=== PATIENT | male | born 1935 | race Caucasian/White ===

== ENCOUNTER 2017-10-13 16:22 | Inpatient (IN) | payer MEDICARE ==
[2017-10-13] MEDS ORDERED: SODIUM CHLORIDE 0.9% 500 ML IV STA (16:33)
[2017-10-13] MEDS ORDERED: IPRATROPIUM-ALBUTEROL 3 ML NEB INHALATION STA (17:02)
--- NOTE | 2017-10-13 17:07 | ED ---
Abdominal Pain HPI <Jamal Jefferson - Last Filed: 10/13/17 19:17> - General Source: patient, family, RN notes reviewed Mode of arrival: ambulatory Limitations: no limitations <Deep Casey - Last Filed: 10/13/17 19:25> - General Chief Complaint: Abdominal Pain Stated Complaint: PAUL, Abd Pain Time Seen by Provider: 10/13/17 16:31 - History of Present Illness Initial Comments: This an 82-year-old male presents emergency Department with multiple complaints. Patient states been having some ongoing abdominal discomfort has been worsening over the last month or so. Seems seems to move around. Shortly. States it hurts in his lower abdomen to right side. He also states she's been having increased pressure in his abdomen causing him to be short of breath. He denies any orthopnea or lower extremity edema. Patient states he does not have a past medical history though he states he has not been to a physician his entire life for regular checkups. Patient said no prior surgeries. Denies any current medications. 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 Patient denies any current fever, chills, night sweats. Does admit to recent 10 pound weight loss. Patient states was unintentional. Denies any melena med she is denies any dysuria hematuria. He has no current nausea or vomiting. (Deep Casey) - Related Data Home Medications Medication Instructions Recorded Confirmed Aspirin 162.5 mg PO DAILY 10/13/17 10/13/17 Allergies Allergy/AdvReac Type Severity Reaction Status Date / Time No Known Allergies Allergy Verified 10/13/17 16:45 Review of Systems ROS Other: All systems not noted in ROS Statement are negative. <Jamal Jefferson - Last Filed: 10/13/17 19:17> ROS Other: All systems not noted in ROS Statement are negative. <Deep Casey - Last Filed: 10/13/17 19:25> ROS Statement: Those systems with pertinent positive or pertinent negative responses have been documented in the HPI. Past Medical History Past Medical History: No Reported History History of Any Multi-Drug Resistant Organisms: None Reported Past Surgical History: No Surgical Hx Reported Past Psychological History: No Psychological Hx Reported Smoking Status: Current some day smoker Past Alcohol Use History: None Reported Past Drug Use History: None Reported <Deep Casey - Last Filed: 10/13/17 19:25> General Exam Limitations: no limitations General appearance: alert, in no apparent distress, cachectic Head exam: Present: atraumatic, normocephalic, normal inspection Eye exam: Present: normal appearance, PERRL, EOMI. Absent: scleral icterus, conjunctival injection, periorbital swelling ENT exam: Present: normal exam, normal oropharynx, mucous membranes moist Neck exam: Present: normal inspection, full ROM. Absent: tenderness, meningismus, lymphadenopathy Respiratory exam: Present: wheezes. Absent: normal lung sounds bilaterally, respiratory distress, rales, rhonchi, stridor Cardiovascular Exam: Present: regular rate, normal rhythm, normal heart sounds. Absent: systolic murmur, diastolic murmur, rubs, gallop, clicks GI/Abdominal exam: Present: soft, tenderness (Mild right), normal bowel sounds. Absent: distended, guarding, rebound, rigid Back exam: Absent: CVA tenderness (R), CVA tenderness (L) Neurological exam: Present: alert, oriented X3, CN II-XII intact, reflexes normal. Absent: motor sensory deficit Skin exam: Present: warm, dry, intact, normal color. Absent: rash <Deep Casey - Last Filed: 10/13/17 19:25> Course <Jamal Jefferson - Last Filed: 10/13/17 19:17> <Deep Casey - Last Filed: 10/13/17 19:25> Vital Signs 10/13/17 10/13/17 10/13/17 16:23 17:17 17:31 Temperature 97.0 F L Pulse Rate 86 74 75 Respiratory 18 16 Rate Blood Pressure 148/61 154/65 O2 Sat by Pulse 98 100 Oximetry 10/13/17 10/13/17 10/13/17 17:34 18:41 19:20 Temperature 98.6 F Pulse Rate 78 87 85 Respiratory 16 18 Rate Blood Pressure 135/63 154/67 O2 Sat by Pulse 96 1 L Oximetry - Reevaluation(s) Reevaluation #1: 10/13/17 19:17 PA supervision I personally do a [id number] evaluation the patient did discuss the findings with the patient and his . Patient will be admitted I did discuss case with the hospitalist. Dr. Zhou (Jamal Jefferson) Medical Decision Making - Lab Data Result diagrams: 10/13/17 16:59 10/13/17 16:59 <Jamal Jefferson - Last Filed: 10/13/17 19:17> - Lab Data Result diagrams: 10/13/17 16:59 10/13/17 16:59 <Deep Casey - Last Filed: 10/13/17 19:25> - Lab Data Lab Results 10/13/17 10/13/17 10/13/17 Range/Units 16:59 16:59 16:59 WBC 8.4 (3.8-10.6) k/uL RBC 3.80 L (4.30-5.90) m/uL Hgb 5.0 L* (13.0-17.5) gm/dL Hct 22.0 L (39.0-53.0) % MCV 57.9 L (80.0-100.0) fL MCH 13.2 L (25.0-35.0) pg MCHC 22.9 L (31.0-37.0) g/dL RDW 19.3 H (11.5-15.5) % Plt Count 450 (150-450) k/uL Neutrophils % 84 % Lymphocytes % 8 % Monocytes % 6 % Eosinophils % 1 % Basophils % 1 % Neutrophils # 7.1 (1.3-7.7) k/uL Lymphocytes # 0.7 L (1.0-4.8) k/uL Monocytes # 0.5 (0-1.0) k/uL Eosinophils # 0.1 (0-0.7) k/uL Basophils # 0.1 (0-0.2) k/uL Hypochromasia Marked Anisocytosis Slight Microcytosis Marked PT 10.2 (9.0-12.0) sec INR 1.0 (<1.2) APTT 20.0 L (22.0-30.0) sec D-Dimer 0.98 H (<0.60) mg/L FEU Sodium 143 (137-145) mmol/L Potassium 5.1 (3.5-5.1) mmol/L Chloride 105 (98-107) mmol/L Carbon Dioxide 25 (22-30) mmol/L Anion Gap 13 mmol/L BUN 24 H (9-20) mg/dL Creatinine 1.20 (0.66-1.25) mg/dL Est GFR (CKD-EPI)AfAm 66 (>60 ml/min/1.73 sqM) Est GFR (CKD-EPI)NonAf 57 (>60 ml/min/1.73 sqM) Glucose 110 H (74-99) mg/dL Plasma Lactic Acid Atilio (0.7-2.0) mmol/L Calcium 8.9 (8.4-10.2) mg/dL Total Bilirubin 0.4 (0.2-1.3) mg/dL AST 11 L (17-59) U/L ALT 15 L (21-72) U/L Alkaline Phosphatase 81 (38-126) U/L Troponin I (0.000-0.034) ng/mL NT-Pro-B Natriuret Pep pg/mL Total Protein 6.4 (6.3-8.2) g/dL Albumin 3.2 L (3.5-5.0) g/dL Amylase 58 (30-110) U/L Lipase 89 (23-300) U/L Blood Type Blood Type Confirm Blood Type Recheck Antibody Screen Crossmatch Spec Expiration Date 10/13/17 10/13/17 10/13/17 Range/Units 16:59 16:59 16:59 WBC (3.8-10.6) k/uL RBC (4.30-5.90) m/uL Hgb (13.0-17.5) gm/dL Hct (39.0-53.0) % MCV (80.0-100.0) fL MCH (25.0-35.0) pg MCHC (31.0-37.0) g/dL RDW (11.5-15.5) % Plt Count (150-450) k/uL Neutrophils % % Lymphocytes % % Monocytes % % Eosinophils % % Basophils % % Neutrophils # (1.3-7.7) k/uL Lymphocytes # (1.0-4.8) k/uL Monocytes # (0-1.0) k/uL Eosinophils # (0-0.7) k/uL Basophils # (0-0.2) k/uL Hypochromasia Anisocytosis Microcytosis PT (9.0-12.0) sec INR (<1.2) APTT (22.0-30.0) sec D-Dimer (<0.60) mg/L FEU Sodium (137-145) mmol/L Potassium (3.5-5.1) mmol/L Chloride (98-107) mmol/L Carbon Dioxide (22-30) mmol/L Anion Gap mmol/L BUN (9-20) mg/dL Creatinine (0.66-1.25) mg/dL Est GFR (CKD-EPI)AfAm (>60 ml/min/1.73 sqM) Est GFR (CKD-EPI)NonAf (>60 ml/min/1.73 sqM) Glucose (74-99) mg/dL Plasma Lactic Acid Atilio 1.3 (0.7-2.0) mmol/L Calcium (8.4-10.2) mg/dL Total Bilirubin (0.2-1.3) mg/dL AST (17-59) U/L ALT (21-72) U/L Alkaline Phosphatase (38-126) U/L Troponin I <0.012 (0.000-0.034) ng/mL NT-Pro-B Natriuret Pep 1420 pg/mL Total Protein (6.3-8.2) g/dL Albumin (3.5-5.0) g/dL Amylase (30-110) U/L Lipase (23-300) U/L Blood Type Blood Type Confirm Blood Type Recheck Antibody Screen Crossmatch Spec Expiration Date 10/13/17 10/13/17 Range/Units 16:59 18:23 WBC (3.8-10.6) k/uL RBC (4.30-5.90) m/uL Hgb (13.0-17.5) gm/dL Hct (39.0-53.0) % MCV (80.0-100.0) fL MCH (25.0-35.0) pg MCHC (31.0-37.0) g/dL RDW (11.5-15.5) % Plt Count (150-450) k/uL Neutrophils % % Lymphocytes % % Monocytes % % Eosinophils % % Basophils % % Neutrophils # (1.3-7.7) k/uL Lymphocytes # (1.0-4.8) k/uL Monocytes # (0-1.0) k/uL Eosinophils # (0-0.7) k/uL Basophils # (0-0.2) k/uL Hypochromasia Anisocytosis Microcytosis PT (9.0-12.0) sec INR (<1.2) APTT (22.0-30.0) sec D-Dimer (<0.60) mg/L FEU Sodium (137-145) mmol/L Potassium (3.5-5.1) mmol/L Chloride (98-107) mmol/L Carbon Dioxide (22-30) mmol/L Anion Gap mmol/L BUN (9-20) mg/dL Creatinine (0.66-1.25) mg/dL Est GFR (CKD-EPI)AfAm (>60 ml/min/1.73 sqM) Est GFR (CKD-EPI)NonAf (>60 ml/min/1.73 sqM) Glucose (74-99) mg/dL Plasma Lactic Acid Atilio (0.7-2.0) mmol/L Calcium (8.4-10.2) mg/dL Total Bilirubin (0.2-1.3) mg/dL AST (17-59) U/L ALT (21-72) U/L Alkaline Phosphatase (38-126) U/L Troponin I (0.000-0.034) ng/mL NT-Pro-B Natriuret Pep pg/mL Total Protein (6.3-8.2) g/dL Albumin (3.5-5.0) g/dL Amylase (30-110) U/L Lipase (23-300) U/L Blood Type A Positive Blood Type Confirm A Positive Blood Type Recheck CABO Indicated Antibody Screen NEGATIVE Crossmatch See Detail Spec Expiration Date 10/16/2017 - 9983 Disposition <Jamal Jefferson - Last Filed: 10/13/17 19:17> <Deep Casey - Last Filed: 10/13/17 19:25> Clinical Impression: Colonic mass, Anemia, Cholelithiasis, Pulmonary nodule, Weakness Disposition: ADMITTED IP TO THIS [facility] Condition: Fair Referrals: None,Stated [Primary Care Provider] - 1-2 days
[2017-10-13 17:14] LABS: Anisocytosis Slight; Basophils # (A) 0.1 k/uL (0-0.2); Basophils % (A) 1 %; Eosinophils # (A) 0.1 k/uL (0-0.7); Eosinophils % (A) 1 %; Hypochromasia Marked; Lymphocytes # (A) 0.7 k/uL (1.0-4.8); Lymphocytes % (A) 8 %; MCH 13.2 pg (25.0-35.0); MCHC 22.9 g/dL (31.0-37.0); MCV 57.9 fL (80.0-100.0); Mean Platelet Volume 7.3; Microcytosis Marked; Monocytes # (A) 0.5 k/uL (0-1.0); Monocytes % (A) 6 %; Neutrophils # (A) 7.1 k/uL (1.3-7.7); Neutrophils % (A) 84 %; Platelet Count 450 k/uL (150-450); RDW 19.3 % (11.5-15.5); WBC 8.4 k/uL (3.8-10.6)
[2017-10-13 17:25] LABS: Albumin 3.2 g/dL (3.5-5.0); Calcium 8.9 mg/dL (8.4-10.2); Potassium 5.1 mmol/L (3.5-5.1); Total Bilirubin 0.4 mg/dL (0.2-1.3); Total Protein 6.4 g/dL (6.3-8.2)
[2017-10-13 17:31] LABS: D-Dimer 0.98 mg/L FEU (<0.60); Prothrombin Time 10.2 sec (9.0-12.0)
[2017-10-13] MEDS ORDERED: RX INFO: IV CONTRAST WAS GIVEN 1 EACH MISC MISCELLANE PRN (18:01)
--- NOTE | 2017-10-13 18:06 | XR ---
EXAMINATION TYPE: XR chest 2V DATE OF EXAM: 10/13/2017 COMPARISON: None HISTORY: 82-year-old male with shortness of breath TECHNIQUE: PA and lateral views FINDINGS: The heart is normal size. Atherosclerotic arch calcifications. Hyperinflation with flattening of the hemidiaphragms. Calcified granuloma right midlung. Some subtle nodularity left suprahilar region. No consolidation or pleural effusion. IMPRESSION: 1. COPD without acute cardiopulmonary process. 2. Some nodularity in the left suprahilar region could represent superimposition shadow. Recommend no nemergent follow-up CT chest to exclude pulmonary nodules.
--- NOTE | 2017-10-13 18:07 | XR ---
EXAMINATION TYPE: XR KUB DATE OF EXAM: 10/13/2017 CLINICAL DATA: 82-year-old male with abdominal pain, PHH COMPARISON: None FINDINGS: No evidence for free intraperitoneal air. No dilated small bowel or air-fluid levels. Scattered air and stool seen throughout the colon extendi ng distally into the rectum. Scattered mild stool burden. Vascular calcifications in the pelvis. IMPRESSION: Mild stool burden. No evidence of bowel obstruction or free intraperitoneal air.
--- NOTE | 2017-10-13 18:53 | CT ---
EXAMINATION TYPE: CT chest angio for PE DATE OF EXAM: 10/13/2017 COMPARISON: Radiograph same day HISTORY: 82-year-old male complains of RUQ pain. TECHNIQUE: Contiguous axial scanning of the chest performed with IV Contrast, patient injected with 8 0 mL of Isovue 370. Coronal/sagittal MIP reconstructions performed. CT DLP: 130.3 mGycm Automated exposure control for dose reduction was used. FINDINGS: The heart is normal size without pericardial effusion. Coronary vessel calcifications are present in remarkable for coronary artery disease. Ascending aorta is ectatic at 3.7 cm with conventional arch vessel branching anatomy. Moderate athero sclerotic calcifications and plaque are present throughout especially the arch. Satisfactory opacification of the pulmonary arterial system without evidence for pulmonary embolus.. Mild diffuse anasarca type changes present. Scattered small mediastinal lymph nodes. Mildly enlarged right hilar lymph node at 1.3 cm. There is moderate emphysema, moderate to severe in the upper lungs. Biapical pleural parenchymal scar ring. A 4 mm left upper lobe pulmonary nodule is noted have a somewhat spiculated appearance. Groundg lass nodularity anterior left midlung measures 8 mm and should also be reassessed at follow-up. Diffu se bronchial wall thickening. Otherwise, no consolidation or pleural effusion. Abdomen reported separately. Visualized upper abdomen shows diffuse low-density nodularity of the le ft adrenal gland, probably related to adrenal hyperplasia. Bones: No osseous destructive process seen. IMPRESSION: 1. COPD WITH MODERATE EMPHYSEMA. NO EVIDENCE FOR PULMONARY EMBOLUS. 2. A 4 MM LEFT UPPER LOBE PULMONARY NODULE HAS A SOMEWHAT SPICULATED APPEARANCE. SIX-MONTH FOLLOW-UP RECOMMENDED. EARLY LUNG CANCER NOT EXCLUDED AT THIS TIME. 3. A SECOND 8 MM AREA OF NODULARITY ANTERIOR LEFT MIDLUNG COULD REPRESENT A SMALL INFECTIOUS/INFLAMMA TORY FOCUS. THIS SHOULD ALSO BE REASSESSED AT FOLLOW-UP.
--- NOTE | 2017-10-13 19:01 | CT ---
EXAMINATION TYPE: CT abdomen pelvis w con DATE OF EXAM: 10/13/2017 COMPARISON: NONE HISTORY: 82-year-old male complains of RUQ pain. TECHNIQUE: Contiguous axial scanning of the abdomen and pelvis following administration of 100 ml Omn ipaque 300 IV contrast. Delayed images through the kidneys and coronal/sagittal reconstructions perf ormed. CT DLP: 1243.2 mGycm Automated exposure control for dose reduction was used. FINDINGS: The heart is normal size without pericardial effusion. Emphysematous changes in the visualized lower lungs. No pleural effusion. No focal liver lesion. Portal venous system is patent. No biliary ductal dilatation. Gallbladder is packed with gallstones measuring up to 1.3 cm. No abnormal gallbladder distention over all thickening seen. Right adrenal gland, spleen, and pancreas show no gross abnormality. Couple subcentimeter hypodensities in both kidneys too small for accurate CT characterization, likely cysts. Indeterminate intermediate density lesion posterior right kidney axial image 24 shows attenua tion of 64 Hounsfield units on portal venous phase and 70 Hounsfield units on delayed kidney images s uggesting a complicated/hemorrhagic cyst. Diffuse nodular thickening of the left adrenal gland suggests underlying adrenal hyperplasia. No dilated small bowel, free fluid, or free air. Moderate atherosclerotic calcifications and plaque within the abdominal aorta and iliac arteries. Mor e severe atelectatic change within the right iliac arteries. There is focal distortion with extensive irregular wall thickening of the mid ascending colon for a l ength of 6.4 cm. No surrounding inflammatory changes are seen. The lumen is distorted and narrowed an d wall appears thickened up to 2.6 cm in some regions. Normal appendix. Sigmoid diverticulosis without acute diverticulitis. A few right lower quadrant mesenteric lymph nodes are prominent measuring up to 7 mm, axial image 32, 38, and 42. No retroperitoneal lymphadenopathy. Bladder partially urine distended. No abnormal fluid collection in the pelvis or pelvic lymphadenopat hy seen. Bones: Degenerative changes at the hips. There are bilateral L5 pars defects with grade 1 anterolisth esis at L5-S1. Advanced degenerative disc disease with grade 1 retrolisthesis at L4-L5. Facet arthrop athy throughout. No osseous destructive process. IMPRESSION: 1. MARKED IRREGULAR WALL THICKENING OF A 6.4 CM LONG SEGMENT OF MID ASCENDING COLON. THE LUMEN IS IRR EGULARLY NARROWED AND THE WALL IS THICKENED UP TO 2.6 CM. COLON CANCER SHOULD BE EXCLUDED. 2. A FEW ADJACENT PROMINENT RIGHT LOWER QUADRANT MESENTERIC LYMPH NODES MEASURING UP TO 7 MM ARE NONS PECIFIC. 3. EXTENSIVE CHOLELITHIASIS WITHOUT CT FINDINGS OF ACUTE CHOLECYSTITIS. 4. SIGMOID DIVERTICULOSIS.
[2017-10-13] MEDS: SODIUM CHLORIDE 0.9% 1,000 ML IV SCH (19:39)
--- NOTE | 2017-10-13 21:13 | P.HPIM ---
History of Present Illness H&P Date: 10/13/17 Chief Complaint: Abdominal pain This 74-year-old male with no significant past medical history who was admitted to the hospital for weakness and abdominal pain that has been gone for the last few weeks Patient states also that he has been having some shortness of breath denies having any rectal bleeding or vomiting Review of systems since systems has been reviewed all negative and positive findings as per GI Constitutional: No acute distress, conversant, pleasant Eyes: Anicteric sclerae, moist conjunctiva, no lid-lag PERRLA ENMT: NC/AT Oropharynx clear, no erythema, exudates Neck: Supple, FROM, no masses, or JVD No carotid bruits No thyromegaly Lungs: Clear to auscultation Clear to percussion Normal respiratory effort, no accessory muscle use Cardiovascular: Heart regular in rate and rhythm, No murmurs, gallops, or rubs No peripheral edema Abdominal: Soft Nontender, no guarding, rebound or rigidity Abdomen moving with respiration Normoactive bowel sounds No hepatomegaly, No splenomegaly No palpable mass No abdominal wall hernia noted Skin: Normal temperature, tone, texture, turgor No induration No subcutaneous nodules No rash, lesions No ulcers Extremities: No digital cyanosis No clubbing Pedal pulses intact and symmetrical Radial pulses intact and symmetrical Normal gait and station No calf tenderness Psychiatric:Alert and oriented to person, place and time Appropriate affect Intact judgement Neuro: Muscles Strength 5/5 in all 4 extremities Sensation to light touch grossly present throughout Cranial nerves II-XII grossly intact No focal sensory deficits Vital Signs - 24 hr 10/13/17 10/13/17 10/13/17 16:23 17:17 17:31 Temperature 97.0 F L Pulse Rate 86 74 75 Respiratory 18 16 Rate Blood Pressure 148/61 154/65 O2 Sat by Pulse 98 100 Oximetry 10/13/17 10/13/17 10/13/17 17:34 18:41 19:20 Temperature 98.6 F Pulse Rate 78 87 85 Respiratory 16 18 Rate Blood Pressure 135/63 154/67 O2 Sat by Pulse 96 1 L Oximetry 10/13/17 10/13/17 10/13/17 19:31 19:36 19:46 Temperature 98.7 F 98.4 F 97.9 F Pulse Rate 83 80 86 Respiratory 18 16 17 Rate Blood Pressure 150/68 134/61 148/66 O2 Sat by Pulse 99 100 100 Oximetry 10/13/17 20:16 Temperature 97.9 F Pulse Rate 77 Respiratory 18 Rate Blood Pressure 126/59 O2 Sat by Pulse 10 L Oximetry 6 Past Medical History: No Reported History History of Any Multi-Drug Resistant Organisms: None Reported Past Surgical History: No Surgical Hx Reported Past Psychological History: No Psychological Hx Reported Smoking Status: Current some day smoker Past Alcohol Use History: None Reported Past Drug Use History: None Reported Laboratory Results - last 24 hr 10/13/17 10/13/17 10/13/17 16:59 16:59 16:59 WBC 8.4 RBC 3.80 L Hgb 5.0 L* Hct 22.0 L MCV 57.9 L MCH 13.2 L MCHC 22.9 L RDW 19.3 H Plt Count 450 Neutrophils % 84 Lymphocytes % 8 Monocytes % 6 Eosinophils % 1 Basophils % 1 Neutrophils # 7.1 Lymphocytes # 0.7 L Monocytes # 0.5 Eosinophils # 0.1 Basophils # 0.1 Hypochromasia Marked Anisocytosis Slight Microcytosis Marked PT 10.2 INR 1.0 APTT 20.0 L D-Dimer 0.98 H Sodium 143 Potassium 5.1 Chloride 105 Carbon Dioxide 25 Anion Gap 13 BUN 24 H Creatinine 1.20 Est GFR (CKD-EPI)AfAm 66 Est GFR (CKD-EPI)NonAf 57 Glucose 110 H Plasma Lactic Acid Atilio Calcium 8.9 Total Bilirubin 0.4 AST 11 L ALT 15 L Alkaline Phosphatase 81 Troponin I NT-Pro-B Natriuret Pep Total Protein 6.4 Albumin 3.2 L Amylase 58 Lipase 89 Blood Type Blood Type Confirm Blood Type Recheck Antibody Screen Crossmatch Spec Expiration Date 10/13/17 10/13/17 10/13/17 16:59 16:59 16:59 WBC RBC Hgb Hct MCV MCH MCHC RDW Plt Count Neutrophils % Lymphocytes % Monocytes % Eosinophils % Basophils % Neutrophils # Lymphocytes # Monocytes # Eosinophils # Basophils # Hypochromasia Anisocytosis Microcytosis PT INR APTT D-Dimer Sodium Potassium Chloride Carbon Dioxide Anion Gap BUN Creatinine Est GFR (CKD-EPI)AfAm Est GFR (CKD-EPI)NonAf Glucose Plasma Lactic Acid Atilio 1.3 Calcium Total Bilirubin AST ALT Alkaline Phosphatase Troponin I <0.012 NT-Pro-B Natriuret Pep 1420 Total Protein Albumin Amylase Lipase Blood Type Blood Type Confirm Blood Type Recheck Antibody Screen Crossmatch Spec Expiration Date 10/13/17 10/13/17 16:59 18:23 WBC RBC Hgb Hct MCV MCH MCHC RDW Plt Count Neutrophils % Lymphocytes % Monocytes % Eosinophils % Basophils % Neutrophils # Lymphocytes # Monocytes # Eosinophils # Basophils # Hypochromasia Anisocytosis Microcytosis PT INR APTT D-Dimer Sodium Potassium Chloride Carbon Dioxide Anion Gap BUN Creatinine Est GFR (CKD-EPI)AfAm Est GFR (CKD-EPI)NonAf Glucose Plasma Lactic Acid Atilio Calcium Total Bilirubin AST ALT Alkaline Phosphatase Troponin I NT-Pro-B Natriuret Pep Total Protein Albumin Amylase Lipase Blood Type A Positive Blood Type Confirm A Positive Blood Type Recheck CABO Indicated Antibody Screen NEGATIVE Crossmatch See Detail Spec Expiration Date 10/16/2017 9218 Assessment and plan Severe anemia exact etiology is not clear but likely to be GI in origin We will consult gastroenterology the patient may need to have a colonoscopic Colon mass Shortness of breath likely due to symptomatic severe anemia Weakness We will transfuse the patient 2 units of packed RBCs and repeat hemoglobin the patient may need another 2 units Admit the patient to regular medical floor DVT and GI prophylaxis will not be able to start the patient on any Lovenox or heparin due to the severe anemia Past Medical History Past Medical History: No Reported History History of Any Multi-Drug Resistant Organisms: None Reported Past Surgical History: No Surgical Hx Reported Past Psychological History: No Psychological Hx Reported Smoking Status: Current some day smoker Past Alcohol Use History: None Reported Past Drug Use History: None Reported Medications and Allergies Home Medications Medication Instructions Recorded Confirmed Type Aspirin 162.5 mg PO DAILY 10/13/17 10/13/17 History Allergies Allergy/AdvReac Type Severity Reaction Status Date / Time No Known Allergies Allergy Verified 10/13/17 16:45 Physical Exam Vitals: Vital Signs Temp Pulse Resp BP Pulse Ox 10/13/17 20:16 97.9 F 77 18 126/59 10 L 10/13/17 19:46 97.9 F 86 17 148/66 100 10/13/17 19:36 98.4 F 80 16 134/61 100 10/13/17 19:31 98.7 F 83 18 150/68 99 10/13/17 19:20 98.6 F 85 18 154/67 1 L 10/13/17 18:41 87 16 135/63 96 10/13/17 17:34 78 10/13/17 17:31 75 16 154/65 100 10/13/17 17:17 74 10/13/17 16:23 97.0 F L 86 18 148/61 98 Intake and Output 10/13/17 10/13/17 10/13/17 06:59 14:59 22:59 Intake Total 0 Balance 0 Intake: Blood Product 0 Rc As-1 Unit 0 [id number] Other: Weight 58.967 kg Results CBC & Chem 7: 10/13/17 16:59 10/13/17 16:59 Labs: Abnormal Lab Results - Last 24 Hours (Table) 10/13/17 10/13/17 10/13/17 Range/Units 16:59 16:59 16:59 RBC 3.80 L (4.30-5.90) m/uL Hgb 5.0 L* (13.0-17.5) gm/dL Hct 22.0 L (39.0-53.0) % MCV 57.9 L (80.0-100.0) fL MCH 13.2 L (25.0-35.0) pg MCHC 22.9 L (31.0-37.0) g/dL RDW 19.3 H (11.5-15.5) % Lymphocytes # 0.7 L (1.0-4.8) k/uL APTT 20.0 L (22.0-30.0) sec D-Dimer 0.98 H (<0.60) mg/L FEU BUN 24 H (9-20) mg/dL Glucose 110 H (74-99) mg/dL AST 11 L (17-59) U/L ALT 15 L (21-72) U/L Albumin 3.2 L (3.5-5.0) g/dL Crossmatch 10/13/17 Range/Units 16:59 RBC (4.30-5.90) m/uL Hgb (13.0-17.5) gm/dL Hct (39.0-53.0) % MCV (80.0-100.0) fL MCH (25.0-35.0) pg MCHC (31.0-37.0) g/dL RDW (11.5-15.5) % Lymphocytes # (1.0-4.8) k/uL APTT (22.0-30.0) sec D-Dimer (<0.60) mg/L FEU BUN (9-20) mg/dL Glucose (74-99) mg/dL AST (17-59) U/L ALT (21-72) U/L Albumin (3.5-5.0) g/dL Crossmatch See Detail
[2017-10-13] MEDS ORDERED: ONDANSETRON 4 MG/2 ML VIAL IVP PRN (21:14)
[2017-10-13] MEDS ORDERED: ACETAMINOPHEN TAB 325 MG TAB PO PRN (21:14)
[2017-10-14 02:37] LABS: Appearance,Urine Clear (Clear); Bilirubin,Urine Negative (Negative); Blood,Urine Negative (Negative); Color,Urine Yellow; Glucose,Urine (UA) Negative (Negative); Ketones,Urine Negative (Negative); Leukocyte Esterase,Urine Negative (Negative); Nitrite,Urine Negative (Negative); PH, Urine 5.5 (5.0-8.0); Protein,Urine Negative (Negative); Urobilinogen,Urine <2.0 mg/dL (<2.0)
[2017-10-14 07:11] LABS: Anisocytosis Marked; HCT 27.2 % (39.0-53.0); Hypochromasia Marked; MCH 17.6 pg (25.0-35.0); MCHC 25.8 g/dL (31.0-37.0); Mean Platelet Volume 6.7; Microcytosis Marked; Platelet Count 349 k/uL (150-450); Poikilocytosis Marked; WBC 7.5 k/uL (3.8-10.6)
[2017-10-14 07:17] LABS: RDW 25.5 % (11.5-15.5)
[2017-10-14 08:07] LABS: Eosinophils # (M) 0.15 k/uL (0-0.7); Lymphocytes # (M) 0.75 k/uL (1.0-4.8); Monocytes # (M) 0.23 k/uL (0-1.0); Neutrophils # (M) 6.38 k/uL (1.3-7.7); Neutrophils % (M) 85 %; Nucleated Red Blood Cells 0 /100 WBC (0-0); Total Cells Counted 100
[2017-10-14 08:08] LABS: Polychromasia Present; Target Cells Present
[2017-10-14 08:09] LABS: Ovalocytes Present
[2017-10-14 08:12] LABS: Mixed Population RBC Present
[2017-10-14 08:13] LABS: RBC Fragments Present; Spherocytes Present
[2017-10-14] MEDS: PANTOPRAZOLE 40 MG/10 ML VIAL IV SCH (08:54)
[2017-10-14] MEDS: SODIUM CHLORIDE 0.9% 1,000 ML IV SCH ×2 (09:00→21:41)
--- NOTE | 2017-10-14 10:55 | P.PN ---
Subjective Progress Note Date: 10/14/17 Principal diagnosis: Weakness and shortness of breath No abdominal pain, no nausea or vomiting. Had a bowel movement that did not reveal any blood or black stools. Objective - Vital Signs Vital signs: Vital Signs Temp 97.5 F L 10/14/17 08:00 Pulse 85 10/14/17 08:00 Resp 16 10/14/17 08:00 BP 143/66 10/14/17 08:00 Pulse Ox 100 10/14/17 08:00 Intake & Output 10/13/17 10/14/17 10/14/17 18:59 06:59 18:59 Intake Total 620 120 Output Total 250 Balance 370 120 Weight 58.967 kg 56.8 kg Intake: Oral 120 Blood Product 620 Rc As-1 Unit 310 [id number] Rc As-1 Unit 310 [id number] Output: Urine 250 Other: # Voids 1 1 - Exam Constitutional: No acute distress, conversant, pleasant Eyes:Anicteric sclerae, moist conjunctiva, no lid-lag, PERRLA, ENMT: Oropharynx clear, no erythema, exudates Neck: Supple, FROM, no masses, or JVD, No carotid bruits, No thyromegaly Lungs: Clear to auscultation, Clear to percussion, Normal respiratory effort, no accessory muscle use Cardiovascular: Heart regular in rate and rhythm, No murmurs, gallops, or rubs, No peripheral edema Abdominal: Soft, Nontender, no guarding, rebound or rigidity, Normoactive bowel sounds, No hepatomegaly, No splenomegaly, No palpable mass Skin: Normal temperature, tone, texture, turgor, no induration, No subcutaneous nodules, No rash, lesions, No ulcers Extremities: No digital cyanosis, No clubbing, Pedal pulses intact and symmetrical, Radial pulses intact and symmetrical, No calf tenderness Psychiatric: Alert and oriented to person, place and time, appropriate affect, intact judgement Neuro: Muscles Strength 5/5 in all 4 extremities, Sensation to light touch grossly present throughout, Cranial nerves II-XII grossly intact, no focal sensory deficits - Labs CBC & Chem 7: 10/14/17 06:05 10/13/17 16:59 Labs: Abnormal Lab Results - Last 24 Hours (Table) 10/13/17 10/13/17 10/13/17 Range/Units 16:59 16:59 16:59 RBC 3.80 L (4.30-5.90) m/uL Hgb 5.0 L* (13.0-17.5) gm/dL Hct 22.0 L (39.0-53.0) % MCV 57.9 L (80.0-100.0) fL MCH 13.2 L (25.0-35.0) pg MCHC 22.9 L (31.0-37.0) g/dL RDW 19.3 H (11.5-15.5) % Lymphocytes # 0.7 L (1.0-4.8) k/uL Lymphocytes # (Manual) (1.0-4.8) k/uL Retic Count (0.5-2.0) % APTT 20.0 L (22.0-30.0) sec D-Dimer 0.98 H (<0.60) mg/L FEU BUN 24 H (9-20) mg/dL Glucose 110 H (74-99) mg/dL AST 11 L (17-59) U/L ALT 15 L (21-72) U/L Albumin 3.2 L (3.5-5.0) g/dL Ur Specific [place] (1.001-1.035) Crossmatch 10/13/17 10/13/17 10/13/17 Range/Units 16:59 16:59 23:43 RBC (4.30-5.90) m/uL Hgb (13.0-17.5) gm/dL Hct (39.0-53.0) % MCV (80.0-100.0) fL MCH (25.0-35.0) pg MCHC (31.0-37.0) g/dL RDW (11.5-15.5) % Lymphocytes # (1.0-4.8) k/uL Lymphocytes # (Manual) (1.0-4.8) k/uL Retic Count 3.0 H (0.5-2.0) % APTT (22.0-30.0) sec D-Dimer (<0.60) mg/L FEU BUN (9-20) mg/dL Glucose (74-99) mg/dL AST (17-59) U/L ALT (21-72) U/L Albumin (3.5-5.0) g/dL Ur Specific [place] 1.050 H (1.001-1.035) Crossmatch See Detail 10/14/17 Range/Units 06:05 RBC 4.00 L (4.30-5.90) m/uL Hgb 7.0 L* D (13.0-17.5) gm/dL Hct 27.2 L (39.0-53.0) % MCV 68.0 L D (80.0-100.0) fL MCH 17.6 L (25.0-35.0) pg MCHC 25.8 L (31.0-37.0) g/dL RDW 25.5 H (11.5-15.5) % Lymphocytes # (1.0-4.8) k/uL Lymphocytes # (Manual) 0.75 L (1.0-4.8) k/uL Retic Count (0.5-2.0) % APTT (22.0-30.0) sec D-Dimer (<0.60) mg/L FEU BUN (9-20) mg/dL Glucose (74-99) mg/dL AST (17-59) U/L ALT (21-72) U/L Albumin (3.5-5.0) g/dL Ur Specific [place] (1.001-1.035) Crossmatch Assessment and Plan Plan: #1 Severe anemia: MCV is very low consistent with blood loss anemia I called the labs to add on anemia workup including iron profile, ferritin, transferrin, vitamin B12 level, RBC folate and reticulocyte count 2+ peripheral prior to transfusion. Status post 2 units of packed red blood cells transfusion, hemoglobin came up appropriately, will need 1 more unit. Recheck in the morning Awaiting GI consult #2 Colon mass: Shown on computed tomography scan of the abdomen Likely needs colonoscopy with biopsy #3 Shortness of breath/Weakness Likely due to symptomatic severe anemia #4 DVT prophylaxis Patient is ambulatory, low risk
[2017-10-14] MEDS ORDERED: PEG 3350-NA SULF,BICARB,CL/KCL 4,000 ML BOTTLE PO ONE (13:25)
[2017-10-14 17:39] LABS: Folate, Serum 14.1 ng/mL; Iron Saturation 1.91 (15.00-50.00)
[2017-10-15 06:30] LABS: Anisocytosis Marked; HCT 28.8 % (39.0-53.0); Hypochromasia Marked; Mean Platelet Volume 8.2; Microcytosis Marked; Poikilocytosis Marked; RBC 4.11 m/uL (4.30-5.90)
[2017-10-15 06:35] LABS: Glucose 68 mg/dL (74-99)
[2017-10-15 06:36] LABS: Anion Gap 10 mmol/L; Blood Urea Nitrogen 14 mg/dL (9-20); Calcium 8.3 mg/dL (8.4-10.2); Carbon Dioxide 23 mmol/L (22-30); Chloride 107 mmol/L (98-107); Magnesium 1.8 mg/dL (1.6-2.3); Phosphorus 3.2 mg/dL (2.5-4.5); Potassium 4.2 mmol/L (3.5-5.1); Sodium 140 mmol/L (137-145)
[2017-10-15 06:46] LABS: HGB 7.7 gm/dL (13.0-17.5); MCH 18.9 pg (25.0-35.0); MCHC 26.9 g/dL (31.0-37.0); MCV 70.2 fL (80.0-100.0); Platelet Count 360 k/uL (150-450); RDW 26.1 % (11.5-15.5); WBC 6.3 k/uL (3.8-10.6)
[2017-10-15 07:04] LABS: Basophils # (M) 0.19 k/uL (0-0.2); Eosinophils # (M) 0.32 k/uL (0-0.7); Lymphocytes # (M) 1.26 k/uL (1.0-4.8); Monocytes # (M) 0.57 k/uL (0-1.0); Neutrophils # (M) 3.97 k/uL (1.3-7.7); Neutrophils % (M) 63 %; Nucleated Red Blood Cells 0 /100 WBC (0-0); Total Cells Counted 100
[2017-10-15 07:06] LABS: Ovalocytes Present
[2017-10-15 07:09] LABS: Polychromasia Present
[2017-10-15] MEDS: PANTOPRAZOLE 40 MG/10 ML VIAL IV SCH (07:58)
--- NOTE | 2017-10-15 11:00 | P.PN ---
Subjective Principal diagnosis: Weakness and shortness of breath No evidence of bleeding, no nausea or vomiting. No abdominal pain. Objective - Vital Signs Vital signs: Vital Signs Temp 97.7 F 10/15/17 08:03 Pulse 80 10/15/17 08:03 Resp 18 10/15/17 08:03 BP 118/59 10/15/17 08:03 Pulse Ox 99 10/15/17 08:03 Intake & Output 10/14/17 10/15/17 10/15/17 18:59 06:59 18:59 Intake Total 480 1450 Balance 480 1450 Weight 56.8 kg 55.1 kg Intake: Intake, IV Titration 450 Amount Sodium Chloride 0.9% 1, 450 000 ml @ 75 mls/hr IV . [id number] [facility] Rx#:[id number] Oral 480 1000 Blood Product 0 0 Rc As-1 Unit 0 0 [id number] Other: # Voids 1 3 # Bowel Movements 0 6 - Exam Constitutional: No acute distress, conversant, pleasant Eyes:Anicteric sclerae, moist conjunctiva, no lid-lag, PERRLA, ENMT: Oropharynx clear, no erythema, exudates Neck: Supple, FROM, no masses, or JVD, No carotid bruits, No thyromegaly Lungs: Clear to auscultation, Clear to percussion, Normal respiratory effort, no accessory muscle use Cardiovascular: Heart regular in rate and rhythm, No murmurs, gallops, or rubs, No peripheral edema Abdominal: Soft, Nontender, no guarding, rebound or rigidity, Normoactive bowel sounds, No hepatomegaly, No splenomegaly, No palpable mass Skin: Normal temperature, tone, texture, turgor, no induration, No subcutaneous nodules, No rash, lesions, No ulcers Extremities: No digital cyanosis, No clubbing, Pedal pulses intact and symmetrical, Radial pulses intact and symmetrical, No calf tenderness Psychiatric: Alert and oriented to person, place and time, appropriate affect, intact judgement Neuro: Muscles Strength 5/5 in all 4 extremities, Sensation to light touch grossly present throughout, Cranial nerves II-XII grossly intact, no focal sensory deficits - Labs CBC & Chem 7: 10/15/17 05:47 10/15/17 05:47 Labs: Abnormal Lab Results - Last 24 Hours (Table) 10/13/17 10/13/17 10/13/17 Range/Units 16:59 16:59 16:59 RBC (4.30-5.90) m/uL Hgb (13.0-17.5) gm/dL Hct (39.0-53.0) % MCV (80.0-100.0) fL MCH (25.0-35.0) pg MCHC (31.0-37.0) g/dL RDW (11.5-15.5) % Glucose (74-99) mg/dL Calcium (8.4-10.2) mg/dL Iron 7 L (65-175) ug/dL Iron Saturation 1.91 L (15.00-50.00) Ferritin 1.9 L (22.0-322.0) ng/mL RBC Folate 1,109 H (280 - 791) ng/mL Crossmatch See Detail 10/15/17 10/15/17 Range/Units 05:47 05:47 RBC 4.11 L (4.30-5.90) m/uL Hgb 7.7 L (13.0-17.5) gm/dL Hct 28.8 L (39.0-53.0) % MCV 70.2 L (80.0-100.0) fL MCH 18.9 L (25.0-35.0) pg MCHC 26.9 L (31.0-37.0) g/dL RDW 26.1 H (11.5-15.5) % Glucose 68 L (74-99) mg/dL Calcium 8.3 L (8.4-10.2) mg/dL Iron (65-175) ug/dL Iron Saturation (15.00-50.00) Ferritin (22.0-322.0) ng/mL RBC Folate (280 - 791) ng/mL Crossmatch Assessment and Plan Plan: #1 Severe anemia: MCV is very low consistent with blood loss anemia Iron profile, ferritin are consistent with iron deficiency Vitamin B12 level, RBC folate within normal limits Status post 3 units of packed red blood cells transfusion, hemoglobin came up appropriately. GI planning colonoscopy today #2 Colon mass: Shown on computed tomography scan of the abdomen Colonoscopy with biopsy today #3 Shortness of breath/Weakness Likely due to symptomatic severe anemia Improved with blood transfusion #4 DVT prophylaxis Patient is ambulatory, low risk
[2017-10-15] MEDS ORDERED: IV FLUID CONTINUATION 1,000 ML IV ONE (16:00)
[2017-10-15] MEDS ORDERED: PROPOFOL 10 MG/ML 20 ML VIAL IV ONE (16:01)
--- NOTE | 2017-10-15 16:10 | P.CONS ---
History of Present Illness - Reason for Consult Consult date: 10/14/[address] of the abdomen - History of Present Illness The patient is an 82-year-old male with no significant past medical history who presented to the emergency room with abdominal pain and weakness of recent onset. The patient was found to have profound anemia. He was admitted and transfused. CT of the abdomen showed abnormal segment in the right colon could represent malignancy. The patient denies any overt bleeding. He denies dysphagia, odynophagia or hematemesis. No hematochezia or melena. No change in bowel habits. Review of Systems Constitutional: He denies fever, chills or unintentional weight loss Neurologic: No headaches, double vision or other sensory or motor changes Gastrointestinal: See present [place] Cardiopulmonary: No chest pains, shortness of breath or palpitations Genitourinary: No hematuria, dysuria or frequency Hematologic: No bruises or bleeding tendency Endocrine: No history of diabetes or thyroid disease Skin: No rashes Psychiatric: No anxiety or depression Past Medical History Past Medical History: No Reported History History of Any Multi-Drug Resistant Organisms: None Reported Past Surgical History: No Surgical Hx Reported Past Anesthesia/Blood Transfusion Reactions: No Reported Reaction Past Psychological History: No Psychological Hx Reported Smoking Status: Current some day smoker Past Alcohol Use History: None Reported Past Drug Use History: None Reported - Past Family History Father Additional Family Medical History / Comment(s): Prostate cancer Mother Family Medical History: No Reported History Medications and Allergies Home Medications Medication Instructions Recorded Confirmed Type Aspirin 162.5 mg PO DAILY 10/13/17 10/13/17 History Allergies Allergy/AdvReac Type Severity Reaction Status Date / Time No Known Allergies Allergy Verified 10/13/17 16:45 Physical Exam Vitals: Vital Signs Temp Pulse Pulse Resp BP BP Pulse Ox 10/14/17 17:22 97.3 F L 89 18 151/87 10/14/17 16:52 97.4 F L 92 18 137/70 10/14/17 16:42 97.3 F L 69 18 133/58 100 10/14/17 16:00 97.3 F L 69 18 142/63 100 10/14/17 11:32 97.5 F L 62 18 141/60 97 10/14/17 08:00 97.5 F L 85 16 143/66 100 10/14/17 04:00 79 18 147/65 100 10/14/17 01:48 98.6 F 93 18 129/72 99 10/13/17 23:37 97.6 F 84 18 164/58 10/13/17 23:07 98.1 F 80 16 128/59 98 10/13/17 23:06 98.1 F 80 16 126/59 98 10/13/17 22:57 98.1 F 85 18 128/60 98 10/13/17 22:45 98.0 F 84 18 126/74 99 10/13/17 20:23 96.9 F L 82 16 139/74 100 Intake and Output 10/14/17 10/14/17 10/14/17 06:59 14:59 22:59 Intake Total 310 120 360 Balance 310 120 360 Intake: Oral 120 360 Blood Product 310 0 Rc As-1 Unit 310 [id number] Rc As-1 Unit 0 [id number] Other: # Voids 1 2 1 # Bowel Movements 0 Weight 56.8 kg 56.8 kg General: Appeared stated age, very pleasant in no acute distress Head and neck: Normocephalic and atraumatic. Conjunctivae pink sclerae not icteric. Mucous membranes moist and pink. No masses and an echo tracheal shifts. Lungs: Clear to auscultation with no dullness to percussion Heart: No abnormal sounds, murmurs, gallops or friction rubs Abdomen: No masses, organomegalies or tenderness. Bowel sounds present Extremities: No clubbing, cyanosis or edema Neurologic: Alert and oriented 3. Cranial nerves grossly intact, no gross sensory or motor abnormalities Results CBC & Chem 7: 10/15/17 05:47 10/15/17 05:47 Labs: Abnormal Lab Results - Last 24 Hours (Table) 10/13/17 10/13/17 10/13/17 Range/Units 16:59 16:59 16:59 RBC (4.30-5.90) m/uL Hgb (13.0-17.5) gm/dL Hct (39.0-53.0) % MCV (80.0-100.0) fL MCH (25.0-35.0) pg MCHC (31.0-37.0) g/dL RDW (11.5-15.5) % Lymphocytes # (Manual) (1.0-4.8) k/uL Retic Count 3.0 H (0.5-2.0) % Ferritin 1.9 L (22.0-322.0) ng/mL Ur Specific [place] (1.001-1.035) Crossmatch See Detail 10/13/17 10/14/17 Range/Units 23:43 06:05 RBC 4.00 L (4.30-5.90) m/uL Hgb 7.0 L* D (13.0-17.5) gm/dL Hct 27.2 L (39.0-53.0) % MCV 68.0 L D (80.0-100.0) fL MCH 17.6 L (25.0-35.0) pg MCHC 25.8 L (31.0-37.0) g/dL RDW 25.5 H (11.5-15.5) % Lymphocytes # (Manual) 0.75 L (1.0-4.8) k/uL Retic Count (0.5-2.0) % Ferritin (22.0-322.0) ng/mL Ur Specific [place] 1.050 H (1.001-1.035) Crossmatch Assessment and Plan Assessment: Iron Deficiency Anemia with Abnormal CT. The Possibility of Right Colon Neoplasm Is Considered. Because of his abdominal pain and the degree of his anemia, and upper endoscopy will be considered at the time of his colonoscopy. Plan: I will proceed with EGD and colonoscopy tomorrow.
--- NOTE | 2017-10-15 16:44 | P.PCN ---
Date of Procedure: 10/15/17 Procedure(s) Performed: Procedure: 1. Esophagogastroduodenoscopy. 2. Colonoscopy and biopsy. Preoperative diagnosis: Profound iron deficiency anemia and abnormal CT of the abdomen. Postoperative diagnosis: 1. Small sliding hiatal hernia with no obvious esophagitis or complicated reflux disease. 2. Minimal gastritis and duodenitis with no ulcers or gastric outlet obstruction or bleeding. 3. Sigmoid diverticulosis with no evidence of acute diverticulitis. 4. Partially obstructing in the mid right colon consistent with cancer biopsies obtained. 5. Large sigmoid polyps biopsied to rule out malignancy. Preparation: GoLYTELY prep. Sedation: Was provided by anesthesia. Brief clinical history: The patient is an 82-year-old male with no significant past medical history who presented to the emergency room with abdominal pain and weakness of recent onset. The patient was found to have profound anemia. He was admitted and transfused. CT of the abdomen showed abnormal segment in the right colon could represent malignancy. The patient denies any overt bleeding. He denies dysphagia, odynophagia or hematemesis. No hematochezia or melena. No change in bowel habits. The details are summarized in the history and physical and dictated consultations and progress notes. This evaluation is to assess for a source of bleeding and anemia. Procedure: With the patient on his left lateral decubitus position and after informed consent and adequate sedation, I passed the Olympus-GIF 160 video upper endoscope through the cricopharyngeus down the esophagus. There was a small sliding hiatal hernia but no obvious esophagitis or complicated reflux disease. The endoscope was then passed into the stomach which was insufflated with air and inspected in detail including the retroflex view in the cardia. There was minimal mottling and erythema in the antrum but no ulcers or erosions. Pyloric channel did not show any ulcers. Duodenal bulb showed minimal erythema but no ulcers or erosions. Post bulbar area and descending duodenum appeared within normal limits. No ulcers or bleeding was noted. No biopsies were indicated then I proceeded with the colonoscopy. Perianal area did not show any fissures or fistulas. There were no masses felt on digital rectal examination. The Olympus CFQ 160L video colonoscope was then inserted in the rectum and the usual fashion and advanced to the right colon. The preparation was less than ideal and there was thick fecal secretions and fecal material encountered. There was no spontaneous bleeding. There was a partially obstructing mass in the right colon that is consistent with cancer and did not allow the advancement of the endoscope. I obtained a picture and multiple biopsies of that mass. There were other abnormalities noted in the colon. There were 2 large polyps more than 3 or 4 cm in size in the sigmoid at 20 and at 35 cm from the anal verge which I biopsied. There were multiple diverticular orifices seen scattered in the sigmoid with no obvious diverticulitis. There were other small, medium-sized and diminutive polyps seen along the length of the bowel which I did not biopsy or snare. I retroflexed the endoscope in the rectum before the endoscope was withdrawn. The patient tolerated the procedure well. Plan: I discussed the findings with the patient and his family. Will await biopsy results and make further plans. I will discuss with you and continue to follow with you with interest.
--- NOTE | 2017-10-15 17:40 | P.CONS ---
History of Present Illness - Reason for Consult Consult date: 10/15/17 colon mass, anemia Requesting physician: Tavon Patinoibel - Chief Complaint progressive weakness - History of Present Illness Mr. Rick is a very pleasant 82 year old male with an unremarkable medical history, taking only 1/2 an aspirin a day for over 40 years. He started having intermittent abd pain about 2 mo ago, it was in the RLQ, did sometimes feel better after a BM, denied grossly bloody or black stool or any other associated symptoms, and being that is only happened once in a while he didn't pay much attention to it. Then over the last few weeks he started noticing progressive PAUL and SOB on exertion, he was also feeling slower and tired more easily, the weakness is what finally brought him to the hospital. CT showed right colon thickening, lymphadenpathy in the same area and some non- specific lung nodules that need to be followed. He is having colonoscopy today. Pt states a 10lb unintentional wt. loss over the last month or so, denied dysphagia, nausea or vomiting, his breathing is better after blood transfusion, he is a 1/2-1ppd smoker since he was 14 years old, denied changes in his bowel or bladder habits, no other pain to report besides the abdomen, pt has no other physical c/o on complete ROS. He can perform ADLs and IADLs independently, he and his live alone their son and granddaughter have moved in with them. Review of Systems 14 point ROS as stated in HPI Past Medical History Past Medical History: No Reported History History of Any Multi-Drug Resistant Organisms: None Reported Past Surgical History: No Surgical Hx Reported Past Anesthesia/Blood Transfusion Reactions: No Reported Reaction Past Psychological History: No Psychological Hx Reported Smoking Status: Current some day smoker Past Alcohol Use History: None Reported Past Drug Use History: None Reported - Past Family History Father Additional Family Medical History / Comment(s): Prostate cancer Mother Family Medical History: No Reported History Medications and Allergies Home Medications Medication Instructions Recorded Confirmed Type Aspirin 162.5 mg PO DAILY 10/13/17 10/13/17 History Allergies Allergy/AdvReac Type Severity Reaction Status Date / Time No Known Allergies Allergy Verified 10/13/17 16:45 Physical Exam Vitals: Vital Signs Temp Pulse Pulse Resp BP BP Pulse Ox 10/15/17 14:35 88 18 10/15/17 11:52 97.5 F L 88 16 147/53 94 L 10/15/17 08:03 97.7 F 63 16 118/59 99 10/15/17 04:00 98.5 F 80 18 136/77 99 10/15/17 00:00 98.8 F 74 18 141/64 99 10/14/17 21:38 98.2 F 64 18 128/60 10/14/17 21:37 98.5 F 60 18 128/60 98 10/14/17 20:00 98.2 F 64 18 128/60 98 10/14/17 17:22 97.3 F L 89 18 151/87 10/14/17 16:52 97.4 F L 92 18 137/70 Intake and Output 10/15/17 10/15/17 10/15/17 06:59 14:59 22:59 Intake Total 1450 150 Balance 1450 150 Intake: IV 150 Intake, IV Titration 450 Amount Sodium Chloride 0.9% 1, 450 000 ml @ 75 mls/hr IV . [id number] Rx#:[id number] Oral 1000 Other: # Voids 3 1 1 # Bowel Movements 6 Weight 55.1 kg - Constitutional General appearance: average body habitus, cooperative, no acute distress - EENT Eyes: anicteric sclerae, EOMI, normal appearance ENT: hearing grossly normal, normal oropharynx - Neck Neck: no lymphadenopathy - Respiratory Respiratory: bilateral: diminished, wheezing (inspiratory, soft, scattered), other (bronchial breath sounds in the periphery) - Cardiovascular distant heart sounds, radial pulse 2+, regular Heart sounds: normal: S1, S2 leg Peripheral Edema: bilateral: None - Gastrointestinal RLQ oblong 3-4 cm tender mass palpated - Neurologic Neurologic: CNII-XII intact - Musculoskeletal Musculoskeletal: strength equal bilaterally - Psychiatric Psychiatric: A&O x's 3, appropriate affect, intact judgment & insight Results CBC & Chem 7: 10/15/17 05:47 10/15/17 05:47 Labs: Abnormal Lab Results - Last 24 Hours (Table) 10/13/17 10/13/17 10/13/17 Range/Units 16:59 16:59 16:59 RBC (4.30-5.90) m/uL Hgb (13.0-17.5) gm/dL Hct (39.0-53.0) % MCV (80.0-100.0) fL MCH (25.0-35.0) pg MCHC (31.0-37.0) g/dL RDW (11.5-15.5) % Glucose (74-99) mg/dL Calcium (8.4-10.2) mg/dL Iron 7 L (65-175) ug/dL Iron Saturation 1.91 L (15.00-50.00) RBC Folate 1,109 H (280 - 791) ng/mL Crossmatch See Detail 10/15/17 10/15/17 Range/Units 05:47 05:47 RBC 4.11 L (4.30-5.90) m/uL Hgb 7.7 L (13.0-17.5) gm/dL Hct 28.8 L (39.0-53.0) % MCV 70.2 L (80.0-100.0) fL MCH 18.9 L (25.0-35.0) pg MCHC 26.9 L (31.0-37.0) g/dL RDW 26.1 H (11.5-15.5) % Glucose 68 L (74-99) mg/dL Calcium 8.3 L (8.4-10.2) mg/dL Iron (65-175) ug/dL Iron Saturation (15.00-50.00) RBC Folate (280 - 791) ng/mL Crossmatch Chest x-ray: report reviewed Abdominal x-ray: report reviewed CT scan - abdomen: report reviewed CT scan - chest: report reviewed CT scan - pelvis: report reviewed Assessment and Plan (1) Colonic mass Narrative/Plan: Dr. Corbett reviewed imaging reports, thickening and lymphadenopathy appears localized, no discussion of distant areas of concern at this time. Pt is sched for colonoscopy today, await report and path results to develop plan of care. Current Visit: Yes Status: Acute Priority: High Code(s): K63.9 - DISEASE OF INTESTINE, UNSPECIFIED SNOMED Code(s): 597286405 (2) Microcytic hypochromic anemia Current Visit: Yes Status: Acute Priority: High Code(s): D50.9 - IRON DEFICIENCY ANEMIA, UNSPECIFIED SNOMED Code(s): 12772791 (3) Iron deficiency anemia due to chronic blood loss Current Visit: Yes Status: Acute Priority: High Code(s): D50.0 - IRON DEFICIENCY ANEMIA SECONDARY TO BLOOD LOSS (CHRONIC) SNOMED Code(s): 987431821 Plan: Await colonoscopy findings and biopsy results Labs indicate iron deficiency, likely from chronic losses in the GI tract. Parenteral iron will be ordered and then oral supplement. B vitamin labs ordered to see if additional supplementation is needed.
[2017-10-15] MEDS: SODIUM FERRIC GLUCONAT-SUCROSE 125 MG in SODIUM CHLORIDE 0.9% 100 ML IVPB SCH (18:01)
[2017-10-15] MEDS: SODIUM CHLORIDE 0.9% 1,000 ML IV SCH ×2 (20:24→23:08)
[2017-10-16 07:02] LABS: Anion Gap 10 mmol/L; Blood Urea Nitrogen 11 mg/dL (9-20); Calcium 8.2 mg/dL (8.4-10.2); Carbon Dioxide 23 mmol/L (22-30); Chloride 107 mmol/L (98-107); Glucose 58 mg/dL (74-99); Potassium 4.2 mmol/L (3.5-5.1); Sodium 140 mmol/L (137-145)
[2017-10-16 07:23] LABS: Anisocytosis Marked; Basophils # (A) 0.1 k/uL (0-0.2); Basophils % (A) 1 %; Eosinophils # (A) 0.2 k/uL (0-0.7); Eosinophils % (A) 3 %; HCT 29.2 % (39.0-53.0); HGB 7.8 gm/dL (13.0-17.5); Hypochromasia Marked; Lymphocytes # (A) 0.8 k/uL (1.0-4.8); Lymphocytes % (A) 12 %; MCH 18.8 pg (25.0-35.0); MCHC 26.6 g/dL (31.0-37.0); MCV 70.9 fL (80.0-100.0); Mean Platelet Volume 8.7; Microcytosis Marked; Monocytes # (A) 0.4 k/uL (0-1.0); Monocytes % (A) 6 %; Neutrophils # (A) 5.3 k/uL (1.3-7.7); Neutrophils % (A) 77 %; Platelet Count 375 k/uL (150-450); Poikilocytosis Marked; RBC 4.12 m/uL (4.30-5.90); RDW 26.7 % (11.5-15.5); WBC 6.9 k/uL (3.8-10.6)
[2017-10-16] MEDS: PANTOPRAZOLE 40 MG/10 ML VIAL IV SCH (09:29)
[2017-10-16] MEDS: SODIUM FERRIC GLUCONAT-SUCROSE 125 MG in SODIUM CHLORIDE 0.9% 100 ML IVPB SCH (09:38)
[2017-10-16 09:49] VITALS: BMI 21.5
--- NOTE | 2017-10-16 11:40 | P.PN ---
Subjective Progress Note Date: 10/16/17 Principal diagnosis: Weakness and shortness of breath Patient is feeling okay, asking to go home. No abdominal pain, nausea or vomiting, no chest pain or shortness of breath. No hematochezia or melena. Objective - Vital Signs Vital signs: Vital Signs Temp 97.8 F 10/16/17 07:48 Pulse 84 10/16/17 07:48 Resp 20 10/16/17 08:00 BP 127/60 10/16/17 07:48 Pulse Ox 96 10/16/17 07:48 Intake & Output 10/15/17 10/16/17 10/16/17 18:59 06:59 18:59 Intake Total 390 560 820 Balance 390 560 820 Weight 62.5 kg 62.5 kg Intake: IV 150 560 600 0.9 560 600 Intake, IV Titration 100 Amount Sodium Ferric Gluconat- 100 Sucrose 125 mg In Sodium Chloride 0.9% 100 ml @ 100 mls/hr IVPB DAILY [facility] Rx#:[id number] Oral 240 120 Other: Voiding Method Toilet Toilet # Voids 1 2 - Exam Constitutional: No acute distress, conversant, pleasant Eyes:Anicteric sclerae, moist conjunctiva, no lid-lag, PERRLA, ENMT: Oropharynx clear, no erythema, exudates Neck: Supple, FROM, no masses, or JVD, No carotid bruits, No thyromegaly Lungs: Clear to auscultation, Clear to percussion, Normal respiratory effort, no accessory muscle use Cardiovascular: Heart regular in rate and rhythm, No murmurs, gallops, or rubs, No peripheral edema Abdominal: Soft, Nontender, no guarding, rebound or rigidity, Normoactive bowel sounds, No hepatomegaly, No splenomegaly, No palpable mass Skin: Normal temperature, tone, texture, turgor, no induration, No subcutaneous nodules, No rash, lesions, No ulcers Extremities: No digital cyanosis, No clubbing, Pedal pulses intact and symmetrical, Radial pulses intact and symmetrical, No calf tenderness Psychiatric: Alert and oriented to person, place and time, appropriate affect, intact judgement Neuro: Muscles Strength 5/5 in all 4 extremities, Sensation to light touch grossly present throughout, Cranial nerves II-XII grossly intact, no focal sensory deficits - Labs CBC & Chem 7: 10/16/17 06:21 10/16/17 06:21 Labs: Abnormal Lab Results - Last 24 Hours (Table) 10/16/17 10/16/17 Range/Units 06:21 06:21 RBC 4.12 L (4.30-5.90) m/uL Hgb 7.8 L (13.0-17.5) gm/dL Hct 29.2 L (39.0-53.0) % MCV 70.9 L (80.0-100.0) fL MCH 18.8 L (25.0-35.0) pg MCHC 26.6 L (31.0-37.0) g/dL RDW 26.7 H (11.5-15.5) % Lymphocytes # 0.8 L (1.0-4.8) k/uL Glucose 58 L (74-99) mg/dL Calcium 8.2 L (8.4-10.2) mg/dL Assessment and Plan Plan: #1 Severe anemia: MCV is very low consistent with blood loss anemia Iron profile, ferritin are consistent with iron deficiency Patient was started on iron replacement IV Vitamin B12 level, RBC folate within normal limits Status post 3 units of packed red blood cells transfusion, hemoglobin came up appropriately. Colonoscopy report reviewed, colon mass biopsy pending #2 Colon mass: Shown on computed tomography scan of the abdomen Awaiting biopsy report Oncology consult #3 Shortness of breath/Weakness Likely due to symptomatic severe anemia Improved with blood transfusion #4 DVT prophylaxis Patient is ambulatory, low risk
--- NOTE | 2017-10-16 12:38 | P.PN ---
Subjective Progress Note Date: 10/16/17 Principal diagnosis: anemia, colon mass Pt is seen today status post colonoscopy with biopsy, path pending. Patient is tired, denies fever, nausea, diarrhea, hematochezia or melena. No new abdominal pain or distension, denying pain acutely. Patient is receiving parenteral iron for iron deficiency. Objective - Vital Signs Vital signs: Vital Signs Temp 97.8 F 10/16/17 11:59 Pulse 69 10/16/17 11:59 Resp 16 10/16/17 11:59 BP 142/65 10/16/17 11:59 Pulse Ox 99 10/16/17 11:59 Intake & Output 10/15/17 10/16/17 10/16/17 18:59 06:59 18:59 Intake Total 390 560 820 Balance 390 560 820 Weight 62.5 kg 62.5 kg Intake: IV 150 560 600 0.9 560 600 Intake, IV Titration 100 Amount Sodium Ferric Gluconat- 100 Sucrose 125 mg In Sodium Chloride 0.9% 100 ml @ 100 mls/hr IVPB DAILY [facility] Rx#:[id number] Oral 240 120 Other: Voiding Method Toilet Toilet # Voids 1 2 - Constitutional General appearance: Present: average body habitus, cooperative, no acute distress - EENT Eyes: Present: anicteric sclerae - Respiratory Details: respirations even and unlabored - Cardiovascular Details: extremities are warm to touch Pt does have Rt AC tenderness from IV infiltration last night - Integumentary Integumentary: Present: pale - Neurologic Neurologic: Present: CNII-XII intact - Musculoskeletal Musculoskeletal: Present: strength equal bilaterally - Psychiatric Psychiatric: Present: A&O x's 3, appropriate affect, intact judgment & insight - Labs CBC & Chem 7: 10/16/17 06:21 10/16/17 06:21 Labs: Abnormal Lab Results - Last 24 Hours (Table) 10/16/17 10/16/17 Range/Units 06:21 06:21 RBC 4.12 L (4.30-5.90) m/uL Hgb 7.8 L (13.0-17.5) gm/dL Hct 29.2 L (39.0-53.0) % MCV 70.9 L (80.0-100.0) fL MCH 18.8 L (25.0-35.0) pg MCHC 26.6 L (31.0-37.0) g/dL RDW 26.7 H (11.5-15.5) % Lymphocytes # 0.8 L (1.0-4.8) k/uL Glucose 58 L (74-99) mg/dL Calcium 8.2 L (8.4-10.2) mg/dL Assessment and Plan (1) Colonic mass Narrative/Plan: operative report reviewed. Did discuss with patient the findings of a partially obstructive mass in the right colon and the pathology is pending. Surgical consult will be placed as staging CT scans did not reveal metastatic disease and, patient may be a surgical candidate. Current Visit: Yes Status: Acute Priority: High Code(s): K63.9 - DISEASE OF INTESTINE, UNSPECIFIED SNOMED Code(s): 092566291 (2) Microcytic hypochromic anemia Narrative/Plan: B12 oral supplement ordered Current Visit: Yes Status: Acute Priority: High Code(s): D50.9 - IRON DEFICIENCY ANEMIA, UNSPECIFIED SNOMED Code(s): 81024942 (3) Iron deficiency anemia due to chronic blood loss Narrative/Plan: Parenteral iron ordered. Rx was sent for PO iron to continue in the outpatient setting Current Visit: Yes Status: Acute Priority: High Code(s): D50.0 - IRON DEFICIENCY ANEMIA SECONDARY TO BLOOD LOSS (CHRONIC) SNOMED Code(s): 878781795 Plan: Await colonoscopy findings and biopsy results Doctor attests: I performed a history and physical examination of this patient, discussed with dictator. I agree with dictators note, documented as a scribe.
[2017-10-17 08:16] LABS: Anisocytosis Marked; Basophils % (A) 0 %; Eosinophils # (A) 0.3 k/uL (0-0.7); Eosinophils % (A) 4 %; HCT 32.5 % (39.0-53.0); HGB 8.3 gm/dL (13.0-17.5); Hypochromasia Marked; Lymphocytes # (A) 0.7 k/uL (1.0-4.8); Lymphocytes % (A) 8 %; MCH 18.6 pg (25.0-35.0); MCHC 25.5 g/dL (31.0-37.0); Mean Platelet Volume 6.8; Microcytosis Marked; Monocytes # (A) 0.4 k/uL (0-1.0); Monocytes % (A) 5 %; Neutrophils # (A) 7.1 k/uL (1.3-7.7); Neutrophils % (A) 82 %; Platelet Count 371 k/uL (150-450); Poikilocytosis Marked; RBC 4.45 m/uL (4.30-5.90); WBC 8.7 k/uL (3.8-10.6)
[2017-10-17 08:17] LABS: RDW 27.6 % (11.5-15.5)
[2017-10-17 08:48] LABS: Mixed Population RBC Present; Polychromasia Present
[2017-10-17 08:49] LABS: RBC Fragments Present
[2017-10-17] MEDS: SODIUM CHLORIDE 0.9% 1,000 ML IV SCH ×2 (09:54→16:25)
[2017-10-17] MEDS: SODIUM FERRIC GLUCONAT-SUCROSE 125 MG in SODIUM CHLORIDE 0.9% 100 ML IVPB SCH (09:54)
[2017-10-17] MEDS: PANTOPRAZOLE 40 MG TABLET PO SCH (09:57)
--- NOTE | 2017-10-17 13:47 | P.PN ---
Subjective Progress Note Date: 10/17/17 Principal diagnosis: colon mass He does complain of shortness of breath, patient been having loose stools today , no fever, no abdominal pain. Objective - Vital Signs Vital signs: Vital Signs Temp 97.7 F 10/17/17 07:00 Pulse 88 10/17/17 07:00 Resp 15 10/17/17 01:05 BP 166/69 10/17/17 07:00 Pulse Ox 98 10/17/17 07:00 Intake & Output 10/16/17 10/17/17 10/17/17 18:59 06:59 18:59 Intake Total 820 2300 480 Balance 820 2300 480 Weight 62.5 kg Intake: IV 600 0.9 600 Intake, IV Titration 100 1200 Amount Sodium Chloride 0.9% 1, 1200 000 ml @ 75 mls/hr IV . [id number] [facility] Rx#:[id number] Sodium Ferric Gluconat- 100 Sucrose 125 mg In Sodium Chloride 0.9% 100 ml @ 100 mls/hr IVPB DAILY [facility] Rx#:[id number] Oral 120 1100 480 Other: Voiding Method Toilet Toilet Toilet # Voids 2 3 # Bowel Movements 1 1 - Exam gen: alert and oriented x3 lungs: no crackles, some wheezes - Labs CBC & Chem 7: 10/17/17 07:25 10/16/17 06:21 Labs: Abnormal Lab Results - Last 24 Hours (Table) 10/17/17 Range/Units 07:25 Hgb 8.3 L (13.0-17.5) gm/dL Hct 32.5 L (39.0-53.0) % MCV 73.0 L (80.0-100.0) fL MCH 18.6 L (25.0-35.0) pg MCHC 25.5 L (31.0-37.0) g/dL RDW 27.6 H (11.5-15.5) % Lymphocytes # 0.7 L (1.0-4.8) k/uL Assessment and Plan (1) Colonic mass Narrative/Plan: will consult surgery for evaluation Current Visit: Yes Status: Acute Priority: High Code(s): K63.9 - DISEASE OF INTESTINE, UNSPECIFIED SNOMED Code(s): 246574988 (2) COPD (chronic obstructive pulmonary disease) Narrative/Plan: suspected by clinical picture, he has sob and some wheezes will start duonebs and reeval. Current Visit: Yes Status: Acute Code(s): J44.9 - CHRONIC OBSTRUCTIVE PULMONARY DISEASE, UNSPECIFIED SNOMED Code(s): 26638445 (3) Anemia Narrative/Plan: hgb stable Current Visit: Yes Status: Acute Code(s): D64.9 - ANEMIA, UNSPECIFIED SNOMED Code(s): 714858787 (4) Iron deficiency anemia due to chronic blood loss Narrative/Plan: iv iron Current Visit: Yes Status: Acute Priority: High Code(s): D50.0 - IRON DEFICIENCY ANEMIA SECONDARY TO BLOOD LOSS (CHRONIC) SNOMED Code(s): 631831047 (5) Pulmonary nodule Current Visit: Yes Status: Acute Code(s): R91.1 - SOLITARY PULMONARY NODULE SNOMED Code(s): 039573246
--- NOTE | 2017-10-17 15:19 | P.GSCN ---
<Daniella Diallo - Last Filed: 10/17/17 14:55> History of Present Illness Consult date: 10/17/17 History of present illness: 82-year-old gentleman being seen for a surgical eval at the request of the attending for a partially obstructing mid right colon Mass. Consistent with colon malignancy. Patient underwent an EGD and a colonoscopy on october. Final pathology the right colon mass is consistent with cancer large sigmoid polyp biopsies show tubular adenoma CAT scan of the abdomen pelvis with contrast obtained on admission showed extensive cholelithiasis no evidence of acute cholecystitis sigmoid diverticulosis. The right lower quadrant lymph nodes enlarged and wall thickening with narrowing noted mid ascending colon. Initial presentation of this 82-year-old gentleman to the emergency room with multiple chief complaints. Patient stated he had been having unintentional weight loss lost 10 pounds. Decrease appetite increase shortness of breath decreased endurance with constant lower abdominal pain more on the right side. Patient described it as a pressure sensation. Causing him to feel short of breath. Patient states he has never been to a physician. Has no significant past medical or surgical history. In the emergency room patient was found to have profound anemia hemoglobin 5. Patient is being worked up for the anemia. Part of the anemia workup did involve an EGD and a colonoscopy with biopsies done by . Findings did show a partial obstructing mid right colon consistent with cancer biopsies obtained. There was a large sigmoid polyps biopsied also. It showed sigmoid diverticulosis with no evidence of diverticulitis. The EGD mild gastritis duodenitis no ulcer. No gastric outlet obstruction. No bleeding. The hemoglobin this morning is 8.3. Patient has received iron infusions per the attending. Staging CAT scan did not reveal any metastatic disease Review of Systems Essentially unremarkable except as mentioned in the present illness Past Medical History Past Medical History: No Reported History History of Any Multi-Drug Resistant Organisms: None Reported Past Surgical History: No Surgical Hx Reported Past Anesthesia/Blood Transfusion Reactions: No Reported Reaction Past Psychological History: No Psychological Hx Reported Smoking Status: Current some day smoker Past Alcohol Use History: None Reported Past Drug Use History: None Reported - Past Family History Father Additional Family Medical History / Comment(s): Prostate cancer Mother Family Medical History: No Reported History Medications and Allergies Home Medications Medication Instructions Recorded Confirmed Type Aspirin 162.5 mg PO DAILY 10/13/17 10/13/17 History Ferrous Sulfate [Feosol] 325 mg PO DAILY #90 tab 10/15/17 Rx Ipratropium/Albuterol Sulfate 1 - 2 puff INHALATION QID PRN #1 10/18/17 Rx [Combivent Respimat Inhaler] inhaler Allergies Allergy/AdvReac Type Severity Reaction Status Date / Time No Known Allergies Allergy Verified 10/13/17 16:45 Surgical - Exam Vital Signs Temp Pulse Resp BP Pulse Ox 97.0 F L 86 18 148/61 98 10/13/17 16:23 10/13/17 16:23 10/13/17 16:23 10/13/17 16:23 10/13/17 16:23 GENERAL APPEARANCE: 82-year-old thin male is alert, oriented, in no acute distress. Chief complaint tired out VITAL SIGNS: Reviewed HEENT: Head is normocephalic and atraumatic. Pupils are equal and reactive. The nares are patent. Oropharynx is clear without lesions. NECK: Supple without lymphadenopathy. Traches midline. HEART: S1, S2. Regular rate and rhythm. Denying chest pain no murmur noted LUNGS: No crackles or wheezes are heard. Adequate air movement bilaterally ABDOMEN: Soft, nontender, nondistended with good bowel sounds. No peritoneal signs. No palpable organomegaly or masses. Reports no nausea vomiting no frequent stooling EXTREMITIES: Normal skin color and turgor. No cyanosis, rash, ulceration, clubbing or edema. Radial pedal pulses are 2/4 bilaterally. NEUROLOGICAL: No focal deficits. Strength and sensation are grossly intact. Results - Labs 10/17/17 07:25 10/16/17 06:21 Abnormal Lab Results - Last 24 Hours (Table) 10/17/17 Range/Units 07:25 Hgb 8.3 L (13.0-17.5) gm/dL Hct 32.5 L (39.0-53.0) % MCV 73.0 L (80.0-100.0) fL MCH 18.6 L (25.0-35.0) pg MCHC 25.5 L (31.0-37.0) g/dL RDW 27.6 H (11.5-15.5) % Lymphocytes # 0.7 L (1.0-4.8) k/uL Assessment and Plan Assessment: Impression Admission increased shortness of breath suspect due to severe anemia due to colon cancer newly diagnosed Present on admission abdominal pain increased weakness suspect due to profound anemia likely from chronic losses in the GI tract CAT scan of the abdomen and pelvis showed abnormal segment the right colon Status post October 15 EGD and colonoscopy showed partially obstruction in the right mid colon consistent with cancer biopsies obtained Profound iron deficiency anemia Unintentional weight loss Current every day smoker down to 1-2 cigarettes a day Colonoscopy show sigmoid diverticulosis no evidence of acute diverticulitis EGD mild gastritis duodenitis no ulcer Plan GI prophylaxis Continue with IV iron as ordered Further surgical recommendations after Dr. Cam evaluates CAT scan of the abdomen pelvis Will follow with you Defer to the attending for medical issues Reinforce smoking sensation Surgical consultation note dictated for Dr. Cam The above impression and plan of care have been discussed and directed by signing physician. Daniella Diallo nurse practitioner acting as scribe for signing physician. <Cassandra Cam N - Last Filed: 10/18/17 19:06> Surgical - Exam Vital Signs Temp Pulse Resp BP Pulse Ox 97.0 F L 86 18 148/61 98 10/13/17 16:23 10/13/17 16:23 10/13/17 16:23 10/13/17 16:23 10/13/17 16:23 Results - Labs 10/18/17 06:50 10/18/17 06:50 Abnormal Lab Results - Last 24 Hours (Table) 10/18/17 Range/Units 06:50 RBC 4.10 L (4.30-5.90) m/uL Hgb 7.8 L (13.0-17.5) gm/dL Hct 29.5 L (39.0-53.0) % MCV 72.0 L (80.0-100.0) fL MCH 19.1 L (25.0-35.0) pg MCHC 26.5 L (31.0-37.0) g/dL RDW 29.3 H (11.5-15.5) % Diabetes panel 10/18/17 Range/Units 06:50 Sodium 139 (137-145) mmol/L Potassium 4.0 (3.5-5.1) mmol/L Chloride 101 (98-107) mmol/L Carbon Dioxide 30 (22-30) mmol/L BUN 15 (9-20) mg/dL Creatinine 0.86 (0.66-1.25) mg/dL Glucose 83 (74-99) mg/dL Calcium 8.5 (8.4-10.2) mg/dL Calcium panel 10/18/17 Range/Units 06:50 Calcium 8.5 (8.4-10.2) mg/dL Pituitary panel 10/18/17 Range/Units 06:50 Sodium 139 (137-145) mmol/L Potassium 4.0 (3.5-5.1) mmol/L Chloride 101 (98-107) mmol/L Carbon Dioxide 30 (22-30) mmol/L BUN 15 (9-20) mg/dL Creatinine 0.86 (0.66-1.25) mg/dL Glucose 83 (74-99) mg/dL Calcium 8.5 (8.4-10.2) mg/dL Adrenal panel 10/18/17 Range/Units 06:50 Sodium 139 (137-145) mmol/L Potassium 4.0 (3.5-5.1) mmol/L Chloride 101 (98-107) mmol/L Carbon Dioxide 30 (22-30) mmol/L BUN 15 (9-20) mg/dL Creatinine 0.86 (0.66-1.25) mg/dL Glucose 83 (74-99) mg/dL Calcium 8.5 (8.4-10.2) mg/dL
[2017-10-17] MEDS: IPRATROPIUM-ALBUTEROL 3 ML NEB INHALATION SCH ×2 (16:23→19:45)
[2017-10-17 16:27] VITALS: RESP 16
[2017-10-18] MEDS: IPRATROPIUM-ALBUTEROL 3 ML NEB INHALATION SCH ×4 (00:01→15:02)
[2017-10-18 08:02] LABS: Anisocytosis Marked; HCT 29.5 % (39.0-53.0); HGB 7.8 gm/dL (13.0-17.5); Hypochromasia Marked; MCH 19.1 pg (25.0-35.0); MCHC 26.5 g/dL (31.0-37.0); Mean Platelet Volume 7.1; Microcytosis Marked; Platelet Count 342 k/uL (150-450); Poikilocytosis Marked; WBC 8.3 k/uL (3.8-10.6)
--- NOTE | 2017-10-18 08:03 | P.PN ---
Progress Note - Text Progress Note Date: 10/18/17 Patient seen and evaluated. History consistent with right colon cancer with multiple gallstones. Patient wishes to go home and return for procedure. I have reviewed robotic approach as he is a virgin abdomen for best surgical results. Patient may be potentially discharged with admission for robotic colectomy with cholecystectomy per patient wishes.
[2017-10-18 08:07] LABS: Anion Gap 8 mmol/L; Blood Urea Nitrogen 15 mg/dL (9-20); Calcium 8.5 mg/dL (8.4-10.2); Carbon Dioxide 30 mmol/L (22-30); Chloride 101 mmol/L (98-107); Glucose 83 mg/dL (74-99); RDW 29.3 % (11.5-15.5); Sodium 139 mmol/L (137-145)
--- NOTE | 2017-10-18 09:05 | P.DS ---
Providers Date of admission: 10/13/17 19:16 Expected date of discharge: 10/18/17 Attending physician: Tavon Mccurdy MD Consults: 10/13/17 21:40 Consult Physician Routine Consulting Provider: Flaquito Miller Consult Reason/Comments: colon mass Do you want consulting provider notified?: Yes, Notify in am 10/14/17 19:17 Consult Physician Routine Consulting Provider: Thaddeus Sanchez Consult Reason/Comments: Colon mass Do you want consulting provider notified?: Yes 10/17/17 13:37 Consult Physician Routine Consulting Provider: Cassandra Cam Consult Reason/Comments: colon mass Do you want consulting provider notified?: Yes Primary care physician: Stated None - Discharge Diagnosis(es) (1) 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 Cam, plans for surgery Current Visit: Yes Status: Acute Priority: High (2) COPD (chronic obstructive pulmonary disease) Current Visit: Yes Status: Acute (3) Anemia Current Visit: Yes Status: Acute (4) Iron deficiency anemia due to chronic blood loss Current Visit: Yes Status: Acute Priority: High (5) Pulmonary nodule Current Visit: Yes Status: Acute Hospital Course: 82-year-old female that was admitted with GI bleed. Patient had EGD and colonoscopy performed by Dr. Miller, this showed evidence of right colon mass which biopsy showed evidence of adenocarcinoma.Dr Cam was consulted. Patient will be coming back for robotic-assisted hemicolectomy and cholecystectomy in 10 days. Currently patient is a symptomatic not having any chest pains or palpitations. No abdominal pain no signs of bleeding and hemoglobin has been stable. Patient didn't have concerns of shortness of breath yesterday. Duonebs did help with his symptoms. Patient might have non formal diagnosis of COPD so were sent patient home on Combivent inhaler. Needs to establish PCP as an outpatient discussed this with the patient. He prefers to find somebody where he lives since [place] does not want anybody local. gen:alert and oriented lungs:clear to auscultation heart:s1s2 abdomen:soft and depressible,non tender ext:no edema We'll perform home O2 evaluation prior to discharge Condition at discharge stable Consultants Dr. Cam. And Dr. Miller discharge time 32 min Patient Condition at Discharge: Stable Plan - Discharge Summary New Discharge Prescriptions: New Ferrous Sulfate [Feosol] 325 mg PO DAILY #90 tab Ipratropium/Albuterol Sulfate [Combivent Respimat Inhaler] 1 - 2 puff INHALATION QID PRN #1 inhaler PRN Reason: Shortness Of Breath Continue Aspirin 162.5 mg PO DAILY Discharge Medication List Aspirin 162.5 mg PO DAILY 10/13/17 [History] Ferrous Sulfate [Feosol] 325 mg PO DAILY #90 tab 10/15/17 [Rx] Ipratropium/Albuterol Sulfate [Combivent Respimat Inhaler] 1 - 2 puff INHALATION QID PRN #1 inhaler 10/18/17 [Rx] Follow up Appointment(s)/Referral(s): Cassandra Cam MD [STAFF PHYSICIAN] - 1 Week None,Stated [Primary Care Provider] - 1-2 days Patient Instructions/Handouts: Colonoscopy (DC) Activity/Diet/Wound Care/Special Instructions: No PCP Discharge Disposition: HOME SELF-CARE
[2017-10-18] MEDS: SODIUM FERRIC GLUCONAT-SUCROSE 125 MG in SODIUM CHLORIDE 0.9% 100 ML IVPB SCH (10:14)
[2017-10-18] MEDS: PANTOPRAZOLE 40 MG TABLET PO SCH (10:14)
[2017-10-18 10:58] VITALS: BP 142/59; TEMP 97.7
[2017-10-18] MEDS ORDERED: CYANOCOBALAMIN 500 MCG TAB PO SCH (12:00)
--- NOTE | 2017-10-18 13:42 | P.PN ---
Progress Note - Text Progress Note Date: 10/18/17 Patient seen at bedside. Patient is aware the plan of care. Patient states he wants to be discharged home and will see the surgeon in the office next week to discuss the timing to come back for the surgical procedure. Patient will be seen next Saturday in the office at Dr. Cam. Discussion will be for the patient be readmitted to undergo robotic colectomy and cholecystectomy. We'll follow-up with patient in the outpatient setting. The above impression and plan of care have been discussed and directed by signing physician. Daniella Diallo nurse practitioner acting as scribe for signing physician.
[2017-10-18 15:16] VITALS: PULSE 100
== END 2017-10-18 15:24 | disposition home or self-care (01) | DRG 376 ==
LOC: EC 16:22 → 6SEL 19:16 → 3SUR 10-16 12:34
PROVIDERS: ADMIT Internal Medicine; ATTEND Internal Medicine
PROC: 30233N1 Transfusion of Nonautologous Red Blood Cells into Peripheral Vein, Percutaneous Approach (ICD-10-PCS; 2017-10-13)
PROC: 0DBN8ZX Excision of Sigmoid Colon, Via Natural or Artificial Opening Endoscopic, Diagnostic (ICD-10-PCS; principal; 2017-10-15 16:10)
PROC: 0DJ08ZZ Inspection of Upper Intestinal Tract, Via Natural or Artificial Opening Endoscopic (ICD-10-PCS; principal; 2017-10-15 16:10)
PROC: 0DBF8ZX Excision of Right Large Intestine, Via Natural or Artificial Opening Endoscopic, Diagnostic (ICD-10-PCS; principal; 2017-10-15 16:10)
DX: C18.2 Malignant neoplasm of ascending colon (principal); J44.9 Chronic obstructive pulmonary disease, unspecified; D50.0 Iron deficiency anemia secondary to blood loss (chronic); K29.70 Gastritis, unspecified, without bleeding; D12.5 Benign neoplasm of sigmoid colon; F17.210 Nicotine dependence, cigarettes, uncomplicated; K29.80 Duodenitis without bleeding; K44.9 Diaphragmatic hernia without obstruction or gangrene; K57.30 Diverticulosis of large intestine without perforation or abscess without bleeding; K80.20 Calculus of gallbladder without cholecystitis without obstruction; R91.1 Solitary pulmonary nodule; Z71.6 Tobacco abuse counseling; Z79.82 Long term (current) use of aspirin; Z80.42 Family history of malignant neoplasm of prostate
CPT/HCPCS: 36415; 43235; 45380; 71046; 71275; 74018; 74177; 80048; 80053; 81003; 82150; 82607; 82728; 82746; 82747; 83090; 83540; 83550; 83605; 83690; 83735; 83880; 83921; 84100; 84466; 84484; 85025; 85027; 85045; 85379; 85610; 85730; 86850; 86900; 86901; 86920; 88305; 93005; 94640; 94760; 96360; 99285

== ENCOUNTER → 2017-11-12 | Outpatient (CLI) | payer MEDICARE ==
[2017-11-12 11:55] LABS: Anisocytosis Marked; Basophils # (A) 0.1 k/uL (0-0.2); Basophils % (A) 1 %; Eosinophils # (A) 0.3 k/uL (0-0.7); Eosinophils % (A) 3 %; HCT 35.7 % (39.0-53.0); HGB 9.9 gm/dL (13.0-17.5); Hypochromasia Marked; Lymphocytes # (A) 1.2 k/uL (1.0-4.8); Lymphocytes % (A) 13 %; MCH 21.8 pg (25.0-35.0); MCHC 27.7 g/dL (31.0-37.0); MCV 78.9 fL (80.0-100.0); Mean Platelet Volume 6.3; Microcytosis Marked; Monocytes # (A) 0.4 k/uL (0-1.0); Monocytes % (A) 4 %; Neutrophils # (A) 7.1 k/uL (1.3-7.7); Neutrophils % (A) 78 %; Platelet Count 416 k/uL (150-450); Poikilocytosis Moderate; RBC 4.52 m/uL (4.30-5.90); RDW 24.2 % (11.5-15.5); WBC 9.1 k/uL (3.8-10.6)
[2017-11-12 12:09] LABS: Albumin 3.3 g/dL (3.5-5.0); Potassium 4.7 mmol/L (3.5-5.1); Total Bilirubin 0.2 mg/dL (0.2-1.3); Total Protein 6.2 g/dL (6.3-8.2)
== END ==
LOC: LABPAT 11-06 15:56
PROVIDERS: ATTEND Surgery Plastic and Reconstructive Surgery
DX: Z01.812 Encounter for preprocedural laboratory examination (principal); C18.9 Malignant neoplasm of colon, unspecified
CPT/HCPCS: 36415; 80053; 85025

== ENCOUNTER 2017-11-14 11:28 | Inpatient (IN) | payer MEDICARE ==
[2017-11-05 14:16] VITALS: BMI 20.7
--- NOTE | 2017-11-14 07:57 | P.GSHP ---
History of Present Illness H&P Date: 11/14/17 CHIEF COMPLAINT: History of colon cancer. HISTORY OF PRESENT ILLNESS: Jeremiah Rick is an 82 year-old male who comes in with colon cancer of the right colon. He also had a large symptomatic gallstones. PAST MEDICAL HISTORY: Please see list. PAST SURGICAL HISTORY: Please see list. MEDICATIONS: Please see list. ALLERGIES: Please see list. SOCIAL HISTORY: No illicit drug use FAMILY HISTORY: No reports of Crohn disease or ulcerative colitis. REVIEW OF ORGAN SYSTEMS: Cardiovascular: No reports of chest pain or heart attacks. CONSTITUTIONAL: No fevers or chills. HEENT: Denies any trouble with vision, hearing or nosebleeds. No difficulty swallowing. LYMPHATIC: The patient denies any lumps and bumps around the neck. ENDOCRINE: Denies any thyroid disorders. Denies any blood sugar glucose intolerance. RESPIRATORY: Denies pneumonia. Denies any troubles with breathing or dyspnea on exertion. GASTROINTESTINAL: Denies fatty food intolerance. Denies change in bowel habits and gas bloat. GENITOURINARY: Denies any blood in urine or increased urinary frequency. MUSCULOSKELETAL: Has back pain, stiffness or joint arthritis. NEUROLOGIC: Denies any numbness or tingling along the distal extremities. No seizure disorders or headaches. PSYCHIATRIC: Denies any depression or suicidal ideation. HEMATOLOGIC: Denies any abnormal bleeding or bruising. BREASTS: Denies any breast lumps, pain or nipple discharge. SKIN: No current skin cancer. No rash. PHYSICAL EXAM: VITAL SIGNS: Stable Patient is a 82-year-old male. Abdomen: Soft and protuberant. GENERAL: Well developed and in no acute distress. Pleasant. HEENT: No sclera icterus. Extraocular movements grossly intact. Moist buccal mucosa. Head is atraumatic, normocephalic. Hears conversational speech. No nasal drainage. NECK: Supple without lymphadenopathy. No JV distention. CHEST: Non-labored respirations and equal bilateral excursions. CARDIOVASCULAR: Regular rate and rhythm. Palpable 2+ radial pulses. MUSCULOSKELETAL: No clubbing, cyanosis or edema. NEUROLOGIC: No focal or lateralizing signs. PSYCH: Appropriate affect. Alert and oriented to person, place and time. SKIN: Well perfused. Good skin turgor. STUDIES: CT of the abdomen was reviewed in detail with findings of extremely large gallstone including large mass of the hepatic flexure Colonoscopy details were found and consistent with ulcerated tumor of hepatic flexure ASSESSMENT: 1. Colon cancer. 2. Large gallstones. 3. Iron deficiency anemia PLAN: 1. I have recommended robotic cholecystectomy. 2. Also recommend robotic assisted approach was described for right hemicolectomy 3. He will need enhanced colon protocol. 4. Inpatient hospitalization for 2 nights and more 5. DVT prophylaxis. 6. Antibiotic prophylaxis. Past Medical History Past Medical History: Blood Disorder, COPD Additional Past Medical History / Comment(s): ANEMIA. COLON CA DIAGNOSED. History of Any Multi-Drug Resistant Organisms: None Reported Past Surgical History: No Surgical Hx Reported Additional Past Surgical History / Comment(s): EGD, COLONOSCOPY 10/15/17 Past Anesthesia/Blood Transfusion Reactions: No Reported Reaction Smoking Status: Former smoker - Past Family History Father Additional Family Medical History / Comment(s): Prostate cancer - NONE, PER Mother Family Medical History: No Reported History Medications and Allergies Home Medications Medication Instructions Recorded Confirmed Type Aspirin 325 mg PO DAILY 10/13/17 11/05/17 History Ipratropium/Albuterol Sulfate 1 - 2 puff INHALATION QID PRN #1 10/18/17 Rx [Combivent Respimat Inhaler] inhaler Alive Multivitamin For Women 1 tab PO DAILY 11/05/17 History Allergies Allergy/AdvReac Type Severity Reaction Status Date / Time No Known Allergies Allergy Verified 11/05/17 12:21 Results - Labs Abnormal Lab Results - Last 24 Hours (Table) 11/12/17 Range/Units 11:43 Crossmatch See Detail
[~2017-11-14 11:28] MED LIST: ALVIMOPAN 12 MG CAPSULE PO ONE; Antibiotics per Pharmacy 1 EACH MISC MISCELLANE PRN; DEXAMETHASONE SOD PHOSPHATE 10 MG/ML 1 ML VIAL IV ONE; HEPARIN SODIUM,PORCINE 5,000 UNIT/ML 1 ML VIAL SQ ONE; MORPHINE SULFATE 2 MG/ML SYRINGE IV PRN; ONDANSETRON ODT 4 MG TAB PO ONE; metroNIDAZOLE-NS PMX 500 MG in SALINE 1 100ML.BAG IVPB STA
[2017-11-14] MEDS: LACTATED RINGERS 1,000 ML IV SCH ×3 (12:30→13:33)
[2017-11-14] MEDS ORDERED: LIDOCAINE 1% 20 ML VIAL (10MG/ML) FOR IV START INTRADERMA ONE ×4 (12:30→13:34)
[2017-11-14 12:55] LABS: Anisocytosis Moderate; Basophils # (A) 0.1 k/uL (0-0.2); Basophils % (A) 1 %; Eosinophils # (A) 0.2 k/uL (0-0.7); Eosinophils % (A) 2 %; HCT 35.7 % (39.0-53.0); HGB 10.2 gm/dL (13.0-17.5); Hypochromasia Marked; Lymphocytes # (A) 1.2 k/uL (1.0-4.8); Lymphocytes % (A) 14 %; MCH 21.9 pg (25.0-35.0); MCHC 28.4 g/dL (31.0-37.0); MCV 77.2 fL (80.0-100.0); Mean Platelet Volume 6.4; Microcytosis Marked; Monocytes # (A) 0.4 k/uL (0-1.0); Monocytes % (A) 4 %; Neutrophils # (A) 6.8 k/uL (1.3-7.7); Neutrophils % (A) 78 %; Platelet Count 389 k/uL (150-450); Poikilocytosis Moderate; RBC 4.63 m/uL (4.30-5.90); RDW 23.7 % (11.5-15.5); WBC 8.7 k/uL (3.8-10.6)
[2017-11-14 13:22] LABS: Albumin 3.6 g/dL (3.5-5.0); Calcium 9.2 mg/dL (8.4-10.2); Potassium 4.7 mmol/L (3.5-5.1); Total Bilirubin 0.4 mg/dL (0.2-1.3); Total Protein 6.3 g/dL (6.3-8.2)
[2017-11-14] MEDS ORDERED: BUPIVACAINE (PF) 0.25% 30 ML VIAL SQ ONE (13:28)
[2017-11-14] MEDS: ceFAZolin IN SWFI 2 GM/20 ML SYRINGE IVP ONE ×2 (13:30→13:58)
[2017-11-14] MEDS ORDERED: NALOXONE 0.4 MG/ML 1 ML VIAL IV PRN (14:28)
[2017-11-14] MEDS ORDERED: LACTATED RINGERS 1,000 ML IV ONE (15:21)
[2017-11-14] MEDS ORDERED: METOCLOPRAMIDE 5 MG/ML 2 ML VIAL IVP PRN (18:49)
[2017-11-14] MEDS ORDERED: ONDANSETRON 4 MG/2 ML VIAL IVP PRN (18:49)
[2017-11-14] MEDS ORDERED: BENZOCAINE/MENTHOL LOZENG 1 EACH LOZENGE MUCOUS MEM PRN (18:49)
--- NOTE | 2017-11-14 18:49 | P.OP ---
Date of Procedure: 11/14/17 Description of Procedure: SURGEON: VIDAL HIGH MD INTAKE ASSESSOR: 1. REED MICHAEL 2. JAMES JAY Preoperative Diagnosis: 1. Colon cancer, hepatic flexure 2. Iron deficiency anemia due to chronic blood loss 3. Symptomatic cholelithiasis 4. Chronic obstructive pulmonary disease 5. Rectal bleeding Postoperative Diagnosis: 1. Colon cancer, hepatic flexure 2. Iron deficiency anemia due to chronic blood loss 3. Symptomatic cholelithiasis 4. Chronic obstructive pulmonary disease 5. Rectal bleeding Procedure(s) Performed: 1. Robotic-assisted daVinci Xi extended right hemicolectomy 2. Robotic-assisted daVinci Xi cholecystectomy Anesthesia: GETA, local, epidural Surgeon: Vidal High EBL: 100 mL Pathology: other (1. Gallbladder 2. Extended right hemicolectomy with appendix in total 3. Anastomosis) Condition: stable Disposition: floor Operative Findings: 1. Large bulky over 8 cm tumor invading distal ascending colon and hepatic flexure 2. Cancer invades into abdominal wall including Gerota's fascia also excised in total specimen 3. No liver metastases identified 4. No peritoneal deposits identified 5. Gallbladder with thickened wall consistent with chronic and acute cholecystitis 6. Middle colic artery divided for extended right hemicolectomy 7. Mesenteric defect obliterated with side to side ileocolic anastomosis mesentery 8. Clean contaminated case without spillage INDICATIONS: The patient is a 82-year-old male with a recent colonoscopy now demonstrating colon cancer of the hepatic flexure. He had previously been admitted for anemia and had metastatic workup including blood transfusions for which his diagnosis was found. Benefits and risks, including infection, colostomy creation, open surgery possibility for additional surgery was discussed at length. Informed consent was obtained. All questions of the patient and family were answered. DESCRIPTION: Earlier the patient had undergone a bowel prep using the enhanced colon recovery program. The patient was transferred to the operating room and placed in supine position. After general anesthetic, a rudolph catheter was placed. The abdomen was then prepped and draped in standard sterile fashion as Ioban was placed along the abdomen to minimize any contamination of skin floor. After a timeout protocol was performed, attention was then brought to the left upper quadrant whereby a 0 degree 5 mm laparoscopic trocar entry was performed. The abdominal cavity was entered and insufflated to 15 mmHg pressure, which he tolerated well. Diagnostic laparoscopy demonstrated no injury to bowel, viscera or mesentery. The liver surface was unremarkable for metastatic deposit. Immediately, a fungating mass was identified of the right upper quadrant from his colon cancer. Robotic trocars were placed obliquely from the right lower quadrant to the left upper quadrant. A robotic 12-mm trocar was placed along the left upper quadrant after exchanging the 5-mm camera port. An 8 mm port was placed along the epigastrium. Just left lateral to the umbilicus for the camera port, another 12- mm trocar. An 8 mm port was placed along the right lateral abdominal wall. Ports were placed 8 cm apart from each other including 15-20 cm away from the target anatomy of the right upper quadrant. The patient was then placed in Trendelenburg position, at least 14. The robotic da Dariusz XI system was primed and docked from the left side of the patient. Using atraumatic graspers and vessel sealer, the robotic system was docked and primed as described. Instruments were interchanged by the surgeon's assistant including scissors, needle motor pool driver , robotic stapler and vessel sealer. The robot stapler was prepared along the left upper abdominal wall. Attention was brought to the cholecystectomy portion of the procedure. I had sat at the console. A dome down technique was performed as moderate edema was found along the infundibulum and cystic structures. Once the gallbladder was freed to the infundibulum, attention was brought to the cystic structures. The gallbladder fundus was retracted over the dome of the liver. Using a grasper, the cystic duct including the cystic artery were carefully skeletonized. Using a clip environmental monitoring technician, 2 large PLASTIC clips were placed proximally, and 1 clip was placed distally along the cystic duct and then cauterized with the cautery. Again care was taken to avoid any injury to the biliary tree as the common bile duct was clearly visualized during this portion of dissection. Next, the cystic artery was similarly controlled using plastic clips and divided using cautery. Electro-Bovie cautery was used to remove the gallbladder from the hepatic fossa. Hemostasis was checked and found to be adequate. Next, attention was brought to identify the cecum. A stay suture using 3-0 silk was placed along the anterior serosa of the terminal ileum. The appendix was identified and used as a handle during the case. The terminal ileum and ascending colon mesentery was mobilized using a vessel sealer. Using robot stapler 45 mm white load, the distal ileum was divided 5 cm proximal to the ileocecal valve. The mesentery of the ascending colon was mobilized towards the midline using a vessel sealer. As the specimen was found along the hepatic flexure which was moderately adherent to the retroperitoneum, the colon was mobilized to the mid transverse mesocolon beyond the right colic and middle colic artery for an extended right hemicolectomy. The tumor invaded the sidewall of the abdominal wall at the hepatic flexure. Additionally, the tumor invaded the anterior surface of Gerota's fascia of the right kidney which was also excised in total with the specimen. The right colon was mobilized to the anterior surface of the duodenum which was unharmed during the procedure. Next, the mid transverse colon colon was divided using the robotic stapler 45 mm blue loads. The rest of the colon mesentery was mobilized using vessel sealer including using blunt dissection. The vascular pedicles were controlled using large PLASTIC clips and vessel sealer. The proximal colon and distal ileum were brought in an antiperistaltic fashion [id number] anastomosis after placing interrupted sutures along the proposed kayleigh-lumen using 3-0 silks. Along the tinea coli of the proximal colon including distal limbs, a colotomy and enterotomy was prepared along both limbs along the antimesenteric border. Next, 45 mm blue stapler loads were fired to create the kayleigh-lumen. The kayleigh-lumen was reapproximated using 3-0 silk followed by 45 mm blue load for closure of the enterostomy. The mesenteric defect was obliterated by intra-abdominal fat to decrease risk of internal hernia. All needles were removed from the abdominal cavity. The robot was undocked. I re-scrubbed into the case. Via the 12 mm port of the left upper quadrant, the gallbladder including the right colon was removed using Endo Catch bag. All sponges were removed from the abdominal cavity. The resected colon was brought out through the 12 mm trocar of the left upper quadrant after widening the skin incision to 4-cm. No contamination had occurred throughout this portion of the case. The 12-mm fascial defect was oversewn using 0 Vicryl with final endoscopic imaging demonstrated complete closure. Next all pneumoperitoneum was evacuated from the abdominal cavity. The 8-mm trocar sites were reapproximated using 4-0 Monocryl in an interrupted subcuticular fashion. Suture of 4-0 Monocryl was used to reapproximate the subcutaneous tissue in an interrupted subcuticular fashion of the wide incision. Local anesthetic was infiltrated to all wounds for postop analgesia. All incisions were also cleansed with diluted hydrogen peroxide. An Optifoam surgical dressing was placed over the left upper quadrant incision of the colon extraction site. Liquid glue was applied to the rest of the skin incisions. The patient had tolerated the procedure well. The patient was extubated successfully. Intraoperative photos were reviewed with the patient's family who were overall pleased with the level of care. The patient was transferred to the postanesthesia care unit in stable condition. Console time 205 minutes
[2017-11-14] MEDS: SODIUM CHLORIDE 0.9% EPIDURAL PRN ×2 (19:01→19:44)
[2017-11-14] MEDS: HYDROMORPHONE EPIDURAL PRN ×2 (19:01→19:44)
[2017-11-14] MEDS: BUPIVACAINE 0.5% EPIDURAL PRN ×2 (19:01→19:44)
[2017-11-14] MEDS: SODIUM FERRIC GLUCONAT-SUCROSE 125 MG in SODIUM CHLORIDE 0.9% 100 ML IVPB SCH (20:17)
[2017-11-14] MEDS: FAMOTIDINE 20 MG/2 ML VIAL IV SCH (20:57)
[2017-11-14] MEDS: 0.9% NACL WITH KCL 20 MEQ/L 1,000 ML IV SCH (20:57)
[2017-11-14] MEDS: HEPARIN SODIUM,PORCINE 5,000 UNIT/ML 1 ML VIAL SQ SCH (20:58)
[2017-11-15] MEDS: metroNIDAZOLE-NS PMX 500 MG in SALINE 1 100ML.BAG IVPB SCH ×2 (01:54→08:38)
[2017-11-15] MEDS: ceFAZolin IN SWFI 2 GM/20 ML SYRINGE IVP SCH ×2 (01:54→08:32)
--- NOTE | 2017-11-15 07:09 | P.PN ---
Progress Note - Text Progress Note Date: 11/15/17 Postoperative day # 1 status post robotic-assisted laparoscopic right hemicolectomy, epidural catheter placement for postoperative analgesia, patient doing well epidural site okay, patient currently on combination of epidural infusion solution of bupivacaine 0.0625% and Fentanyl 5g per mL the infusion rate at 5 ml per hour , patient had no motor deficit epidural site okay , pain adequately controlled , we'll continue the current management. Epidural catheter may be removed today, removed 2 hours after doses subQ heparin don't administer subQ heparin until 2 hours after removal.
[2017-11-15 07:48] LABS: Calcium 8.3 mg/dL (8.4-10.2); Potassium 5.1 mmol/L (3.5-5.1)
[2017-11-15 08:00] LABS: Anisocytosis Moderate; Basophils % (A) 0 %; Eosinophils % (A) 0 %; HCT 29.8 % (39.0-53.0); Hypochromasia Marked; Lymphocytes # (A) 0.4 k/uL (1.0-4.8); Lymphocytes % (A) 4 %; MCH 22.3 pg (25.0-35.0); MCHC 27.6 g/dL (31.0-37.0); MCV 80.8 fL (80.0-100.0); Mean Platelet Volume 8.9; Microcytosis Moderate; Monocytes # (A) 0.4 k/uL (0-1.0); Monocytes % (A) 4 %; Neutrophils # (A) 9.8 k/uL (1.3-7.7); Neutrophils % (A) 91 %; Platelet Count 338 k/uL (150-450); Poikilocytosis Slight; RBC 3.69 m/uL (4.30-5.90); RDW 23.1 % (11.5-15.5); WBC 10.8 k/uL (3.8-10.6)
[2017-11-15 08:02] LABS: HGB 8.2 gm/dL (13.0-17.5)
[2017-11-15] MEDS: 0.9% NACL WITH KCL 20 MEQ/L 1,000 ML IV SCH (08:21)
[2017-11-15] MEDS: HEPARIN SODIUM,PORCINE 5,000 UNIT/ML 1 ML VIAL SQ SCH (08:31)
[2017-11-15] MEDS: ALVIMOPAN 12 MG CAPSULE PO SCH (08:32)
[2017-11-15] MEDS: FAMOTIDINE 20 MG/2 ML VIAL IV SCH (08:32)
[2017-11-15] MEDS ORDERED: TAMSULOSIN 0.4 MG CAP.ER.24H PO STA ×2 (08:57→18:26)
[2017-11-15] MEDS ORDERED: SODIUM CHLORIDE 0.9% 500 ML IV ONE ×2 (09:10→14:47)
[2017-11-15] MEDS: SODIUM FERRIC GLUCONAT-SUCROSE 125 MG in SODIUM CHLORIDE 0.9% 100 ML IVPB SCH (09:56)
[2017-11-15] MEDS: SODIUM CHLORIDE 0.9% 75 ML IV SCH ×15 (11:04→23:15)
--- NOTE | 2017-11-15 11:37 | P.PN ---
<Daniella Diallo - Last Filed: 11/15/17 13:40> Subjective Progress Note Date: 11/15/17 82-year-old seen at the bedside epidural currently in place patient states feels "jittery" no nausea vomiting adequate sensation to the bilateral lower extremities indwelling Harper catheter in place.with Abdominal binder on states not passing gas surgical tenderness appropriate. Nondistended Labs reviewed hemoglobin 8.2 receiving iron supplement. Potassium 5.1 Postop November 14 robotic assisted right hemicolectomy for colon cancer hepatic flexure, cholecystectomy For symptomatic cholelithiasis Objective - Vital Signs Vital signs: Vital Signs Temp 98.7 F 11/15/17 07:10 Pulse 79 11/15/17 07:10 Resp 16 11/15/17 08:49 BP 122/73 11/15/17 07:10 Pulse Ox 98 11/15/17 07:10 Intake & Output 11/14/17 11/15/17 11/15/17 18:59 06:59 18:59 Intake Total 2875 1609.0 Output Total 450 1030 Balance 2425 579.0 Intake: IV 2875 209 Invasive Line 3 53 Intake, IV Titration 1200.0 Amount 0.9% NaCl with KCl 20 Meq 918 /l 1,000 ml @ 100 mls/hr IV .Q10H [facility] Rx#: [id number] Bupivacaine (Pf) 0.5% 31. 82.0 3 ml Hydromorphone (Pf) 2 .5 mg In Sodium Chloride 0.9% 218 ml @ Per Protocol EPIDURAL .Q0M PRN Rx#:[id number] Sodium Ferric Gluconat- 100 Sucrose 125 mg In Sodium Chloride 0.9% 100 ml @ 100 mls/hr IVPB DAILY [facility] Rx#:[id number] metroNIDAZOLE-NS PMX 500 100 mg In Saline 1 100ml.bag @ 100 mls/hr IVPB Q8HR [facility] Rx#:[id number] Oral 200 Output: Urine 350 1030 Estimated Blood Loss 100 Other: Voiding Method Indwelling Catheter Indwelling Catheter # Voids 1 - Exam Physical exam 82-year-old sitting up in bed reports having abdominal cramping slight nausea sensation Lungs diminished at the bases otherwise adequate air movement on room air sats are 98% Heart S1-S2 audible regular Abdomen abdominal binder in place surgical tenderness appropriate surgical dressing sites dry soft and not distended few hypoactive bowel tones indwelling Harper catheter in place reports slightly nausea no emesis tolerating clear liquid Extremities reports feeling jittery to the bilateral hands. Venodyne's on to bilateral lower extremities no edema noted - Labs CBC & Chem 7: 11/15/17 06:10 11/15/17 06:10 Labs: Abnormal Lab Results - Last 24 Hours (Table) 11/12/17 11/14/17 11/14/17 Range/Units 11:43 12:47 12:47 WBC (3.8-10.6) k/uL RBC (4.30-5.90) m/uL Hgb 10.2 L (13.0-17.5) gm/dL Hct 35.7 L (39.0-53.0) % MCV 77.2 L (80.0-100.0) fL MCH 21.9 L (25.0-35.0) pg MCHC 28.4 L (31.0-37.0) g/dL RDW 23.7 H (11.5-15.5) % Neutrophils # (1.3-7.7) k/uL Lymphocytes # (1.0-4.8) k/uL Chloride (98-107) mmol/L Carbon Dioxide (22-30) mmol/L BUN 21 H (9-20) mg/dL Calcium (8.4-10.2) mg/dL ALT 16 L (21-72) U/L Crossmatch See Detail 11/15/17 11/15/17 Range/Units 06:10 06:10 WBC 10.8 H (3.8-10.6) k/uL RBC 3.69 L (4.30-5.90) m/uL Hgb 8.2 L D (13.0-17.5) gm/dL Hct 29.8 L (39.0-53.0) % MCV (80.0-100.0) fL MCH 22.3 L (25.0-35.0) pg MCHC 27.6 L (31.0-37.0) g/dL RDW 23.1 H (11.5-15.5) % Neutrophils # 9.8 H (1.3-7.7) k/uL Lymphocytes # 0.4 L (1.0-4.8) k/uL Chloride 108 H (98-107) mmol/L Carbon Dioxide 21 L (22-30) mmol/L BUN (9-20) mg/dL Calcium 8.3 L (8.4-10.2) mg/dL ALT (21-72) U/L Crossmatch Assessment and Plan Assessment: Impression Right Colon cancer at hepatic flexure Symptomatic cholelithiasis Iron deficiency anemia due to chronic blood loss Rectal bleeding suspect due to colon cancer COPD with no evidence of an exacerbation Postop November 14 robotic assisted extended right hemicolectomy, cholecystectomy for symptomatic cholelithiasis Mild hyperkalemia Plan DC epidural 2 hours after subcu heparin given Remove indwelling Harper catheter now [place] for pain control Increase activity Continue postop surgical course DVT and GI prophylaxis IV Iron supplement as ordered IV fluid bolus now Anticipate discharge within the next 24 hours No home care needs One-time dose Flomax as ordered The above impression and plan of care have been discussed and directed by signing physician. Daniella Diallo nurse practitioner acting as scribe for signing physician. <Cassandra Cam N - Last Filed: 11/15/17 16:21> Objective - Vital Signs Vital signs: Vital Signs Temp 97.5 F L 11/15/17 14:44 Pulse 69 11/15/17 14:44 Resp 16 11/15/17 14:44 BP 142/68 11/15/17 14:44 Pulse Ox 93 L 11/15/17 14:44 Intake & Output 11/14/17 11/15/17 11/15/17 18:59 06:59 18:59 Intake Total 2875 1609.0 800 Output Total 450 1030 Balance 2425 579.0 800 Intake: IV 2875 209 800 0.9% NaCl with KCl 20 Meq 800 /l 1,000 ml @ 100 mls/hr IV .Q10H [facility] Rx#: [id number] Invasive Line 3 53 Intake, IV Titration 1200.0 Amount 0.9% NaCl with KCl 20 Meq 918 /l 1,000 ml @ 100 mls/hr IV .Q10H [facility] Rx#: [id number] Bupivacaine (Pf) 0.5% 31. 82.0 3 ml Hydromorphone (Pf) 2 .5 mg In Sodium Chloride 0.9% 218 ml @ Per Protocol EPIDURAL .Q0M PRN Rx#:[id number] Sodium Ferric Gluconat- 100 Sucrose 125 mg In Sodium Chloride 0.9% 100 ml @ 100 mls/hr IVPB DAILY [facility] Rx#:[id number] metroNIDAZOLE-NS PMX 500 100 mg In Saline 1 100ml.bag @ 100 mls/hr IVPB Q8HR [facility] Rx#:[id number] Oral 200 Output: Urine 350 1030 Estimated Blood Loss 100 Other: Voiding Method Indwelling Catheter Indwelling Catheter # Voids 1 - Labs CBC & Chem 7: 11/15/17 14:00 11/15/17 06:10 Labs: Abnormal Lab Results - Last 24 Hours (Table) 11/12/17 11/15/17 11/15/17 Range/Units 11:43 06:10 06:10 WBC 10.8 H (3.8-10.6) k/uL RBC 3.69 L (4.30-5.90) m/uL Hgb 8.2 L D (13.0-17.5) gm/dL Hct 29.8 L (39.0-53.0) % MCH 22.3 L (25.0-35.0) pg MCHC 27.6 L (31.0-37.0) g/dL RDW 23.1 H (11.5-15.5) % Neutrophils # 9.8 H (1.3-7.7) k/uL Lymphocytes # 0.4 L (1.0-4.8) k/uL Chloride 108 H (98-107) mmol/L Carbon Dioxide 21 L (22-30) mmol/L Calcium 8.3 L (8.4-10.2) mg/dL ALT (21-72) U/L Crossmatch See Detail 11/15/17 11/15/17 Range/Units 14:00 14:00 WBC 15.4 H (3.8-10.6) k/uL RBC 3.87 L (4.30-5.90) m/uL Hgb 8.6 L (13.0-17.5) gm/dL Hct 31.5 L (39.0-53.0) % MCH 22.1 L (25.0-35.0) pg MCHC 27.1 L (31.0-37.0) g/dL RDW 22.6 H (11.5-15.5) % Neutrophils # (1.3-7.7) k/uL Lymphocytes # (1.0-4.8) k/uL Chloride (98-107) mmol/L Carbon Dioxide (22-30) mmol/L Calcium (8.4-10.2) mg/dL ALT 19 L (21-72) U/L Crossmatch
[2017-11-15 14:34] LABS: Anisocytosis Moderate; HCT 31.5 % (39.0-53.0); HGB 8.6 gm/dL (13.0-17.5); Hypochromasia Marked; MCH 22.1 pg (25.0-35.0); MCHC 27.1 g/dL (31.0-37.0); MCV 81.6 fL (80.0-100.0); Mean Platelet Volume 7.3; Microcytosis Moderate; Platelet Count 336 k/uL (150-450); Poikilocytosis Slight; RBC 3.87 m/uL (4.30-5.90); RDW 22.6 % (11.5-15.5); WBC 15.4 k/uL (3.8-10.6)
[2017-11-15 14:41] LABS: Total Bilirubin 0.2 mg/dL (0.2-1.3)
[2017-11-15] MEDS: SIMETHICONE 40 MG/0.6 ML DROPS 2,000 MG/30 ML BOTTLE PO SCH ×2 (15:09→18:09)
--- NOTE | 2017-11-15 16:23 | P.PN ---
Progress Note - Text Progress Note Date: 11/15/17 Patient reports feeling better than this morning. He still reports some dizziness. Hgb re-checked and stable. No flatus. Postoperative care described including follow-up colonoscopy as an outpatient. Oncology follow-up advised.
[2017-11-15] MEDS: IPRATROPIUM-ALBUTEROL 3 ML NEB INHALATION SCH (21:05)
[2017-11-16] MEDS: SIMETHICONE 40 MG/0.6 ML DROPS 2,000 MG/30 ML BOTTLE PO SCH ×5 (00:31→22:35)
[2017-11-16] MEDS: ALVIMOPAN 12 MG CAPSULE PO SCH ×3 (00:31→22:35)
[2017-11-16] MEDS: HEPARIN SODIUM,PORCINE 5,000 UNIT/ML 1 ML VIAL SQ SCH ×3 (00:32→22:35)
[2017-11-16] MEDS: HYDROcodone/APAP 5-325MG 1 EACH TAB PO PRN ×4 (00:34→19:00)
[2017-11-16] MEDS: SODIUM CHLORIDE 0.9% 75 ML IV SCH ×13 (00:45→15:04)
[2017-11-16] MEDS: IPRATROPIUM-ALBUTEROL 3 ML NEB INHALATION SCH ×4 (02:40→19:40)
[2017-11-16 07:32] LABS: Anisocytosis Moderate; Basophils % (A) 0 %; Eosinophils # (A) 0.1 k/uL (0-0.7); Eosinophils % (A) 1 %; HCT 30.6 % (39.0-53.0); HGB 8.3 gm/dL (13.0-17.5); Hypochromasia Marked; Lymphocytes # (A) 0.9 k/uL (1.0-4.8); Lymphocytes % (A) 8 %; MCH 21.7 pg (25.0-35.0); MCHC 27.1 g/dL (31.0-37.0); MCV 80.2 fL (80.0-100.0); Mean Platelet Volume 6.8; Microcytosis Moderate; Monocytes # (A) 0.5 k/uL (0-1.0); Monocytes % (A) 5 %; Neutrophils # (A) 9.7 k/uL (1.3-7.7); Neutrophils % (A) 86 %; Platelet Count 296 k/uL (150-450); Poikilocytosis Moderate; RBC 3.81 m/uL (4.30-5.90); WBC 11.2 k/uL (3.8-10.6)
[2017-11-16 07:47] LABS: Calcium 8.8 mg/dL (8.4-10.2); Potassium 4.4 mmol/L (3.5-5.1)
--- NOTE | 2017-11-16 09:26 | P.PN ---
Progress Note - Text Progress Note Date: 11/16/17 The patient resting comfortably in his bed. He denies a significant bowel function. He's had no flatus. The patient has been up to the bathroom urinating. He states his pain is a 2-310. On exam his vital signs are stable. His abdomen soft. Incision sites are clean dry and intact. Status post laparoscopic right colectomy and cholecystectomy. Patient will have his diet increased once he has return of his bowel function. He will be closely watched.
[2017-11-16] MEDS: FAMOTIDINE 20 MG/2 ML VIAL IV SCH (10:02)
[2017-11-16] MEDS: SODIUM FERRIC GLUCONAT-SUCROSE 125 MG in SODIUM CHLORIDE 0.9% 100 ML IVPB SCH (10:02)
--- NOTE | 2017-11-16 13:32 | P.CNPUL ---
History of Present Illness Consult date: 11/16/17 Reason for consult: COPD, other Chief complaint: Status post cholecystectomy and colon resection History of present illness: Pulmonary consultation dated 11/16/2017 This is an 82-year-old gentleman who comes in with complaints of having been diagnosed with colon cancer of the right colon. He apparently had a right hemicolectomy because of large symptomatic gallstones also had a cholecystectomy. We are asked to see him because of the fact that he has underlying COPD. He does not use any oxygen at home. The only medication he uses at home is a Combivent inhaler. He sees one of my partners for his COPD. Here in the hospital he is on DuoNeb which is equivalent to Combivent. He denies any shortness breath or difficulty breathing. States that his primary issue is his abdomen. The surgeon was Dr. Childs. I believe he had surgery on her about 11/14/2017. The patient looks pretty well. He denies any shortness of breath difficulty breathing coughing wheezing or phlegm production. No fever or chills. Again his primary issue is his abdomen. He does not have much in the way of chronic illness and is only on Combivent at home as well as aspirin and a multiple vitamin. Review of Systems A 12 point review of system is positive for some diffuse abdominal pain following his surgery. He denies any respiratory issues at this time including cough wheezing shortness of breath phlegm production or coughing up of blood. Past Medical History Past Medical History: Blood Disorder, COPD Additional Past Medical History / Comment(s): ANEMIA. COLON CA DIAGNOSED. History of Any Multi-Drug Resistant Organisms: None Reported Past Surgical History: No Surgical Hx Reported Additional Past Surgical History / Comment(s): EGD, COLONOSCOPY 10/15/17 Past Anesthesia/Blood Transfusion Reactions: No Reported Reaction Past Psychological History: No Psychological Hx Reported Smoking Status: Former smoker Past Alcohol Use History: None Reported Additional Past Alcohol Use History / Comment(s): SMOKED SINCE TEENAGER, 1 PPD, AND TAPERED TO LIGHT SMOKING PRIOR TO QUITTING 10/13/17 Past Drug Use History: None Reported - Past Family History Father Additional Family Medical History / Comment(s): Prostate cancer - NONE, PER Mother Family Medical History: No Reported History Medications and Allergies Home Medications Medication Instructions Recorded Confirmed Type Aspirin 325 mg PO DAILY 10/13/17 11/14/17 History Alive Multivitamin For Women 1 tab PO DAILY 11/05/17 11/14/17 History Ipratropium/Albuterol Sulfate 1 - 2 puff INHALATION RT-QID PRN 11/14/17 History [Combivent Respimat Inhaler] Allergies Allergy/AdvReac Type Severity Reaction Status Date / Time No Known Allergies Allergy Verified 11/14/17 18:49 Physical Exam Osteopathic Statement: *. No significant issues noted on an osteopathic structural exam other than those noted in the History and Physical/Consult. Vitals: Vital Signs Temp Pulse Pulse Resp BP Pulse Ox 11/16/17 08:06 98.3 F 65 16 133/76 97 11/16/17 07:44 88 11/16/17 07:33 92 11/16/17 02:51 88 11/16/17 02:40 80 11/16/17 01:40 98.0 F 89 17 113/61 95 11/15/17 21:00 17 11/15/17 19:37 98.0 F 91 16 108/59 91 L 11/15/17 14:44 97.5 F L 69 16 142/68 93 L Intake and Output 11/15/17 11/16/17 11/16/17 22:59 06:59 14:59 Intake Total 250 280 Output Total 560 220 200 Balance -310 60 -200 Intake: Oral 250 280 Output: Urine 360 220 200 Post Void Residual 200 Other: Voiding Method Toilet Urinal # Voids 1 1 1 # Bowel Movements 0 No acute distress, oriented 3. HEENT examination is grossly unremarkable. Mucous membranes are moist. No oral lesions. Neck supple. Full range of motion. No adenopathy thyromegaly or neck vein distention. Cardiovascular examination reveals regular rhythm rate. S1-S2 normal. No S3 or S4. No discernible murmur noted. Lungs reveal clear breath sounds. Her sounds are equal bilaterally. No adventitious lung sounds including wheezes rhonchi or crackles. Abdomen is mildly distended. It's not tympanitic. He does not have a surgical belly. He is some mild pain on palpation of the abdomen. Extremities are intact. No cyanosis clubbing or edema. Skin is without rash or lesion. Neurologic examination is brief but nonfocal. Results - Laboratory Findings CBC and BMP: 11/16/17 06:37 11/16/17 06:37 Abnormal lab findings: Abnormal Labs 11/12/17 11/14/17 11/14/17 11:43 12:47 12:47 WBC RBC Hgb 10.2 L Hct 35.7 L MCV 77.2 L MCH 21.9 L MCHC 28.4 L RDW 23.7 H Neutrophils # Lymphocytes # Chloride Carbon Dioxide BUN 21 H Calcium ALT 16 L Crossmatch See Detail 11/15/17 11/15/17 11/15/17 06:10 06:10 14:00 WBC 10.8 H RBC 3.69 L Hgb 8.2 L D Hct 29.8 L MCV MCH 22.3 L MCHC 27.6 L RDW 23.1 H Neutrophils # 9.8 H Lymphocytes # 0.4 L Chloride 108 H Carbon Dioxide 21 L BUN Calcium 8.3 L ALT 19 L Crossmatch 11/15/17 11/16/17 14:00 06:37 WBC 15.4 H 11.2 H RBC 3.87 L 3.81 L Hgb 8.6 L 8.3 L Hct 31.5 L 30.6 L MCV MCH 22.1 L 21.7 L MCHC 27.1 L 27.1 L RDW 22.6 H 23.0 H Neutrophils # 9.7 H Lymphocytes # 0.9 L Chloride Carbon Dioxide BUN Calcium ALT Crossmatch - Diagnostic Findings Chest x-ray: image reviewed (Labs x-rays and medications are all reviewed.) Assessment and Plan Assessment: Assessment Postop day #2, status post right hemicolectomy and cholecystectomy for colon cancer and large symptomatic gallstones History of mild/moderate COPD, currently just on Combivent inhaler History of anemia Previous history of tobacco use Ongoing diffuse abdominal pain Plan: Plan dated 11/16/2017 The patient's doing rather well. We'll continue to follow. 1 him to continue using the incentive spirometer. In addition, it would be helpful to use his DuoNeb's 3-4 times a day and as needed. No additional recommendations are made. We'll see the patient as needed. Time with Patient: Greater than 30
[2017-11-16] MEDS ORDERED: D5-0.45% NACL WITH KCL 20MEQ/L 1,000 ML IV SCH (15:15)
[2017-11-16] MEDS: SODIUM CHLORIDE 0.9% 1,000 ML IV SCH (15:24)
[2017-11-17] MEDS: HYDROcodone/APAP 5-325MG 1 EACH TAB PO PRN ×2 (06:50→14:53)
[2017-11-17] MEDS: SODIUM CHLORIDE 0.9% 1,000 ML IV SCH ×2 (09:31→17:52)
[2017-11-17] MEDS: HEPARIN SODIUM,PORCINE 5,000 UNIT/ML 1 ML VIAL SQ SCH ×2 (09:32→21:06)
[2017-11-17] MEDS: FAMOTIDINE 20 MG/2 ML VIAL IV SCH (09:32)
[2017-11-17] MEDS: ALVIMOPAN 12 MG CAPSULE PO SCH ×2 (09:32→21:17)
[2017-11-17] MEDS: SIMETHICONE 40 MG/0.6 ML DROPS 2,000 MG/30 ML BOTTLE PO SCH ×4 (09:32→21:04)
[2017-11-17] MEDS: IPRATROPIUM-ALBUTEROL 3 ML NEB INHALATION SCH ×3 (09:50→19:50)
--- NOTE | 2017-11-17 10:49 | P.PN ---
Progress Note - Text Progress Note Date: 11/17/17 The patient resting comfortably in his bed. He has had some oral intake. He has some complaints of pain. And swelling of his perineum. On exam his vital signs are stable. His abdomen is soft. Incision sites are clean dry and intact. The patient will be encouraged to ambulate.. He will be hopefully discharge home tomorrow. Dr. Childs we'll reassess him.
[2017-11-18] MEDS: HYDROcodone/APAP 5-325MG 1 EACH TAB PO PRN ×2 (03:04→09:23)
[2017-11-18 07:04] VITALS: BP 151/86; RESP 17; TEMP 98
[2017-11-18] MEDS: IPRATROPIUM-ALBUTEROL 3 ML NEB INHALATION SCH (07:53)
[2017-11-18 07:56] VITALS: PULSE 84
--- NOTE | 2017-11-18 08:01 | P.PN ---
Subjective Progress Note Date: 11/18/17 The 82-year-old gentleman status post extended right hemicolectomy and cholecystectomy, postop day 3. He is passing flatus. Abdominal pain much improved. Dizziness is resolved. He has been seen by pulmonary for history of underlying COPD. He complains of swelling along the pelvis. He is tolerating diet. He had a bowel movement. Objective - Vital Signs Vital signs: Vital Signs Temp 98 F 11/18/17 07:00 Pulse 84 11/18/17 07:55 Resp 17 11/18/17 07:00 BP 151/86 11/18/17 07:00 Pulse Ox 93 L 11/18/17 07:55 Intake & Output 11/17/17 11/18/17 11/18/17 18:59 06:59 18:59 Intake Total 600 Balance 600 Intake: Intake, IV Titration 600 Amount Sodium Chloride 0.9% 1, 600 000 ml @ 75 mls/hr IV . [id number] ROHAN Rx#:[id number] Other: Voiding Method Toilet Toilet Urinal # Voids 1 2 - Exam GENERAL: Well developed and in no acute distress. Pleasant. HEENT: No sclera icterus. Extraocular movements grossly intact. Moist buccal mucosa. Head is atraumatic, normocephalic. Hears conversational speech. No nasal drainage. NECK: Supple without lymphadenopathy. CHEST: Non-labored respirations and equal bilateral excursions. CARDIOVASCULAR: Regular rate and rhythm. Palpable 2+ radial pulses. ABDOMEN: Soft, minimal distention. No peritonitis. All laparoscopic sites clean dry and intact well approximated. Dressings discontinued and the left upper quadrant. No cellulitis. MUSCULOSKELETAL: No clubbing, cyanosis or edema. NEUROLOGIC: No focal or lateralizing signs. PSYCH: Appropriate affect. Alert and oriented to person, place and time. SKIN: Good skin turgor. Well perfused. 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 Current Visit: Yes Status: Acute Code(s): C18.3 - MALIGNANT NEOPLASM OF HEPATIC FLEXURE SNOMED Code(s): 832961331 (2) COPD (chronic obstructive pulmonary disease) Current Visit: No Status: Acute Code(s): J44.9 - CHRONIC OBSTRUCTIVE PULMONARY DISEASE, UNSPECIFIED SNOMED Code(s): 70821913 (3) Cholelithiasis Current Visit: No Status: Acute Code(s): K80.20 - CALCULUS OF GALLBLADDER W/ O CHOLECYSTITIS W/O OBSTRUCTION SNOMED Code(s): 417886724 (4) Iron deficiency anemia due to chronic blood loss Current Visit: No Status: Acute Priority: High Code(s): D50.0 - IRON DEFICIENCY ANEMIA SECONDARY TO BLOOD LOSS (CHRONIC) SNOMED Code(s): 887355336 (5) Microcytic hypochromic anemia Current Visit: No Status: Acute Priority: High Code(s): D50.9 - IRON DEFICIENCY ANEMIA, UNSPECIFIED SNOMED Code(s): 69058811 Plan: 1. Discharge home today. 2. Follow-up in the office 1 week.
--- NOTE | 2017-11-18 08:02 | P.DS ---
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 Colon cancer, hepatic flexure 2. Iron deficiency anemia due to chronic blood loss 3. Symptomatic cholelithiasis 4. Chronic obstructive pulmonary disease 5. Rectal bleeding COURSE: The patient is a 82-year-old gentleman who had previously been diagnosed with right colon cancer. He was admitted for elective colon resection including cholecystectomy secondary to symptomatic gallstones. Post procedure, he was observed for treatment of his iron deficiency anemia including generalized debility and overall recovery. With his history of COPD, pulmonary services were requested. Prior to discharge, he was tolerating diet. His bowel function resumed. Procedures: Procedure(s) Performed: 1. Robotic-assisted daVinci Xi extended right hemicolectomy 2. Robotic-assisted daVinci Xi cholecystectomy Anesthesia: GETA, local, epidural Surgeon: Cassandra Cam EBL: 100 mL Pathology: other (1. Gallbladder 2. Extended right hemicolectomy with appendix in total 3. Anastomosis) Condition: stable Disposition: floor Operative Findings: 1. Large bulky over 8 cm tumor invading distal ascending colon and hepatic flexure 2. Cancer invades into abdominal wall including Gerota's fascia also excised in total specimen 3. No liver metastases identified 4. No peritoneal deposits identified 5. Gallbladder with thickened wall consistent with chronic and acute cholecystitis 6. Middle colic artery divided for extended right hemicolectomy 7. Mesenteric defect obliterated with side to side ileocolic anastomosis mesentery 8. Clean contaminated case without spillage Patient Condition at Discharge: Stable Plan - Discharge Summary Discharge Rx Participant: Yes New Discharge Prescriptions: New HYDROcodone/APAP 5-325MG [[place] 5-325] 1 tab PO Q6HR PRN #30 tab PRN Reason: Pain Continue Aspirin 325 mg PO DAILY Alive Multivitamin For Women 1 tab PO DAILY Ipratropium/Albuterol Sulfate [Combivent Respimat Inhaler] 1 - 2 puff INHALATION RT-QID PRN PRN Reason: Shortness Of Breath Discharge Medication List Aspirin 325 mg PO DAILY 10/13/17 [History] Alive Multivitamin For Women 1 tab PO DAILY 11/05/17 [History] Ipratropium/Albuterol Sulfate [Combivent Respimat Inhaler] 1 - 2 puff INHALATION RT-QID PRN 11/14/17 [History] HYDROcodone/APAP 5-325MG [[place] 5-325] 1 tab PO Q6HR PRN #30 tab 11/18/17 [Rx] Follow up Appointment(s)/Referral(s): Cassandra Cam MD [STAFF PHYSICIAN] - 11/19/17 4:00 pm [facility], [NON-STAFF] - As Needed Patient Instructions/Handouts: Colectomy (GEN), Laparoscopic Bowel Resection ( DC), Abdominal Binder (GEN), Colectomy Diet (DC) Activity/Diet/Wound Care/Special Instructions: No lifting over 5 pounds in 4 weeks. May shower. No bath tub soaks. Wear abdominal binder for comfort. Muscle milk protein shakes 3 times daily (60 g daily). Discharge Disposition: HOME WITH HOME HEALTH SERVICES
[2017-11-18] MEDS: SIMETHICONE 40 MG/0.6 ML DROPS 2,000 MG/30 ML BOTTLE PO SCH (09:11)
[2017-11-18] MEDS: FAMOTIDINE 20 MG/2 ML VIAL IV SCH (09:14)
[2017-11-18] MEDS: HEPARIN SODIUM,PORCINE 5,000 UNIT/ML 1 ML VIAL SQ SCH (09:14)
[2017-11-18] MEDS: ALVIMOPAN 12 MG CAPSULE PO SCH (09:14)
[2017-11-18 10:50] LABS: Anisocytosis Moderate; Basophils % (A) 0 %; Eosinophils # (A) 0.1 k/uL (0-0.7); Eosinophils % (A) 1 %; HCT 31.5 % (39.0-53.0); HGB 8.8 gm/dL (13.0-17.5); Hypochromasia Marked; Lymphocytes # (A) 0.6 k/uL (1.0-4.8); Lymphocytes % (A) 7 %; MCH 21.8 pg (25.0-35.0); MCHC 27.8 g/dL (31.0-37.0); MCV 78.3 fL (80.0-100.0); Mean Platelet Volume 8.5; Microcytosis Marked; Monocytes # (A) 0.4 k/uL (0-1.0); Monocytes % (A) 4 %; Neutrophils # (A) 8.3 k/uL (1.3-7.7); Neutrophils % (A) 88 %; Platelet Count 335 k/uL (150-450); Poikilocytosis Slight; RBC 4.02 m/uL (4.30-5.90); RDW 23.9 % (11.5-15.5); WBC 9.4 k/uL (3.8-10.6)
[2017-11-18 11:02] LABS: ALT 18 U/L (21-72); AST 29 U/L (17-59); Albumin 2.6 g/dL (3.5-5.0); Alkaline Phosphatase 50 U/L (38-126); Anion Gap 11 mmol/L; Blood Urea Nitrogen 13 mg/dL (9-20); Calcium 8.2 mg/dL (8.4-10.2); Carbon Dioxide 23 mmol/L (22-30); Chloride 105 mmol/L (98-107); Glucose 94 mg/dL (74-99); Potassium 4.1 mmol/L (3.5-5.1); Sodium 139 mmol/L (137-145); Total Bilirubin 0.3 mg/dL (0.2-1.3); Total Protein 4.8 g/dL (6.3-8.2)
[2017-11-18] MEDS: SODIUM CHLORIDE 0.9% 1,000 ML IV SCH (12:13)
== END 2017-11-18 13:00 | disposition home health service (06) | DRG 330 ==
LOC: 2ORMAIN 11:28 → 3SUR 18:10
PROVIDERS: ADMIT Surgery Plastic and Reconstructive Surgery; ATTEND Surgery Plastic and Reconstructive Surgery
PROC: 8E0W4CZ Robotic Assisted Procedure of Trunk Region, Percutaneous Endoscopic Approach (ICD-10-PCS; principal; 2017-11-14 13:30)
PROC: 0DTF4ZZ Resection of Right Large Intestine, Percutaneous Endoscopic Approach (ICD-10-PCS; principal; 2017-11-14 13:30)
PROC: 0FT44ZZ Resection of Gallbladder, Percutaneous Endoscopic Approach (ICD-10-PCS; principal; 2017-11-14 13:30)
DX: C18.3 Malignant neoplasm of hepatic flexure (principal); K80.12 Calculus of gallbladder with acute and chronic cholecystitis without obstruction; D50.0 Iron deficiency anemia secondary to blood loss (chronic); E87.5 Hyperkalemia; J44.9 Chronic obstructive pulmonary disease, unspecified; Z79.82 Long term (current) use of aspirin; Z87.891 Personal history of nicotine dependence; Z79.899 Other long term (current) drug therapy
CPT/HCPCS: 36415; 80048; 80053; 82247; 84075; 84450; 84460; 85025; 85027; 86850; 86900; 86901; 86920; 88304; 88307; 88309; 94640; 94760

== ENCOUNTER 2018-01-08 16:52 | Emergency (ER) | payer MEDICARE ==
--- NOTE | 2018-01-08 15:43 | US ---
EXAMINATION TYPE: US venous doppler duplex UE LT DATE OF EXAM: 01/08/2018 COMPARISON: NONE CLINICAL HISTORY: R06.02 Shortness of breath,M79.622 pain. SIDE PERFORMED: left Technically difficult, patient SOB. Left Arm: Negative for DVT. Cephalic v not compressible, not flow. Results phoned to Michell Jolley immediately following exam. Grayscale, color doppler, spectral doppler imaging performed of the deep veins of the left upper extr emity. IMPRESSION: Suboptimal study, no acute DVT in left upper extremity. Suspect superficial venous thromb osis involving left cephalic vein with nonvisualized color flow and noncompressibility identified.
--- NOTE | 2018-01-08 15:58 | CT ---
EXAMINATION TYPE: CT angio chest DATE OF EXAM: 01/08/2018 COMPARISON: NONE HISTORY: SOB, recently started chemo pill for colon CA CT DLP: 377 mGycm CONTRAST: CT chest with contrast and 3D reconstruction with MIP imaging is performed with IV Contrast, patient injected with 80 mL of Isovue 370. Contrast-enhanced CT of the chest was performed through the course of the pulmonary arteries with tristin g and mediastinal window settings submitted. 3D reconstruction with MIP imaging was also performed. PULMONARY ARTERIES: The pulmonary arteries and their major tributaries are patent. I do not see maurizio dence for sizable filling defect to suggest pulmonary embolic process. LUNGS: The lungs are clear and free of infiltrate. 6 moderately severe upper lobe emphysematous hawkins es. No evidence for atelectasis. No pulmonary nodule or mass is detected. No pleural effusion. MEDIASTINUM: Ascending thoracic aortic aneurysm measuring 4.4 cm AP dimension without definitive comp licating factor. Atheromatous change noted of the thoracic aorta. The heart is not enlarged. No evid ence for mediastinal mass. No mediastinal lymph nodes greater than 1cm. HILAR STRUCTURES: No evidence for mass. No hilar lymph nodes greater than 1 cm. UPPER ABDOMEN: No significant abnormality is seen. IMPRESSION: 1. No evidence for Pulmonary embolism at this time.
[2018-01-08 17:27] VITALS: TEMP 97.8
[2018-01-08] MEDS ORDERED: methylPREDNISolone SOD SUCCI 125 MG/2 ML VIAL IV STA (18:48)
[2018-01-08] MEDS ORDERED: ALBUTEROL NEBULIZED 2.5 MG/3 ML INHALATION STA (18:48)
[2018-01-08] MEDS ORDERED: IPRATROPIUM 0.5 MG/2.5 ML NEBU INHALATION STA (18:49)
[2018-01-08 19:27] VITALS: PULSE 72; RESP 19
[2018-01-08 19:55] LABS: Anisocytosis Slight; HCT 39.4 % (39.0-53.0); HGB 12.2 gm/dL (13.0-17.5); Hypochromasia Moderate; MCH 24.9 pg (25.0-35.0); MCV 80.4 fL (80.0-100.0); Mean Platelet Volume 8.1; Microcytosis Slight; Platelet Count 350 k/uL (150-450); RDW 18.6 % (11.5-15.5); WBC 9.5 k/uL (3.8-10.6)
--- NOTE | 2018-01-08 20:37 | ED ---
SOB HPI - General Chief Complaint: Shortness of Breath Time Seen by Provider: 01/08/18 18:45 Source: family Mode of arrival: wheelchair Limitations: no limitations - History of Present Illness Initial Comments: 82 years old male has a history of firm COPD he's also on a chemo he had the presented erythema there was a question of for blood clot on his lungs he had a CT angiogram done today I reviewed it is normal he is short-winded but today he said his shortness of breath is normal and he worse then usual he denies any chest pain there is no pleuritic component to the chest pain or shortness of breath recently and no fever no chills - Related Data Home Medications Medication Instructions Recorded Confirmed Aspirin 325 mg PO DAILY 10/13/17 01/08/18 Ipratropium/Albuterol Sulfate 1 - 2 puff INHALATION RT-QID PRN 11/14/17 01/08/18 [Combivent Respimat Inhaler] Capecitabine [Xeloda] 1,500 mg PO DIRECTED 01/08/18 01/08/18 Dexamethasone [Decadron] 4 mg PO DIRECTED 01/08/18 01/08/18 Ipratropium-Albuterol Nebulize 3 ml INHALATION RT-TID 01/08/18 01/08/18 [Duoneb 0.5 mg-3 mg/3 ml Soln] Multivitamins, Thera [Multivitamin 1 tab PO DAILY@1200 01/08/18 01/08/18 (formulary)] Previous Rx's Medication Instructions Recorded HYDROcodone/APAP 5-325MG [[place] 1 tab PO Q6HR PRN #30 tab 11/18/17 5-325] Azithromycin [Zithromax Tri-Doug] 500 mg PO DAILY #3 tab 01/08/18 predniSONE 50 mg PO DAILY #5 tab 01/08/18 Allergies Allergy/AdvReac Type Severity Reaction Status Date / Time No Known Allergies Allergy Verified 01/08/18 18:07 Review of Systems ROS Statement: Those systems with pertinent positive or pertinent negative responses have been documented in the HPI. ROS Other: All systems not noted in ROS Statement are negative. Past Medical History Past Medical History: Blood Disorder, Cancer, COPD Additional Past Medical History / Comment(s): ANEMIA. COLON CA DIAGNOSED. History of Any Multi-Drug Resistant Organisms: None Reported Past Surgical History: No Surgical Hx Reported Additional Past Surgical History / Comment(s): EGD, COLONOSCOPY 10/15/17 Past Anesthesia/Blood Transfusion Reactions: No Reported Reaction Past Psychological History: No Psychological Hx Reported Smoking Status: Former smoker Past Alcohol Use History: None Reported Past Drug Use History: None Reported - Past Family History Father Additional Family Medical History / Comment(s): Prostate cancer - NONE, PER Mother Family Medical History: No Reported History General Exam - General Exam Comments Initial Comments: General: The patient is awake and alert, in no distress, and does not appear acutely ill. Skin: Skin is warm and dry and no rashes or lesions are noted. Eye: Pupils are equal, round and reactive to light, extra-ocular movements are intact; there is normal conjunctiva bilaterally. Ears, nose, mouth and throat: There are moist mucous membranes and no oral lesions. Neck: The neck is supple, there is no tenderness or JVD. Cardiovascular: There is a regular rate and rhythm. No murmur, rub or gallop is appreciated. Respiratory: To auscultation bilateral, direct severe severe Gastrointestinal: Soft, non-distended, non-tender abdomen without masses or organomegaly noted. There is no rebound or guarding present. Bowel sounds are unremarkable. Back: There is no tenderness to palpation in the midline. There is no obvious deformity. Musculoskeletal: Normal ROM, no tenderness, There is no pedal edema. There is no calf tenderness or swelling. No cords were appreciated. Neurological: CN II-XII intact, Cranial nerves III through XII are intact. There are no obvious motor or sensory deficits. Coordination appears grossly intact. Speech is normal. Psychiatric: Cooperative, appropriate mood & affect, normal judgment. Limitations: no limitations Course Vital Signs 01/08/18 01/08/18 01/08/18 17:19 19:13 19:22 Temperature 97.8 F Pulse Rate 87 77 80 Respiratory 18 18 18 Rate Blood Pressure 161/88 O2 Sat by Pulse 97 Oximetry 01/08/18 19:26 Temperature 97.8 F Pulse Rate 72 Respiratory 19 Rate Blood Pressure 158/77 O2 Sat by Pulse 99 Oximetry He had Solu-Medrol [id number] and neck treatments I did the CBC and he feels fine clinically looks well vitals are good and he wants to go home he be gone home on Zithromax Z-Doug and prednisone I did speak with the Dr. Saenz area and he patient will call Dr. Hardy's office first thing in the morning to follow -up with her Medical Decision Making - Lab Data Result diagrams: 01/08/18 19:42 01/08/18 14:00 Lab Results 01/08/18 01/08/18 01/08/18 Range/Units 14:00 16:25 19:42 WBC 9.5 (3.8-10.6) k/uL RBC 4.90 (4.30-5.90) m/uL Hgb 12.2 L (13.0-17.5) gm/dL Hct 39.4 (39.0-53.0) % MCV 80.4 (80.0-100.0) fL MCH 24.9 L (25.0-35.0) pg MCHC 31.0 (31.0-37.0) g/dL RDW 18.6 H (11.5-15.5) % Plt Count 350 (150-450) k/uL Hypochromasia Moderate Anisocytosis Slight Microcytosis Slight BUN 36 H (9-20) mg/dL Creatinine 1.18 (0.66-1.25) mg/dL Est GFR (CKD-EPI)AfAm 67 (>60 ml/min/1.73 sqM) Est GFR (CKD-EPI)NonAf 58 (>60 ml/min/1.73 sqM) EKG EKG PERFORMED Disposition Clinical Impression: COPD exacerbation Disposition: HOME SELF-CARE Condition: Good Instructions: Chronic Bronchitis (ED) Prescriptions: Azithromycin [Zithromax Tri-Doug] 500 mg PO DAILY #3 tab predniSONE 50 mg PO DAILY #5 tab Is patient prescribed a controlled substance at d/c from ED?: No Referrals: Deep Jerez DO [Primary Care Provider] - 1-2 days
[2018-01-08 20:56] VITALS: BP 163/83
== END 2018-01-08 20:54 | disposition home or self-care (01) ==
LOC: EC 16:52
DX: J44.1 Chronic obstructive pulmonary disease with (acute) exacerbation (principal); Z85.038 Personal history of other malignant neoplasm of large intestine; Z87.891 Personal history of nicotine dependence; Z92.21 Personal history of antineoplastic chemotherapy; Z98.890 Other specified postprocedural states; Z79.82 Long term (current) use of aspirin; Z79.52 Long term (current) use of systemic steroids; Z79.899 Other long term (current) drug therapy
CPT/HCPCS: 36415; 94640; 82565; 84520; 85027; 93971; 71275; 93005; 99285; 96374; J2930; Q9967

== ENCOUNTER 2018-01-10 16:47 | Inpatient (IN) | payer MEDICARE ==
[2018-01-10] MEDS ORDERED: AZITHROMYCIN 500 MG in SODIUM CHLORIDE 0.9% 250 ML IVPB STA (17:10)
[2018-01-10] MEDS ORDERED: SODIUM CHLORIDE 0.9% 1,000 ML IV STA ×2 (17:10)
[2018-01-10] MEDS ORDERED: methylPREDNISolone SOD SUCCI 125 MG/2 ML VIAL IV STA (17:10)
[2018-01-10] MEDS ORDERED: IPRATROPIUM 0.5 MG/2.5 ML NEBU INHALATION STA (17:10)
[2018-01-10] MEDS ORDERED: ALBUTEROL NEBULIZED 2.5 MG/3 ML INHALATION STA (17:10)
[2018-01-10] MEDS ORDERED: AZITHROMYCIN 500 MG in DEXTROSE 5% IN WATER 250 ML IVPB STA ×2 (17:29)
--- NOTE | 2018-01-10 17:39 | ED ---
General Adult HPI - General Chief complaint: Shortness of Breath Stated complaint: Revisit No improvement Time Seen by Provider: 01/10/18 17:09 Source: patient, RN notes reviewed, old records reviewed Mode of arrival: wheelchair Limitations: no limitations - History of Present Illness Initial comments: This is an 82-year-old male the ER for evaluation. Patient has history of CVA history of COPD. Patient does breathing treatment at home with no improvement. Patient brought in the ER, patient was seen in ER 4 days ago with worsening symptoms. Patient is continuing to have bed symptoms. Patient has no significant chest pain no fevers. Patient states he cannot breathe, cannot catch his breath seems very short of breath and would like to be stay in the hospital. Patient's brought in by states patient's breathing is significantly worse - Related Data Home Medications Medication Instructions Recorded Confirmed Aspirin 325 mg PO DAILY 10/13/17 01/10/18 Capecitabine [Xeloda] 1,500 mg PO DIRECTED 01/08/18 01/10/18 Dexamethasone [Decadron] 4 mg PO DIRECTED 01/08/18 01/10/18 Ipratropium-Albuterol Nebulize 3 ml INHALATION RT-TID 01/08/18 01/10/18 [Duoneb 0.5 mg-3 mg/3 ml Soln] Multivitamins, Thera [Multivitamin 1 tab PO DAILY@1200 01/08/18 01/10/18 (formulary)] Previous Rx's Medication Instructions Recorded Azithromycin [Zithromax Tri-Doug] 500 mg PO DAILY #3 tab 01/08/18 predniSONE 50 mg PO DAILY #5 tab 01/08/18 Allergies Allergy/AdvReac Type Severity Reaction Status Date / Time No Known Allergies Allergy Verified 01/10/18 17:06 Review of Systems ROS Statement: Those systems with pertinent positive or pertinent negative responses have been documented in the HPI. ROS Other: All systems not noted in ROS Statement are negative. Past Medical History Past Medical History: Blood Disorder, Cancer, COPD Additional Past Medical History / Comment(s): ANEMIA. COLON CA DIAGNOSED. History of Any Multi-Drug Resistant Organisms: None Reported Past Surgical History: No Surgical Hx Reported Additional Past Surgical History / Comment(s): EGD, COLONOSCOPY 10/15/17 Past Anesthesia/Blood Transfusion Reactions: No Reported Reaction Past Psychological History: No Psychological Hx Reported Smoking Status: Former smoker Past Alcohol Use History: None Reported Past Drug Use History: None Reported - Past Family History Father Additional Family Medical History / Comment(s): Prostate cancer - NONE, PER Mother Family Medical History: No Reported History General Exam Limitations: no limitations General appearance: alert, anxious, in distress Head exam: Present: atraumatic, normocephalic, normal inspection Eye exam: Present: normal appearance, PERRL, EOMI. Absent: scleral icterus, conjunctival injection, periorbital swelling ENT exam: Present: normal exam, mucous membranes moist Neck exam: Present: normal inspection. Absent: tenderness, meningismus, lymphadenopathy Respiratory exam: Present: respiratory distress, wheezes, accessory muscle use, decreased breath sounds, prolonged expiratory. Absent: rales, rhonchi, stridor Cardiovascular Exam: Present: normal rhythm, tachycardia, normal heart sounds. Absent: systolic murmur, diastolic murmur, rubs, gallop, clicks GI/Abdominal exam: Present: soft, normal bowel sounds. Absent: distended, tenderness, guarding, rebound, rigid Extremities exam: Present: normal inspection, full ROM, normal capillary refill. Absent: tenderness, pedal edema, joint swelling, calf tenderness Back exam: Present: normal inspection Neurological exam: Present: alert, oriented X3, CN II-XII intact Psychiatric exam: Present: normal affect, normal mood Skin exam: Present: warm, dry, intact, normal color. Absent: rash Course Vital Signs 01/10/18 01/10/18 16:49 17:56 Temperature 98.2 F Pulse Rate 98 Respiratory 18 22 Rate Blood Pressure 187/94 O2 Sat by Pulse 94 L Oximetry - Reevaluation(s) Reevaluation #1: 01/10/18 18:17 Patient with mild improvement on prolonged breathing treatment, will place on BiPAP EKG Findings - EKG Comments: EKG Findings:: EKG shows normal sinus rhythm rate of 93, IA 1:30, QRS 92, QTc 435 Medical Decision Making - Medical Decision Making 82 male the ER for evaluation of weakness, significant shortness of breath COPD , patient placed on BiPAP. Patient be admitted for continued breathing treatments, monitoring of hemodynamic and pulse ox - Lab Data Result diagrams: 01/10/18 17:40 01/10/18 17:40 Lab Results 01/10/18 01/10/18 01/10/18 Range/Units 17:40 17:40 17:40 WBC 19.1 H (3.8-10.6) k/uL RBC 5.61 (4.30-5.90) m/uL Hgb 13.9 (13.0-17.5) gm/dL Hct 45.2 (39.0-53.0) % MCV 80.5 (80.0-100.0) fL MCH 24.7 L (25.0-35.0) pg MCHC 30.7 L (31.0-37.0) g/dL RDW 18.2 H (11.5-15.5) % Plt Count 431 (150-450) k/uL Neutrophils % 89 % Lymphocytes % 6 % Monocytes % 4 % Eosinophils % 1 % Basophils % 0 % Neutrophils # 16.9 H (1.3-7.7) k/uL Lymphocytes # 1.2 (1.0-4.8) k/uL Monocytes # 0.8 (0-1.0) k/uL Eosinophils # 0.2 (0-0.7) k/uL Basophils # 0.0 (0-0.2) k/uL Hypochromasia Moderate Anisocytosis Slight Microcytosis Slight PT (9.0-12.0) sec INR (<1.2) APTT (22.0-30.0) sec Sodium 136 L (137-145) mmol/L Potassium 4.6 (3.5-5.1) mmol/L Chloride 102 (98-107) mmol/L Carbon Dioxide 26 (22-30) mmol/L Anion Gap 8 mmol/L BUN 56 H (9-20) mg/dL Creatinine 1.00 (0.66-1.25) mg/dL Est GFR (CKD-EPI)AfAm 82 (>60 ml/min/1.73 sqM) Est GFR (CKD-EPI)NonAf 71 (>60 ml/min/1.73 sqM) Glucose 99 (74-99) mg/dL Calcium 8.4 (8.4-10.2) mg/dL Magnesium 2.2 (1.6-2.3) mg/dL Total Bilirubin 0.4 (0.2-1.3) mg/dL AST 24 (17-59) U/L ALT 28 (21-72) U/L Alkaline Phosphatase 54 (38-126) U/L Total Creatine Kinase 42 L (55-170) U/L CK-MB (CK-2) 1.7 (0.0-2.4) ng/mL CK-MB (CK-2) Rel Index 4.0 Troponin I 0.023 (0.000-0.034) ng/mL Total Protein 6.6 (6.3-8.2) g/dL Albumin 3.9 (3.5-5.0) g/dL 01/10/18 Range/Units 17:40 WBC (3.8-10.6) k/uL RBC (4.30-5.90) m/uL Hgb (13.0-17.5) gm/dL Hct (39.0-53.0) % MCV (80.0-100.0) fL MCH (25.0-35.0) pg MCHC (31.0-37.0) g/dL RDW (11.5-15.5) % Plt Count (150-450) k/uL Neutrophils % % Lymphocytes % % Monocytes % % Eosinophils % % Basophils % % Neutrophils # (1.3-7.7) k/uL Lymphocytes # (1.0-4.8) k/uL Monocytes # (0-1.0) k/uL Eosinophils # (0-0.7) k/uL Basophils # (0-0.2) k/uL Hypochromasia Anisocytosis Microcytosis PT 10.8 (9.0-12.0) sec INR 1.1 (<1.2) APTT 22.1 (22.0-30.0) sec Sodium (137-145) mmol/L Potassium (3.5-5.1) mmol/L Chloride (98-107) mmol/L Carbon Dioxide (22-30) mmol/L Anion Gap mmol/L BUN (9-20) mg/dL Creatinine (0.66-1.25) mg/dL Est GFR (CKD-EPI)AfAm (>60 ml/min/1.73 sqM) Est GFR (CKD-EPI)NonAf (>60 ml/min/1.73 sqM) Glucose (74-99) mg/dL Calcium (8.4-10.2) mg/dL Magnesium (1.6-2.3) mg/dL Total Bilirubin (0.2-1.3) mg/dL AST (17-59) U/L ALT (21-72) U/L Alkaline Phosphatase (38-126) U/L Total Creatine Kinase (55-170) U/L CK-MB (CK-2) (0.0-2.4) ng/mL CK-MB (CK-2) Rel Index Troponin I (0.000-0.034) ng/mL Total Protein (6.3-8.2) g/dL Albumin (3.5-5.0) g/dL - Radiology Data Radiology results: report reviewed (Chest x-rays negative), image reviewed Disposition Clinical Impression: COPD exacerbation, Acute exacerbation of chronic obstructive airways disease, Hypoxia Disposition: ADMITTED IP TO THIS HOSP Condition: Fair Referrals: Deep Jerez DO [Primary Care Provider] - 1-2 days
[2018-01-10 17:53] LABS: Anisocytosis Slight; Basophils % (A) 0 %; Eosinophils # (A) 0.2 k/uL (0-0.7); Eosinophils % (A) 1 %; HCT 45.2 % (39.0-53.0); HGB 13.9 gm/dL (13.0-17.5); Hypochromasia Moderate; Lymphocytes # (A) 1.2 k/uL (1.0-4.8); Lymphocytes % (A) 6 %; MCH 24.7 pg (25.0-35.0); MCHC 30.7 g/dL (31.0-37.0); MCV 80.5 fL (80.0-100.0); Mean Platelet Volume 7.1; Microcytosis Slight; Monocytes # (A) 0.8 k/uL (0-1.0); Monocytes % (A) 4 %; Neutrophils # (A) 16.9 k/uL (1.3-7.7); Neutrophils % (A) 89 %; Platelet Count 431 k/uL (150-450); RBC 5.61 m/uL (4.30-5.90); RDW 18.2 % (11.5-15.5); WBC 19.1 k/uL (3.8-10.6)
[2018-01-10 18:01] LABS: Albumin 3.9 g/dL (3.5-5.0); Calcium 8.4 mg/dL (8.4-10.2); Magnesium 2.2 mg/dL (1.6-2.3); Potassium 4.6 mmol/L (3.5-5.1); Total Bilirubin 0.4 mg/dL (0.2-1.3); Total Protein 6.6 g/dL (6.3-8.2)
[2018-01-10 18:10] LABS: INR 1.1 (<1.2); Partial Thromboplastin Time 22.1 sec (22.0-30.0); Prothrombin Time 10.8 sec (9.0-12.0)
[2018-01-10 18:12] LABS: Creatine Kinase MB 1.7 ng/mL (0.0-2.4); Troponin I 0.023 ng/mL (0.000-0.034)
[2018-01-10] MEDS: SODIUM CHLORIDE 0.9% 1,000 ML IV SCH (19:13)
[2018-01-10] MEDS ORDERED: LEVOFLOXACIN 750MG-D5W PMX 750 MG in DEXTROSE/WATER 1 150ML.BAG IVPB STA (20:04)
[2018-01-10] MEDS ORDERED: PIPERACILLIN-TAZOBACTAM 3.375 GM in DEXTROSE/WATER 1 50ML.BAG IVPB STA (20:04)
--- NOTE | 2018-01-10 20:06 | XR ---
EXAMINATION TYPE: XR chest 2V DATE OF EXAM: 01/10/2018 COMPARISON: 11/06/2017 HISTORY: Short of breath TECHNIQUE: Frontal and lateral views of the chest are obtained. FINDINGS: There is no heart failure nor confluent pneumonic infiltrate. There is pulmonary hyperinfl ation and flattening of the diaphragm. Thoracic aorta is atheromatous. There are chest leads. There a re bilateral nipple shadows. Bony thorax appears intact. IMPRESSION: No active cardiopulmonary disease. COPD. No change.
[2018-01-10] MEDS: IPRATROPIUM-ALBUTEROL 3 ML NEB INHALATION SCH (20:29)
[2018-01-10] MEDS: methylPREDNISolone SOD SUCCI 125 MG/2 ML VIAL IV SCH (23:16)
[2018-01-11] MEDS ORDERED: IPRATROPIUM-ALBUTEROL 3 ML NEB INHALATION PRN (05:00)
[2018-01-11] MEDS: IPRATROPIUM-ALBUTEROL 3 ML NEB INHALATION SCH ×5 (05:08→20:14)
[2018-01-11] MEDS ORDERED: PIPERACILLIN-TAZOBACTAM 3.375 GM in DEXTROSE/WATER 1 50ML.BAG IVPB SCH (06:00)
[2018-01-11] MEDS: methylPREDNISolone SOD SUCCI 125 MG/2 ML VIAL IV SCH ×2 (06:27→13:37)
[2018-01-11] MEDS: SODIUM CHLORIDE 0.9% 1,000 ML IV SCH ×2 (06:27→13:32)
[2018-01-11] MEDS: ENOXAPARIN 40 MG/0.4 ML SYRINGE SQ SCH (08:19)
[2018-01-11] MEDS ORDERED: ALPRAZolam 0.25 MG TAB PO STA (08:43)
[2018-01-11 12:17] LABS: Glucose,Whole Blood 162 mg/dL (75-99)
[2018-01-11 12:21] VITALS: BMI 19.0
[2018-01-11] MEDS ORDERED: IPRATROPIUM-ALBUTEROL 3 ML NEB INHALATION SCH (13:00)
[2018-01-11] MEDS: INSULIN ASPART 100 UNIT/ML 1 ML 10 ML VIAL SQ SCH ×3 (13:31→21:09)
[2018-01-11] MEDS: CAPECITABINE 1500 MG PO SCH (13:35)
--- NOTE | 2018-01-11 16:05 | P.HPIM ---
History of Present Illness 82-year-old gentleman came in with compensative shortness of breath and cough chest x-ray did not show any pneumonic process patient doesn't use any onset at home patient is present and folate as a part and although patient is not wheezing syncope patient does have minimal wheezing patient is satting at 98% cut down the arms and to 2 L. Patient appears to more anxious than actual COPD patient was given a dose of Xanax with which his symptoms significantly improved. Patient follows up with the pulmonary as an outpatient will be consulted as well and is not have any pneumonia because of which will change his antibiotics to doxycycline. Patient's IV steroids will was switched to oral steroids Review of Systems REVIEW OF SYSTEMS: CONSTITUTIONAL: No fever, no malaise, no fatigue. HEENT: No recent visual problems or hearing problems. Denied any sore throat. CARDIOVASCULAR: No chest pain, orthopnea, PND, no palpitations, no syncope. PULMONARY: no hemoptysis. GASTROINTESTINAL: No diarrhea, no nausea, no vomiting, no abdominal pain. Normoactive bowel sounds. NEUROLOGICAL: No headaches, no weakness, no numbness. HEMATOLOGICAL: Denies any bleeding or petechiae. GENITOURINARY: Denies any burning micturition, frequency, or urgency. MUSCULOSKELETAL/RHEUMATOLOGICAL: Denies any joint pain, swelling, or any muscle pain. ENDOCRINE: Denies any polyuria or polydipsia. The rest of the 14-point review of systems is negative. Past Medical History Past Medical History: Cancer, COPD Additional Past Medical History / Comment(s): ANEMIA. COLON CA DIAGNOSED.(sx and pt stated oral chemo) History of Any Multi-Drug Resistant Organisms: None Reported Past Surgical History: Appendectomy, Bowel Resection, Cholecystectomy Additional Past Surgical History / Comment(s): EGD, COLONOSCOPY w/bx 10/15/17, 11/14 extended rt hemicolectomy/cholecystectomy/appy Past Anesthesia/Blood Transfusion Reactions: No Reported Reaction Additional Past Anesthesia/Blood Transfusion Reaction / Comment(s): blood transfusion-no known reaction Smoking Status: Former smoker - Past Family History Father Additional Family Medical History / Comment(s): Prostate cancer - NONE, PER Mother Family Medical History: No Reported History Medications and Allergies Home Medications Medication Instructions Recorded Confirmed Type Aspirin 325 mg PO DAILY 10/13/17 01/10/18 History Azithromycin [Zithromax Tri-Doug] 500 mg PO DAILY #3 tab 01/08/18 01/10/18 Rx Capecitabine [Xeloda] 1,500 mg PO DIRECTED 01/08/18 01/10/18 History Dexamethasone [Decadron] 4 mg PO DIRECTED 01/08/18 01/10/18 History Ipratropium-Albuterol Nebulize 3 ml INHALATION RT-TID 01/08/18 01/10/18 History [Duoneb 0.5 mg-3 mg/3 ml Soln] Multivitamins, Thera [Multivitamin 1 tab PO DAILY@1200 01/08/18 01/10/18 History (formulary)] predniSONE 50 mg PO DAILY #5 tab 01/08/18 01/10/18 Rx Allergies Allergy/AdvReac Type Severity Reaction Status Date / Time No Known Allergies Allergy Verified 01/10/18 17:06 Physical Exam Vitals: Vital Signs Temp Pulse Pulse Resp BP BP Pulse Ox 01/11/18 15:24 94 01/11/18 15:12 93 01/11/18 15:00 97.6 F 55 L 18 118/74 98 01/11/18 12:08 92 01/11/18 11:58 90 01/11/18 08:30 88 22 01/11/18 08:07 92 01/11/18 07:58 94 01/11/18 07:00 97.0 F L 88 18 126/73 98 01/11/18 05:24 96 01/11/18 05:08 96 01/11/18 00:05 97.3 F L 77 20 115/71 98 01/10/18 20:44 118 H 01/10/18 20:29 116 H 96 01/10/18 20:28 96.2 F L 101 H 24 137/83 98 01/10/18 19:56 97.9 F 94 18 154/86 97 01/10/18 19:04 113 H 01/10/18 18:35 118 H 01/10/18 18:20 100 01/10/18 17:56 22 01/10/18 16:49 98.2 F 98 18 187/94 94 L Intake and Output 01/11/18 01/11/18 01/11/18 06:59 14:59 22:59 Intake Total 100 Output Total 200 Balance 100 -200 Intake: Oral 100 Output: Urine 200 Other: # Voids 1 Weight 53.524 kg PHYSICAL EXAMINATION: GENERAL: The patient is alert and oriented x3, not in any acute distress. Well developed, well nourished. HEENT: Pupils are round and equally reacting to light. EOMI. No scleral icterus. No conjunctival pallor. Normocephalic, atraumatic. No pharyngeal erythema. No thyromegaly. CARDIOVASCULAR: S1 and S2 present. No murmurs, rubs, or gallops. PULMONARY: Decreased air entry into bilateral lung ochoa bilateral mild expiratory wheezing was appreciated. ABDOMEN: Soft, nontender, nondistended, normoactive bowel sounds. No palpable organomegaly. MUSCULOSKELETAL: No joint swelling or deformity. EXTREMITIES: No cyanosis, clubbing, or pedal edema. NEUROLOGICAL: Gross neurological examination did not reveal any focal deficits. SKIN: No rashes. Results CBC & Chem 7: 01/10/18 17:40 01/10/18 17:40 Labs: Abnormal Lab Results - Last 24 Hours (Table) 01/10/18 01/10/18 01/10/18 Range/Units 17:40 17:40 17:40 WBC 19.1 H (3.8-10.6) k/uL MCH 24.7 L (25.0-35.0) pg MCHC 30.7 L (31.0-37.0) g/dL RDW 18.2 H (11.5-15.5) % Neutrophils # 16.9 H (1.3-7.7) k/uL Sodium 136 L (137-145) mmol/L BUN 56 H (9-20) mg/dL POC Glucose (mg/dL) (75-99) mg/dL Total Creatine Kinase 42 L (55-170) U/L 01/11/18 Range/Units 12:04 WBC (3.8-10.6) k/uL MCH (25.0-35.0) pg MCHC (31.0-37.0) g/dL RDW (11.5-15.5) % Neutrophils # (1.3-7.7) k/uL Sodium (137-145) mmol/L BUN (9-20) mg/dL POC Glucose (mg/dL) 162 H (75-99) mg/dL Total Creatine Kinase (55-170) U/L Thrombosis Risk Factor Assmnt - Choose All That Apply Each Factor Represents 1 point: Abnormal pulmonary function (COPD) Other Risk Factors: Yes Each Risk Factor Represents 3 Points: Age 75 years or older Other congenital or acquired thrombophilia - If yes, enter type in comment: No Thrombosis Risk Factor Assessment Total Risk Factor Score: 4 Thrombosis Risk Factor Assessment Level: Moderate Risk Assessment and Plan Plan: -Acute hypercapnic respiratory failure: Secondary to COPD exacerbation patient quit smoking in October 2017 patient will be continued on systemic steroids inhalational treatments. -Anxiety disorder patient was started on Xanax which is most probably contributing to his symptoms patient is tolerating this medication in spite of his age. -Colon Cancer recent diagnosis patient underwent bowel resection patient is presently on Xeloda which will be continued, this diagnosis is significantly contributing to his anxiety.
[2018-01-11 17:17] LABS: Glucose,Whole Blood 164 mg/dL (75-99)
[2018-01-11 19:21] LABS: Hemoglobin A1C 5.8 % (4.0-6.0)
[2018-01-11] MEDS ORDERED: LEVOFLOXACIN 750MG-D5W PMX 750 MG in DEXTROSE/WATER 1 150ML.BAG IVPB SCH (20:00)
[2018-01-11] MEDS: DOXYCYCLINE MONOHYDRATE 100 MG CAPSULE PO SCH (21:08)
[2018-01-11] MEDS: ALPRAZolam 0.25 MG TAB PO PRN (21:09)
[2018-01-11 21:23] LABS: Glucose,Whole Blood 80 mg/dL (75-99)
[2018-01-12] MEDS: SODIUM CHLORIDE 0.9% 1,000 ML IV SCH ×3 (01:18→19:59)
[2018-01-12 01:58] LABS: Glucose,Whole Blood 114 mg/dL (75-99)
[2018-01-12] MEDS: IPRATROPIUM-ALBUTEROL 3 ML NEB INHALATION SCH ×4 (07:40→20:56)
[2018-01-12] MEDS: INSULIN ASPART 100 UNIT/ML 1 ML 10 ML VIAL SQ SCH ×4 (08:00→21:23)
[2018-01-12 08:03] LABS: Glucose,Whole Blood 116 mg/dL (75-99)
[2018-01-12] MEDS: ALPRAZolam 0.25 MG TAB PO PRN ×2 (08:14→21:26)
[2018-01-12] MEDS: ASPIRIN 325 MG TAB PO SCH (08:14)
[2018-01-12] MEDS: ENOXAPARIN 40 MG/0.4 ML SYRINGE SQ SCH (08:14)
[2018-01-12] MEDS: predniSONE 20 MG TAB PO SCH (08:14)
[2018-01-12] MEDS: DOXYCYCLINE MONOHYDRATE 100 MG CAPSULE PO SCH ×2 (08:14→21:22)
[2018-01-12 08:59] LABS: Calcium 7.9 mg/dL (8.4-10.2); Potassium 4.4 mmol/L (3.5-5.1)
[2018-01-12 12:27] LABS: Glucose,Whole Blood 124 mg/dL (75-99)
[2018-01-12] MEDS: CAPECITABINE 1500 MG PO SCH (12:43)
--- NOTE | 2018-01-12 15:18 | P.CNPUL ---
History of Present Illness Consult date: 01/12/18 Requesting physician: Veronica Rand Reason for consult: dyspnea, COPD Chief complaint: Shortness of breath and cough History of present illness: This is an 82-year-old white male with history of COPD, colon cancer,, patient presented to the ER with a few days' history of increased shortness of breath, cough, some wheezing, no chest pain, no fever, no chills, no hemoptysis, chest x -ray on admission showed no evidence of active disease. His chest x-ray is consistent with emphysema. Since admission, the patient was placed on multiple meds, feeling better, however what seemed to help the both according to the nurse was 1 dose of Xanax. Review of Systems Patient is a very poor historian, not much could be obtained from the patient except for the fact that he does have chronic shortness of breath, worse upon exertion, occasional cough and wheezing, no headache no blurred vision no dizziness no nausea no vomiting no abdominal pain no melena no hematemesis no dysuria and no frequency no urgency. Past Medical History Past Medical History: Cancer, COPD Additional Past Medical History / Comment(s): ANEMIA. COLON CA DIAGNOSED.(sx and pt stated oral chemo) History of Any Multi-Drug Resistant Organisms: None Reported Past Surgical History: Appendectomy, Bowel Resection, Cholecystectomy Additional Past Surgical History / Comment(s): EGD, COLONOSCOPY w/bx 10/15/17, 11/14 extended rt hemicolectomy/cholecystectomy/appy Past Anesthesia/Blood Transfusion Reactions: No Reported Reaction Additional Past Anesthesia/Blood Transfusion Reaction / Comment(s): blood transfusion-no known reaction Smoking Status: Former smoker - Past Family History Father Additional Family Medical History / Comment(s): Prostate cancer - NONE, PER Mother Family Medical History: No Reported History Medications and Allergies Home Medications Medication Instructions Recorded Confirmed Type Aspirin 325 mg PO DAILY 10/13/17 01/10/18 History Azithromycin [Zithromax Tri-Doug] 500 mg PO DAILY #3 tab 01/08/18 01/10/18 Rx Capecitabine [Xeloda] 1,500 mg PO DIRECTED 01/08/18 01/10/18 History Dexamethasone [Decadron] 4 mg PO DIRECTED 01/08/18 01/10/18 History Ipratropium-Albuterol Nebulize 3 ml INHALATION RT-TID 01/08/18 01/10/18 History [Duoneb 0.5 mg-3 mg/3 ml Soln] Multivitamins, Thera [Multivitamin 1 tab PO DAILY@1200 01/08/18 01/10/18 History (formulary)] predniSONE 50 mg PO DAILY #5 tab 01/08/18 01/10/18 Rx Allergies Allergy/AdvReac Type Severity Reaction Status Date / Time No Known Allergies Allergy Verified 01/10/18 17:06 Physical Exam Vitals: Vital Signs Temp Pulse Pulse Resp BP Pulse Ox 01/12/18 12:02 90 01/12/18 11:52 86 01/12/18 08:00 18 01/12/18 07:51 92 01/12/18 07:40 88 01/12/18 07:00 96.7 F L 100 18 100/58 96 01/12/18 00:00 91 20 01/11/18 22:30 96.9 F L 91 20 134/78 99 01/11/18 20:30 95 01/11/18 20:15 92 01/11/18 16:00 55 L 18 01/11/18 15:24 94 Intake and Output 01/12/18 01/12/18 01/12/18 06:59 14:59 22:59 Intake Total 1160 Output Total 325 Balance 1160 -325 Intake: Intake, IV Titration 900 Amount Sodium Chloride 0.9% 1, 900 000 ml @ 100 mls/hr IV . Q10H [facility] Rx#:[id number] Oral 260 Output: Urine 325 Other: Voiding Method Urinal Urinal # Voids 1 Physical Exam: Revealed an 82-year-old white male in no distress Head: Atraumatic, normocephalic. HEENT:[Neck is supple.] [No neck masses.] [No thyromegaly.] [No JVD.] PERRLA, EOMI. Moist mucous membranes. Chest: [Diminished breath sounds at the bases, no crackles, no rhonchi, no wheezes. Cardiac Exam: [Normal S1 and S2, no S3 gallop, no murmur.] Abdomen: [Soft, nontender, no megaly, no rebound, no guarding, normal bowel sounds.] Extremities: [No clubbing, no edema, no cyanosis.] Neurological Exam: [No focal neurologic deficit. Psychiatric blunt affect and mood, normal mental status examination. Lymphatics: No lymphadenopathy.] Results - Laboratory Findings CBC and BMP: 01/10/18 17:40 01/12/18 08:18 PT/INR, D-dimer PT 10.8 sec (9.0-12.0) 01/10/18 17:40 INR 1.1 (<1.2) 01/10/18 17:40 Abnormal lab findings: Abnormal Labs 01/10/18 01/10/18 01/10/18 17:40 17:40 17:40 WBC 19.1 H MCH 24.7 L MCHC 30.7 L RDW 18.2 H Neutrophils # 16.9 H Sodium 136 L BUN 56 H Glucose POC Glucose (mg/dL) Calcium Total Creatine Kinase 42 L 01/11/18 01/11/18 01/12/18 12:04 17:15 01:55 WBC MCH MCHC RDW Neutrophils # Sodium BUN Glucose POC Glucose (mg/dL) 162 H 164 H 114 H Calcium Total Creatine Kinase 01/12/18 01/12/18 01/12/18 08:01 08:18 12:20 WBC MCH MCHC RDW Neutrophils # Sodium BUN 49 H Glucose 104 H POC Glucose (mg/dL) 116 H 124 H Calcium 7.9 L Total Creatine Kinase - Diagnostic Findings Chest x-ray: image reviewed (As noted in HPI) Assessment and Plan Assessment: Impression: 1 acute on chronic hypoxic and hypercapnic respiratory failure, secondary to acute exacerbation of COPD. 2 generalized anxiety disorder 3 history of colon cancer, previous bowel resection, and presently on chemotherapy. Recommendation: Continue present meds, consider discharge planning in the next 24 hours. Patient is presently on DuoNeb, Xanax, oral prednisone, will add Symbicort. Time with Patient: Greater than 30
--- NOTE | 2018-01-12 16:17 | P.PN ---
Subjective Patient is admitted for COPD exacerbation anxiety disorder patient is quite depressed patient will be started on Paxil patient has minimal wheezing today actually wheezing was not present yesterday. Patient will be continued on oral prednisone possibly of discharge tomorrow we'll obtain PT and OT consultation may require subacute rehabilitation. Barium swallow is pending. Constitutional: Denied any fatigue denied any fever. Cardio vascular: denied any chest pain, palpitations Gastrointestinal denied any nausea vomiting Pulmonary: Can use to complain of shortness of breath Neurologic denied any new focal deficits Objective - Vital Signs Vital signs: Vital Signs Temp 96.7 F L 01/12/18 07:00 Pulse 90 01/12/18 12:02 Resp 18 01/12/18 08:00 BP 100/58 01/12/18 07:00 Pulse Ox 96 01/12/18 07:00 Intake & Output 01/11/18 01/12/18 01/12/18 18:59 06:59 18:59 Intake Total 1400 Output Total 200 325 Balance -200 1400 -325 Weight 53.524 kg Intake: Intake, IV Titration 900 Amount Sodium Chloride 0.9% 1, 900 000 ml @ 100 mls/hr IV . Q10H [facility] Rx#:[id number] Oral 500 Output: Urine 200 325 Other: Voiding Method Urinal Urinal # Voids 1 - Exam PHYSICAL EXAMINATION: GENERAL: The patient is alert and oriented x3, not in any acute distress. Well developed, well nourished. HEENT: Pupils are round and equally reacting to light. EOMI. No scleral icterus. No conjunctival pallor. Normocephalic, atraumatic. No pharyngeal erythema. No thyromegaly. CARDIOVASCULAR: S1 and S2 present. No murmurs, rubs, or gallops. PULMONARY: Decreased air entry into bilateral lung ochoa bilateral mild expiratory wheezing was appreciated. ABDOMEN: Soft, nontender, nondistended, normoactive bowel sounds. No palpable organomegaly. MUSCULOSKELETAL: No joint swelling or deformity. EXTREMITIES: No cyanosis, clubbing, or pedal edema. NEUROLOGICAL: Gross neurological examination did not reveal any focal deficits. SKIN: No rashes. - Labs CBC & Chem 7: 01/10/18 17:40 01/12/18 08:18 Labs: Abnormal Lab Results - Last 24 Hours (Table) 01/11/18 01/12/18 01/12/18 Range/Units 17:15 01:55 08:01 BUN (9-20) mg/dL Glucose (74-99) mg/dL POC Glucose (mg/dL) 164 H 114 H 116 H (75-99) mg/dL Calcium (8.4-10.2) mg/dL 18 01/12/18 Range/Units 08:18 12:20 BUN 49 H (9-20) mg/dL Glucose 104 H (74-99) mg/dL POC Glucose (mg/dL) 124 H (75-99) mg/dL Calcium 7.9 L (8.4-10.2) mg/dL Microbiology - Last 24 Hours (Table) 01/10/18 20:28 Blood Culture - Preliminary Blood No Growth after 24 hours Assessment and Plan Plan: -Acute hypercapnic respiratory failure: Secondary to COPD exacerbation patient quit smoking in October 2017 patient will be continued on systemic steroids inhalational treatments. Patient is still wheezing a bit -Concern for dysphagia: Patient has follow-up pending. -Anxiety disorder and depression patient was started on Xanax which is most probably contributing to his symptoms patient is tolerating this medication in spite of his age. Patient was started on Paxil as well -Colon Cancer recent diagnosis patient underwent bowel resection patient is presently on Xeloda which will be continued, this diagnosis is significantly contributing to his anxiety.
[2018-01-12] MEDS: PARoxetine 10 MG TAB PO SCH (17:08)
[2018-01-12 17:20] LABS: Glucose,Whole Blood 135 mg/dL (75-99)
[2018-01-12 20:47] LABS: Glucose,Whole Blood 133 mg/dL (75-99)
[2018-01-13] MEDS: SODIUM CHLORIDE 0.9% 1,000 ML IV SCH ×2 (06:12→15:29)
[2018-01-13] MEDS: INSULIN ASPART 100 UNIT/ML 1 ML 10 ML VIAL SQ SCH ×2 (08:04→12:52)
[2018-01-13 08:07] LABS: Anisocytosis Slight; HCT 34.4 % (39.0-53.0); Hypochromasia Moderate; MCHC 30.7 g/dL (31.0-37.0); MCV 81.4 fL (80.0-100.0); Mean Platelet Volume 7.3; Microcytosis Slight; Platelet Count 295 k/uL (150-450); RBC 4.23 m/uL (4.30-5.90); RDW 18.3 % (11.5-15.5); WBC 11.8 k/uL (3.8-10.6)
[2018-01-13 08:10] LABS: HGB 10.6 gm/dL (13.0-17.5)
[2018-01-13 08:11] LABS: Potassium 4.4 mmol/L (3.5-5.1)
[2018-01-13 08:23] LABS: Glucose,Whole Blood 76 mg/dL (75-99)
[2018-01-13] MEDS: DOXYCYCLINE MONOHYDRATE 100 MG CAPSULE PO SCH (08:51)
[2018-01-13] MEDS: predniSONE 20 MG TAB PO SCH (08:51)
[2018-01-13] MEDS: ENOXAPARIN 40 MG/0.4 ML SYRINGE SQ SCH (08:51)
[2018-01-13] MEDS: ASPIRIN 325 MG TAB PO SCH (08:51)
[2018-01-13] MEDS: PARoxetine 10 MG TAB PO SCH (08:51)
[2018-01-13] MEDS: IPRATROPIUM-ALBUTEROL 3 ML NEB INHALATION SCH ×3 (09:01→15:50)
[2018-01-13] MEDS: ALPRAZolam 0.25 MG TAB PO PRN (09:02)
--- NOTE | 2018-01-13 09:34 | FL ---
Barium swallow HISTORY: Difficulty swallowing Exam is limited due to patient's inability to cooperate with the exam. Patient swallowed barium under fluoroscopy, 15 seconds fluoroscopy time, 3 intraoperative images document the procedure. There is no evident mass or obstruction to flow. Tertiary esophageal contractions were noted. IMPRESSION: No evident obstruction, limited exam, follow-up dedicated exam when patient is medically stable.
[2018-01-13 12:59] LABS: Glucose,Whole Blood 105 mg/dL (75-99)
--- NOTE | 2018-01-13 13:34 | P.PN ---
Subjective Progress Note Date: 01/13/18 Principal diagnosis: COPD exacerbation Progress note dated 01/13/2018 This is an 82-year-old male with history of COPD, colon cancer, who presented to the emergency room with complaints of increasing shortness of breath cough and wheezing. There is no fever chills chest pain or phlegm production. 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 He's feeling much better today already. The patient denies any hemoptysis. No fever chills nausea vomiting chest pain palpitations or other complaints for that matter. Objective - Vital Signs Vital signs: Vital Signs Temp 98.0 F 01/13/18 06:19 Pulse 86 01/13/18 12:15 Resp 17 01/13/18 08:00 BP 114/56 01/13/18 06:19 Pulse Ox 100 01/13/18 06:19 Intake & Output 01/12/18 01/13/18 01/13/18 18:59 06:59 18:59 Intake Total 1200 Output Total 325 1075 475 Balance -325 125 -475 Intake: Intake, IV Titration 900 Amount Sodium Chloride 0.9% 1, 900 000 ml @ 100 mls/hr IV . Q10H [facility] Rx#:[id number] Oral 300 Output: Urine 325 1075 475 Other: Voiding Method Urinal Urinal Urinal # Voids 3 1 - Exam No acute distress, oriented 3. Nasal O2 in place. HEENT examination is grossly unremarkable. Mucous membranes are moist. No oral lesions. Neck supple. Full range of motion. No adenopathy thyromegaly or neck vein distention. Cardiovascular examination reveals regular rhythm rate. S1-S2 normal. No S3 or S4. No discernible murmur noted. Lungs reveal very diminished breath sounds throughout. Some expiratory wheezes and rhonchi. There is prolongation on forced maneuver. Breath sounds equal bilaterally. Abdomen soft bowel sounds are heard. No masses or tenderness. Extremities are intact. No cyanosis clubbing or edema. Skin is without rash or lesion. Neurologic examination is brief but nonfocal. - Labs CBC & Chem 7: 01/13/18 07:08 01/13/18 07:08 Labs: Abnormal Lab Results - Last 24 Hours (Table) 01/12/18 01/12/18 01/13/18 Range/Units 17:16 20:42 07:08 WBC 11.8 H (3.8-10.6) k/uL RBC 4.23 L (4.30-5.90) m/uL Hgb 10.6 L D (13.0-17.5) gm/dL Hct 34.4 L (39.0-53.0) % MCHC 30.7 L (31.0-37.0) g/dL RDW 18.3 H (11.5-15.5) % BUN (9-20) mg/dL Glucose (74-99) mg/dL POC Glucose (mg/dL) 135 H 133 H (75-99) mg/dL Calcium (8.4-10.2) mg/dL 01/13/18 01/13/18 Range/Units 07:08 12:45 WBC (3.8-10.6) k/uL RBC (4.30-5.90) m/uL Hgb (13.0-17.5) gm/dL Hct (39.0-53.0) % MCHC (31.0-37.0) g/dL RDW (11.5-15.5) % BUN 41 H (9-20) mg/dL Glucose 72 L (74-99) mg/dL POC Glucose (mg/dL) 105 H (75-99) mg/dL Calcium 8.0 L (8.4-10.2) mg/dL Microbiology - Last 24 Hours (Table) 01/10/18 20:28 Blood Culture - Preliminary Blood No Growth after 48 hours Assessment and Plan Assessment: Assessment Acute on chronic hypoxemic and hypercapnic respiratory failure, secondary to severe COPD Generalized anxiety disorder History of colon cancer, status post previous bowel resection Previous history of heavy tobacco use Plan: Plan dated 01/13/2018 Chest x-ray shows only changes of COPD. White count is 11.8 hemoglobin 10.6 hematocrit 34.4 and platelet count is normal. Electrolytes appear normal. Anion gap is normal. BUN/creatinine creatinine were 41 and 0.93 respectively. Medications include updrafts with albuterol and Atrovent prednisone 60 mg a day doxycycline. I'll add Symbicort 160/4.5, 2 puffs twice a day. Hopefully discharge soon. Time with Patient: Less than 30
--- NOTE | 2018-01-13 15:00 | P.DS ---
Providers Date of admission: 01/10/18 17:10 Attending physician: Yumiko Qureshi Consults: 01/11/18 12:16 Consult Physician Routine Consulting Provider: Preethi Mejia Consult Reason/Comments: COPd Do you want consulting provider notified?: Yes [facility] Course: Patient is admitted for COPD exacerbation anxiety disorder patient is quite depressed patient will be started on Paxil patient has minimal wheezing today actually wheezing was not present yesterday. Patient will be continued on oral prednisone possibly of discharge tomorrow we'll obtain PT and OT consultation may require subacute rehabilitation. Barium swallow is pending. 01/13/2018 Patient is clinically doing better and patient is not wheezing today patient although is quite anxious patient will benefit from subacute rehabilitation patient is being discharged to [facility] today. Patient's barium swallow did not show any obstruction. PHYSICAL EXAMINATION: GENERAL: The patient is alert and oriented x3, not in any acute distress. Thin built gentleman HEENT: Pupils are round and equally reacting to light. EOMI. No scleral icterus. No conjunctival pallor. Normocephalic, atraumatic. No pharyngeal erythema. No thyromegaly. CARDIOVASCULAR: S1 and S2 present. No murmurs, rubs, or gallops. PULMONARY: Chest is clear to auscultation, no wheezing or crackles. ABDOMEN: Soft, nontender, nondistended, normoactive bowel sounds. No palpable organomegaly. MUSCULOSKELETAL: No joint swelling or deformity. EXTREMITIES: No cyanosis, clubbing, or pedal edema. NEUROLOGICAL: Gross neurological examination did not reveal any focal deficits. SKIN: No rashes. Assessment and Plan Plan: -Acute hypercapnic respiratory failure: Secondary to COPD exacerbation patient quit smoking in October 2017 patient is being discharged today. -Rule out dysphagia -Anxiety disorder and depression -Colon Cancer recent diagnosis patient underwent bowel resection Patient Condition at Discharge: Fair Plan - Discharge Summary Discharge Rx Participant: No New Discharge Prescriptions: New ALPRAZolam [Xanax] 0.25 mg PO TID PRN #9 tab PRN Reason: Anxiety Budesonide-Formot 160-4.5 Mcg [Symbicort 160-4.5 Mcg Inhaler] 2 puff INHALATION BID #1 inhaler Doxycycline Monohydrate [Monodox] 100 mg PO Q12HR #6 cap PARoxetine [Paxil] 10 mg PO DAILY #30 tab predniSONE 10 mg PO DAILY #30 tab Aspirin 81 mg PO DAILY #30 chewable Continue Multivitamins, Thera [Multivitamin (formulary)] 1 tab PO DAILY@1200 Ipratropium-Albuterol Nebulize [Duoneb 0.5 mg-3 mg/3 ml Soln] 3 ml INHALATION RT-TID Capecitabine [Xeloda] 1,500 mg PO DIRECTED Discontinued Aspirin 325 mg PO DAILY Dexamethasone [Decadron] 4 mg PO DIRECTED Azithromycin [Zithromax Tri-Doug] 500 mg PO DAILY #3 tab predniSONE 50 mg PO DAILY #5 tab Discharge Medication List Capecitabine [Xeloda] 1,500 mg PO DIRECTED 01/08/18 [History] Ipratropium-Albuterol Nebulize [Duoneb 0.5 mg-3 mg/3 ml Soln] 3 ml INHALATION RT -TID 01/08/18 [History] Multivitamins, Thera [Multivitamin (formulary)] 1 tab PO DAILY@1200 01/08/18 [ History] ALPRAZolam [Xanax] 0.25 mg PO TID PRN #9 tab 01/13/18 [Rx] Aspirin 81 mg PO DAILY #30 chewable 01/13/18 [Rx] Budesonide-Formot 160-4.5 Mcg [Symbicort 160-4.5 Mcg Inhaler] 2 puff INHALATION BID #1 inhaler 01/13/18 [Rx] Doxycycline Monohydrate [Monodox] 100 mg PO Q12HR #6 cap 01/13/18 [Rx] PARoxetine [Paxil] 10 mg PO DAILY #30 tab 01/13/18 [Rx] predniSONE 10 mg PO DAILY #30 tab 01/13/18 [Rx] Follow up Appointment(s)/Referral(s): Deep Jerez DO [Primary Care Provider] - 1-2 days
[2018-01-13 15:51] VITALS: BP 150/53; RESP 19; TEMP 98.4
[2018-01-13 16:01] VITALS: PULSE 88
[2018-01-13] MEDS ORDERED: SYMBICORT 160-4.5 MCG INHALER INHALATION SCH (20:00)
== END 2018-01-13 17:40 | DRG 190 ==
LOC: EC 16:47 → 4MS4W 17:10
PROVIDERS: ADMIT Hospitalist; ATTEND Hospitalist
DX: J44.1 Chronic obstructive pulmonary disease with (acute) exacerbation (principal); J96.21 Acute and chronic respiratory failure with hypoxia; J96.22 Acute and chronic respiratory failure with hypercapnia; C18.9 Malignant neoplasm of colon, unspecified; F32.9 Major depressive disorder, single episode, unspecified; F41.1 Generalized anxiety disorder; Z79.82 Long term (current) use of aspirin; Z85.038 Personal history of other malignant neoplasm of large intestine; Z86.73 Personal history of transient ischemic attack (TIA), and cerebral infarction without residual deficits; Z87.891 Personal history of nicotine dependence; Z90.49 Acquired absence of other specified parts of digestive tract; Z80.42 Family history of malignant neoplasm of prostate; Z79.51 Long term (current) use of inhaled steroids; Z79.899 Other long term (current) drug therapy; R13.10 Dysphagia, unspecified
CPT/HCPCS: 36415; 71046; 74220; 80048; 80053; 82550; 82553; 83036; 83735; 83880; 84484; 85025; 85027; 85610; 85730; 87040; 93005; 94640; 94644; 94760; 96365; 96375; 99285

== ENCOUNTER 2020-06-25 13:14 | Emergency (ER) | payer MEDICARE ==
[2020-06-25 13:20] VITALS: BP 157/76; PULSE 95; RESP 18; TEMP 98
[2020-06-25] MEDS ORDERED: KETOROLAC 15 MG/ML 1 ML VIAL IM STA (13:45)
[2020-06-25] MEDS ORDERED: MORPHINE SULFATE 4 MG/ML SYRINGE IM STA (13:45)
--- NOTE | 2020-06-25 13:48 | ED ---
General Adult HPI - General Chief complaint: Back Pain/Injury Stated complaint: In Pain Time Seen by Provider: 06/25/20 13:22 Source: patient, family, RN notes reviewed Mode of arrival: wheelchair Limitations: no limitations - History of Present Illness Initial comments: Patient is a pleasant 84-year-old male presenting to the emergency Department with complaints of right buttocks pain. Onset of symptoms was a month ago. Patient did see his doctor and was started on prednisone and baclofen however had behavior several hours following starting this. Patient again saw his doctor and was given Ultram and Tylenol. Patient still has pain. Patient states pain is right buttocks and extends towards the right leg. No weakness or incontinence of bowel or bladder. No bowel or bladder retention. No history of chronic back or sacrum pain or problems. - Related Data Home Medications Medication Instructions Recorded Confirmed Capecitabine [Xeloda] 1,500 mg PO DIRECTED 01/08/18 01/10/18 Ipratropium-Albuterol Nebulize 3 ml INHALATION RT-TID 01/08/18 01/10/18 [Duoneb 0.5 mg-3 mg/3 ml Soln] Multivitamins, Thera [Multivitamin 1 tab PO DAILY@1200 01/08/18 01/10/18 (formulary)] Previous Rx's Medication Instructions Recorded ALPRAZolam [Xanax] 0.25 mg PO TID PRN #9 tab 01/13/18 Aspirin 81 mg PO DAILY #30 chewable 01/13/18 Budesonide-Formot 160-4.5 Mcg 2 puff INHALATION BID #1 inhaler 01/13/18 [Symbicort 160-4.5 Mcg Inhaler] Doxycycline Monohydrate [Monodox] 100 mg PO Q12HR #6 cap 01/13/18 PARoxetine [Paxil] 10 mg PO DAILY #30 tab 01/13/18 predniSONE 10 mg PO DAILY #30 tab 01/13/18 Ketorolac [Toradol] 10 mg PO Q6HR PRN #15 tab 06/25/20 Allergies Allergy/AdvReac Type Severity Reaction Status Date / Time baclofen Allergy Unknown Verified 06/25/20 13:18 prednisone Allergy Unknown Verified 06/25/20 13:18 Review of Systems ROS Statement: Those systems with pertinent positive or pertinent negative responses have been documented in the HPI. ROS Other: All systems not noted in ROS Statement are negative. Constitutional: Denies: fever Eyes: Denies: eye pain ENT: Denies: ear pain Respiratory: Denies: cough Cardiovascular: Denies: chest pain Endocrine: Denies: fatigue Gastrointestinal: Denies: abdominal pain Genitourinary: Denies: dysuria Musculoskeletal: Reports: as per HPI Skin: Denies: rash Neurological: Denies: weakness Past Medical History Past Medical History: Cancer, COPD Additional Past Medical History / Comment(s): ANEMIA. COLON CA DIAGNOSED.(sx and pt stated oral chemo) History of Any Multi-Drug Resistant Organisms: None Reported Past Surgical History: Appendectomy, Bowel Resection, Cholecystectomy Additional Past Surgical History / Comment(s): EGD, COLONOSCOPY w/bx 10/15/17, 11/14/17 extended rt hemicolectomy/cholecystectomy/appy Past Anesthesia/Blood Transfusion Reactions: No Reported Reaction Additional Past Anesthesia/Blood Transfusion Reaction / Comment(s): blood transfusion-no known reaction Past Psychological History: No Psychological Hx Reported Smoking Status: Current every day smoker Past Alcohol Use History: None Reported Past Drug Use History: None Reported - Past Family History Father Additional Family Medical History / Comment(s): Prostate cancer - NONE, PER Mother Family Medical History: No Reported History General Exam Limitations: no limitations General appearance: alert, in no apparent distress Head exam: Present: normocephalic Eye exam: Present: normal appearance Neck exam: Present: normal inspection Respiratory exam: Present: normal lung sounds bilaterally Cardiovascular Exam: Present: regular rate, normal rhythm Expanded Peripheral pulses: 2+: Posterior Tibialis (R), Posterior Tibialis (L), Dorsalis Pedis (R), Dorsalis Pedis (L) GI/Abdominal exam: Present: soft. Absent: distended, tenderness Extremities exam: Present: normal inspection, full ROM Back exam: Present: other (Tenderness right sacroiliac region) Neurological exam: Present: alert Psychiatric exam: Present: normal affect, normal mood Skin exam: Present: normal color Course Vital Signs 06/25/20 13:16 Temperature 98.0 F Pulse Rate 95 Respiratory 18 Rate Blood Pressure 157/76 O2 Sat by Pulse 94 L Oximetry Medical Decision Making - Medical Decision Making Patient reevaluated and updated. - Radiology Data Radiology results: image reviewed (SI joint x-ray reveals no acute abnormality) Disposition Clinical Impression: Sciatica Disposition: HOME SELF-CARE Condition: Stable Instructions (If sedation given, give patient instructions): Sciatica (ED) Additional Instructions: Please follow-up with primary care physician in the being the week. Consider physical therapy. Return for weakness, loss of control of bowel or bladder, worsening symptoms or other concerns. The patient has been sent to your pharmacy. prescription sent to [facility] Prescriptions: Ketorolac [Toradol] 10 mg PO Q6HR PRN #15 tab PRN Reason: Pain Is patient prescribed a controlled substance at d/c from ED?: No Referrals: Deep Jerez DO [Primary Care Provider] - 1-2 days Time of Disposition: 14:31
--- NOTE | 2020-06-25 14:22 | XR ---
RESULT: HISTORY: pain TECHNIQUE: 3 views of the sacroiliac joints were obtained. COMPARISON: None. FINDINGS: There is no acute fracture or dislocation. The sacroiliac joints are patent with mild degenerative ch anges. No evidence of osseous erosions. Partially imaged moderate lower lumbar spondylosis. IMPRESSION: No acute osseous abnormality. Spondylosis as above.
[2020-06-25] MEDS ORDERED: ACET/COD 300 MG/30 MG STARTER PACK 6 TAB BTL PO STA (14:31)
== END 2020-06-25 14:53 | disposition home or self-care (01) ==
LOC: EC 13:14
DX: M54.31 Sciatica, right side (principal); J44.9 Chronic obstructive pulmonary disease, unspecified; F17.200 Nicotine dependence, unspecified, uncomplicated; Z79.51 Long term (current) use of inhaled steroids; Z88.8 Allergy status to other drugs, medicaments and biological substances; Z90.49 Acquired absence of other specified parts of digestive tract; Z85.038 Personal history of other malignant neoplasm of large intestine
CPT/HCPCS: 96372 ×3; 99283 ×2; 72202; J2270; J1885

== ENCOUNTER 2020-07-06 12:30 | Inpatient (IN) | payer MEDICARE ==
[2020-07-06] MEDS ORDERED: SODIUM CHLORIDE 0.9% 1,000 ML IV STA (13:37)
[2020-07-06] MEDS ORDERED: MORPHINE SULFATE 4 MG/ML SYRINGE IV STA (13:37)
[2020-07-06] MEDS ORDERED: ONDANSETRON 4 MG/2 ML VIAL IVP STA (13:37)
[2020-07-06 14:00] LABS: Basophils # (A) 0.1 k/uL (0-0.2); Basophils % (A) 0 %; Eosinophils # (A) 0.2 k/uL (0-0.7); Eosinophils % (A) 1 %; HCT 36.2 % (39.0-53.0); HGB 11.8 gm/dL (13.0-17.5); Hypochromasia Slight; Lymphocytes # (A) 0.4 k/uL (1.0-4.8); Lymphocytes % (A) 3 %; MCH 29.3 pg (25.0-35.0); MCHC 32.7 g/dL (31.0-37.0); MCV 89.6 fL (80.0-100.0); Mean Platelet Volume 6.9; Monocytes # (A) 0.4 k/uL (0-1.0); Monocytes % (A) 3 %; Neutrophils # (A) 10.7 k/uL (1.3-7.7); Neutrophils % (A) 91 %; Platelet Count 311 k/uL (150-450); RBC 4.04 m/uL (4.30-5.90); RDW 15.4 % (11.5-15.5); WBC 11.8 k/uL (3.8-10.6)
[2020-07-06 14:10] LABS: Calcium 9.3 mg/dL (8.4-10.2); Potassium 4.2 mmol/L (3.5-5.1)
[2020-07-06 14:11] LABS: Albumin 3.6 g/dL (3.5-5.0); Total Bilirubin 0.7 mg/dL (0.2-1.3); Total Protein 6.3 g/dL (6.3-8.2)
[2020-07-06 14:16] LABS: INR 1.2 (<1.2); Partial Thromboplastin Time 25.6 sec (22.0-30.0); Prothrombin Time 12.3 sec (9.0-12.0)
[2020-07-06] MEDS ORDERED: HYDROmorphone 1 MG/ML 1 ML SYRINGE IVP STA (14:46)
--- NOTE | 2020-07-06 15:01 | ED ---
General Adult HPI - General Chief complaint: Weakness Stated complaint: body pain & trouble eating Time Seen by Provider: 07/06/20 13:21 Source: patient, RN notes reviewed, old records reviewed Mode of arrival: wheelchair Limitations: no limitations - History of Present Illness Initial comments: 84-year-old male presents today with diffuse body pain mainly in the back with radiation down the right leg. He was seen in emergency department 2 weeks ago and was prescribed Ultram which states there is no relief of the symptoms. Patient reports that he has a history of colon cancer and believes this may have recurred. He states that he had some x-rays which did not show any acute abnormality. Weeks ago. Patient states that he has no appetite and is abdomen feels full. He did have a bowel movement today. - Related Data Home Medications Medication Instructions Recorded Confirmed Ipratropium-Albuterol Nebulize 3 ml INHALATION RT-QID PRN 01/08/18 07/06/20 [Duoneb 0.5 mg-3 mg/3 ml Soln] Multivitamins, Thera [Multivitamin 1 tab PO DAILY@1200 01/08/18 07/06/20 (formulary)] Albuterol Nebulized [Ventolin 2.5 mg INHALATION RT-QID PRN 07/06/20 07/06/20 Nebulized] Aspirin 325 mg PO DAILY 07/06/20 07/06/20 Previous Rx's Medication Instructions Recorded Ketorolac [Toradol] 10 mg PO Q6HR PRN #15 tab 06/25/20 Allergies Allergy/AdvReac Type Severity Reaction Status Date / Time baclofen Allergy Unknown Verified 07/06/20 13:48 prednisone Allergy Unknown Verified 07/06/20 13:48 Review of Systems ROS Statement: Those systems with pertinent positive or pertinent negative responses have been documented in the HPI. ROS Other: All systems not noted in ROS Statement are negative. Past Medical History Past Medical History: Cancer, COPD Additional Past Medical History / Comment(s): ANEMIA. COLON CA DIAGNOSED.(sx and pt stated oral chemo) History of Any Multi-Drug Resistant Organisms: None Reported Past Surgical History: Appendectomy, Bowel Resection, Cholecystectomy Additional Past Surgical History / Comment(s): EGD, COLONOSCOPY w/bx 10/15/17, 11/14/17 extended rt hemicolectomy/cholecystectomy/appy Past Anesthesia/Blood Transfusion Reactions: No Reported Reaction Additional Past Anesthesia/Blood Transfusion Reaction / Comment(s): blood transfusion-no known reaction Past Psychological History: No Psychological Hx Reported Smoking Status: Current every day smoker Past Alcohol Use History: None Reported Past Drug Use History: None Reported - Past Family History Father Additional Family Medical History / Comment(s): Prostate cancer - NONE, PER Mother Family Medical History: No Reported History General Exam - General Exam Comments Initial Comments: 84-year-old. Patient appears in mild to moderate discomfort. Limitations: no limitations General appearance: alert, in no apparent distress Head exam: Present: atraumatic, normocephalic, normal inspection Eye exam: Present: normal appearance, PERRL, EOMI. Absent: scleral icterus, conjunctival injection, periorbital swelling ENT exam: Present: normal exam, mucous membranes moist Neck exam: Present: normal inspection. Absent: tenderness, meningismus, lymphadenopathy Respiratory exam: Present: normal lung sounds bilaterally. Absent: respiratory distress, wheezes, rales, rhonchi, stridor Cardiovascular Exam: Present: regular rate, normal rhythm, normal heart sounds. Absent: systolic murmur, diastolic murmur, rubs, gallop, clicks GI/Abdominal exam: Present: soft, tenderness (Lower abdominal tenderness), normal bowel sounds. Absent: distended, guarding, rebound, rigid Extremities exam: Present: normal inspection, full ROM, normal capillary refill, other (Patient has tenderness over the right hip and states lumbar paraspinal muscles). Absent: tenderness, pedal edema, joint swelling, calf tenderness Back exam: Present: normal inspection Neurological exam: Present: alert, oriented X3, CN II-XII intact Psychiatric exam: Present: normal affect, normal mood Skin exam: Present: warm Course Vital Signs 07/06/20 07/06/20 07/06/20 12:45 14:31 15:25 Temperature 98.1 F Pulse Rate 87 72 91 Respiratory 20 18 18 Rate Blood Pressure 166/78 156/98 O2 Sat by Pulse 94 L 96 Oximetry 07/06/20 16:02 Temperature 97.9 F Pulse Rate 88 Respiratory 18 Rate Blood Pressure 167/87 O2 Sat by Pulse 93 L Oximetry Medical Decision Making - Medical Decision Making 84-year-old male presents emergency room today for intractable back pain. Symptoms have been progressive for the past month. He has a known history of colon cancer which included to bear in remission. Patient was prescribed Ultram with no relief of the symptoms. At this time he had a computed tomography scan abdomen and pelvis and lab work obtained. He is significant elevated tr ansaminases. Computed tomography scan shows concerns for lesions over the right acetabulum concern for metastatic disease and colitis. I did inform Patient of these results. He has had improvement after multiple rounds of IV narcotic pain medication. Patient's case is discussed with Dr. Rivero whom t Discussed the Case with the Admitting Physician with Consults to Oncology. - Lab Data Result diagrams: 07/06/20 13:40 07/06/20 13:40 Lab Results 07/06/20 07/06/20 07/06/20 Range/Units 13:40 13:40 13:40 WBC 11.8 H (3.8-10.6) k/uL RBC 4.04 L (4.30-5.90) m/uL Hgb 11.8 L (13.0-17.5) gm/dL Hct 36.2 L (39.0-53.0) % MCV 89.6 (80.0-100.0) fL MCH 29.3 (25.0-35.0) pg MCHC 32.7 (31.0-37.0) g/dL RDW 15.4 (11.5-15.5) % Plt Count 311 (150-450) k/uL MPV 6.9 Neutrophils % 91 % Lymphocytes % 3 % Monocytes % 3 % Eosinophils % 1 % Basophils % 0 % Neutrophils # 10.7 H (1.3-7.7) k/uL Lymphocytes # 0.4 L (1.0-4.8) k/uL Monocytes # 0.4 (0-1.0) k/uL Eosinophils # 0.2 (0-0.7) k/uL Basophils # 0.1 (0-0.2) k/uL Hypochromasia Slight PT 12.3 H (9.0-12.0) sec INR 1.2 H (<1.2) APTT 25.6 (22.0-30.0) sec Sodium 136 L (137-145) mmol/L Potassium 4.2 (3.5-5.1) mmol/L Chloride 102 (98-107) mmol/L Carbon Dioxide 28 (22-30) mmol/L Anion Gap 6 mmol/L BUN 31 H (9-20) mg/dL Creatinine 1.14 (0.66-1.25) mg/dL Est GFR (CKD-EPI)AfAm 69 (>60 ml/min/1.73 sqM) Est GFR (CKD-EPI)NonAf 60 (>60 ml/min/1.73 sqM) Glucose 88 (74-99) mg/dL Calcium 9.3 (8.4-10.2) mg/dL Magnesium 2.0 (1.6-2.3) mg/dL Total Bilirubin 0.7 (0.2-1.3) mg/dL AST 666 H (17-59) U/L ALT 713 H (4-49) U/L Alkaline Phosphatase 130 H (38-126) U/L Troponin I (0.000-0.034) ng/mL Total Protein 6.3 (6.3-8.2) g/dL Albumin 3.6 (3.5-5.0) g/dL 07/06/20 Range/Units 13:40 WBC (3.8-10.6) k/uL RBC (4.30-5.90) m/uL Hgb (13.0-17.5) gm/dL Hct (39.0-53.0) % MCV (80.0-100.0) fL MCH (25.0-35.0) pg MCHC (31.0-37.0) g/dL RDW (11.5-15.5) % Plt Count (150-450) k/uL MPV Neutrophils % % Lymphocytes % % Monocytes % % Eosinophils % % Basophils % % Neutrophils # (1.3-7.7) k/uL Lymphocytes # (1.0-4.8) k/uL Monocytes # (0-1.0) k/uL Eosinophils # (0-0.7) k/uL Basophils # (0-0.2) k/uL Hypochromasia PT (9.0-12.0) sec INR (<1.2) APTT (22.0-30.0) sec Sodium (137-145) mmol/L Potassium (3.5-5.1) mmol/L Chloride (98-107) mmol/L Carbon Dioxide (22-30) mmol/L Anion Gap mmol/L BUN (9-20) mg/dL Creatinine (0.66-1.25) mg/dL Est GFR (CKD-EPI)AfAm (>60 ml/min/1.73 sqM) Est GFR (CKD-EPI)NonAf (>60 ml/min/1.73 sqM) Glucose (74-99) mg/dL Calcium (8.4-10.2) mg/dL Magnesium (1.6-2.3) mg/dL Total Bilirubin (0.2-1.3) mg/dL AST (17-59) U/L ALT (4-49) U/L Alkaline Phosphatase (38-126) U/L Troponin I 0.015 (0.000-0.034) ng/mL Total Protein (6.3-8.2) g/dL Albumin (3.5-5.0) g/dL 07/06/20 15:02 EKG performed at 1329 shows sinus rhythm with marked sinus arrhythmia and nonspecific ST abnormality abnormal EKG. Ventricular rate of 88 bpm. MS interval is 204 ms. QRS ration is 108 ms. QT QTc is 346/418 ms. - Radiology Data Radiology results: report reviewed CT shows concern for metastatic disease correlating for colitis and postoperative changes. There is a softer lesions involving the acetabulum which shows perform enhancement scatter bone density friends in the right initial tuberosity. She mentions 8.47 m and transverse dimension by 6.9 x 8.6 with caudal septal infarction. He didn't additional lytic lesions present in the ileum. Disposition Clinical Impression: Metastasis, Transaminitis, Colon cancer Disposition: ADMITTED IP TO THIS HOSP Condition: Stable Is patient prescribed a controlled substance at d/c from ED?: No Referrals: Deep Jerez DO [Primary Care Provider] - 1-2 days Time of Disposition: 16:07
--- NOTE | 2020-07-06 15:15 | CT ---
EXAMINATION TYPE: CT abdomen pelvis w con DATE OF EXAM: 07/06/2020 COMPARISON: None HISTORY: Generalized abdominal pain, possible mets CT DLP: 572.8 mGycm Automated exposure control for dose reduction was used. TECHNIQUE: Helical acquisition of images from the lung bases through the pelvis have been completed. CONTRAST: Performed without Oral Contrast and with IV Contrast, patient injected with 100 ml mL of Isovue 300. FINDINGS: LUNG BASES: Emphysematous changes are present. AORTA: No significant abnormality is appreciated. LIVER/GB: Patient is post cholecystectomy. Mild dilation of the intra and extrahepatic biliary ducts likely due to post cholecystectomy change, liver shows no mass. PANCREAS: No significant abnormality is seen. SPLEEN: No significant abnormality is seen. ADRENALS: No significant abnormality is seen. KIDNEYS: No significant abnormality is seen. REPRODUCTIVE ORGANS: Prostate shows associated calcification BOWEL: Postop change noted in the right colon, there is somewhat diffuse colonic wall thickening see n within the descending colon and sigmoid, rectum, also at the anastomosis site. FREE AIR: No Free Air visible. ASCITES: Small amount of ascites present at the inferior margin of the right lobe of the liver. PELVIC ADENOPATHY: None visualized. RETROPERITONEAL ADENOPATHY: No Retroperitoneal Adenopathy visible. URINARY BLADDER: No significant abnormality is seen. OSSEOUS STRUCTURES: There is a destructive lesion involving the posterior acetabulum which shows a p eripheral rim of enhancement, central low density mixed with some probable scattered bone density fra gments and involving the right ischial tuberosity, the lesion measures 8.4 cm in transverse dimension by 6.9 cm in AP dimension by 8.6 cm in cephalad to caudal direction. An additional lytic lesion is p resent in the posterior ilium on the left extending into the sacroiliac joint measuring 3.3 cm in AP dimension by 2.3 cm in transverse dimension by 3 cm in cephalad to caudal dimension. Bilateral spondy lolysis is present at L5, there is an anterolisthesis grade 1 L5-S1. Bone scan may be of benefit. Deg enerative disc changes and facet arthropathy noted especially in the lower lumbar spine. IMPRESSION: METASTATIC DISEASE. CORRELATE FOR COLITIS. POSTOP CHANGES.
[2020-07-06] MEDS ORDERED: IBUPROFEN 400 MG TAB PO PRN (16:07)
[2020-07-06] MEDS ORDERED: NALOXONE 0.4 MG/ML 1 ML VIAL IV PRN (16:07)
[2020-07-06] MEDS ORDERED: ACETAMINOPHEN TAB 325 MG TAB PO PRN (16:07)
[2020-07-06] MEDS ORDERED: ALBUTEROL NEBULIZED 2.5 MG/3 ML INHALATION PRN (16:09)
[2020-07-06] MEDS ORDERED: ETODOLAC 400 MG TAB PO PRN (16:09)
[2020-07-06 16:12] LABS: Appearance,Urine Clear (Clear); Bilirubin,Urine Negative (Negative); Blood,Urine Small (Negative); Color,Urine Yellow; Glucose,Urine (UA) Negative (Negative); Hyaline Casts,Urine 1 /lpf (0-2); Ketones,Urine Trace (Negative); Leukocyte Esterase,Urine Negative (Negative); Mucus,Urine Rare /hpf; Nitrite,Urine Negative (Negative); PH, Urine 5.5 (5.0-8.0); Protein,Urine Trace (Negative); RBC,Urine 6 /hpf (0-5); Specific Gravity,Urine 1.029 (1.001-1.035); Squamous Epithelial Cell,Urine <1 /hpf (0-4); Urobilinogen,Urine <2.0 mg/dL (<2.0); WBC,Urine 1 /hpf (0-5)
[2020-07-06] MEDS: KETOROLAC 15 MG/ML 1 ML VIAL IVP PRN ×2 (16:56→23:42)
[2020-07-06] MEDS: SODIUM CHLORIDE 0.9% 1,000 ML IV SCH (16:57)
[2020-07-06] MEDS: metroNIDAZOLE-NS PMX 500 MG in SALINE 1 100ML.BAG IVPB SCH ×2 (17:34→23:18)
[2020-07-06] MEDS: LEVOFLOXACIN 500MG-D5W PMX 500 MG in DEXTROSE/WATER 1 100ML.BAG IVPB SCH (19:18)
--- NOTE | 2020-07-06 22:49 | P.HPIM ---
History of Present Illness H&P Date: 07/06/20 Chief Complaint: Weakness/body pain/difficulty eating 84-year-old male presents today with diffuse body pain mainly in the back with radiation down the right leg. He was seen in emergency department 2 weeks ago and was prescribed Ultram which states there is no relief of the symptoms. Patient reports that he has a history of colon cancer and believes this may have recurred. He states that he had some x-rays which did not show any acute abnormality. Weeks ago. Patient states that he has no appetite and is abdomen feels full. He did have a bowel movement today. Patient has a known history of colon cancer which has been in remission; CT of abdomen and pelvis was done in ED which revealed lesions over right acetabulum raising concern for metastatic disease and acute colitis; blood work reveals markedly elevated transaminases Patient was discussed with oncology and is being admitted to the hospital for further evaluation Review of Systems REVIEW OF SYSTEMS: CONSTITUTIONAL: Weakness and poor appetite. HEENT: No recent visual problems or hearing problems. Denied any sore throat. CARDIOVASCULAR: No chest pain, orthopnea, PND, no palpitations, no syncope. PULMONARY: No shortness of breath, no cough, no hemoptysis. GASTROINTESTINAL: No diarrhea, no nausea, no vomiting, no abdominal pain. NEUROLOGICAL: No headaches, no weakness, no numbness. HEMATOLOGICAL: Denies any bleeding or petechiae. GENITOURINARY: Denies any burning micturition, frequency, or urgency. MUSCULOSKELETAL/RHEUMATOLOGICAL: Back pain. ENDOCRINE: Denies any polyuria or polydipsia. The rest of the 14-point review of systems is negative. 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 History of Any Multi-Drug Resistant Organisms: None Reported Past Surgical History: Appendectomy, Bowel Resection, Cholecystectomy Additional Past Surgical History / Comment(s): 2018 R hemicolectomy with demetrius/appendectomy, EGD, colonoscopies, bilateral cataract removals/lens implants Past Anesthesia/Blood Transfusion Reactions: No Reported Reaction Additional Past Anesthesia/Blood Transfusion Reaction / Comment(s): blood transfusion-no known reaction Past Psychological History: No Psychological Hx Reported Additional Psychological History / Comment(s): Pt resides with his spouse and their 47 yr old son who has stage IV pancreatic cancer and for whom pt ans his spouse are caregivers. Home is one level with 4 porch steps. Pt has a nebulizer. Smoking Status: Current every day smoker Past Alcohol Use History: None Reported Additional Past Alcohol Use History / Comment(s): Pt started smoking in 1952 and quit in 2019. Past Drug Use History: None Reported - Past Family History Father Family Medical History: Cancer Additional Family Medical History / Comment(s): Prostate cancer Mother Family Medical History: No Reported History Additional Family Medical History / Comment(s): Mother was healthy Medications and Allergies Home Medications Medication Instructions Recorded Confirmed Type Ipratropium-Albuterol Nebulize 3 ml INHALATION RT-QID PRN 01/08/18 07/06/20 History [Duoneb 0.5 mg-3 mg/3 ml Soln] Multivitamins, Thera [Multivitamin 1 tab PO DAILY@1200 01/08/18 07/06/20 History (formulary)] Ketorolac [Toradol] 10 mg PO Q6HR PRN #15 tab 06/25/20 07/06/20 Rx Albuterol Nebulized [Ventolin 2.5 mg INHALATION RT-QID PRN 07/06/20 07/06/20 History Nebulized] Aspirin 325 mg PO DAILY 07/06/20 07/06/20 History Allergies Allergy/AdvReac Type Severity Reaction Status Date / Time baclofen Allergy Unknown Verified 07/06/20 13:48 prednisone Allergy Unknown Verified 07/06/20 13:48 Physical Exam Vitals: Vital Signs Temp Pulse Pulse Resp BP BP Pulse Ox 07/06/20 16:58 98.1 F 100 18 161/81 100 07/06/20 16:02 97.9 F 88 18 167/87 93 L 07/06/20 15:25 91 18 156/98 96 07/06/20 14:31 72 18 07/06/20 12:45 98.1 F 87 20 166/78 94 L Intake and Output 07/06/20 07/06/20 07/06/20 06:59 14:59 22:59 Intake Total 1000 Balance 1000 Intake: Amount of Fluid Infused ( 1000 ml) Other: Weight 58.967 kg General appearance: alert, in no apparent distress Head exam: Present: atraumatic, normocephalic, normal inspection Eye exam: Present: normal appearance, PERRL, EOMI. Absent: scleral icterus, conjunctival injection, periorbital swelling ENT exam: Present: normal exam, mucous membranes moist Neck exam: Present: normal inspection. Absent: tenderness, meningismus, lymphadenopathy Respiratory exam: Present: normal lung sounds bilaterally. Absent: respiratory distress, wheezes, rales, rhonchi, stridor Cardiovascular Exam: Present: regular rate, normal rhythm, normal heart sounds. Absent: systolic murmur, diastolic murmur, rubs, gallop, clicks GI/Abdominal exam: Present: soft, tenderness (Lower abdominal tenderness), normal bowel sounds. Absent: distended, guarding, rebound, rigid Extremities exam: Present: normal inspection, full ROM, normal capillary refill, other (Patient has tenderness over the right hip and states lumbar paraspinal muscles). Absent: tenderness, pedal edema, joint swelling, calf tenderness Back exam: Present: normal inspection Neurological exam: Present: alert, oriented X3, CN II-XII intact Results CBC & Chem 7: 07/06/20 13:40 07/06/20 13:40 Labs: Abnormal Lab Results - Last 24 Hours (Table) 07/06/20 07/06/20 07/06/20 Range/Units 13:40 13:40 13:40 WBC 11.8 H (3.8-10.6) k/uL RBC 4.04 L (4.30-5.90) m/uL Hgb 11.8 L (13.0-17.5) gm/dL Hct 36.2 L (39.0-53.0) % Neutrophils # 10.7 H (1.3-7.7) k/uL Lymphocytes # 0.4 L (1.0-4.8) k/uL PT 12.3 H (9.0-12.0) sec INR 1.2 H (<1.2) Sodium 136 L (137-145) mmol/L BUN 31 H (9-20) mg/dL AST 666 H (17-59) U/L ALT 713 H (4-49) U/L Alkaline Phosphatase 130 H (38-126) U/L Urine Protein (Negative) Urine Ketones (Negative) Urine Blood (Negative) Urine RBC (0-5) /hpf Urine Mucus (None) /hpf 07/06/20 Range/Units 16:02 WBC (3.8-10.6) k/uL RBC (4.30-5.90) m/uL Hgb (13.0-17.5) gm/dL Hct (39.0-53.0) % Neutrophils # (1.3-7.7) k/uL Lymphocytes # (1.0-4.8) k/uL PT (9.0-12.0) sec INR (<1.2) Sodium (137-145) mmol/L BUN (9-20) mg/dL AST (17-59) U/L ALT (4-49) U/L Alkaline Phosphatase (38-126) U/L Urine Protein Trace H (Negative) Urine Ketones Trace H (Negative) Urine Blood Small H (Negative) Urine RBC 6 H (0-5) /hpf Urine Mucus Rare H (None) /hpf Assessment and Plan Assessment: 1. Acute transaminitis - We will monitor liver enzymes closely; IV fluids in form of D5 half-normal saline; we will order acute hepatitis profile; consult GI for further recommendations 2. Acute colitis; slight elevation in white blood count at 11.8; we will order IV Levaquin and Flagyl; monitor pro-calcitonin levels and CRP; further recommendations per GI 3. Right acetabular lesion; possible metastasis; pain control; oncology is consulted 4. COPD; not in exacerbation 5. History of colon cancer; status post bowel resection DVT prophylaxis; SCDs/subcu heparin CODE STATUS; full code
[2020-07-06] MEDS: IPRATROPIUM-ALBUTEROL 3 ML NEB INHALATION PRN (23:52)
[2020-07-07] MEDS: SODIUM CHLORIDE 0.9% 1,000 ML IV SCH ×2 (02:20→14:42)
[2020-07-07] MEDS: HYDROmorphone 1 MG/ML 1 ML SYRINGE IVP PRN ×4 (04:22→17:32)
[2020-07-07] MEDS: IPRATROPIUM-ALBUTEROL 3 ML NEB INHALATION PRN ×3 (07:17→19:39)
[2020-07-07] MEDS: ASPIRIN 325 MG TAB PO SCH (07:44)
[2020-07-07] MEDS: PANTOPRAZOLE 40 MG/10 ML VIAL IV SCH (07:44)
[2020-07-07] MEDS: MULTIVITAMINS, THERA 1 EACH TAB PO SCH (07:44)
[2020-07-07] MEDS: metroNIDAZOLE-NS PMX 500 MG in SALINE 1 100ML.BAG IVPB SCH ×2 (07:45→16:14)
[2020-07-07 11:32] LABS: African American GFR (CKD) 80.9 (60.0-200.0); Anion Gap 7.7 mmol/L (4.00-12.00); Calcium 8.4 mg/dL (8.7-10.3); Carbon Dioxide 24.3 mmol/L (21.6-31.8); Non-African American GFR(CKD) 69.8 (60.0-200.0); Potassium 4.4 mmol/L (3.5-5.5)
[2020-07-07] MEDS ORDERED: RX INFO: IV CONTRAST WAS GIVEN 1 EACH MISC MISCELLANE PRN (11:43)
--- NOTE | 2020-07-07 11:58 | P.CONS ---
History of Present Illness - Reason for Consult Consult date: 07/07/20 bone lesions, Hx colon cancer Requesting physician: Jairon Rivero - Chief Complaint back pain - History of Present Illness Mr. Rick is a very pleasant 84-year-old male patient of Dr. Saenz who was last seen in the office 01/01/18. Patient presented to [facility] on in early 2017 with complaints of progressive right lower quadrant pain, CT revealed right colon thickening plus abdominal adenopathy. He had colonoscopy 10/15/17 revealing partially obstructing mass in the right mid colon, biopsies revealed adenocarcinoma. He was taken to OR by Dr. Cam on 11/14/17. He had robotic assisted right hemicolectomy and cholecystectomy. 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 09/27 lymph nodes involved, [id number]. Patient was recommended adjuvant treatment with oral Xeloda. Patient had only taken it for less than a week, came in for an acute visit, was sent to the emergency room. He canceled appointments and said that he would contact the office for follow-up. Unfortunate, he was lost to follow- up at that time. Patient presented about 2 weeks ago to the ER with complaints of back pain. Provided with analgesics. Patient states that he has not had any relief and has returned to the ER for evaluation. He states that the pain is been going on 2 months, it's greater in the right hip, radiates to the gluteus also down the back of the leg, he said the leg can be week at times, he denies loss of bowel or bladder control, he states he is having a hard time eating, lots of belching, feels full, no N,V . He denies any painful swallowing, sweats, unintentional weight loss, acute changes in bowel or bladder habits. 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 History of Any Multi-Drug Resistant Organisms: None Reported Past Surgical History: Appendectomy, Bowel Resection, Cholecystectomy Additional Past Surgical History / Comment(s): 2018 R hemicolectomy with demetrius/appendectomy, EGD, colonoscopies, bilateral cataract removals/lens implants Past Anesthesia/Blood Transfusion Reactions: No Reported Reaction Additional Past Anesthesia/Blood Transfusion Reaction / Comm: blood transfusion- no known reaction Past Psychological History: No Psychological Hx Reported Additional Psychological History / Comment(s): Pt resides with his spouse and their 47 yr old son who has stage IV pancreatic cancer and for whom pt ans his spouse are caregivers. Home is one level with 4 porch steps. Pt has a nebulizer. Smoking Status: Current every day smoker Past Alcohol Use History: None Reported Additional Past Alcohol Use History / Comment(s): Pt started smoking in 1951 and quit in 2018. Past Drug Use History: None Reported - Past Family History Father Family Medical History: Cancer Additional Family Medical History / Comment(s): Prostate cancer Mother Family Medical History: No Reported History Additional Family Medical History / Comment(s): Mother was healthy Medications and Allergies Home Medications Medication Instructions Recorded Confirmed Type Ipratropium-Albuterol Nebulize 3 ml INHALATION RT-QID PRN 01/08/18 07/06/20 History [Duoneb 0.5 mg-3 mg/3 ml Soln] Multivitamins, Thera [Multivitamin 1 tab PO DAILY@1200 01/08/18 07/06/20 History (formulary)] Ketorolac [Toradol] 10 mg PO Q6HR PRN #15 tab 06/25/20 07/06/20 Rx Albuterol Nebulized [Ventolin 2.5 mg INHALATION RT-QID PRN 07/06/20 07/06/20 History Nebulized] Aspirin 325 mg PO DAILY 07/06/20 07/06/20 History Allergies Allergy/AdvReac Type Severity Reaction Status Date / Time baclofen Allergy Unknown Verified 07/06/20 13:48 prednisone Allergy Unknown Verified 07/06/20 13:48 Physical Exam Vitals: Vital Signs Temp Pulse Pulse Resp BP BP Pulse Ox 07/07/20 08:00 98.2 F 93 165/70 99 07/07/20 07:18 80 07/07/20 02:00 98.8 F 91 18 138/67 93 L 07/06/20 23:58 86 07/06/20 23:52 86 07/06/20 20:45 98.7 F 91 18 125/66 92 L 07/06/20 19:55 91 07/06/20 16:58 98.1 F 100 18 161/81 100 07/06/20 16:02 97.9 F 88 18 167/87 93 L 07/06/20 15:25 91 18 156/98 96 07/06/20 14:31 72 18 07/06/20 12:45 98.1 F 87 20 166/78 94 L Intake and Output 07/06/20 07/07/20 07/07/20 22:59 06:59 14:59 Intake Total 1480 Balance 1480 Intake: Amount of Fluid Infused ( 1000 ml) Oral 480 Other: Voiding Method Toilet # Voids 1 1 Weight 58.967 kg - Constitutional General appearance: cooperative, no acute distress, thin - EENT Eyes: anicteric sclerae, EOMI ENT: hearing grossly normal, normal oropharynx - Neck Neck: no lymphadenopathy - Respiratory Respiratory: bilateral: CTA - Cardiovascular Rhythm: regular Heart sounds: normal: S1, S2 Abnormal Heart Sounds: no systolic murmur, no diastolic murmur, no rub, no S3 Gallop, no S4 Gallop, no click, no other leg Peripheral Edema: bilateral: None - Gastrointestinal General gastrointestinal: no absent bowel sounds, no decreased bowel sounds, no distended, no hepatomegaly, no hyperactive bowel sounds, normal bowel sounds, no organomegaly, no rigid, no scaphoid, soft, no splenomegaly, no tenderness, no umbilical hernia, no ventral hernia - Integumentary Integumentary: normal - Neurologic Neurologic: CNII-XII intact - Musculoskeletal Right lower extremity patient has weakness strength 2/5 when flexing at the hip, no loss of sensation in the feet - Psychiatric Psychiatric: A&O x's 3, appropriate affect, intact judgment & insight Results CBC & Chem 7: 07/06/20 13:40 07/07/20 05:52 Labs: Abnormal Lab Results - Last 24 Hours (Table) 07/06/20 07/06/20 07/06/20 Range/Units 13:40 13:40 13:40 WBC 11.8 H (3.8-10.6) k/uL RBC 4.04 L (4.30-5.90) m/uL Hgb 11.8 L (13.0-17.5) gm/dL Hct 36.2 L (39.0-53.0) % Neutrophils # 10.7 H (1.3-7.7) k/uL Lymphocytes # 0.4 L (1.0-4.8) k/uL PT 12.3 H (9.0-12.0) sec INR 1.2 H (<1.2) Sodium 136 L (137-145) mmol/L BUN 31 H (9-20) mg/dL AST 666 H (17-59) U/L ALT 713 H (4-49) U/L Alkaline Phosphatase 130 H (38-126) U/L Urine Protein (Negative) Urine Ketones (Negative) Urine Blood (Negative) Urine RBC (0-5) /hpf Urine Mucus (None) /hpf 07/06/20 Range/Units 16:02 WBC (3.8-10.6) k/uL RBC (4.30-5.90) m/uL Hgb (13.0-17.5) gm/dL Hct (39.0-53.0) % Neutrophils # (1.3-7.7) k/uL Lymphocytes # (1.0-4.8) k/uL PT (9.0-12.0) sec INR (<1.2) Sodium (137-145) mmol/L BUN (9-20) mg/dL AST (17-59) U/L ALT (4-49) U/L Alkaline Phosphatase (38-126) U/L Urine Protein Trace H (Negative) Urine Ketones Trace H (Negative) Urine Blood Small H (Negative) Urine RBC 6 H (0-5) /hpf Urine Mucus Rare H (None) /hpf CT scan - abdomen: report reviewed CT scan - pelvis: report reviewed (CT of the abdomen and pelvis revealing destructive lesion posterior acetabulum, measures 8.4 cm x 6.9 cm, lytic lesion in the posterior ilium on the left extending into the SI joint measuring 3.3 cm x 2.3 cm) Assessment and Plan Plan: History of stage IIIC colon adenocarcinoma. Diagnosed in 2018. [facility] Patient only took a few days of adjuvant oral Xeloda. He was lost to follow up soon after. Intractable back pain. Patient has suspicious bone lesions on CT of the abdomen and pelvis. There is does not appear to be any other disease other than in the bone. CT of the chest to complete staging. Nuclear medicine bone scan to evaluate the rest of the skeletal system. PSA and CEA ordered. Discussed the case with Radiation Oncology. Have consulted to see the patient and follow. Patient could certainly benefit from radiation to these painful lesions if found to be metastatic. The above was discussed with patient. It is concerning that he may have metastatic disease but, we need to complete a little more workup before we can come to the conclusion and have a definitive treatment plan. Continue to titrate pain medications for patient comfort. Medications for prevention of narcotic-induced constipation
--- NOTE | 2020-07-07 12:03 | P.CONS ---
History of Present Illness - Reason for Consult Consult date: 07/07/20 Bone metastatic disease - Chief Complaint Right hip pain - History of Present Illness 84 years old gentleman with history of colon cancer in 2018 status post right colon, appendix,and terminal ileum resection, pathology came back extensive mucinous adenocarcinoma, 3/16 positive lymph nodes, the tumor directly invade the adjacent pericolic fat, abdomen wall fat, and Gerota's fascia. The patient did not received adjuvant treatment at that time. He was admitted to the hospital for weakness and diffuse body pain mainly in the back radiates down to the right leg. Computed tomography scan of the abdomen 07/06/2020 revealed a destructive lesion involving the posterior acetabulum with peripheral rim of enhancement, the lesion measures 8.4 x 6.9 x 8.6 cm, there is an additional lytic lesion present in the posterior ilium on the left extending into the sacroiliac joint measures 3.3x 2.3 x 3 cm. Today the patient continues having sever pain which is relieved by using pain medications, the patient is unable to control his pain while he is at home, he would like to manage his pain medication while he is in the hospital. He is able to walk, when he is not in pain. Review of Systems Constitutional: Reports as per HPI Ears, nose, mouth and throat: Reports as per HPI Cardiovascular: Reports as per HPI Respiratory: Reports as per HPI Gastrointestinal: Reports as per HPI Genitourinary: Reports as per HPI Musculoskeletal: Reports low back pain Musculoskeletal: right: hip pain, knee pain Integumentary: Reports as per HPI Neurological: Reports as per HPI Psychiatric: Reports as per HPI Endocrine: Reports as per HPI Hematologic/Lymphatic: Reports as per HPI Allergic/Immunologic: Reports as per HPI Past Medical History Past Medical History: Cancer, COPD, GERD/Reflux Additional Past Medical History / Comment(s): 2018 colon cancer with surgery, anemia, hiatal hernia, gastritis, duodenitis, colon polyps, 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 History of Any Multi-Drug Resistant Organisms: None Reported Past Surgical History: Appendectomy, Bowel Resection, Cholecystectomy Additional Past Surgical History / Comment(s): 2018 R hemicolectomy with demetrius/appendectomy, EGD, colonoscopies, bilateral cataract removals/lens implants Past Anesthesia/Blood Transfusion Reactions: No Reported Reaction Additional Past Anesthesia/Blood Transfusion Reaction / Comm: blood transfusion- no known reaction Past Psychological History: No Psychological Hx Reported Additional Psychological History / Comment(s): Pt resides with his spouse and their 47 yr old son who has stage IV pancreatic cancer and for whom pt ans his spouse are caregivers. Home is one level with 4 porch steps. Pt has a nebulizer. Smoking Status: Current every day smoker Past Alcohol Use History: None Reported Additional Past Alcohol Use History / Comment(s): Pt started smoking in 1952 and quit in 2019. Past Drug Use History: None Reported - Past Family History Father Family Medical History: Cancer Additional Family Medical History / Comment(s): Prostate cancer Mother Family Medical History: No Reported History Additional Family Medical History / Comment(s): Mother was healthy Medications and Allergies Home Medications Medication Instructions Recorded Confirmed Type Ipratropium-Albuterol Nebulize 3 ml INHALATION RT-QID PRN 01/08/18 07/06/20 History [Duoneb 0.5 mg-3 mg/3 ml Soln] Multivitamins, Thera [Multivitamin 1 tab PO DAILY@1200 01/08/18 07/06/20 History (formulary)] Ketorolac [Toradol] 10 mg PO Q6HR PRN #15 tab 06/25/20 07/06/20 Rx Albuterol Nebulized [Ventolin 2.5 mg INHALATION RT-QID PRN 07/06/20 07/06/20 History Nebulized] Aspirin 325 mg PO DAILY 07/06/20 07/06/20 History Allergies Allergy/AdvReac Type Severity Reaction Status Date / Time baclofen Allergy Unknown Verified 07/06/20 13:48 prednisone Allergy Unknown Verified 07/06/20 13:48 Physical Exam Vitals: Vital Signs Temp Pulse Pulse Resp BP BP Pulse Ox 07/07/20 11:02 84 07/07/20 10:54 82 07/07/20 08:00 98.2 F 93 165/70 99 07/07/20 07:18 80 07/07/20 02:00 98.8 F 91 18 138/67 93 L 07/06/20 23:58 86 07/06/20 23:52 86 07/06/20 20:45 98.7 F 91 18 125/66 92 L 07/06/20 19:55 91 07/06/20 16:58 98.1 F 100 18 161/81 100 07/06/20 16:02 97.9 F 88 18 167/87 93 L 07/06/20 15:25 91 18 156/98 96 07/06/20 14:31 72 18 07/06/20 12:45 98.1 F 87 20 166/78 94 L Intake and Output 07/06/20 07/07/20 07/07/20 22:59 06:59 14:59 Intake Total 1480 Balance 1480 Intake: Amount of Fluid Infused ( 1000 ml) Oral 480 Other: Voiding Method Toilet # Voids 1 1 Weight 58.967 kg - Constitutional General appearance: average body habitus, cooperative, no acute distress - EENT Eyes: EOMI - Neck Neck: no lymphadenopathy - Cardiovascular Rhythm: regular - Gastrointestinal General gastrointestinal: no organomegaly, soft, no tenderness - Integumentary Integumentary: normal - Neurologic Neurologic: CNII-XII intact - Musculoskeletal Musculoskeletal: gait normal - Psychiatric Psychiatric: A&O x's 3, appropriate affect, intact judgment & insight Results CBC & Chem 7: 07/06/20 13:40 07/07/20 05:52 Labs: Abnormal Lab Results - Last 24 Hours (Table) 07/06/20 07/06/20 07/06/20 Range/Units 13:40 13:40 13:40 WBC 11.8 H (3.8-10.6) k/uL RBC 4.04 L (4.30-5.90) m/uL Hgb 11.8 L (13.0-17.5) gm/dL Hct 36.2 L (39.0-53.0) % Neutrophils # 10.7 H (1.3-7.7) k/uL Lymphocytes # 0.4 L (1.0-4.8) k/uL PT 12.3 H (9.0-12.0) sec INR 1.2 H (<1.2) Sodium 136 L (137-145) mmol/L BUN 31 H (9-20) mg/dL BUN/Creatinine Ratio (12.00-20.00) Ratio Glucose (70-110) mg/dL Calcium (8.7-10.3) mg/dL AST 666 H (17-59) U/L ALT 713 H (4-49) U/L Alkaline Phosphatase 130 H (38-126) U/L Urine Protein (Negative) Urine Ketones (Negative) Urine Blood (Negative) Urine RBC (0-5) /hpf Urine Mucus (None) /hpf 07/06/20 07/07/20 Range/Units 16:02 05:52 WBC (3.8-10.6) k/uL RBC (4.30-5.90) m/uL Hgb (13.0-17.5) gm/dL Hct (39.0-53.0) % Neutrophils # (1.3-7.7) k/uL Lymphocytes # (1.0-4.8) k/uL PT (9.0-12.0) sec INR (<1.2) Sodium (137-145) mmol/L BUN (9-20) mg/dL BUN/Creatinine Ratio 27.00 H (12.00-20.00) Ratio Glucose 61 L (70-110) mg/dL Calcium 8.4 L (8.7-10.3) mg/dL AST (17-59) U/L ALT (4-49) U/L Alkaline Phosphatase (38-126) U/L Urine Protein Trace H (Negative) Urine Ketones Trace H (Negative) Urine Blood Small H (Negative) Urine RBC 6 H (0-5) /hpf Urine Mucus Rare H (None) /hpf Assessment and Plan Assessment: An 84 years old gentleman with a history of colon cancer in 2018, he has a destructive lesion involving the right posterior acetabulum measures 8.4 x 6.9 x 8.6 cm, and a lytic lesion in the left ilium causing severe pain 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 (1) Colon cancer Current Visit: Yes Status: Acute Code(s): C18.9 - MALIGNANT NEOPLASM OF COLON, UNSPECIFIED SNOMED Code(s): 172884713 (2) Metastasis Current Visit: Yes Status: Acute Code(s): C79.9 - SECONDARY MALIGNANT NEOPLASM OF UNSPECIFIED SITE SNOMED Code(s): 271346938 Plan: CT scan of the abdomen was reviewed , it seems the large lytic lesions in the right hip and left ilium are causing his pain , Bone scan will be beneficiary for further evaluation of osseous metastasis disease. However a tissue diagnosis might be needed from the lesions to have the right diagnosis. The patient will get a benefit of course of palliative external beam radiation therapy to the right hip,sacrum , and SI joints to encompass these large lytic lesions for pain relief. In the meantime the patient pain will be managed and controlled medically. We will discuss the case with the oncology group .
[2020-07-07] MEDS: KETOROLAC 15 MG/ML 1 ML VIAL IVP PRN (14:44)
--- NOTE | 2020-07-07 14:47 | CONS ---
CONSULTATION DATE OF DICTATION: July 07, 2020. REASON FOR CONSULTATION: Elevated LFTs. HISTORY OF PRESENT ILLNESS: The patient is an 84-year-old pleasant white male who was admitted to the hospital because of severe diffuse body pain that started about 2 or 3 weeks ago. He complains of pain in the right hip, right leg, left hip area and left lower back area for the last 2 weeks. He came to the emergency room, was given some pain medications with Ultram and was discharged home. He continued to have worsening symptoms and he came back to the emergency room today and he had a CT of the abdomen and pelvis done that showed a large lesion in the right acetabulum and in the left iliosacral SI joint all consistent with metastatic disease. He was also noted to have elevated LFTs and hence we are consulted because of this issue. The patient denies any abdominal pain. He reports no nausea, vomiting. He has been complaining of some excessive belching, decreased appetite, decreased oral intake. He denies any prior history of chronic liver disease. No recent antibiotic use. No new medications other than Ultram that was given to him recently. PAST MEDICAL HISTORY: Diagnosed with colon cancer about 2 years ago and underwent surgery by Dr. Cam. History of COPD. MEDICATIONS AT HOME: Aspirin, albuterol, Toradol, multivitamin, and DuoNeb. ALLERGIES: BACLOFEN and PREDNISONE. SOCIAL HISTORY: Chronic smoker. No alcohol use. FAMILY HISTORY: Father had prostate cancer. Mother was healthy. PAST SURGICAL HISTORY: Right hemicolectomy 2018, cholecystectomy, appendectomy, EGD, colonoscopy and bilateral cataract surgeries. REVIEW OF SYSTEMS: CARDIOPULMONARY: No chest pain or shortness of breath. GENITOURINARY: No dysuria or hematuria. MUSCULOSKELETAL: Unremarkable. SKIN: Unremarkable ENDOCRINE: Unremarkable. PSYCHIATRIC: Unremarkable. NEUROLOGY: Unremarkable. ENT/VISION: Unremarkable. MUSCULOSKELETAL: Severe body pains as mentioned above. GI: Decreased oral intake. HEMATOLOGY: Unremarkable. CONSTITUTIONAL: No recent weight loss, but decreased appetite. No fever, chills, night sweats. PHYSICAL EXAMINATION: He appears comfortable. No apparent distress. VITAL SIGNS: Stable. Blood pressure is 132/86, pulse rate 82 per minute, temperature 98.2. HEENT: Examination unremarkable. Conjunctivae pink. Sclerae anicteric. Oral cavity, no lesions. NECK: No JVD or lymph node enlargement. CHEST: Was clear to auscultation. HEART: Regular rate and rhythm. ABDOMEN: Soft. It was nontender, nondistended. Bowel sounds are positive. No organomegaly. EXTREMITIES: No pedal edema. NEURO: He is alert and oriented x3. No focal deficits. LABS: WBC 11.8, hemoglobin 11.8, platelets normal. Basic metabolic panel showed a sodium of 136, BUN 31, creatinine 1.14. AST and ALT are 666 and 713 respectively. Alkaline phosphatase 130 and T-bilirubin 0.7. IMPRESSION: 1. Elevated serum transaminases in this patient with no history of chronic liver disease consistent with acute hepatitis. Rule out viral hepatitis or medication related. Labs from a year ago showed normal serum transaminases. The patient has no history of chronic liver disease and no history of alcohol use. 2. Pain in the right hip and right lower extremity. CAT scan showing large lesion in the right hip area consistent with metastatic disease. Oncology has been consulted. 3. History of colon cancer diagnosed in 2018, status post right hemicolectomy. RECOMMENDATIONS: 1. We will obtain hepatitis serologies for A, B and C. 2. Repeat labs in the morning. 3. Continue with Protonix 40 mg daily. 4. Advance diet as tolerated. 5. We will follow with you closely. Thank you for this consultation. MMODL / IJN: [id number] /
[2020-07-07 15:14] VITALS: BMI 20.9
[2020-07-07] MEDS: ONDANSETRON 4 MG/2 ML VIAL IVP PRN (16:13)
[2020-07-07] MEDS: LEVOFLOXACIN 500MG-D5W PMX 500 MG in DEXTROSE/WATER 1 100ML.BAG IVPB SCH (17:32)
--- NOTE | 2020-07-07 18:30 | NM ---
EXAM: NM Bone Scan CLINICAL HISTORY: ITS.REASON NM Reason: bony lesions in pelvis, Hx colon cancer TECHNIQUE: Anterior and posterior images of the whole body were obtained following the intravenous administration of Tc99m MDP. COMPARISON: CT abdomen/pelvis on 07/07/2020 FINDINGS: Skull/facial bones: No abnormal uptake. Spine: Unremarkable. No abnormal increased or decreased uptake. Ribs/Sternum: Small focus of radiotracer uptake in the sternum is concerning for an osseous metastasis. Long bones: No abnormal uptake. Pelvis: Radiotracer uptake in the left iliac bone and right ischium, concerning for osseous metastases. Joints: Unremarkable. No focal increased or decreased uptake. Soft tissues: Unremarkable. Renal/bladder: Within normal limits. IMPRESSION: 1. Radiotracer uptake in the left iliac bone and right ischium, concerning for osseous metastases. 2. Small focus of radiotracer uptake in the sternum is concerning for an osseous metastasis.
--- NOTE | 2020-07-07 19:31 | CT ---
EXAM: CT Chest With Intravenous Contrast CLINICAL HISTORY: ITS.REASON CT Reason: bony lesions in pelvis, Hx colon cancer TECHNIQUE: Axial computed tomography images of the chest with intravenous contrast. CTDI is 6.8 mGy and DLP is 241 mGy-cm. This CT exam was performed using one or more of the following dose reduction techniques: automated exposure control, adjustment of the mA and/or kV according to patient size, and/or use of iterative reconstruction technique. COMPARISON: CT chest on 01/08/2018 FINDINGS: Lungs: Spiculated mass in the left upper lobe, measuring approximately 2.3 x 1.9 x 4.0 cm. This is concerning for neoplasm/metastasis. Emphysematous changes. Scarring at the lung apices. Pleural space: Trace left pleural effusion. No pneumothorax. Heart: Unremarkable. No cardiomegaly. No significant pericardial effusion. Mediastinum: Nonspecific mildly prominent mediastinal and hilar lymph nodes. Bones/joints: Sclerosis in the manubrium and upper sternum. Osseous metastasis is not excluded. Degenerative changes of the spine. No acute fracture. No dislocation. Soft tissues: Unremarkable. Vasculature: No definite pulmonary embolus identified. Narrowing of the subsegmental pulmonary artery to the left upper lobe as it courses through a spiculated mass. Atherosclerotic changes of the aorta. No aortic aneurysm or dissection. Lymph nodes: Unremarkable. No enlarged lymph nodes. Gallbladder and bile ducts: Prior cholecystectomy. Stomach and bowel: Postsurgical changes of the bowel partially visualized. IMPRESSION: 1. No definite pulmonary embolus identified. Narrowing of the subsegmental pulmonary artery to the left upper lobe as it courses through a spiculated mass. 2. Atherosclerotic changes of the aorta. No aortic aneurysm or dissection. 3. Spiculated mass in the left upper lobe, measuring approximately 2.3 x 1.9 x 4.0 cm. This is concerning for neoplasm/metastasis. 4. Emphysematous changes. Scarring at the lung apices. 5. Trace left pleural effusion. 6. Sclerosis in the manubrium and upper sternum. Osseous metastasis is not excluded.
[2020-07-08] MEDS: metroNIDAZOLE-NS PMX 500 MG in SALINE 1 100ML.BAG IVPB SCH ×4 (00:04→22:49)
[2020-07-08] MEDS: HYDROmorphone 1 MG/ML 1 ML SYRINGE IVP PRN ×7 (00:08→23:56)
[2020-07-08] MEDS: SODIUM CHLORIDE 0.9% 1,000 ML IV SCH ×3 (00:11→20:38)
[2020-07-08] MEDS: KETOROLAC 15 MG/ML 1 ML VIAL IVP PRN ×3 (01:46→22:50)
[2020-07-08] MEDS: PANTOPRAZOLE 40 MG/10 ML VIAL IV SCH (07:09)
[2020-07-08] MEDS: ASPIRIN 325 MG TAB PO SCH (07:10)
[2020-07-08] MEDS: MULTIVITAMINS, THERA 1 EACH TAB PO SCH (07:10)
[2020-07-08 10:51] LABS: African American GFR (CKD) 96.4 (60.0-200.0); Anion Gap 6.6 mmol/L (4.00-12.00); BUN/Creat Ratio 26.25 Ratio (12.00-20.00); Calcium 8.2 mg/dL (8.7-10.3); Carbon Dioxide 25.4 mmol/L (21.6-31.8); Non-African American GFR(CKD) 83.2 (60.0-200.0); Potassium 4.3 mmol/L (3.5-5.5)
[2020-07-08] MEDS: IPRATROPIUM-ALBUTEROL 3 ML NEB INHALATION PRN ×3 (10:55→19:41)
--- NOTE | 2020-07-08 13:17 | PN ---
PROGRESS NOTE DATE OF SERVICE: 07/08/2020. HISTORY: The patient is an 84-year-old white male admitted to hospital with severe right hip pain and left back pain. CT scan showed lesions in the right hip, suspicious for metastatic disease. He was noted to have elevated serum transaminases and hence he is being seen in consultation. He is doing well. He denies any new symptoms. Continues to have some mild pain in the right hip area. PHYSICAL EXAMINATION: Appears comfortable, no apparent distress. VITAL SIGNS: Blood pressure is 161/75, pulse 89, temperature 98. HEENT: Examination unremarkable. Conjunctive pink. Sclerae anicteric. Oral cavity no lesions. NECK: No JVD or lymph node enlargement. CHEST: Clear to auscultation. HEART: Regular rate and rhythm. ABDOMEN: Soft. Bowel sounds are positive. No organomegaly. EXTREMITIES: No pedal edema. NEURO: He is alert and oriented x3. No focal deficits. LABS: From today, CBC not done. CEA basic metabolic panel within normal limits, however, the liver enzymes are not available though requested. IMPRESSION: 1. Acute elevation of serum transaminases, which is new onset. LFTs in the past were normal. No history of chronic liver disease. Hepatitis serologies for A, B and C are pending. Repeat LFTs are also pending. 2. Lesion in the right acetabulum and in the left sacroiliac joint suspicious for metastasis. Oncology has been consulted. Workup in progress. 3. History of colon cancer diagnosed 2 years ago. RECOMMENDATIONS: 1. Repeat LFTs today. 2. Obtain hepatitis serologies for A, B and C. 3. We will follow with you closely. Thank you for this consultation. MMODL / IJN: [id number] /
[2020-07-08] MEDS: ONDANSETRON 4 MG/2 ML VIAL IVP PRN (15:17)
[2020-07-08 17:37] LABS: ALT 390 U/L (10-49); AST 109 U/L (14-35); Albumin/Globulin Ratio 1.88; Alkaline Phosphatase 170 U/L (41-126); Total Bilirubin 0.3 mg/dL (0.3-1.2); Total Protein 4.9 g/dL (6.2-8.2)
[2020-07-08 17:41] LABS: Hepatitis A Antibody IgM Non-Reactive (Non-Reactive); Hepatitis B Core IgM Non-Reactive (Non-Reactive); Hepatitis B Surface Antigen Non-Reactive (Non-Reactive); Hepatitis C IgG Antibody Non-Reactive (Non-Reactive)
[2020-07-08] MEDS: LEVOFLOXACIN 500MG-D5W PMX 500 MG in DEXTROSE/WATER 1 100ML.BAG IVPB SCH (17:46)
[2020-07-09] MEDS: HYDROmorphone 1 MG/ML 1 ML SYRINGE IVP PRN ×6 (02:57→22:07)
[2020-07-09] MEDS: KETOROLAC 15 MG/ML 1 ML VIAL IVP PRN ×2 (05:38→10:09)
[2020-07-09] MEDS: SODIUM CHLORIDE 0.9% 1,000 ML IV SCH ×2 (05:38→07:18)
[2020-07-09] MEDS: PANTOPRAZOLE 40 MG/10 ML VIAL IV SCH (07:17)
[2020-07-09] MEDS: metroNIDAZOLE-NS PMX 500 MG in SALINE 1 100ML.BAG IVPB SCH ×3 (07:19→23:35)
[2020-07-09] MEDS: MULTIVITAMINS, THERA 1 EACH TAB PO SCH (07:21)
[2020-07-09] MEDS: ASPIRIN 325 MG TAB PO SCH (07:21)
[2020-07-09] MEDS: IPRATROPIUM-ALBUTEROL 3 ML NEB INHALATION PRN ×4 (07:45→20:41)
[2020-07-09 09:03] LABS: African American GFR (CKD) 96.4 (60.0-200.0); Anion Gap 4.4 mmol/L (4.00-12.00); BUN/Creat Ratio 21.25 Ratio (12.00-20.00); Calcium 8.4 mg/dL (8.7-10.3); Carbon Dioxide 28.6 mmol/L (21.6-31.8); Non-African American GFR(CKD) 83.2 (60.0-200.0); Potassium 4.6 mmol/L (3.5-5.5)
--- NOTE | 2020-07-09 09:44 | PN ---
PROGRESS NOTE DATE OF SERVICE: July 092019 Patient is an 84-year-old white male admitted to hospital with right-sided hip pain. CT showed lesion in the right acetabulum suspicious for metastasis. He had a CT of the chest done yesterday that showed a 2 x 3 x 4 cm mass in the left upper lobe of the lung. Oncology has been consulted. He is being followed for elevated LFTs. Repeat labs from yesterday showed AST of 109 and ALT of 390, alkaline phosphatase is 170, hepatitis serologies for A, B and C are negative. He denies any new symptoms today. PHYSICAL EXAMINATION: Appears comfortable. VITAL SIGNS: Stable. Blood pressure is 155/70, pulse is 78. Temperature 98.4. HEENT examination unremarkable. Conjunctivae pink. Sclerae anicteric. Oral cavity no lesions. Neck no JVD. Chest was clear to auscultation. HEART: Regular rate and rhythm. ABDOMEN: Soft. Bowel sounds are positive. No organomegaly. EXTREMITIES: No pedal edema. NEURO: He is alert and oriented x3. No focal deficits. LABS: From today AST is 109, ALT 390, alkaline phosphatase 170, and T-bilirubin is 0.3. Hepatitis A, B and C are negative. IMPRESSION: 1. Elevated serum transaminases which are gradually improving. Hepatitis serologies for A, B and C negative. Baseline LFTs were normal. 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 2. Left upper lobe mass with lesions in the right hip area consistent with metastasis. Oncology is following the patient closely. 3. History of colon cancer in 2018, status post right hemicolectomy. RECOMMENDATIONS: 1. Monitor LFTs on a daily basis. 2. No need for any further workup. Serum transaminases are improving. 3. Continue with symptomatic and supportive care and will follow with you closely. Thank you for this consultation. MMODL / IJN: [id number] /
--- NOTE | 2020-07-09 14:48 | US ---
EXAMINATION TYPE: US abdomen complete DATE OF EXAM: 07/07/2020 COMPARISON: CT 07/06/2020 CLINICAL HISTORY: Transaminitis. Difficult and limited exam due to overlying bowel gas. EXAM MEASUREMENTS: Liver Length: 13.8 cm Gallbladder Wall: Surgically absent CBD: 0.7 cm Spleen: 8.8 cm Right Kidney: 9.7 x 3.9 x 4.5 cm Left Kidney: 9.1 x 4.3 x 3.7 cm Pancreas: Obscured by bowel gas Liver: wnl Gallbladder: Surgically absent Evidence for sonographic Vanessa's sign: no CBD: wnl post cholecystectomy Spleen: wnl Right Kidney: No hydronephrosis or masses seen Left Kidney: No hydronephrosis or masses seen Upper IVC: wnl Abd Aorta: Obscured by overlying bowel gas There is no ascites. IMPRESSION: Exam somewhat limited. Postop changes
[2020-07-09] MEDS: LEVOFLOXACIN 500MG-D5W PMX 500 MG in DEXTROSE/WATER 1 100ML.BAG IVPB SCH (17:26)
[2020-07-09] MEDS ORDERED: HYDROmorphone 1 MG/ML 1 ML SYRINGE IVP STA (19:29)
[2020-07-10] MEDS: SODIUM CHLORIDE 0.9% 1,000 ML IV SCH ×3 (00:04→19:28)
[2020-07-10] MEDS ORDERED: HYDROmorphone 1 MG/ML 1 ML SYRINGE IVP PRN (00:20)
[2020-07-10] MEDS: HYDROmorphone 1 MG/ML 1 ML SYRINGE IVP PRN ×4 (00:38→09:20)
[2020-07-10] MEDS: IPRATROPIUM-ALBUTEROL 3 ML NEB INHALATION PRN ×4 (07:19→20:43)
[2020-07-10] MEDS: metroNIDAZOLE-NS PMX 500 MG in SALINE 1 100ML.BAG IVPB SCH ×3 (07:52→23:11)
[2020-07-10] MEDS: ASPIRIN 325 MG TAB PO SCH (07:53)
[2020-07-10] MEDS: PANTOPRAZOLE 40 MG/10 ML VIAL IV SCH (07:53)
[2020-07-10] MEDS: MULTIVITAMINS, THERA 1 EACH TAB PO SCH (07:53)
[2020-07-10 09:29] LABS: Glucose,Whole Blood 79 mg/dL (75-99)
[2020-07-10 09:29] LABS: Glucose,Whole Blood 90 mg/dL (75-99)
[2020-07-10 09:29] LABS: Glucose,Whole Blood 85 mg/dL (75-99)
[2020-07-10 09:29] LABS: Glucose,Whole Blood 88 mg/dL (75-99)
[2020-07-10 09:29] LABS: Glucose,Whole Blood 93 mg/dL (75-99)
[2020-07-10 09:36] LABS: Glucose,Whole Blood 65 mg/dL (75-99)
[2020-07-10 09:37] LABS: Glucose,Whole Blood 76 mg/dL (75-99)
[2020-07-10 09:37] LABS: Glucose,Whole Blood 74 mg/dL (75-99)
[2020-07-10 09:37] LABS: Glucose,Whole Blood 90 mg/dL (75-99)
[2020-07-10] MEDS: HYDROmorphone 2 MG/ML 1 ML SYRINGE IVP PRN ×4 (12:23→23:12)
[2020-07-10 12:32] LABS: African American GFR (CKD) 91.9 (60.0-200.0); Albumin 3.2 g/dL (3.80-4.90); Albumin/Globulin Ratio 1.88 (1.60-3.17); Anion Gap 3.5 mmol/L (4.00-12.00); BUN/Creat Ratio 16.67 Ratio (12.00-20.00); Calcium 8.5 mg/dL (8.7-10.3); Carbon Dioxide 29.5 mmol/L (21.6-31.8); Globulin 1.7 g/dL (1.6-3.3); Non-African American GFR(CKD) 79.3 (60.0-200.0); Potassium 4.2 mmol/L (3.5-5.5); Total Bilirubin 0.3 mg/dL (0.3-1.2); Total Protein 4.9 g/dL (6.2-8.2)
--- NOTE | 2020-07-10 12:32 | P.PN ---
Subjective Progress Note Date: 07/10/20 Principal diagnosis: 1. Intractable pain 2. Iliac bone lesion Pain is uncontrolled. Dilaudid helps, decreases pain from 9 to 5, however only lasts for 1 hour. Objective - Vital Signs Vital signs: Vital Signs Temp 98.2 F 07/10/20 08:00 Pulse 76 07/10/20 11:24 Resp 20 07/10/20 08:00 BP 133/78 07/10/20 08:00 Pulse Ox 98 07/10/20 08:00 Intake & Output 07/09/20 07/10/20 07/10/20 18:59 06:59 18:59 Intake Total 1500 100 Output Total 350 Balance 1150 100 Intake: Intake, IV Titration 1400 Amount Levofloxacin 500Mg-D5w 100 Pmx 500 mg In Dextrose/ Water 1 100ml.bag @ 100 mls/hr IVPB Q24H ROHAN Rx#: [id number] Sodium Chloride 0.9% 1, 1200 000 ml @ 100 mls/hr IV . Q10H ROHAN Rx#:[id number] metroNIDAZOLE-NS PMX 500 100 mg In Saline 1 100ml.bag @ 100 mls/hr IVPB Q8HR ROHAN Rx#:[id number] Oral 100 100 Output: Urine 350 Other: Voiding Method Urinal Urinal Urinal # Voids 3 2 - Exam Gen.: No acute distress. HEENT: No conjunctival pallor or scleral icterus. Mucosa moist. Neck: Supple. Lungs: No respiratory distress. Heart: Regular rate. Abdomen: Soft, nontender. MSK: Appropriate strength in all 4 extremities. Limited RLE movement however due to pain. Neuro: Alert. Skin: No jaundice. Psych: Appropriate affect. - Labs CBC & Chem 7: 07/06/20 13:40 07/09/20 05:38 Labs: Abnormal Lab Results - Last 24 Hours (Table) 07/07/20 07/07/20 Range/Units 06:05 06:20 POC Glucose (mg/dL) 65 L 74 L (75-99) mg/dL Assessment and Plan Assessment: 1. Intractable pain 2. Bone lesion 3. History of colon cancer Plan: Mr. Rick is a very pleasant 84-year-old gentleman with a history of colon cancer, declined adjuvant chemotherapy, here for intractable back pain. Workup revealed an iliac bone lesion. Bone scan completed with uptake in the iliac bone lesion as well as of the sternum. He was seen by radiation oncology, appreciate recommendations. Agree with biopsy followed by radiation therapy. For now, his pain remains uncontrolled. We'll adjust his Dilaudid to better control his pain. Discussed with patient and nursing staff. They're agreeable to the plan. All of their questions were answered.
[2020-07-10] MEDS: LEVOFLOXACIN 500MG-D5W PMX 500 MG in DEXTROSE/WATER 1 100ML.BAG IVPB SCH (17:28)
--- NOTE | 2020-07-10 18:31 | PN ---
PROGRESS NOTE DATE OF DICTATION: July 10, 2020 Patient is an 84-year-old white male admitted to the hospital with severe right hip pain radiating to the right leg and was also noted to have elevated serum transaminases. He continues to remain the same receiving pain medications. Oncology is following the patient closely for further workup. He was noted to have elevated LFTs which are gradually improving. He denies any GI symptoms. PHYSICAL EXAMINATION: He appears comfortable. No apparent distress. Vital signs stable. Blood pressure is 132/86, pulse rate 90, temperature 98.2. HEENT examination unremarkable. Conjunctivae pink. Sclerae anicteric. Oral cavity no lesions. Neck no JVD or lymph node enlargement. CHEST was clear to auscultation. HEART: Regular rate and rhythm. ABDOMEN: Soft. Bowel sounds are positive. No organomegaly. Extremities no pedal edema. NEUROLOGIC: Alert and oriented x3. No focal deficits. LABS: From today AST is down to 36, ALT 200, T- bilirubin normal, alkaline phosphatase 132. Hepatitis serologies for A, B and C are negative. IMPRESSION: 1. Acute elevation of serum transaminases which are gradually improving. Hepatitis serologies for A, B and C are negative. Etiology unclear, but LFTs are improving, possibly medication induced hepatitis. 2. Bony metastasis with lung lesion. Oncology is following the patient closely. RECOMMENDATIONS: 1. Continue to monitor LFTs closely. 2. Avoid hepatotoxic medications. 3. Repeat labs in the morning. 4. Continue with pain medications. 5. We will follow with you closely. Thank you for this consultation. MMREMINGTONL / KELLYN: [id number] /
[2020-07-11] MEDS: HYDROmorphone 2 MG/ML 1 ML SYRINGE IVP PRN ×6 (02:15→20:52)
[2020-07-11] MEDS: SODIUM CHLORIDE 0.9% 1,000 ML IV SCH ×2 (05:22→15:01)
[2020-07-11] MEDS: ASPIRIN 325 MG TAB PO SCH (07:55)
[2020-07-11] MEDS: PANTOPRAZOLE 40 MG/10 ML VIAL IV SCH (07:55)
[2020-07-11] MEDS: metroNIDAZOLE-NS PMX 500 MG in SALINE 1 100ML.BAG IVPB SCH ×2 (07:55→15:00)
[2020-07-11] MEDS: IPRATROPIUM-ALBUTEROL 3 ML NEB INHALATION PRN ×3 (08:25→19:57)
--- NOTE | 2020-07-11 08:53 | P.PN ---
Subjective Progress Note Date: 07/07/20 84-year-old male presents today with diffuse body pain mainly in the back with radiation down the right leg. He was seen in emergency department 2 weeks ago and was prescribed Ultram which states there is no relief of the symptoms. Patient reports that he has a history of colon cancer and believes this may have recurred. He states that he had some x-rays which did not show any acute abnormality. Weeks ago. Patient states that he has no appetite and is abdomen feels full. He did have a bowel movement today. Patient has a known history of colon cancer which has been in remission; CT of abdomen and pelvis was done in ED which revealed lesions over right acetabulum raising concern for metastatic disease and acute colitis; blood work reveals markedly elevated transaminases 07/07/2020 Patient is seen and evaluated in room at bedside; patient has history of stage IIIC colon adenocarcinoma diagnosed in 2018 and S/post surgery. Patient only took a few days of adjuvant oral Xeloda and did not follow up after. Patient has suspicious bone lesions on CT of the abdomen and pelvis. There is does not appear to be any other disease other than in the bone. Oncology is on board and recommending CT of the chest to complete staging; Nuclear medicine bone scan to evaluate the rest of the skeletal system; PSA and CEA are ordered. Radiation Oncology is consulted to see the patient and follow. Patient could certainly benefit from radiation to these painful lesions if found to be metastatic. Continue to titrate pain medications for patient comfort. Objective - Vital Signs Vital signs: Vital Signs Temp 98.2 F 07/07/20 14:00 Pulse 67 07/07/20 14:00 Resp 18 07/07/20 14:00 BP 161/77 07/07/20 14:00 Pulse Ox 94 L 07/07/20 14:00 Intake & Output 07/06/20 07/07/20 07/07/20 18:59 06:59 18:59 Intake Total 1000 480 Balance 1000 480 Weight 58.967 kg 58.967 kg Intake: Amount of Fluid Infused ( 1000 ml) Oral 480 Other: Voiding Method Toilet # Voids 1 - Exam General appearance: alert, in no apparent distress Head exam: Present: atraumatic, normocephalic, normal inspection Eye exam: Present: normal appearance, PERRL, EOMI. Absent: scleral icterus, conjunctival injection, periorbital swelling ENT exam: Present: normal exam, mucous membranes moist Neck exam: Present: normal inspection. Absent: tenderness, meningismus, lymphadenopathy Respiratory exam: Present: normal lung sounds bilaterally. Absent: respiratory distress, wheezes, rales, rhonchi, stridor Cardiovascular Exam: Present: regular rate, normal rhythm, normal heart sounds. Absent: systolic murmur, diastolic murmur, rubs, gallop, clicks GI/Abdominal exam: Present: soft, tenderness (Lower abdominal tenderness), normal bowel sounds. Absent: distended, guarding, rebound, rigid Extremities exam: Present: normal inspection, full ROM, normal capillary refill, other (Patient has tenderness over the right hip and states lumbar paraspinal muscles). Absent: tenderness, pedal edema, joint swelling, calf tenderness Back exam: Present: normal inspection Neurological exam: Present: alert, oriented X3, CN II-XII intact - Labs CBC & Chem 7: 07/06/20 13:40 07/10/20 08:24 Labs: Abnormal Lab Results - Last 24 Hours (Table) 07/06/20 07/07/20 Range/Units 16:02 05:52 BUN/Creatinine Ratio 27.00 H (12.00-20.00) Ratio Glucose 61 L (70-110) mg/dL Calcium 8.4 L (8.7-10.3) mg/dL Urine Protein Trace H (Negative) Urine Ketones Trace H (Negative) Urine Blood Small H (Negative) Urine RBC 6 H (0-5) /hpf Urine Mucus Rare H (None) /hpf Assessment and Plan Assessment: 1. Acute transaminitis - We will monitor liver enzymes closely; IV fluids in form of D5 half-normal saline; we will order acute hepatitis profile; consult GI for further recommendations 2. Acute colitis; slight elevation in white blood count at 11.8; we will order IV Levaquin and Flagyl; monitor pro-calcitonin levels and CRP; further recommendations per GI 3. Right acetabular lesion; possible metastasis; pain control; oncology is consulted 4. COPD; not in exacerbation 5. History of colon cancer; status post bowel resection DVT prophylaxis; SCDs/subcu heparin CODE STATUS; full code
--- NOTE | 2020-07-11 08:59 | P.PN ---
Subjective Progress Note Date: 07/08/20 84-year-old male presents today with diffuse body pain mainly in the back with radiation down the right leg. He was seen in emergency department 2 weeks ago and was prescribed Ultram which states there is no relief of the symptoms. Patient reports that he has a history of colon cancer and believes this may have recurred. He states that he had some x-rays which did not show any acute abnormality. Weeks ago. Patient states that he has no appetite and is abdomen feels full. He did have a bowel movement today. Patient has a known history of colon cancer which has been in remission; CT of abdomen and pelvis was done in ED which revealed lesions over right acetabulum raising concern for metastatic disease and acute colitis; blood work reveals markedly elevated transaminases 07/07/2020 Patient is seen and evaluated in room at bedside; patient has history of stage IIIC colon adenocarcinoma diagnosed in 2018 and S/post surgery. Patient only took a few days of adjuvant oral Xeloda and did not follow up after. Patient has suspicious bone lesions on CT of the abdomen and pelvis. There is does not appear to be any other disease other than in the bone. Oncology is on board and recommending CT of the chest to complete staging; Nuclear medicine bone scan to evaluate the rest of the skeletal system; PSA and CEA are ordered. Radiation Oncology is consulted to see the patient and follow. Patient could certainly benefit from radiation to these painful lesions if found to be metastatic. Continue to titrate pain medications for patient comfort. 07/08/2020 Patient remains in pain, controlled by medications; denies any other complaints VS are reviewed and remain stable Medical and Radiation Oncology are on board; Lytic lesions in R hip and L ilium are main source of pain; Radiation Onc recommends course of palliative RT to R hip and sacrum and SI joints Bone scan is ordered and pending Objective - Vital Signs Vital signs: Vital Signs Temp 98.8 F 07/08/20 08:00 Pulse 88 07/08/20 11:06 Resp 16 07/08/20 08:00 BP 161/75 07/08/20 08:00 Pulse Ox 97 07/08/20 08:00 Intake & Output 07/07/20 07/08/20 07/08/20 18:59 06:59 18:59 Intake Total 250 200 Balance 250 200 Weight 58.967 kg Intake: Oral 250 200 Other: Voiding Method Urinal Urinal # Voids 2 - Exam General appearance: alert, in no apparent distress Head exam: Present: atraumatic, normocephalic, normal inspection Eye exam: Present: normal appearance, PERRL, EOMI. Absent: scleral icterus, conjunctival injection, periorbital swelling ENT exam: Present: normal exam, mucous membranes moist Neck exam: Present: normal inspection. Absent: tenderness, meningismus, lymphadenopathy Respiratory exam: Present: normal lung sounds bilaterally. Absent: respiratory distress, wheezes, rales, rhonchi, stridor Cardiovascular Exam: Present: regular rate, normal rhythm, normal heart sounds. Absent: systolic murmur, diastolic murmur, rubs, gallop, clicks GI/Abdominal exam: Present: soft, tenderness (Lower abdominal tenderness), normal bowel sounds. Absent: distended, guarding, rebound, rigid Extremities exam: Present: normal inspection, full ROM, normal capillary refill, other (Patient has tenderness over the right hip and states lumbar paraspinal muscles). Absent: tenderness, pedal edema, joint swelling, calf tenderness Back exam: Present: normal inspection Neurological exam: Present: alert, oriented X3, CN II-XII intact - Labs CBC & Chem 7: 07/06/20 13:40 07/10/20 08:24 Labs: Abnormal Lab Results - Last 24 Hours (Table) 07/07/20 07/08/20 Range/Units 05:52 06:22 BUN/Creatinine Ratio 26.25 H (12.00-20.00) Ratio Calcium 8.2 L (8.7-10.3) mg/dL Carcinoembryonic Ag 6.5 H (0.0-4.9) ng/mL Assessment and Plan Assessment: 1. Acute transaminitis - We will monitor liver enzymes closely; IV fluids in form of D5 half-normal saline; we will order acute hepatitis profile; consult GI for further recommendations 2. Acute colitis; slight elevation in white blood count at 11.8; we will order IV Levaquin and Flagyl; monitor pro-calcitonin levels and CRP; further recommendations per GI 3. Right acetabular lesion; possible metastasis; pain control; oncology is consulted 4. COPD; not in exacerbation 5. History of colon cancer; status post bowel resection DVT prophylaxis; SCDs/subcu heparin CODE STATUS; full code
--- NOTE | 2020-07-11 09:04 | P.PN ---
Subjective Progress Note Date: 07/09/20 84-year-old male presents today with diffuse body pain mainly in the back with radiation down the right leg. He was seen in emergency department 2 weeks ago and was prescribed Ultram which states there is no relief of the symptoms. Patient reports that he has a history of colon cancer and believes this may have recurred. He states that he had some x-rays which did not show any acute abnormality. Weeks ago. Patient states that he has no appetite and is abdomen feels full. He did have a bowel movement today. Patient has a known history of colon cancer which has been in remission; CT of abdomen and pelvis was done in ED which revealed lesions over right acetabulum raising concern for metastatic disease and acute colitis; blood work reveals markedly elevated transaminases 07/07/2020 Patient is seen and evaluated in room at bedside; patient has history of stage IIIC colon adenocarcinoma diagnosed in 2018 and S/post surgery. Patient only took a few days of adjuvant oral Xeloda and did not follow up after. Patient has suspicious bone lesions on CT of the abdomen and pelvis. There is does not appear to be any other disease other than in the bone. Oncology is on board and recommending CT of the chest to complete staging; Nuclear medicine bone scan to evaluate the rest of the skeletal system; PSA and CEA are ordered. Radiation Oncology is consulted to see the patient and follow. Patient could certainly benefit from radiation to these painful lesions if found to be metastatic. Continue to titrate pain medications for patient comfort. 07/08/2020 Patient remains in pain, controlled by medications; denies any other complaints VS are reviewed and remain stable Medical and Radiation Oncology are on board; Lytic lesions in R hip and L ilium are main source of pain; Radiation Onc recommends course of palliative RT to R hip and sacrum and SI joints Bone scan is ordered and pending 07/09/2020 Patient is seen and evaluated in room at bedside; reports fair control in pain VS are reviewed and stable Patient is beingf followed by Medical and Radiation Oncology and patient will benefit from palliative RT for pain control; Oncology in process of completing workup for further plan of care; patient is being evaluated bu GI for transaminitis, poss medication induced; recommende follow up on LFTs Objective - Vital Signs Vital signs: Vital Signs Temp 97.7 F 07/09/20 08:00 Pulse 76 07/09/20 12:18 Resp 20 07/09/20 08:00 BP 153/68 07/09/20 08:00 Pulse Ox 92 L 07/09/20 08:00 Intake & Output 07/08/20 07/09/20 07/09/20 18:59 06:59 18:59 Intake Total 200 200 100 Output Total 350 Balance 200 200 -250 Intake: Oral 200 200 100 Output: Urine 350 Other: Voiding Method Urinal Urinal # Voids 1 1 - Exam General appearance: alert, in no apparent distress Head exam: Present: atraumatic, normocephalic, normal inspection Eye exam: Present: normal appearance, PERRL, EOMI. Absent: scleral icterus, conjunctival injection, periorbital swelling ENT exam: Present: normal exam, mucous membranes moist Neck exam: Present: normal inspection. Absent: tenderness, meningismus, lymphadenopathy Respiratory exam: Present: normal lung sounds bilaterally. Absent: respiratory distress, wheezes, rales, rhonchi, stridor Cardiovascular Exam: Present: regular rate, normal rhythm, normal heart sounds. Absent: systolic murmur, diastolic murmur, rubs, gallop, clicks GI/Abdominal exam: Present: soft, tenderness (Lower abdominal tenderness), normal bowel sounds. Absent: distended, guarding, rebound, rigid Extremities exam: Present: normal inspection, full ROM, normal capillary refill, other (Patient has tenderness over the right hip and states lumbar paraspinal muscles). Absent: tenderness, pedal edema, joint swelling, calf tenderness Back exam: Present: normal inspection Neurological exam: Present: alert, oriented X3, CN II-XII intact - Labs CBC & Chem 7: 07/06/20 13:40 07/10/20 08:24 Labs: Abnormal Lab Results - Last 24 Hours (Table) 07/08/20 07/09/20 Range/Units 06:22 05:38 BUN/Creatinine Ratio 21.25 H (12.00-20.00) Ratio Calcium 8.4 L (8.7-10.3) mg/dL AST 109 H (14-35) U/L ALT 390 H (10-49) U/L Alkaline Phosphatase 170 H (41-126) U/L Total Protein 4.9 L (6.2-8.2) g/dL Albumin 3.20 L (3.80-4.90) g/dL Assessment and Plan Assessment: 1. Acute transaminitis - We will monitor liver enzymes closely; IV fluids in form of D5 half-normal saline; we will order acute hepatitis profile; consult GI for further recommendations 2. Acute colitis; slight elevation in white blood count at 11.8; we will order IV Levaquin and Flagyl; monitor pro-calcitonin levels and CRP; further recommendations per GI 3. Right acetabular lesion; possible metastasis; pain control; oncology is consulted 4. COPD; not in exacerbation 5. History of colon cancer; status post bowel resection DVT prophylaxis; SCDs/subcu heparin CODE STATUS; full code
[2020-07-11] MEDS: MULTIVITAMINS, THERA 1 EACH TAB PO SCH (11:43)
--- NOTE | 2020-07-11 16:35 | P.PN ---
Subjective Progress Note Date: 07/11/20 Principal diagnosis: Elevated liver enzymes The patient is seen lying in bed tolerating diet. No nausea vomiting reported. Objective - Vital Signs Vital signs: Vital Signs Temp 97.7 F 07/11/20 07:35 Pulse 72 07/11/20 12:06 Resp 20 07/11/20 08:00 BP 155/70 07/11/20 07:35 Pulse Ox 95 07/11/20 07:35 Intake & Output 07/10/20 07/11/20 07/11/20 18:59 06:59 18:59 Intake Total 1300 100 Balance 1300 100 Intake: Intake, IV Titration 1300 Amount Levofloxacin 500Mg-D5w 100 Pmx 500 mg In Dextrose/ Water 1 100ml.bag @ 100 mls/hr IVPB Q24H ROHAN Rx#: [id number] Sodium Chloride 0.9% 1, 1000 000 ml @ 100 mls/hr IV . Q10H ROHAN Rx#:[id number] metroNIDAZOLE-NS PMX 500 200 mg In Saline 1 100ml.bag @ 100 mls/hr IVPB Q8HR ROHAN Rx#:[id number] Oral 100 Other: Voiding Method Urinal Urinal Urinal # Voids 2 - Exam On physical examination, patient appears comfortable in no apparent distress. HEAD: Normocephalic, atraumatic. EYES: No scleral icterus. No conjunctival injection. MOUTH: No lesions, tongue midline. NECK: Trachea midline, no gross abnormalities. ABDOMEN: Soft, thin and nontender. Bowel sounds are positive. No organomegaly. No guarding or rigidity. EXTREMITIES: No pedal edema. SKIN: No rashes, no jaundice. NEUROLOGIC: Alert and oriented to person and place. - Labs CBC & Chem 7: 07/06/20 13:40 07/10/20 08:24 Assessment and Plan (1) Elevated liver enzymes Narrative/Plan: 10-year-old male with a history of colon cancer and suspected metastatic disease. GI was consult see the patient for elevated liver enzymes predominantly in a hepatocellular pattern which are currently improving with total bilirubin 0.3, alkaline phosphatase 132, AST 36 and ALT 200. Acute viral hepatitis panel testing was negative. Suspected medication-induced hepatitis. Current Visit: Yes Status: Acute Code(s): R74.8 - ABNORMAL LEVELS OF OTHER SERUM ENZYMES SNOMED Code(s): 244090813 Plan: Supportive care Okay for diet as tolerated Oncology service following the patient Continue to monitor CBC, BMP and LFTs Avoid hepatotoxic medications Thank you for allowing us dysphagia in the care of the patient
[2020-07-11] MEDS: LEVOFLOXACIN 500 MG TAB PO SCH (17:41)
[2020-07-11] MEDS: metroNIDAZOLE 500 MG TAB PO SCH (20:49)
--- NOTE | 2020-07-11 21:15 | P.PN ---
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 He continues to complain of pain, not controlled on IV medication. Objective - Vital Signs Vital signs: Vital Signs Temp 97.8 F 07/11/20 18:57 Pulse 93 07/11/20 20:07 Resp 17 07/11/20 18:57 BP 167/80 07/11/20 18:57 Pulse Ox 97 07/11/20 18:57 Intake & Output 07/11/20 07/11/20 07/12/20 06:59 18:59 06:59 Intake Total 100 Output Total 75 Balance 100 -75 Intake: Oral 100 Output: Urine 75 Other: Voiding Method Urinal Urinal # Voids 2 - Exam Gen.: No acute distress. HEENT: No conjunctival pallor or scleral icterus. Mucosa moist. Neck: Supple. Lungs: No respiratory distress. Heart: Regular rate. Abdomen: Soft, nontender. MSK: Appropriate strength in all 4 extremities. Limited RLE movement however due to pain. Neuro: Alert. Skin: No jaundice. Psych: Appropriate affec - Labs CBC & Chem 7: 07/06/20 13:40 07/10/20 08:24 Assessment and Plan Plan: Assessment and Plan Assessment: 1. Intractable pain: - Add long acting fentanyl patch 2. Bone lesion: - Seen and evalauted by radiation oncology and plan to begin palliative radiation per Rad/Onc 3. History of colon cancer
[2020-07-12] MEDS: HYDROmorphone 2 MG/ML 1 ML SYRINGE IVP PRN ×5 (00:23→19:45)
[2020-07-12] MEDS: SODIUM CHLORIDE 0.9% 1,000 ML IV SCH ×3 (03:01→22:01)
[2020-07-12] MEDS: IPRATROPIUM-ALBUTEROL 3 ML NEB INHALATION PRN ×3 (07:35→20:08)
[2020-07-12] MEDS: ASPIRIN 325 MG TAB PO SCH (08:11)
[2020-07-12] MEDS: metroNIDAZOLE 500 MG TAB PO SCH ×3 (08:12→22:00)
[2020-07-12] MEDS: PANTOPRAZOLE 40 MG TABLET PO SCH (08:12)
[2020-07-12] MEDS: MULTIVITAMINS, THERA 1 EACH TAB PO SCH (08:12)
[2020-07-12] MEDS ORDERED: HYDROmorphone 0.5 MG/0.5 ML SYRINGE IVP STA (10:46)
--- NOTE | 2020-07-12 11:02 | P.PN ---
Subjective Progress Note Date: 07/12/20 84 years old gentleman with a history of colon cancer in 2018 , presented with a lesion involving the posterior acetabulum measures 8.4 x 6.9 x 8.6 cm, and a lytic lesion in the left iliac bone causing severe pain probably this metastatic disease from his primary colon cancer. Today the patient is doing well his pain has been controlled with pain medication, he is able to ambulate using a walker. Objective - Vital Signs Vital signs: Vital Signs Temp 97.9 F 07/12/20 07:20 Pulse 89 07/12/20 07:45 Resp 22 07/12/20 07:20 BP 159/71 07/12/20 07:20 Pulse Ox 94 L 07/12/20 07:20 Intake & Output 07/11/20 07/12/20 07/12/20 18:59 06:59 18:59 Output Total 75 525 Balance -75 -525 Output: Urine 75 525 Other: Voiding Method Urinal Urinal # Voids 1 - Constitutional General appearance: Present: no acute distress - Neck Neck: Present: normal ROM - Cardiovascular Rhythm: regular - Musculoskeletal Musculoskeletal: Present: generalized weakness - Psychiatric Psychiatric: Present: A&O x's 3, appropriate affect - Labs CBC & Chem 7: 07/06/20 13:40 07/10/20 08:24 Assessment and Plan (1) Colon cancer Current Visit: Yes Status: Acute Code(s): C18.9 - MALIGNANT NEOPLASM OF COLON, UNSPECIFIED SNOMED Code(s): 649023128 (2) Metastasis Current Visit: Yes Status: Acute Code(s): C79.9 - SECONDARY MALIGNANT NEOPLASM OF UNSPECIFIED SITE SNOMED Code(s): 472271136 Plan: Discussed the results of the bone scan, CAT scan of the chest, and CAT scan of the abdomen and pelvis, the patient has an enlarged lytic lesion in the posterio r acetabulum which is the cause of his pain, this lytic lesion probably is a metastatic disease of a cancer, I have discussed these findings with Dr. South , he stated that it is accessible for core biopsy by CT guided. The patient will undergo CT-guided biopsy of the lesion of the right hip today, at the same time we are planning for simulation for possible palliative external beam radiation therapy if the tissue diagnosis comes back positive for malignancy. Time with Patient: Greater than 30
--- NOTE | 2020-07-12 13:29 | CT ---
EXAMINATION TYPE: CT biopsy bone superficial DATE OF EXAM: 07/12/2020 HISTORY: Lytic bone lesion posterior right acetabulum COMPARISON: CT 07/06/2020 Maximal barrier technique was utilized, hand hygiene obtained with soap and water. The skin overlyin g a suitable path to the lesion was localized using CT and the overlying skin was prepped and draped. Lidocaine used for local anesthesia. A skin fei made with a scalpel. Using CT guidance, access w as gained to the lesion with a 18-gauge core needle through a 17-gauge guide. Core specimen submitte d to cytology. 2 pass(es) performed in all. Following the procedure no immediate complications. T he patient is discharged in stable condition. Hemostasis achieved. IMPRESSION: SUCCESSFUL CT GUIDED BIOPSY. PATHOLOGY PENDING. THIS PROCEDURE WAS PERFORMED BY THE UNDERSIGNED.
--- NOTE | 2020-07-12 16:17 | P.PN ---
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 CT chest findings with SHIRA spiculated mass, suspicious for either metastatic versus second primary malignancy. measuring approx 2.1x1.9x4 Objective - Vital Signs Vital signs: Vital Signs Temp 98.4 F 07/12/20 14:47 Pulse 88 07/12/20 16:06 Resp 20 07/12/20 14:47 BP 159/70 07/12/20 14:47 Pulse Ox 93 L 07/12/20 14:47 Intake & Output 07/11/20 07/12/20 07/12/20 18:59 06:59 18:59 Output Total 75 525 Balance -75 -525 Weight 58.967 kg Output: Urine 75 525 Other: Voiding Method Urinal Urinal Urinal # Voids 1 - Exam Gen.: No acute distress. HEENT: No conjunctival pallor or scleral icterus. Mucosa moist. Neck: Supple. Lungs: No respiratory distress. Heart: Regular rate. Abdomen: Soft, nontender. MSK: Appropriate strength in all 4 extremities. Limited RLE movement however due to pain. Neuro: Alert. Skin: No jaundice. Psych: Appropriate affec - Labs CBC & Chem 7: 07/06/20 13:40 07/10/20 08:24 Assessment and Plan Plan: Assessment and Plan Assessment: 1. Intractable pain: - Add long acting fentanyl patch 2. Bone lesions: Suspicious for malignant metastatic process (?second primary cancer versus metastatic colon cancer) He also has a SHIRA lung mass identified. Biopsy today of lytic lesion, await results of biopsy and planning for palliativ e radiation. - Seen and evalauted by radiation oncology and plan to begin palliative radiation per Rad/Onc after resulted path 3. History of colon cancer Physician Attest: I have completed the full history and physical and agree with above dictation, dictated as a scribe.
[2020-07-12] MEDS: LEVOFLOXACIN 500 MG TAB PO SCH (16:23)
[2020-07-12] MEDS ORDERED: TEMAZEPAM 15 MG CAP PO PRN (17:37)
[2020-07-12] MEDS ORDERED: LORazepam 2 MG/ML INJ IV PRN (17:55)
[2020-07-12] MEDS: KETOROLAC 15 MG/ML 1 ML VIAL IVP SCH ×2 (18:06→23:29)
--- NOTE | 2020-07-12 18:47 | PN ---
PROGRESS NOTE DATE OF SERVICE: 07/12/2020 This 84-year-old gentleman who was admitted with acute transaminitis also had significant pain in the right hip area. Iliac bone lesion was suspected. Bone biopsy has been done by Interventional Radiology. The patient is complaining of severe pain. A CT-guided biopsy was done of the lytic bone lesion from the posterior right acetabulum. Multiple consultants are following the patient closely. Patient also had elevated LFTs. CT scan of the abdomen and pelvis was done at the time of admission which showed metastatic disease. Past medical history reviewed. REVIEW OF SYSTEMS: CARDIOVASCULAR SYSTEM: No angina, palpitations. RESPIRATORY SYSTEM: As mentioned earlier. GI: As mentioned earlier. : No dysuria or retention. NERVOUS SYSTEM: No numbness, weakness. CURRENT MEDICATIONS: Reviewed. They include Tylenol, DuoNeb, aspirin, Lodine, Duragesic patch, Motrin, Levaquin, Flagyl, Narcan, Zofran, Protonix. PHYSICAL EXAMINATION: Patient is alert and oriented x3. Pulse 92, blood pressure 159/70, respiration 20, temperature 98.4, pulse ox 93% on 4 L. HEENT: Conjunctivae normal. NECK: No jugular venous distention. CARDIOVASCULAR SYSTEM: S1, S2 muffled. RESPIRATORY SYSTEM: Breath sounds diminished at the bases. No rhonchi. No crackles. ABDOMEN: Soft, non-tender. LEGS: Movement of the right leg is painful. Some erythema also noted. NERVOUS SYSTEM: Higher functions as mentioned earlier. Moves all 4 limbs. No focal motor or sensory deficit. LYMPHATICS: No lymph node palpable in neck, axillae or groin. SKIN: No ulcer, rash, bleeding. JOINTS: No active deforming arthropathy. LABS: WBC 11.8, hemoglobin 11.9. Sodium 140. Otherwise, AST and ALT noted, which are showing a diminishing trend. CEA 6.5. ASSESSMENT: 1. Severe pain in the right pelvis with lytic lesions, possibly colon cancer with metastases. 2. Elevated liver function tests. 3. Hyponatremia. 4. Increased white count. 5. Anemia. 6. History of chronic obstructive pulmonary disease. 7. Gastroesophageal reflux disease. 8. History of hiatal hernia. 9. History of gastritis. 10.History of duodenitis. 11.History of cataracts. 12.History of bowel resection. 13.History of prostate cancer. 14.History of nicotine dependence. 15.FULL CODE. RECOMMENDATIONS AND DISCUSSION: In this 84-year-old gentleman who presented with multiple complex medical issues, we will monitor the patient closely, continue the current medications, continue with symptomatic treatment. Will initiate fentanyl patch. Otherwise, we will also optimize the pain medications. I would also recommend an empiric course of IV steroids. Prognosis guarded because of multiple complex medical issues. Further recommendations to follow. Biopsy followed by radiation is being also continued and I would also recommend a course of Ketoralac or Toradol. Prognosis guarded. Further recommendations to follow. MMODL / IJN: [id number] /
[2020-07-12] MEDS: HEPARIN SODIUM,PORCINE 5,000 UNIT/ML 1 ML VIAL SQ SCH (19:46)
[2020-07-12 20:10] LABS: Glucose,Whole Blood 104 mg/dL (75-99)
[2020-07-12] MEDS: ALPRAZolam 0.25 MG TAB PO PRN (22:00)
[2020-07-12] MEDS: methylPREDNISolone SOD SUCCI 125 MG/2 ML VIAL IV SCH ×2 (23:28→23:35)
[2020-07-13] MEDS: HYDROmorphone 2 MG/ML 1 ML SYRINGE IVP PRN ×3 (02:26→19:14)
[2020-07-13] MEDS: KETOROLAC 15 MG/ML 1 ML VIAL IVP SCH ×4 (05:38→23:16)
[2020-07-13] MEDS: SODIUM CHLORIDE 0.9% 1,000 ML IV SCH ×2 (05:38→17:13)
[2020-07-13 06:36] LABS: HCT 31.3 % (39.0-53.0); Hypochromasia Slight; MCH 28.5 pg (25.0-35.0); MCHC 31.6 g/dL (31.0-37.0); MCV 90.2 fL (80.0-100.0); Platelet Count 298 k/uL (150-450); RBC 3.47 m/uL (4.30-5.90); RDW 15.1 % (11.5-15.5); WBC 11.2 k/uL (3.8-10.6)
[2020-07-13 06:44] LABS: HGB 9.9 gm/dL (13.0-17.5)
[2020-07-13 06:56] LABS: Glucose,Whole Blood 83 mg/dL (75-99)
[2020-07-13] MEDS: IPRATROPIUM-ALBUTEROL 3 ML NEB INHALATION PRN ×4 (07:12→19:23)
[2020-07-13] MEDS: metroNIDAZOLE 500 MG TAB PO SCH ×3 (07:28→23:15)
[2020-07-13] MEDS: HEPARIN SODIUM,PORCINE 5,000 UNIT/ML 1 ML VIAL SQ SCH ×3 (07:29→19:09)
[2020-07-13] MEDS: PANTOPRAZOLE 40 MG TABLET PO SCH (07:29)
[2020-07-13] MEDS: ASPIRIN 325 MG TAB PO SCH (07:29)
[2020-07-13 08:34] LABS: Eosinophils # (M) 0.22 k/uL (0-0.7); Monocytes # (M) 0.56 k/uL (0-1.0); Neutrophils # (M) 9.52 k/uL (1.3-7.7); Neutrophils % (M) 85 %; Nucleated Red Blood Cells 0 /100 WBC (0-0); Total Cells Counted 100
[2020-07-13 10:09] LABS: African American GFR (CKD) 96.4 (60.0-200.0); Albumin 2.8 g/dL (3.80-4.90); Albumin/Globulin Ratio 2.33 (1.60-3.17); Anion Gap 11.6 mmol/L (4.00-12.00); Calcium 8.5 mg/dL (8.7-10.3); Carbon Dioxide 24.4 mmol/L (21.6-31.8); Globulin 1.2 g/dL (1.6-3.3); Non-African American GFR(CKD) 83.2 (60.0-200.0); Potassium 3.9 mmol/L (3.5-5.5); Total Bilirubin 0.4 mg/dL (0.2-1.2)
[2020-07-13 11:42] LABS: Glucose,Whole Blood 160 mg/dL (75-99)
[2020-07-13] MEDS: methylPREDNISolone SOD SUCCI 125 MG/2 ML VIAL IV SCH ×3 (11:59→23:17)
[2020-07-13] MEDS: INSULIN ASPART (NovoLOG) 100 UNIT/ML VIAL SQ SCH ×3 (11:59→21:53)
[2020-07-13] MEDS: MULTIVITAMINS, THERA 1 EACH TAB PO SCH (12:00)
[2020-07-13 16:35] LABS: Glucose,Whole Blood 126 mg/dL (75-99)
[2020-07-13] MEDS: TAMSULOSIN 0.4 MG CAP.ER.24H PO SCH (17:12)
[2020-07-13] MEDS: LEVOFLOXACIN 500 MG TAB PO SCH (17:12)
--- NOTE | 2020-07-13 19:05 | PN ---
PROGRESS NOTE DATE OF SERVICE: 07/13/2020 This 84-year-old gentleman was admitted with severe pain of the right pelvis with a history of colon cancer with possible metastases. The patient had a biopsy. Patient has severe pain. Patient is on empiric radiation at this time and external beam radiation. No chest pain. No palpitations. No fever. PHYSICAL EXAMINATION: Alert and oriented x3. Pulse is 87, blood pressure 144/60, respirations 16, temperature 97.2, pulse ox 99% on 4 L. HEENT: Conjunctivae normal. NECK: No jugular venous distention. CARDIOVASCULAR SYSTEM: S1, S2 muffled. RESPIRATORY SYSTEM: Breath sounds diminished at the bases. No rhonchi. No crackles. ABDOMEN: Soft, non-tender. NERVOUS SYSTEM: No focal deficit. LABS: WBC 11.2, hemoglobin 9.9, albumin is 2.8 and globulin is 1.2. ASSESSMENT: 1. Severe pain in the right pelvis with lytic lesion, possibly colon cancer with metastases. 2. Elevated liver function tests. 3. Status post bone biopsy. 4. Hyponatremia. 5. Mild protein-calorie malnutrition. 6. Hypoalbuminemia. 7. Increased white count. 8. Anemia. 9. History of chronic obstructive pulmonary disease. 10.Gastroesophageal reflux disease. 11.History of hiatal hernia. 12.History of gastritis. 13.History of duodenitis. 14.History of cataracts. 15.History of bowel resection. 16.History of prostate cancer. 17.History of nicotine dependence. 18.FULL CODE. RECOMMENDATIONS AND DISCUSSION: I recommend to continue current medications, continue symptomatic treatment. Await the biopsy. Pain management. Patient is willing to try Solu-Medrol at this time. Will continue to monitor. Guarded prognosis. Further recommendations to follow. MMODL / IJN: [id number] /
[2020-07-13 20:39] LABS: Glucose,Whole Blood 142 mg/dL (75-99)
[2020-07-14] MEDS: HYDROmorphone 2 MG/ML 1 ML SYRINGE IVP PRN ×4 (01:05→10:01)
[2020-07-14] MEDS: SODIUM CHLORIDE 0.9% 1,000 ML IV SCH ×2 (01:06→07:11)
[2020-07-14] MEDS: methylPREDNISolone SOD SUCCI 125 MG/2 ML VIAL IV SCH ×4 (05:57→23:38)
[2020-07-14] MEDS: KETOROLAC 15 MG/ML 1 ML VIAL IVP SCH ×4 (05:58→23:38)
[2020-07-14 06:55] LABS: Basophils % (A) 0 %; Eosinophils % (A) 0 %; HCT 33.5 % (39.0-53.0); HGB 10.9 gm/dL (13.0-17.5); Hypochromasia Slight; Lymphocytes # (A) 0.1 k/uL (1.0-4.8); Lymphocytes % (A) 1 %; MCH 29.6 pg (25.0-35.0); MCHC 32.6 g/dL (31.0-37.0); MCV 90.8 fL (80.0-100.0); Mean Platelet Volume 7.2; Monocytes % (A) 1 %; Neutrophils # (A) 9.2 k/uL (1.3-7.7); Neutrophils % (A) 98 %; Platelet Count 307 k/uL (150-450); RBC 3.69 m/uL (4.30-5.90); RDW 15.1 % (11.5-15.5); WBC 9.4 k/uL (3.8-10.6)
[2020-07-14] MEDS: ASPIRIN 325 MG TAB PO SCH (07:11)
[2020-07-14] MEDS: metroNIDAZOLE 500 MG TAB PO SCH ×3 (07:11→21:00)
[2020-07-14] MEDS: HEPARIN SODIUM,PORCINE 5,000 UNIT/ML 1 ML VIAL SQ SCH ×2 (07:12→19:38)
[2020-07-14] MEDS: PANTOPRAZOLE 40 MG TABLET PO SCH (07:12)
[2020-07-14] MEDS: INSULIN ASPART (NovoLOG) 100 UNIT/ML VIAL SQ SCH ×4 (07:13→21:00)
[2020-07-14] MEDS: IPRATROPIUM-ALBUTEROL 3 ML NEB INHALATION PRN ×4 (07:29→19:30)
[2020-07-14 07:39] LABS: Glucose,Whole Blood 163 mg/dL (75-99)
[2020-07-14 10:08] LABS: African American GFR (CKD) 96.4 (60.0-200.0); Albumin/Globulin Ratio 1.76 (1.60-3.17); BUN/Creat Ratio 22.5 Ratio (12.00-20.00); Calcium 8.6 mg/dL (8.7-10.3); Globulin 1.7 g/dL (1.6-3.3); Non-African American GFR(CKD) 83.2 (60.0-200.0); Potassium 4.2 mmol/L (3.5-5.5); Total Bilirubin 0.3 mg/dL (0.2-1.2); Total Protein 4.7 g/dL (6.2-8.2)
[2020-07-14 11:36] LABS: Glucose,Whole Blood 222 mg/dL (75-99)
[2020-07-14] MEDS: MULTIVITAMINS, THERA 1 EACH TAB PO SCH (12:41)
--- NOTE | 2020-07-14 13:46 | P.PN ---
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 Objective - Vital Signs Vital signs: Vital Signs Temp 97.8 F 07/14/20 08:00 Pulse 120 H 07/14/20 11:14 Resp 20 07/14/20 08:08 BP 147/81 07/14/20 08:00 Pulse Ox 97 07/14/20 08:00 Intake & Output 07/13/20 07/14/20 07/14/20 18:59 06:59 18:59 Intake Total 400 Output Total 650 400 400 Balance -650 -400 0 Intake: Oral 400 Output: Urine 650 400 400 Other: Voiding Method Urinal Urinal Urinal # Voids 3 - Exam Gen.: No acute distress. HEENT: No conjunctival pallor or scleral icterus. Mucosa moist. Neck: Supple. Lungs: No respiratory distress. Heart: Regular rate. Abdomen: Soft, nontender. MSK: Appropriate strength in all 4 extremities. Limited RLE movement however due to pain. Neuro: Alert. Skin: No jaundice. Psych: Appropriate affec - Labs CBC & Chem 7: 07/14/20 06:10 07/14/20 06:10 Labs: Abnormal Lab Results - Last 24 Hours (Table) 07/13/20 07/13/20 07/14/20 Range/Units 16:32 20:36 06:10 RBC 3.69 L (4.30-5.90) m/uL Hgb 10.9 L (13.0-17.5) gm/dL Hct 33.5 L (39.0-53.0) % Neutrophils # 9.2 H (1.3-7.7) k/uL Lymphocytes # 0.1 L (1.0-4.8) k/uL BUN/Creatinine Ratio (12.00-20.00) Ratio Glucose (70-110) mg/dL POC Glucose (mg/dL) 126 H 142 H (75-99) mg/dL Calcium (8.7-10.3) mg/dL ALT (10-49) U/L Total Protein (6.2-8.2) g/dL Albumin (3.80-4.90) g/dL 07/14/20 07/14/2007/14/20 Range/Units 06:10 07:35 11:29 RBC (4.30-5.90) m/uL Hgb (13.0-17.5) gm/dL Hct (39.0-53.0) % Neutrophils # (1.3-7.7) k/uL Lymphocytes # (1.0-4.8) k/uL BUN/Creatinine Ratio 22.50 H (12.00-20.00) Ratio Glucose 184 H (70-110) mg/dL POC Glucose (mg/dL) 163 H 222 H (75-99) mg/dL Calcium 8.6 L (8.7-10.3) mg/dL ALT 83 H (10-49) U/L Total Protein 4.7 L (6.2-8.2) g/dL Albumin 3.00 L (3.80-4.90) g/dL Assessment and Plan Plan: Assessment and Plan Assessment: 1. Intractable pain: - Add long acting fentanyl patch 2. Bone lesions: Suspicious for malignant metastatic process (?second primary cancer versus metastatic colon cancer) He also has a SHIRA lung mass identified. Biopsy today of lytic lesion, await results of biopsy and planning for palliative radiation. - Seen and evalauted by radiation oncology and plan to begin palliative radiation per Rad/Onc after resulted path 3. History of colon cancer 4. Follow-up next week in office for PET/MRI brain and review of path for treatment options Discussed with primary team and ok for discharge as long as follow-up made and re-enforced importance of follow-up with patient today
[2020-07-14] MEDS: HYDROmorphone 1 MG/ML 1 ML SYRINGE IVP PRN ×2 (14:53→19:41)
[2020-07-14 17:09] LABS: Glucose,Whole Blood 204 mg/dL (75-99)
[2020-07-14] MEDS: TAMSULOSIN 0.4 MG CAP.ER.24H PO SCH (17:16)
[2020-07-14] MEDS: LEVOFLOXACIN 500 MG TAB PO SCH (17:16)
--- NOTE | 2020-07-14 18:10 | PN ---
PROGRESS NOTE DATE OF SERVICE: 07/14/2020 This 84-year-old gentleman admitted with severe pain of the right pelvis had a pelvic lesion. Patient had a bone biopsy. The surgical pathology report came back showing metastatic poorly differentiated [id number] carcinoma. Additional studies are pending at this time. Radiation therapy is being scheduled tentatively. The patient is on IV steroids as well. Past medical history reviewed. REVIEW OF SYSTEMS: CARDIOVASCULAR SYSTEM: No angina, palpitations. RESPIRATORY SYSTEM: As mentioned earlier. GI: As mentioned earlier. : No dysuria or retention. NERVOUS SYSTEM: No numbness, weakness. CURRENT MEDICATIONS: Reviewed. They include Tylenol, DuoNeb, Xanax, aspirin, Lodine, Duragesic patch, heparin, Dilaudid, NovoLog, Toradol, Solu-Medrol, Flagyl, Protonix, Flomax. PHYSICAL EXAMINATION: Patient is alert, oriented x3. The pulse is 85, blood pressure 160/84, respirations 16, temperature 97.6, pulse ox 97% on 2 L. HEENT: Conjunctivae normal. NECK: No jugular venous distention. CARDIOVASCULAR SYSTEM: S1, S2 muffled. RESPIRATORY SYSTEM: Breath sounds diminished at the bases. A few scattered rhonchi and crackles. ABDOMEN: Soft, non-tender. LEGS: No edema. No swelling. NERVOUS SYSTEM: No focal deficit. LABS: WBC 9.4, hemoglobin 10.9. Accu-Cheks noted. ASSESSMENT: 1. Intractable severe pain in right pelvis with lytic lesion, possibly colon cancer with metastasis. 2. Status post bone biopsy showing metastatic [id number] lung cancer. 3. Elevated liver function tests. 4. Hyponatremia. 5. Gait dysfunction. 6. Mild protein-calorie malnutrition. 7. Hypoalbuminemia. 8. Increased white count. 9. Anemia. 10.History of chronic obstructive pulmonary disease. 11.Gastroesophageal reflux disease. 12.History of hiatal hernia. 13.History of gastritis. 14.History of duodenitis. 15.History of cataracts. 16.History of bowel resection. 17.History of prostate cancer. 18.History of nicotine dependence. 19.FULL CODE. RECOMMENDATIONS AND DISCUSSION: I recommend to continue current medications, continue with the monitoring, symptomatic treatment. Continue with IV steroids, pain medications. Guarded prognosis because of multiple complex medical issues. Further recommendations to follow. MMODL / IJN: [id number] /
[2020-07-14 20:48] LABS: Glucose,Whole Blood 194 mg/dL (75-99)
[2020-07-14] MEDS: ALPRAZolam 0.25 MG TAB PO PRN (21:03)
[2020-07-14] MEDS: HYDROcodone/APAP 5-325MG 1 EACH TAB PO PRN (22:09)
[2020-07-15] MEDS: SODIUM CHLORIDE 0.9% 1,000 ML IV SCH ×3 (00:04→20:32)
[2020-07-15] MEDS: HYDROmorphone 1 MG/ML 1 ML SYRINGE IVP PRN ×6 (00:36→20:42)
[2020-07-15] MEDS: HYDROcodone/APAP 5-325MG 1 EACH TAB PO PRN ×3 (03:33→14:47)
[2020-07-15] MEDS: KETOROLAC 15 MG/ML 1 ML VIAL IVP SCH ×4 (05:37→23:28)
[2020-07-15] MEDS: methylPREDNISolone SOD SUCCI 125 MG/2 ML VIAL IV SCH ×4 (05:37→23:29)
[2020-07-15 06:20] LABS: Basophils % (A) 0 %; Eosinophils % (A) 0 %; HCT 33.4 % (39.0-53.0); HGB 10.7 gm/dL (13.0-17.5); Hypochromasia Slight; Lymphocytes # (A) 0.2 k/uL (1.0-4.8); Lymphocytes % (A) 1 %; MCHC 32.1 g/dL (31.0-37.0); MCV 90.4 fL (80.0-100.0); Mean Platelet Volume 7.4; Monocytes # (A) 0.2 k/uL (0-1.0); Monocytes % (A) 1 %; Neutrophils # (A) 15.5 k/uL (1.3-7.7); Neutrophils % (A) 98 %; Platelet Count 325 k/uL (150-450); RBC 3.69 m/uL (4.30-5.90); RDW 15.1 % (11.5-15.5); WBC 15.9 k/uL (3.8-10.6)
[2020-07-15 07:19] LABS: Glucose,Whole Blood 155 mg/dL (75-99)
[2020-07-15] MEDS: ASPIRIN 325 MG TAB PO SCH (07:22)
[2020-07-15] MEDS: PANTOPRAZOLE 40 MG TABLET PO SCH (07:22)
[2020-07-15] MEDS: metroNIDAZOLE 500 MG TAB PO SCH ×3 (07:22→20:33)
[2020-07-15] MEDS: INSULIN ASPART (NovoLOG) 100 UNIT/ML VIAL SQ SCH ×4 (07:23→20:33)
[2020-07-15] MEDS: HEPARIN SODIUM,PORCINE 5,000 UNIT/ML 1 ML VIAL SQ SCH ×2 (07:23→20:33)
[2020-07-15] MEDS: IPRATROPIUM-ALBUTEROL 3 ML NEB INHALATION PRN ×4 (08:32→19:58)
[2020-07-15 09:45] LABS: African American GFR (CKD) 80.9 (60.0-200.0); Albumin/Globulin Ratio 1.88 (1.60-3.17); Anion Gap 5.3 mmol/L (4.00-12.00); Calcium 8.8 mg/dL (8.7-10.3); Carbon Dioxide 29.7 mmol/L (21.6-31.8); Globulin 1.6 g/dL (1.6-3.3); Non-African American GFR(CKD) 69.8 (60.0-200.0); Potassium 4.1 mmol/L (3.5-5.5); Total Bilirubin 0.2 mg/dL (0.3-1.2); Total Protein 4.6 g/dL (6.2-8.2)
[2020-07-15] MEDS: MULTIVITAMINS, THERA 1 EACH TAB PO SCH (11:44)
[2020-07-15 11:55] LABS: Glucose,Whole Blood 179 mg/dL (75-99)
--- NOTE | 2020-07-15 15:28 | P.PN ---
Subjective Progress Note Date: 07/15/20 This is an 84-year-old male who was recently admitted with severe pain of the right pelvis and is found to have a pelvic lesion in recent bone biopsy and is being closely monitored. The pathology report from the biopsy shows metastatic poorly differentiated non-small cell carcinoma. Radiation oncology is following and patient does have an appointment with radiation oncology this Saturday at 10 AM. Patient continues to be in extreme pain stating is 9/10 on the pain scale. White blood count is 15.9, hemoglobin is 10.7, current sodium is 136, potassium is 4.1, creatinine is 1.0. Oncology is following as well. Patient continues to have pain and was on a fentanyl patch and will increase the dose. Review of systems: Constitutional: No reports of fatigue, fever, or chills Cardiovascular: No reports of chest pain or palpitations Respiratory: No reports of shortness of breath or cough GI: No reports of nausea, vomiting, or diarrhea : No reports of dysuria or retention Neurovascular: Reports generalized weakness and chronic pain generalized All medications have been reviewed Active Medications Generic Name Dose Route Start Last Admin Trade Name Freq PRN Reason Stop Dose Admin Acetaminophen 650 mg 07/06/20 16:07 Acetaminophen Tab 325 Mg Tab PO Q6HR PRN Mild Pain or Fever > 100.5 Hydrocodone Bitart/Acetaminophen 1 each 07/14/20 16:37 07/15/20 14:47 Hydrocodone/Apap 5-325mg 1 Each Tab PO 1 each Q6HR PRN Administration Pain Albuterol/Ipratropium 3 ml 07/06/20 16:09 07/15/20 11:30 Ipratropium-Albuterol 3 Ml Neb INHALATION 3 ml RT-QID PRN Administration Shortness Of Breath Alprazolam 0.25 mg 07/12/20 17:37 07/14/20 21:03 Alprazolam 0.25 Mg Tab PO 0.25 mg TID PRN Administration Anxiety Aspirin 325 mg 07/07/20 09:00 07/15/20 07:22 Aspirin 325 Mg Tab PO 325 mg DAILY ROHAN Administration Etodolac 400 mg 07/06/20 16:09 Etodolac 400 Mg Tab PO TID PRN Pain Fentanyl 1 patch 07/15/20 11:00 07/15/20 11:48 Fentanyl 50mcg/Hr Patch TRANSDERM 1 patch Q72H ROHAN Administration Heparin Sodium (Porcine) 5,000 unit 07/12/20 21:00 07/15/20 07:23 Heparin Sodium,Porcine 5,000 Unit/Ml 1 Ml Vial SQ 5,000 unit Q12HR ROHAN Administration Hydromorphone HCl 1 mg 07/14/20 11:58 07/15/20 12:06 Hydromorphone 1 Mg/Ml 1 Ml Syringe IVP 1 mg Q4HR PRN Administration Pain Sodium Chloride 1,000 mls @ 100 mls/hr 07/06/20 16:15 07/15/20 12:06 Saline 0.9% IV 100 mls/hr .Q10H ROHAN Administration Insulin Aspart 0 unit 07/13/20 12:30 07/15/20 12:06 Insulin Aspart (Novolog) 100 Unit/Ml Vial SQ 2 unit ACHS ROHAN Administration Protocol Ketorolac Tromethamine 15 mg 07/12/20 18:00 07/15/20 11:46 Ketorolac 15 Mg/Ml 1 Ml Vial IVP 07/18/20 17:35 15 mg Q6HR ROHAN Administration Levofloxacin 500 mg 07/11/20 18:00 07/14/20 17:16 Levofloxacin 500 Mg Tab PO 500 mg Q24H ROHAN Administration Lorazepam 1 mg 07/12/20 17:55 Lorazepam 2 Mg/Ml Inj IV Q8HR PRN Anxiety Methylprednisolone Sodium Succinate 60 mg 07/13/20 00:00 07/15/20 11:45 Methylprednisolone Sod Succi 125 Mg/2 Ml Vial IV 60 mg Q6HR ROHAN Administration Metronidazole 500 mg 07/11/20 22:00 07/15/20 07:22 Metronidazole 500 Mg Tab PO 500 mg TID ROHAN Administration Multivitamins 1 each 07/07/20 12:00 07/15/20 11:44 Multivitamins, Thera 1 Each Tab PO 1 each DAILY@1200 ROHAN Administration Naloxone HCl 0.2 mg 07/06/20 16:07 Naloxone 0.4 Mg/Ml 1 Ml Vial IV Q2M PRN Opioid Reversal Ondansetron HCl 4 mg 07/06/20 16:07 07/08/20 15:17 Ondansetron 4 Mg/2 Ml Vial IVP 4 mg Q8HR PRN Administration Nausea And Vomiting Pantoprazole Sodium 40 mg 07/12/20 09:00 07/15/20 07:22 Pantoprazole 40 Mg Tablet PO 40 mg DAILY ROHAN Administration Tamsulosin HCl 0.4 mg 07/13/20 18:30 07/14/20 17:16 Tamsulosin 0.4 Mg Cap.Er.24h PO 0.4 mg PC-SUPPER ROHAN Administration Temazepam 15 mg 07/12/20 17:37 Temazepam 15 Mg Cap PO HS PRN Insomnia Objective - Vital Signs Vital signs: Vital Signs Temp 98.1 F 07/15/20 07:56 Pulse 92 07/15/20 11:40 Resp 17 07/15/20 07:56 BP 139/74 07/15/20 07:56 Pulse Ox 97 07/15/20 07:56 Intake & Output 07/14/20 07/15/20 07/15/20 18:59 06:59 18:59 Intake Total 400 1200 Output Total 750 Balance -350 1200 Intake: Intake, IV Titration 1200 Amount Sodium Chloride 0.9% 1, 1200 000 ml @ 100 mls/hr IV . Q10H ROHAN Rx#:[id number] Oral 400 Output: Urine 750 Other: Voiding Method Urinal Urinal Urinal # Voids 3 2 - Exam Gen: This is an 84-year-old male awake, alert and oriented 3, well-developed, well-nourished. Temp is 97.5F, pulse 77, respirations are 17, blood pressure is 153/77, oxygen saturation is 98% on 5 L via nasal cannula. HEENT: Head is atraumatic, normocephalic. Pupils equal, round. Sclerae is anict elena. NECK: Supple. No JVD. No lymphadenopathy. No thyromegaly. LUNGS: Diminished breath sounds bilaterally with some scattered rhonchi noted. No intercostal retractions. HEART: S1, S2 are muffled. ABDOMEN: Soft. Bowel sounds are present. No masses. No tenderness. EXTREMITIES: No pedal edema. No calf tenderness. NEUROLOGICAL: Patient is awake, alert and oriented x3. Diffusely weak. - Labs CBC & Chem 7: 07/15/20 06:02 07/15/20 06:02 Labs: Abnormal Lab Results - Last 24 Hours (Table) 07/14/20 07/14/20 07/15/20 Range/Units 17:04 20:47 06:02 WBC 15.9 H (3.8-10.6) k/uL RBC 3.69 L (4.30-5.90) m/uL Hgb 10.7 L (13.0-17.5) gm/dL Hct 33.4 L (39.0-53.0) % Neutrophils # 15.5 H (1.3-7.7) k/uL Lymphocytes # 0.2 L (1.0-4.8) k/uL BUN (9.0-27.0) mg/dL BUN/Creatinine Ratio (12.00-20.00) Ratio Glucose (70-110) mg/dL POC Glucose (mg/dL) 204 H 194 H (75-99) mg/dL Total Bilirubin (0.3-1.2) mg/dL ALT (10-49) U/L Total Protein (6.2-8.2) g/dL Albumin (3.80-4.90) g/dL 07/15/20 07/15/20 07/15/20 Range/Units 06:02 07:18 11:54 WBC (3.8-10.6) k/uL RBC (4.30-5.90) m/uL Hgb (13.0-17.5) gm/dL Hct (39.0-53.0) % Neutrophils # (1.3-7.7) k/uL Lymphocytes # (1.0-4.8) k/uL BUN 30.0 H (9.0-27.0) mg/dL BUN/Creatinine Ratio 30.00 H (12.00-20.00) Ratio Glucose 140 H (70-110) mg/dL POC Glucose (mg/dL) 155 H 179 H (75-99) mg/dL Total Bilirubin 0.2 L (0.3-1.2) mg/dL ALT 71 H (10-49) U/L Total Protein 4.6 L (6.2-8.2) g/dL Albumin 3.00 L (3.80-4.90) g/dL Assessment and Plan Assessment: Intractable severe pain in the right pelvis with a lytic lesion, possibly colon cancer with metastasis Status post bone biopsy showing metastatic non-small cell lung cancer Elevated liver function tests Hyponatremia Gait dysfunction Mild protein calorie malnutrition hypoalbuminemia Increased white blood count anemia History of chronic obstructive pulmonary disease Gastroesophageal reflux disease History of hiatal hernia history of gastritis history of duodenitis history of cataracts History of bowel resection history of prostate cancer history of nicotine dependence Full code Recommendations and discussion: Amended continue with current medications, management, and symptomatic treatment. Continue with pain management and increased fentanyl to 50 mcg patch. Patient continues to request IV pain medications per nursing staff. Patient is maintained on IV steroids and will continue at this time. Patient is following with oncology along with radiation oncology and does have a scheduled appointment for this Saturday at 10 AM with radiation oncology. Patient continues to be quite weak and will have PT OT evaluate the patient for the possibility of ECF. Will discuss with case management and social work. Due to multiple complex medical issues, prognosis is guarded. Further recommendations to follow.
[2020-07-15 16:32] LABS: Glucose,Whole Blood 183 mg/dL (75-99)
[2020-07-15] MEDS: LEVOFLOXACIN 500 MG TAB PO SCH (16:52)
[2020-07-15] MEDS: TAMSULOSIN 0.4 MG CAP.ER.24H PO SCH (16:52)
[2020-07-15 20:29] LABS: Glucose,Whole Blood 144 mg/dL (75-99)
[2020-07-15] MEDS: ALPRAZolam 0.25 MG TAB PO PRN (23:38)
[2020-07-16] MEDS: HYDROmorphone 1 MG/ML 1 ML SYRINGE IVP PRN ×6 (01:25→20:49)
[2020-07-16] MEDS: KETOROLAC 15 MG/ML 1 ML VIAL IVP SCH ×4 (05:12→23:18)
[2020-07-16] MEDS: methylPREDNISolone SOD SUCCI 125 MG/2 ML VIAL IV SCH ×4 (05:13→21:39)
[2020-07-16] MEDS: SODIUM CHLORIDE 0.9% 1,000 ML IV SCH ×3 (05:16→23:20)
--- NOTE | 2020-07-16 05:48 | P.PN ---
Subjective Progress Note Date: 07/11/20 84-year-old male presents today with diffuse body pain mainly in the back with radiation down the right leg. He was seen in emergency department 2 weeks ago and was prescribed Ultram which states there is no relief of the symptoms. Patient reports that he has a history of colon cancer and believes this may have recurred. He states that he had some x-rays which did not show any acute abnormality. Weeks ago. Patient states that he has no appetite and is abdomen feels full. He did have a bowel movement today. Patient has a known history of colon cancer which has been in remission; CT of abdomen and pelvis was done in ED which revealed lesions over right acetabulum raising concern for metastatic disease and acute colitis; blood work reveals markedly elevated transaminases 07/07/2020 Patient is seen and evaluated in room at bedside; patient has history of stage IIIC colon adenocarcinoma diagnosed in 2018 and S/post surgery. Patient only took a few days of adjuvant oral Xeloda and did not follow up after. Patient has suspicious bone lesions on CT of the abdomen and pelvis. There is does not appear to be any other disease other than in the bone. Oncology is on board and recommending CT of the chest to complete staging; Nuclear medicine bone scan to evaluate the rest of the skeletal system; PSA and CEA are ordered. Radiation Oncology is consulted to see the patient and follow. Patient could certainly benefit from radiation to these painful lesions if found to be metastatic. Continue to titrate pain medications for patient comfort. 07/08/2020 Patient remains in pain, controlled by medications; denies any other complaints VS are reviewed and remain stable Medical and Radiation Oncology are on board; Lytic lesions in R hip and L ilium are main source of pain; Radiation Onc recommends course of palliative RT to R hip and sacrum and SI joints Bone scan is ordered and pending 07/09/2020 Patient is seen and evaluated in room at bedside; reports fair control in pain VS are reviewed and stable Patient is beingf followed by Medical and Radiation Oncology and patient will benefit from palliative RT for pain control; Oncology in process of completing workup for further plan of care; patient is being evaluated bu GI for transaminitis, poss medication induced; recommende follow up on LFTs 07/10/2020 Patient is evaluated at bedside; sleepy but arousable; Pain is uncontrolled. Dilaudid helps, decreases pain from 9 to 5, however only lasts for 1 hour. declined adjuvant chemotherapy, here for intractable back pain. Workup revealed an iliac bone lesion. Bone scan completed with uptake in the iliac bone lesion as well as of the sternum. He was seen by radiation onckenny james, appreciate recommendations. Agree with biopsy followed by radiation therapy. For now, his pain remains uncontrolled. We'll adjust his Dilaudid to better control his pain. Patient was seen and examined, he is short of breath this am and seems unsteady sitting up. He continues to complain of pain, not controlled on IV medication. Patient is beingf followed by Medical and Radiation Oncology and patient will benefit from palliative RT for pain control; Oncology in process of completing workup for further plan of care; patient is being evaluated bu GI for transaminitis, poss medication induced; recommende follow up on LFTs Objective - Vital Signs Vital signs: Vital Signs Temp 98.3 F 07/11/20 14:00 Pulse 97 07/11/20 14:00 Resp 22 07/11/20 14:00 BP 136/62 07/11/20 14:00 Pulse Ox 92 L 07/11/20 14:00 Intake & Output 07/10/20 07/11/20 07/11/20 18:59 06:59 18:59 Intake Total 1300 100 Balance 1300 100 Intake: Intake, IV Titration 1300 Amount Levofloxacin 500Mg-D5w 100 Pmx 500 mg In Dextrose/ Water 1 100ml.bag @ 100 mls/hr IVPB Q24H ROHAN Rx#: [id number] Sodium Chloride 0.9% 1, 1000 000 ml @ 100 mls/hr IV . Q10H ROHAN Rx#:[id number] metroNIDAZOLE-NS PMX 500 200 mg In Saline 1 100ml.bag @ 100 mls/hr IVPB Q8HR ROHAN Rx#:[id number] Oral 100 Other: Voiding Method Urinal Urinal Urinal # Voids 2 - Exam General appearance: alert, in no apparent distress Head exam: Present: atraumatic, normocephalic, normal inspection Eye exam: Present: normal appearance, PERRL, EOMI. Absent: scleral icterus, conjunctival injection, periorbital swelling ENT exam: Present: normal exam, mucous membranes moist Neck exam: Present: normal inspection. Absent: tenderness, meningismus, lymphadenopathy Respiratory exam: Present: normal lung sounds bilaterally. Absent: respiratory distress, wheezes, rales, rhonchi, stridor Cardiovascular Exam: Present: regular rate, normal rhythm, normal heart sounds. Absent: systolic murmur, diastolic murmur, rubs, gallop, clicks GI/Abdominal exam: Present: soft, tenderness (Lower abdominal tenderness), normal bowel sounds. Absent: distended, guarding, rebound, rigid Extremities exam: Present: normal inspection, full ROM, normal capillary refill, other (Patient has tenderness over the right hip and states lumbar paraspinal muscles). Absent: tenderness, pedal edema, joint swelling, calf tenderness Back exam: Present: normal inspection Neurological exam: Present: alert, oriented X3, CN II-XII intact - Labs CBC & Chem 7: 07/15/20 06:02 07/15/20 06:02 Assessment and Plan Assessment: 1. Acute transaminitis - We will monitor liver enzymes closely; IV fluids in form of D5 half-normal saline; we will order acute hepatitis profile; consult GI for further recommendations 2. Acute colitis; slight elevation in white blood count at 11.8; we will order IV Levaquin and Flagyl; monitor pro-calcitonin levels and CRP; further recommendations per GI 3. Right acetabular lesion; possible metastasis; pain control; oncology is consulted 4. COPD; not in exacerbation 5. History of colon cancer; status post bowel resection DVT prophylaxis; SCDs/subcu heparin CODE STATUS; full code
--- NOTE | 2020-07-16 05:49 | P.PN ---
Subjective Progress Note Date: 07/10/20 84-year-old male presents today with diffuse body pain mainly in the back with radiation down the right leg. He was seen in emergency department 2 weeks ago and was prescribed Ultram which states there is no relief of the symptoms. Patient reports that he has a history of colon cancer and believes this may have recurred. He states that he had some x-rays which did not show any acute abnormality. Weeks ago. Patient states that he has no appetite and is abdomen feels full. He did have a bowel movement today. Patient has a known history of colon cancer which has been in remission; CT of abdomen and pelvis was done in ED which revealed lesions over right acetabulum raising concern for metastatic disease and acute colitis; blood work reveals markedly elevated transaminases 07/07/2020 Patient is seen and evaluated in room at bedside; patient has history of stage IIIC colon adenocarcinoma diagnosed in 2018 and S/post surgery. Patient only took a few days of adjuvant oral Xeloda and did not follow up after. Patient has suspicious bone lesions on CT of the abdomen and pelvis. There is does not appear to be any other disease other than in the bone. Oncology is on board and recommending CT of the chest to complete staging; Nuclear medicine bone scan to evaluate the rest of the skeletal system; PSA and CEA are ordered. Radiation Oncology is consulted to see the patient and follow. Patient could certainly benefit from radiation to these painful lesions if found to be metastatic. Continue to titrate pain medications for patient comfort. 07/08/2020 Patient remains in pain, controlled by medications; denies any other complaints VS are reviewed and remain stable Medical and Radiation Oncology are on board; Lytic lesions in R hip and L ilium are main source of pain; Radiation Onc recommends course of palliative RT to R hip and sacrum and SI joints Bone scan is ordered and pending 07/09/2020 Patient is seen and evaluated in room at bedside; reports fair control in pain VS are reviewed and stable Patient is beingf followed by Medical and Radiation Oncology and patient will benefit from palliative RT for pain control; Oncology in process of completing workup for further plan of care; patient is being evaluated bu GI for transaminitis, poss medication induced; recommende follow up on LFTs 07/10/2020 Patient is evaluated at bedside; sleepy but arousable; Pain is uncontrolled. Dilaudid helps, decreases pain from 9 to 5, however only lasts for 1 hour. declined adjuvant chemotherapy, here for intractable back pain. Workup revealed an iliac bone lesion. Bone scan completed with uptake in the iliac bone lesion as well as of the sternum. He was seen by radiation oncol erika, appreciate recommendations. Agree with biopsy followed by radiation therapy. For now, his pain remains uncontrolled. We'll adjust his Dilaudid to better control his pain. Objective - Vital Signs Vital signs: Vital Signs Temp 98.2 F 07/10/20 14:00 Pulse 86 07/10/20 16:44 Resp 21 07/10/20 14:00 BP 125/72 07/10/20 14:00 Pulse Ox 99 07/10/20 16:36 Intake & Output 07/09/20 07/10/20 07/10/20 18:59 06:59 18:59 Intake Total 3088 047 4291 Output Total 350 Balance 7463 560 9896 Intake: Intake, IV Titration 1400 1300 Amount Levofloxacin 500Mg-D5w 100 100 Pmx 500 mg In Dextrose/ Water 1 100ml.bag @ 100 mls/hr IVPB Q24H ROHAN Rx#: [id number] Sodium Chloride 0.9% 1, 1200 1000 000 ml @ 100 mls/hr IV . Q10H ROHAN Rx#:[id number] metroNIDAZOLE-NS PMX 500 100 200 mg In Saline 1 100ml.bag @ 100 mls/hr IVPB Q8HR ROHAN Rx#:[id number] Oral 100 100 Output: Urine 350 Other: Voiding Method Urinal Urinal Urinal # Voids 3 2 - Exam General appearance: alert, in no apparent distress Head exam: Present: atraumatic, normocephalic, normal inspection Eye exam: Present: normal appearance, PERRL, EOMI. Absent: scleral icterus, conjunctival injection, periorbital swelling ENT exam: Present: normal exam, mucous membranes moist Neck exam: Present: normal inspection. Absent: tenderness, meningismus, lymphadenopathy Respiratory exam: Present: normal lung sounds bilaterally. Absent: respiratory distress, wheezes, rales, rhonchi, stridor Cardiovascular Exam: Present: regular rate, normal rhythm, normal heart sounds. Absent: systolic murmur, diastolic murmur, rubs, gallop, clicks GI/Abdominal exam: Present: soft, tenderness (Lower abdominal tenderness), normal bowel sounds. Absent: distended, guarding, rebound, rigid Extremities exam: Present: normal inspection, full ROM, normal capillary refill, other (Patient has tenderness over the right hip and states lumbar paraspinal muscles). Absent: tenderness, pedal edema, joint swelling, calf tenderness Back exam: Present: normal inspection Neurological exam: Present: alert, oriented X3, CN II-XII intact - Labs CBC & Chem 7: 07/15/20 06:02 07/15/20 06:02 Labs: Abnormal Lab Results - Last 24 Hours (Table) 07/07/20 07/07/20 07/10/20 Range/Units 06:05 06:20 08:24 Anion Gap 3.50 L (4.00-12.00) mmol/L Glucose 116 H (70-110) mg/dL POC Glucose (mg/dL) 65 L 74 L (75-99) mg/dL Calcium 8.5 L (8.7-10.3) mg/dL AST 36 H (14-35) U/L ALT 200 H (10-49) U/L Alkaline Phosphatase 132 H (41-126) U/L Total Protein 4.9 L (6.2-8.2) g/dL Albumin 3.20 L (3.80-4.90) g/dL Assessment and Plan Assessment: 1. Acute transaminitis - We will monitor liver enzymes closely; IV fluids in form of D5 half-normal saline; we will order acute hepatitis profile; consult GI for further recommendations 2. Acute colitis; slight elevation in white blood count at 11.8; we will order IV Levaquin and Flagyl; monitor pro-calcitonin levels and CRP; further recommendations per GI 3. Right acetabular lesion; possible metastasis; pain control; oncology is consulted 4. COPD; not in exacerbation 5. History of colon cancer; status post bowel resection DVT prophylaxis; SCDs/subcu heparin CODE STATUS; full code
[2020-07-16 06:16] LABS: HGB 11.3 gm/dL (13.0-17.5); Hypochromasia Slight; MCH 29.2 pg (25.0-35.0); MCHC 32.4 g/dL (31.0-37.0); MCV 90.1 fL (80.0-100.0); Mean Platelet Volume 7.6; Platelet Count 347 k/uL (150-450); RBC 3.88 m/uL (4.30-5.90); RDW 14.9 % (11.5-15.5); WBC 20.5 k/uL (3.8-10.6)
[2020-07-16 06:48] LABS: Glucose,Whole Blood 133 mg/dL (75-99)
[2020-07-16] MEDS: PANTOPRAZOLE 40 MG TABLET PO SCH (07:03)
[2020-07-16] MEDS: metroNIDAZOLE 500 MG TAB PO SCH ×3 (07:03→20:49)
[2020-07-16] MEDS: ASPIRIN 325 MG TAB PO SCH (07:03)
[2020-07-16] MEDS: HEPARIN SODIUM,PORCINE 5,000 UNIT/ML 1 ML VIAL SQ SCH ×2 (07:04→20:49)
[2020-07-16] MEDS: INSULIN ASPART (NovoLOG) 100 UNIT/ML VIAL SQ SCH ×4 (07:04→20:49)
[2020-07-16] MEDS: IPRATROPIUM-ALBUTEROL 3 ML NEB INHALATION PRN ×4 (08:01→20:10)
[2020-07-16] MEDS: HYDROcodone/APAP 5-325MG 1 EACH TAB PO PRN ×2 (08:33→16:18)
[2020-07-16 09:34] LABS: African American GFR (CKD) 80.9 (60.0-200.0); Anion Gap 9.2 mmol/L (4.00-12.00); Calcium 9.2 mg/dL (8.7-10.3); Carbon Dioxide 26.8 mmol/L (21.6-31.8); Non-African American GFR(CKD) 69.8 (60.0-200.0); Potassium 4.3 mmol/L (3.5-5.5)
[2020-07-16 11:56] LABS: Glucose,Whole Blood 208 mg/dL (75-99)
[2020-07-16] MEDS: ALPRAZolam 0.25 MG TAB PO PRN ×2 (12:31→20:49)
[2020-07-16] MEDS: MULTIVITAMINS, THERA 1 EACH TAB PO SCH (12:32)
[2020-07-16] MEDS ORDERED: bisacodyL 10 MG SUPP RECTAL STA (12:43)
--- NOTE | 2020-07-16 13:34 | US ---
EXAMINATION TYPE: US venous doppler duplex LE DATE OF EXAM: 07/16/2020 1:12 PM COMPARISON: CT chest, UEV CLINICAL HISTORY: edema. bilateral ankle edema; history of colon CA SIDE PERFORMED: Bilateral TECHNIQUE: The lower extremity deep venous system is examined utilizing real time linear array sonog bebeto with graded compression, doppler sonography and color-flow sonography. VESSELS IMAGED: Common Femoral Vein Deep Femoral Vein Greater Saphenous Vein * Femoral Vein Popliteal Vein Small Saphenous Vein * Proximal Calf Veins (* superficial vessels) Right Leg: Negative for DVT Left Leg: non mobile echogenic wall valve vs. hyperechoic wall changes noted upper Left Deep Femoral Vein, but color flow is noted around wall echoes and this vein compresses; otherwise left leg is neg ative for acute DVT. Left Popliteal Fossa: complex fluid collection is seen here = 5.2 x 2.1 x 1.3cm. Bilateral ankle edema channels are also imaged by US. Grayscale, color doppler, spectral doppler imaging performed of the deep veins of the bilateral lower extremities. . IMPRESSION: No ultrasound evidence for acute DVT in either lower extremity. Diffuse subcutaneous jacobo ma noted bilaterally greatest at left ankle level towards end of study. Moderate size left-sided popl iteal cyst.
[2020-07-16] MEDS: bisacodyL 5 MG TABLET.DR PO PRN (14:26)
--- NOTE | 2020-07-16 14:51 | MR ---
EXAMINATION TYPE: MR brain wo/w con DATE OF EXAM: 07/16/2020 COMPARISON: None HISTORY: Confusion, cancer staging CONTRAST: Standard multiplanar, multisequence MRI departmental protocol utilizing 6 mL intravenous Gadavist katelyn olinium contrast. There is cerebral cortical atrophy. There is no mass effect nor midline shift. There is no evidence o f intracranial hemorrhage. Diffusion images show no evidence of an acute infarct. There are multiple areas of patchy increased signal in the periventricular white matter on the T2 and FLAIR images. Thes e are somewhat coalescent and measure up to 1 cm. The brainstem is intact. There is some thinning of the corpus callosum. Sella turcica is intact. There is no evidence of retro-orbital mass. There is normal enhancement of the venous sinuses. I see no pathologic enhancement. There is no evide nce of posterior fossa mass. IMPRESSION: Cerebral atrophy and White matter signal changes probably due to chronic small vessel ischemia. Demye linating disease is possible. No evidence of metastatic disease.
--- NOTE | 2020-07-16 16:34 | PN ---
PROGRESS NOTE DATE OF SERVICE: 07/16/2020 INTERVAL HISTORY: This is an 84-year-old gentleman admitted with significant pelvic pain and leg pain as well as possibly metastasis into the pelvis. The biopsy was composite. Radiology is planning outpatient radiation treatment. Patient is still complaining of pain 8/10 in intensity. Patient had venous Doppler study of both legs because of the leg swelling, which showed no ultrasound evidence of DVT. An MRI of the brain was also noted which showed cerebral atrophy and white matter changes. No chest pain. No palpitations. PAST MEDICAL HISTORY: Reviewed. REVIEW OF SYSTEMS: CARDIOVASCULAR: No angina. RESPIRATORY: As mentioned earlier. GI: As mentioned earlier. : No dysuria. NERVOUS SYSTEM: No numbness or weakness. CURRENT MEDICATIONS: Reviewed and include Tylenol, [place], Xanax, aspirin, Dulcolax, Duragesic patch, Ativan, Solu-Medrol, Protonix, Restoril. PHYSICAL EXAMINATION: GENERAL: Patient is alert and oriented times three. VITAL SIGNS: Pulse 80, blood pressure 127/70, respirations 17, temperature 97.2, pulse ox 93% on 4 liters. HEENT: Conjunctivae normal. NECK: No jugular venous distention. No carotid bruits. No lymph node enlargement. RESPIRATORY: Breath sounds diminished at the bases. A few scattered rhonchi and crackles. HEART: S1 and S2, muffled. ABDOMEN: Soft, no tenderness. No masses palpable. EXTREMITIES: Bilateral leg edema. NERVOUS: No focal deficits. Diffusely weak. LAB STUDIES: WBC 20.2, hemoglobin 11.3. ASSESSMENT: 1. Intractable severe pain in the right pelvis with lytic lesion, possibly colon cancer with metastases. 2. Status post bone biopsy showing metastatic [id number] lung cancer. 3. Elevated LFTs. 4. Hyponatremia. 5. Gait dysfunction. 6. Mild protein calorie malnutrition. 7. Hypoalbuminemia. 8. Gait dysfunction. 9. Bilateral leg edema. 10.Increased WBC. 11.Anemia. 12.History of chronic obstructive pulmonary disease. 13.Gastroesophageal reflux disease. 14.Hiatal hernia. 15.History of gastritis. 16.History of duodenitis. 17.History of cataracts. 18.History of bowel resection. 19.History of prostate cancer. 20.History of nicotine dependence. 21.FULL CODE. RECOMMENDATIONS AND DISCUSSION: I recommend to continue current management and continue symptomatic treatment. Continue with current pain medications. Patient is not willing to take steroids at this time. Otherwise, continue to monitor rest of the medications. Try to titrate p.o. medications. Guarded prognosis. Further recommendations to follow. MMODL / IJN: [id number] /
[2020-07-16 16:52] LABS: Glucose,Whole Blood 160 mg/dL (75-99)
[2020-07-16] MEDS: TAMSULOSIN 0.4 MG CAP.ER.24H PO SCH (17:38)
[2020-07-16] MEDS: LEVOFLOXACIN 250 MG TAB PO SCH (17:39)
[2020-07-16 20:25] LABS: Glucose,Whole Blood 225 mg/dL (75-99)
--- NOTE | 2020-07-17 01:39 | P.PN ---
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 HEENT: No conjunctival pallor or scleral icterus. Mucosa moist. Neck: Supple. Lungs: No respiratory distress. Heart: Regular rate. Abdomen: Soft, nontender. MSK: Appropriate strength in all 4 extremities. Limited RLE movement however due to pain. Neuro: Alert. Skin: No jaundice. Psych: Appropriate affec - Labs CBC & Chem 7: 07/16/20 05:39 07/16/20 05:39 Labs: Abnormal Lab Results - Last 24 Hours (Table) 07/16/20 07/16/20 07/16/20 Range/Units 05:39 05:39 06:47 WBC 20.5 H (3.8-10.6) k/uL RBC 3.88 L (4.30-5.90) m/uL Hgb 11.3 L (13.0-17.5) gm/dL Hct 35.0 L (39.0-53.0) % BUN 40.0 H (9.0-27.0) mg/dL BUN/Creatinine Ratio 40.00 H (12.00-20.00) Ratio Glucose 125 H (70-110) mg/dL POC Glucose (mg/dL) 133 H (75-99) mg/dL 07/16/20 07/16/20 07/16/20 Range/Units 11:55 16:51 20:24 WBC (3.8-10.6) k/uL RBC (4.30-5.90) m/uL Hgb (13.0-17.5) gm/dL Hct (39.0-53.0) % BUN (9.0-27.0) mg/dL BUN/Creatinine Ratio (12.00-20.00) Ratio Glucose (70-110) mg/dL POC Glucose (mg/dL) 208 H 160 H 225 H (75-99) mg/dL Assessment and Plan Plan: Assessment and Plan Assessment: 1. Intractable pain: - Add long acting fentanyl patch 2. 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 History of colon cancer 4. Follow-up next week in office for PET 5. Radiation therapy to begin for palliative intention and pain control per Dr. Zepeda MRI brain negative for metastatic disease
[2020-07-17] MEDS: HYDROmorphone 1 MG/ML 1 ML SYRINGE IVP PRN ×5 (02:22→20:11)
[2020-07-17] MEDS: methylPREDNISolone SOD SUCCI 125 MG/2 ML VIAL IV SCH ×2 (05:29→11:20)
[2020-07-17] MEDS: KETOROLAC 15 MG/ML 1 ML VIAL IVP SCH ×4 (05:41→23:08)
[2020-07-17 06:20] LABS: HCT 33.8 % (39.0-53.0); Hypochromasia Slight; MCH 29.2 pg (25.0-35.0); MCHC 32.5 g/dL (31.0-37.0); Mean Platelet Volume 7.8; Platelet Count 308 k/uL (150-450); RBC 3.76 m/uL (4.30-5.90)
[2020-07-17 06:39] LABS: Glucose,Whole Blood 94 mg/dL (75-99)
[2020-07-17] MEDS: INSULIN ASPART (NovoLOG) 100 UNIT/ML VIAL SQ SCH ×4 (06:48→20:11)
[2020-07-17] MEDS: metroNIDAZOLE 500 MG TAB PO SCH ×3 (06:52→20:11)
[2020-07-17] MEDS: PANTOPRAZOLE 40 MG TABLET PO SCH (06:52)
[2020-07-17] MEDS: HYDROcodone/APAP 5-325MG 1 EACH TAB PO PRN ×2 (06:52→13:23)
[2020-07-17] MEDS: ASPIRIN 325 MG TAB PO SCH (06:53)
[2020-07-17] MEDS: bisacodyL 5 MG TABLET.DR PO PRN (06:53)
[2020-07-17] MEDS: HEPARIN SODIUM,PORCINE 5,000 UNIT/ML 1 ML VIAL SQ SCH ×2 (06:54→20:11)
[2020-07-17] MEDS: IPRATROPIUM-ALBUTEROL 3 ML NEB INHALATION PRN ×3 (07:14→19:05)
[2020-07-17 10:02] LABS: African American GFR (CKD) 80.9 (60.0-200.0); Anion Gap 5.1 mmol/L (4.00-12.00); Carbon Dioxide 30.9 mmol/L (21.6-31.8); Non-African American GFR(CKD) 69.8 (60.0-200.0); Potassium 4.3 mmol/L (3.5-5.5)
[2020-07-17 11:14] LABS: Glucose,Whole Blood 96 mg/dL (75-99)
[2020-07-17] MEDS: SODIUM CHLORIDE 0.9% 1,000 ML IV SCH ×2 (11:20→22:32)
[2020-07-17] MEDS: MULTIVITAMINS, THERA 1 EACH TAB PO SCH (11:21)
[2020-07-17] MEDS ORDERED: MINERAL OIL 133 ML ENEMA RECTAL STA (11:59)
[2020-07-17] MEDS: LIDOCAINE 5% PATCH TOPICAL SCH (12:52)
[2020-07-17 16:42] LABS: Glucose,Whole Blood 115 mg/dL (75-99)
[2020-07-17] MEDS: TAMSULOSIN 0.4 MG CAP.ER.24H PO SCH (16:52)
[2020-07-17] MEDS: LEVOFLOXACIN 250 MG TAB PO SCH (16:52)
--- NOTE | 2020-07-17 16:59 | PN ---
PROGRESS NOTE DATE OF SERVICE: 07/17/2020 This 84-year-old gentleman admitted with intractable severe pain in the right pelvis is being closely monitored. Patient has multimodality treatment. Radiation treatment is being recommended in outpatient setting. The brain MRI did not show any evidence of metastasis. The WBC is elevated up to 19. Patient is taking IV steroids. PAST MEDICAL HISTORY: Reviewed. REVIEW OF SYSTEMS: CARDIOVASCULAR: No angina. RESPIRATORY: As mentioned earlier. GI: No nausea or diarrhea. : No dysuria. NERVOUS SYSTEM: No numbness, weakness. CURRENT MEDICATIONS: Reviewed include Tylenol, [place], Xanax, Colace, Lodine, NovoLog, Levaquin, Solu-Medrol. PHYSICAL EXAM: Patient is alert, oriented x3. Pulse 70, blood pressure 140/70, respirations 17, temperature 97.9, pulse ox 97% on 5 L. HEENT: Conjunctivae normal. Oral mucosa moist. NECK: No jugular venous distention. No lymph node enlargement. CARDIOVASCULAR: S1, S2, muffled. No S3, no S4, RESPIRATORY: Diminished breath sounds at the bases. A few scattered rhonchi. ABDOMEN: Soft, nontender. LEGS: Leg movements are painful. NERVOUS SYSTEM: No focal motor or sensory deficits. LAB: WBC 19, hemoglobin is 11. ASSESSMENT: 1. Intractable severe pain in the right pelvis with lytic lesion, possibly colon cancer with metastases. 2. Status post bone biopsy showing metastatic non-small cell cancer. 3. Elevated LFT. 4. Hyponatremia. 5. Gait dysfunction. 6. Mild protein-calorie malnutrition. 7. Hypoalbuminemia. 8. Gait dysfunction. 9. Bilateral leg edema. 10.Increased WBC. 11.Anemia. 12.History of chronic obstructive pulmonary disease. 13.Gastroesophageal reflux disease. 14.Hiatal hernia. 15.Gastritis. 16.History of duodenitis. 17.History of cataracts. 18.History of bowel resection. 19.History of prostate cancer. 20.History of nicotine dependence. 21.FULL CODE. RECOMMENDATIONS AND DISCUSSION: I recommend to continue current management and symptomatic treatment. Otherwise, at this time I recommend to continue to taper the steroids. Otherwise, closely follow with multiple consultants including Hematology/Oncology and Radiation Oncology, PT/OT evaluation, possible ECF rehab and further recommendations to follow. MMODL / IJN: [id number] /
[2020-07-17 20:06] LABS: Glucose,Whole Blood 152 mg/dL (75-99)
[2020-07-17] MEDS: DOCUSATE 100 MG CAP PO SCH (20:11)
[2020-07-17] MEDS: methylPREDNISolone SOD SUCCI 40 MG/ML 1 ML VIAL IV SCH (23:47)
[2020-07-18] MEDS: HYDROmorphone 1 MG/ML 1 ML SYRINGE IVP PRN ×2 (02:12→08:02)
[2020-07-18] MEDS: ALPRAZolam 0.25 MG TAB PO PRN ×2 (02:57→21:04)
[2020-07-18] MEDS: HYDROcodone/APAP 5-325MG 1 EACH TAB PO PRN ×2 (02:57→10:21)
[2020-07-18] MEDS: KETOROLAC 15 MG/ML 1 ML VIAL IVP SCH ×2 (05:13→12:16)
[2020-07-18 06:18] LABS: HCT 33.2 % (39.0-53.0); HGB 10.6 gm/dL (13.0-17.5); Hypochromasia Moderate; MCHC 32.1 g/dL (31.0-37.0); MCV 90.3 fL (80.0-100.0); Mean Platelet Volume 8.2; Platelet Count 291 k/uL (150-450); RBC 3.67 m/uL (4.30-5.90); WBC 17.5 k/uL (3.8-10.6)
[2020-07-18 06:56] LABS: Glucose,Whole Blood 93 mg/dL (75-99)
[2020-07-18] MEDS: INSULIN ASPART (NovoLOG) 100 UNIT/ML VIAL SQ SCH ×4 (07:09→21:01)
[2020-07-18] MEDS: PANTOPRAZOLE 40 MG TABLET PO SCH (08:01)
[2020-07-18] MEDS: metroNIDAZOLE 500 MG TAB PO SCH ×3 (08:01→21:05)
[2020-07-18] MEDS: ASPIRIN 325 MG TAB PO SCH (08:01)
[2020-07-18] MEDS: DOCUSATE 100 MG CAP PO SCH ×2 (08:01→21:05)
[2020-07-18] MEDS: LIDOCAINE 5% PATCH TOPICAL SCH (08:01)
[2020-07-18] MEDS: HEPARIN SODIUM,PORCINE 5,000 UNIT/ML 1 ML VIAL SQ SCH ×2 (08:02→21:04)
[2020-07-18] MEDS: IPRATROPIUM-ALBUTEROL 3 ML NEB INHALATION PRN ×2 (08:57→20:22)
[2020-07-18 09:40] LABS: African American GFR (CKD) 80.9 (60.0-200.0); Anion Gap 2.5 mmol/L (4.00-12.00); Calcium 8.7 mg/dL (8.7-10.3); Carbon Dioxide 30.5 mmol/L (21.6-31.8); Non-African American GFR(CKD) 69.8 (60.0-200.0); Potassium 4.1 mmol/L (3.5-5.5)
[2020-07-18] MEDS: methylPREDNISolone SOD SUCCI 40 MG/ML 1 ML VIAL IV SCH ×3 (09:42→21:43)
[2020-07-18] MEDS: MULTIVITAMINS, THERA 1 EACH TAB PO SCH (12:16)
[2020-07-18] MEDS: HYDROmorphone 0.5 MG/0.5 ML SYRINGE IVP PRN ×2 (12:17→17:14)
--- NOTE | 2020-07-18 15:02 | P.PN ---
Subjective Progress Note Date: 07/18/20 This is an 84-year-old male who was recently admitted with intractable severe pain in the right pelvis and is being closely monitored. Patient is being followed by radiation oncology along with oncology. Patient to receive radiation treatment today. Patient does have an indwelling Harper catheter with some blood noted and will order urinalysis which is currently pending. Patient continues to request IV pain medication and will adjust medications and discuss with oncology services. Case management and social work following as patient continues to be quite weak requiring assistance and very unsteady gait. Patient was to go to [facility] cancer therapy would be placed on hold and patient is not willing to discontinue treatment at this time. Will discuss with oncology services along with family about treatment plan. Patient is maintained on Levaquin and Flagyl and will continue at this time. White blood count slowly trending down and is 17.5. Review of systems: Constitutional: No reports of fatigue, fever, or chills, patient reports generalized pain mostly in the bilateral lower extremities and back Cardiovascular: No reports of chest pain or palpitations Respiratory: No reports of shortness of breath or cough GI: No reports of nausea, vomiting, or diarrhea : No reports of dysuria or retention Neurovascular: Reports weakness All medications have been reviewed Active Medications Acetaminophen (Acetaminophen Tab 325 Mg Tab) 650 mg PO Q6HR PRN PRN Reason: Mild Pain or Fever > 100.5 Hydrocodone Bitart/Acetaminophen (Hydrocodone/Apap 7.5-325mg 1 Each Tab) 1 each PO Q6H PRN PRN Reason: Pain Albuterol/Ipratropium (Ipratropium-Albuterol 3 Ml Neb) 3 ml INHALATION RT-QID PRN PRN Reason: Shortness Of Breath Last Admin: 07/18/20 08:57 Dose: 3 ml Documented by: Alprazolam (Alprazolam 0.25 Mg Tab) 0.25 mg PO TID PRN PRN Reason: Anxiety Last Admin: 07/18/20 02:57 Dose: 0.25 mg Documented by: Aspirin (Aspirin 325 Mg Tab) 325 mg PO DAILY [facility] Last Admin: 07/18/20 08:01 Dose: 325 mg Documented by: Docusate Sodium (Docusate 100 Mg Cap) 100 mg PO BID [facility] Last Admin: 07/18/20 08:01 Dose: 100 mg Documented by: Etodolac (Etodolac 400 Mg Tab) 400 mg PO TID PRN PRN Reason: Pain Fentanyl (Fentanyl 50mcg/Hr Patch) 1 patch TRANSDERM Q72H [facility] Last Admin: 07/17/20 12:49 Dose: 1 patch Documented by: Heparin Sodium (Porcine) (Heparin Sodium,Porcine 5,000 Unit/Ml 1 Ml Vial) 5,000 unit SQ Q12HR [facility] Last Admin: 07/18/20 08:02 Dose: 5,000 unit Documented by: Hydromorphone HCl (Hydromorphone 0.5 Mg/0.5 Ml Syringe) 0.5 mg IVP Q6HR PRN PRN Reason: Pain Last Admin: 07/18/20 12:17 Dose: 0.5 mg Documented by: Sodium Chloride (Saline 0.9%) 1,000 mls @ 100 mls/hr IV .Q10H [facility] Last Admin: 07/17/20 22:32 Dose: 100 mls/hr Documented by: Insulin Aspart (Insulin Aspart (Novolog) 100 Unit/Ml Vial) 0 unit SQ ACHS [facility]; Protocol Last Admin: 07/18/20 07:09 Dose: Not Given Documented by: Ketorolac Tromethamine (Ketorolac 15 Mg/Ml 1 Ml Vial) 15 mg IVP Q6HR [facility] Stop: 07/18/20 17:35 Last Admin: 07/18/20 12:16 Dose: 15 mg Documented by: Levofloxacin (Levofloxacin 250 Mg Tab) 250 mg PO Q24H [facility] Last Admin: 07/17/20 16:52 Dose: 250 mg Documented by: Lidocaine (Lidocaine 5% Patch) 1 patch TOPICAL DAILY [facility] Last Admin: 07/18/20 08:01 Dose: 1 patch Documented by: Lorazepam (Lorazepam 2 Mg/Ml Inj) 1 mg IV Q8HR PRN PRN Reason: Anxiety Methylprednisolone Sodium Succinate (Methylprednisolone Sod Succi 40 Mg/Ml 1 Ml Vial) 40 mg IV Q8HR [facility] Last Admin: 07/18/20 09:42 Dose: Not Given Documented by: Metronidazole (Metronidazole 500 Mg Tab) 500 mg PO TID [facility] Last Admin: 07/18/20 08:01 Dose: 500 mg Documented by: Multivitamins (Multivitamins, Thera 1 Each Tab) 1 each PO DAILY@1200 [facility] Last Admin: 07/18/20 12:16 Dose: 1 each Documented by: Naloxone HCl (Naloxone 0.4 Mg/Ml 1 Ml Vial) 0.2 mg IV Q2M PRN PRN Reason: Opioid Reversal Ondansetron HCl (Ondansetron 4 Mg/2 Ml Vial) 4 mg IVP Q8HR PRN PRN Reason: Nausea And Vomiting Last Admin: 07/08/20 15:17 Dose: 4 mg Documented by: Pantoprazole Sodium (Pantoprazole 40 Mg Tablet) 40 mg PO DAILY [facility] Last Admin: 07/18/20 08:01 Dose: 40 mg Documented by: Tamsulosin HCl (Tamsulosin 0.4 Mg Cap.Er.24h) 0.4 mg PO PC-SUPPER [facility] Last Admin: 07/17/20 16:52 Dose: 0.4 mg Documented by: Temazepam (Temazepam 15 Mg Cap) 15 mg PO HS PRN PRN Reason: Insomnia Objective - Vital Signs Vital signs: Vital Signs Temp 97.7 F 07/18/20 07:51 Pulse 75 07/18/20 09:10 Resp 17 07/18/20 08:00 BP 157/88 07/18/20 07:51 Pulse Ox 96 07/18/20 08:57 Intake & Output 07/17/20 07/18/20 07/18/20 18:59 06:59 18:59 Intake Total 500 Output Total 750 Balance -250 Intake: Oral 500 Output: Urine 750 Other: Voiding Method Urinal Urinal Indwelling Catheter # Voids 400 - Exam Gen: This is an 84-year-old male awake, alert and oriented 2-3, well-developed, well-nourished. Temp is 97.4F, pulse 89, respirations are 17, blood pressure is 128/72, oxygen saturation is 97% on 2 L via nasal cannula. HEENT: Head is atraumatic, normocephalic. Pupils equal, round. Sclerae is anicteric. NECK: Supple. No JVD. No lymphadenopathy. No thyromegaly. LUNGS: Diminished breath sounds bilaterally with some scattered rhonchi noted. No intercostal retractions. HEART: S1, S2 are muffled. ABDOMEN: Soft. Bowel sounds are present. No masses. No tenderness. EXTREMITIES: No pedal edema. No calf tenderness. NEUROLOGICAL: Patient is awake, alert and oriented x2-3. Diffusely weak. - Labs CBC & Chem 7: 07/18/20 05:13 07/18/20 05:13 Labs: Abnormal Lab Results - Last 24 Hours (Table) 07/17/20 07/17/20 07/18/20 Range/Units 16:41 20:04 05:13 WBC 17.5 H (3.8-10.6) k/uL RBC 3.67 L (4.30-5.90) m/uL Hgb 10.6 L (13.0-17.5) gm/dL Hct 33.2 L (39.0-53.0) % Anion Gap (4.00-12.00) mmol/L BUN (9.0-27.0) mg/dL BUN/Creatinine Ratio (12.00-20.00) Ratio POC Glucose (mg/dL) 115 H 152 H (75-99) mg/dL 07/18/20 Range/Units 05:13 WBC (3.8-10.6) k/uL RBC (4.30-5.90) m/uL Hgb (13.0-17.5) gm/dL Hct (39.0-53.0) % Anion Gap 2.50 L (4.00-12.00) mmol/L BUN 44.0 H (9.0-27.0) mg/dL BUN/Creatinine Ratio 44.00 H (12.00-20.00) Ratio POC Glucose (mg/dL) (75-99) mg/dL Assessment and Plan Assessment: Intractable severe pain in the right pelvis with a lytic lesion, possibly colon cancer with metastasis Status post bone biopsy showing metastatic non-small cell lung cancer Elevated liver function tests Hyponatremia Gait dysfunction Mild protein calorie malnutrition hypoalbuminemia Increased white blood count anemia History of chronic obstructive pulmonary disease Gastroesophageal reflux disease History of hiatal hernia history of gastritis history of duodenitis history of cataracts History of bowel resection history of prostate cancer history of nicotine dependence Full code Recommendations and discussion: Recommend to continue with current medications, management, and symptomatic treatment. patient has been refusing steroids. Blood noted in the indwelling Harper catheter and urinalysis was ordered and currently pending. Continue with pain management and increased fentanyl to 50 mcg patch. will decrease IV pain medications and adjust oral medications. Patient received radiation oncology today. Patient is following with oncology along with radiation oncology. Patient continues to be quite weak and will have PT OT evaluate the patient for the possibility of ECF. Will discuss with case management and social work. also need to discuss with oncology as treatment would likely be placed on hold if patient goes to rehab. Patient wants to continue treatment. Due to multiple complex medical issues, prognosis is guarded. Further recommendations to follow.
[2020-07-18] MEDS: TAMSULOSIN 0.4 MG CAP.ER.24H PO SCH (17:14)
[2020-07-18] MEDS: LEVOFLOXACIN 250 MG TAB PO SCH (17:14)
[2020-07-18 17:15] LABS: Glucose,Whole Blood 105 mg/dL (75-99)
[2020-07-18] MEDS: SODIUM CHLORIDE 0.9% 1,000 ML IV SCH ×2 (19:04→20:57)
--- NOTE | 2020-07-18 20:41 | P.PN ---
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 Will attempt again PT/OT Increased Fentanyl patch Bowel Regimen Continue radiation Objective - Vital Signs Vital signs: Vital Signs Temp 97.4 F L 07/18/20 14:49 Pulse 98 07/18/20 20:30 Resp 17 07/18/20 14:49 BP 128/72 07/18/20 14:49 Pulse Ox 97 07/18/20 14:49 Intake & Output 07/18/20 07/18/20 07/19/20 06:59 18:59 06:59 Intake Total 500 1200 Output Total 750 900 Balance -250 300 Weight 58.967 kg Intake: Intake, IV Titration 1200 Amount Sodium Chloride 0.9% 1, 1200 000 ml @ 100 mls/hr IV . Q10H [facility] Rx#:[id number] Oral 500 Output: Urine 750 900 Other: Voiding Method Urinal Indwelling Catheter # Voids 400 - Exam Gen.: No acute distress. HEENT: No conjunctival pallor or scleral icterus. Mucosa moist. Neck: Supple. Lungs: No respiratory distress. Heart: Regular rate. Abdomen: Soft, nontender. MSK: Appropriate strength in all 4 extremities. Limited RLE movement however due to pain. Neuro: Alert. Skin: No jaundice. Psych: Appropriate affec - Labs CBC & Chem 7: 07/18/20 05:13 07/18/20 05:13 Labs: Abnormal Lab Results - Last 24 Hours (Table) 07/18/20 07/18/20 07/18/20 Range/Units 05:13 05:13 17:13 WBC 17.5 H (3.8-10.6) k/uL RBC 3.67 L (4.30-5.90) m/uL Hgb 10.6 L (13.0-17.5) gm/dL Hct 33.2 L (39.0-53.0) % Anion Gap 2.50 L (4.00-12.00) mmol/L BUN 44.0 H (9.0-27.0) mg/dL BUN/Creatinine Ratio 44.00 H (12.00-20.00) Ratio POC Glucose (mg/dL) 105 H (75-99) mg/dL Assessment and Plan Plan: Assessment and Plan Assessment: 1. Intractable pain: - Add long acting fentanyl patch 2. 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 History of colon cancer 4. Follow-up next week in office for PET 5. Radiation therapy to begin for palliative intention and pain control per Dr. Zepeda MRI brain negative for metastatic disease Re-discussed Results of biopsy, attempted to call , no answer and no machine. Will attempt again PT/OT Increased Fentanyl patch Bowel Regimen Continue radiation
[2020-07-18] MEDS ORDERED: SENNOSIDES 8.6 MG TAB PO PRN (20:42)
[2020-07-18 21:02] LABS: Glucose,Whole Blood 91 mg/dL (75-99)
[2020-07-18] MEDS: HYDROcodone/APAP 7.5-325MG 1 EACH TAB PO PRN (21:04)
[2020-07-19] MEDS: SODIUM CHLORIDE 0.9% 1,000 ML IV SCH ×2 (02:57→18:59)
[2020-07-19] MEDS: HYDROmorphone 0.5 MG/0.5 ML SYRINGE IVP PRN ×3 (04:22→17:21)
[2020-07-19] MEDS: methylPREDNISolone SOD SUCCI 40 MG/ML 1 ML VIAL IV SCH ×2 (07:03→16:50)
[2020-07-19] MEDS: INSULIN ASPART (NovoLOG) 100 UNIT/ML VIAL SQ SCH ×4 (07:03→20:56)
[2020-07-19 07:04] LABS: Glucose,Whole Blood 79 mg/dL (75-99)
[2020-07-19] MEDS: LIDOCAINE 5% PATCH TOPICAL SCH (07:51)
[2020-07-19] MEDS: DOCUSATE 100 MG CAP PO SCH ×2 (07:51→20:49)
[2020-07-19] MEDS: PANTOPRAZOLE 40 MG TABLET PO SCH (07:51)
[2020-07-19] MEDS: MULTIVITAMINS, THERA 1 EACH TAB PO SCH (07:51)
[2020-07-19] MEDS: HEPARIN SODIUM,PORCINE 5,000 UNIT/ML 1 ML VIAL SQ SCH ×2 (07:51→20:49)
[2020-07-19] MEDS: ASPIRIN 325 MG TAB PO SCH (07:51)
[2020-07-19] MEDS: HYDROcodone/APAP 7.5-325MG 1 EACH TAB PO PRN ×2 (07:52→20:49)
[2020-07-19] MEDS: IPRATROPIUM-ALBUTEROL 3 ML NEB INHALATION PRN ×3 (08:40→21:26)
[2020-07-19 09:44] LABS: Basophils % (A) 0 %; Eosinophils # (A) 0.4 k/uL (0-0.7); Eosinophils % (A) 3 %; HCT 35.2 % (39.0-53.0); HGB 11.2 gm/dL (13.0-17.5); Hypochromasia Slight; Lymphocytes # (A) 0.6 k/uL (1.0-4.8); Lymphocytes % (A) 4 %; MCH 28.7 pg (25.0-35.0); MCHC 31.8 g/dL (31.0-37.0); MCV 90.2 fL (80.0-100.0); Mean Platelet Volume 7.9; Monocytes # (A) 0.5 k/uL (0-1.0); Monocytes % (A) 4 %; Neutrophils # (A) 12.7 k/uL (1.3-7.7); Neutrophils % (A) 89 %; Platelet Count 273 k/uL (150-450); RDW 14.9 % (11.5-15.5); WBC 14.3 k/uL (3.8-10.6)
[2020-07-19 09:55] LABS: African American GFR (CKD) 86 (>60 ml/min/1.73 sqM); Anion Gap 1 mmol/L; Blood Urea Nitrogen 33 mg/dL (9-20); Calcium 8.9 mg/dL (8.4-10.2); Carbon Dioxide 33 mmol/L (22-30); Chloride 99 mmol/L (98-107); Glucose 92 mg/dL (74-99); Non-African American GFR(CKD) 75 (>60 ml/min/1.73 sqM); Potassium 4.1 mmol/L (3.5-5.1); Sodium 133 mmol/L (137-145)
--- NOTE | 2020-07-19 13:45 | P.PN ---
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 I spoke to his family and agree he will likely need rehab for increased performance and strength before options of systemic treatment and/or home. Will need to discuss end date plan with radiation oncology, as well as await further molecular testing on tumor. Objective - Vital Signs Vital signs: Vital Signs Temp 97.6 F 07/19/20 07:46 Pulse 84 07/19/20 08:50 Resp 18 07/19/20 07:51 BP 131/76 07/19/20 07:46 Pulse Ox 96 07/19/20 08:40 Intake & Output 07/18/20 07/19/20 07/19/20 18:59 06:59 18:59 Intake Total 1200 Output Total 900 1400 Balance 300 -1400 Weight 58.967 kg Intake: Intake, IV Titration 1200 Amount Sodium Chloride 0.9% 1, 1200 000 ml @ 100 mls/hr IV . Q10H [facility] Rx#:[id number] Output: Urine 900 1400 Other: Voiding Method Indwelling Catheter Indwelling Catheter Indwelling Catheter - Exam Gen.: No acute distress. HEENT: No conjunctival pallor or scleral icterus. Mucosa moist. Neck: Supple. Lungs: No respiratory distress. Heart: Regular rate. Abdomen: Soft, nontender. MSK: Appropriate strength in all 4 extremities. Limited RLE movement however due to pain. Neuro: Alert. Skin: No jaundice. Psych: Appropriate affec - Labs CBC & Chem 7: 07/19/20 09:20 07/19/20 09:20 Labs: Abnormal Lab Results - Last 24 Hours (Table) 07/18/20 07/19/20 07/19/20 Range/Units 17:13 09:20 09:20 WBC 14.3 H (3.8-10.6) k/uL RBC 3.90 L (4.30-5.90) m/uL Hgb 11.2 L (13.0-17.5) gm/dL Hct 35.2 L (39.0-53.0) % Neutrophils # 12.7 H (1.3-7.7) k/uL Lymphocytes # 0.6 L (1.0-4.8) k/uL Sodium 133 L (137-145) mmol/L Carbon Dioxide 33 H (22-30) mmol/L BUN 33 H (9-20) mg/dL POC Glucose (mg/dL) 105 H (75-99) mg/dL Microbiology - Last 24 Hours (Table) 07/18/20 22:00 Urine Culture - Preliminary Urine,Catheterized Assessment and Plan Plan: Assessment and Plan Assessment: 1. Intractable pain:improved - long acting fentanyl patch 2. 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 History of colon cancer 4. Follow-up next week in office for PET 5. Radiation therapy to begin for palliative intention and pain control per Dr. Zepeda MRI brain negative for metastatic disease discussed path and plan with patients and son. Concern of family is weakness and decreased PO intake. PT/OT has seen and evaluated patient Prob plan for ECF rehab, will send for next gen sequencing and PDL 1 on tumor path for further options of treatment. PT/OT Continue Fentanyl patch Continue radiation and appreciate radiation oncology update regarding length and plan Physician attest: I have completed the full history and physical and agree with above dictation, dictated as a scribe.
--- NOTE | 2020-07-19 14:08 | P.PN ---
Subjective Progress Note Date: 07/19/20 This is an 84-year-old male who was recently admitted with intractable severe pain in the right pelvis and is being closely monitored. Patient is being followed by radiation oncology along with oncology. Patient to receive radiation treatment today. Patient does have an indwelling Harper catheter with some blood noted and will order urinalysis which is currently pending. Patient continues to request IV pain medication and will adjust medications and discuss with oncology services. Case management and social work following as patient continues to be quite weak requiring assistance and very unsteady gait. Patient was to go to [facility] cancer therapy would be placed on hold and patient is not willing to discontinue treatment at this time. Will discuss with oncology services along with family about treatment plan. Patient is maintained on Levaquin and Flagyl and will continue at this time. White blood count slowly trending down and is 17.5. 07/19/2020 Patient is seen in follow-up status post radiation treatment with radiation oncology yesterday. Patient states his pain continues although feels somewhat improved from yesterday. Urine culture currently pending. Oncology also following and planning to discuss treatment plan with family today. Case management and social work following and assisting with possible discharge planning needs once patient is stabilized and discharged. White blood count continues to trend down and is currently 14.3. Patient is maintained on antibiotics and will continue at this time. There is some mild hematuria noted in the Harper catheter although patient denies any dysuria or pain at this time. Sodium is 133 today, potassium is 4.1, current creatinine is 0.95. Fentanyl patch has been increased to 75 mcg. Review of systems: Constitutional: No reports of fatigue, fever, or chills, patient reports generalized pain mostly in the bilateral lower extremities and back with slight improvement today Cardiovascular: No reports of chest pain or palpitations Respiratory: No reports of shortness of breath or cough GI: No reports of nausea, vomiting, or diarrhea : No reports of dysuria or retention Neurovascular: Reports weakness All medications have been reviewed Active Medications Acetaminophen (Acetaminophen Tab 325 Mg Tab) 650 mg PO Q6HR PRN PRN Reason: Mild Pain or Fever > 100.5 Hydrocodone Bitart/Acetaminophen (Hydrocodone/Apap 7.5-325mg 1 Each Tab) 1 each PO Q6H PRN PRN Reason: Pain Last Admin: 07/19/20 07:52 Dose: 1 each Documented by: Albuterol/Ipratropium (Ipratropium-Albuterol 3 Ml Neb) 3 ml INHALATION RT-QID PRN PRN Reason: Shortness Of Breath Last Admin: 07/19/20 08:40 Dose: 3 ml Documented by: Alprazolam (Alprazolam 0.25 Mg Tab) 0.25 mg PO TID PRN PRN Reason: Anxiety Last Admin: 07/18/20 21:04 Dose: 0.25 mg Documented by: Aspirin (Aspirin 325 Mg Tab) 325 mg PO DAILY [facility] Last Admin: 07/19/20 07:51 Dose: 325 mg Documented by: Docusate Sodium (Docusate 100 Mg Cap) 100 mg PO BID [facility] Last Admin: 07/19/20 07:51 Dose: 100 mg Documented by: Etodolac (Etodolac 400 Mg Tab) 400 mg PO TID PRN PRN Reason: Pain Fentanyl (Fentanyl 75mcg/Hr Patch) 1 patch TRANSDERM Q72H [facility] Last Admin: 07/18/20 21:05 Dose: 1 patch Documented by: Heparin Sodium (Porcine) (Heparin Sodium,Porcine 5,000 Unit/Ml 1 Ml Vial) 5,000 unit SQ Q12HR [facility] Last Admin: 07/19/20 07:51 Dose: 5,000 unit Documented by: Hydromorphone HCl (Hydromorphone 0.5 Mg/0.5 Ml Syringe) 0.5 mg IVP Q6HR PRN PRN Reason: Pain Last Admin: 07/19/20 11:28 Dose: 0.5 mg Documented by: Sodium Chloride (Saline 0.9%) 1,000 mls @ 100 mls/hr IV .Q10H [facility] Last Admin: 07/19/20 02:57 Dose: Not Given Documented by: Insulin Aspart (Insulin Aspart (Novolog) 100 Unit/Ml Vial) 0 unit SQ ACHS [facility]; Protocol Last Admin: 07/19/20 07:03 Dose: Not Given Documented by: Levofloxacin (Levofloxacin 250 Mg Tab) 250 mg PO Q24H [facility] Last Admin: 07/18/20 17:14 Dose: 250 mg Documented by: Lidocaine (Lidocaine 5% Patch) 1 patch TOPICAL DAILY [facility] Last Admin: 07/19/20 07:51 Dose: 1 patch Documented by: Lorazepam (Lorazepam 2 Mg/Ml Inj) 1 mg IV Q8HR PRN PRN Reason: Anxiety Methylprednisolone Sodium Succinate (Methylprednisolone Sod Succi 40 Mg/Ml 1 Ml Vial) 40 mg IV Q8HR [facility] Last Admin: 07/19/20 07:03 Dose: Not Given Documented by: Multivitamins (Multivitamins, Thera 1 Each Tab) 1 each PO DAILY@1200 [facility] Last Admin: 07/19/20 07:51 Dose: 1 each Documented by: Naloxone HCl (Naloxone 0.4 Mg/Ml 1 Ml Vial) 0.2 mg IV Q2M PRN PRN Reason: Opioid Reversal Ondansetron HCl (Ondansetron 4 Mg/2 Ml Vial) 4 mg IVP Q8HR PRN PRN Reason: Nausea And Vomiting Last Admin: 07/08/20 15:17 Dose: 4 mg Documented by: Pantoprazole Sodium (Pantoprazole 40 Mg Tablet) 40 mg PO DAILY [facility] Last Admin: 07/19/20 07:51 Dose: 40 mg Documented by: Senna (Sennosides 8.6 Mg Tab) 8.6 mg PO BID PRN PRN Reason: Constipation Tamsulosin HCl (Tamsulosin 0.4 Mg Cap.Er.24h) 0.4 mg PO PC-SUPPER [facility] Last Admin: 07/18/20 17:14 Dose: 0.4 mg Documented by: Temazepam (Temazepam 15 Mg Cap) 15 mg PO HS PRN PRN Reason: Insomnia Objective - Vital Signs Vital signs: Vital Signs Temp 97.6 F 07/19/20 07:46 Pulse 84 07/19/20 08:50 Resp 18 07/19/20 07:51 BP 131/76 07/19/20 07:46 Pulse Ox 96 07/19/20 08:40 Intake & Output 07/18/20 07/19/20 07/19/20 18:59 06:59 18:59 Intake Total 1200 Output Total 900 1400 Balance 300 -1400 Weight 58.967 kg Intake: Intake, IV Titration 1200 Amount Sodium Chloride 0.9% 1, 1200 000 ml @ 100 mls/hr IV . Q10H [facility] Rx#:[id number] Output: Urine 900 1400 Other: Voiding Method Indwelling Catheter Indwelling Catheter Indwelling Catheter - Exam Gen: This is an 84-year-old male awake, alert and oriented 2-3, well-developed, well-nourished. Temp is 97.6F, pulse 84, respirations are 18, blood pressure is 131/76, oxygen saturation is 96% on 2 L via nasal cannula. HEENT: Head is atraumatic, normocephalic. Pupils equal, round. Sclerae is anicteric. NECK: Supple. No JVD. No lymphadenopathy. No thyromegaly. LUNGS: Diminished breath sounds bilaterally with some scattered rhonchi noted. No intercostal retractions. HEART: S1, S2 are muffled. ABDOMEN: Soft. Bowel sounds are present. No masses. No tenderness. EXTREMITIES: No pedal edema. No calf tenderness. NEUROLOGICAL: Patient is awake, alert and oriented x2-3. Diffusely weak. - Labs CBC & Chem 7: 07/19/20 09:20 07/19/20 09:20 Labs: Abnormal Lab Results - Last 24 Hours (Table) 07/18/20 07/19/20 07/19/20 Range/Units 17:13 09:20 09:20 WBC 14.3 H (3.8-10.6) k/uL RBC 3.90 L (4.30-5.90) m/uL Hgb 11.2 L (13.0-17.5) gm/dL Hct 35.2 L (39.0-53.0) % Neutrophils # 12.7 H (1.3-7.7) k/uL Lymphocytes # 0.6 L (1.0-4.8) k/uL Sodium 133 L (137-145) mmol/L Carbon Dioxide 33 H (22-30) mmol/L BUN 33 H (9-20) mg/dL POC Glucose (mg/dL) 105 H (75-99) mg/dL Microbiology - Last 24 Hours (Table) 07/18/20 22:00 Urine Culture - Preliminary Urine,Catheterized Assessment and Plan Assessment: Intractable severe pain in the right pelvis with a lytic lesion, possibly colon cancer with metastasis Status post bone biopsy showing metastatic non-small cell lung cancer Elevated liver function tests Hyponatremia Gait dysfunction Mild protein calorie malnutrition hypoalbuminemia Increased white blood count anemia History of chronic obstructive pulmonary disease Gastroesophageal reflux disease History of hiatal hernia history of gastritis history of duodenitis history of cataracts History of bowel resection history of prostate cancer history of nicotine dependence Full code Recommendations and discussion: Recommend to continue with current medications, management, and symptomatic treatment. Continue with pain management and increased fentanyl to 75 mcg patch. Patient received radiation oncology yesterday and states his pain is somewhat improved. Patient is following with oncology along with radiation oncology. Oncology to discuss with family about treatment plan. Patient chaya nues to be quite weak and may need home care or possible ECF although patient will be unable to receive treatment if he goes to ECF. Will discuss with case management and social work. Due to multiple complex medical issues, prognosis is guarded. Further recommendations to follow.
[2020-07-19 16:43] LABS: Glucose,Whole Blood 106 mg/dL (75-99)
[2020-07-19] MEDS: TAMSULOSIN 0.4 MG CAP.ER.24H PO SCH (17:21)
[2020-07-19] MEDS: LEVOFLOXACIN 250 MG TAB PO SCH (17:21)
[2020-07-19 20:58] LABS: Glucose,Whole Blood 118 mg/dL (75-99)
[2020-07-20] MEDS: HYDROmorphone 0.5 MG/0.5 ML SYRINGE IVP PRN ×4 (00:15→18:07)
[2020-07-20] MEDS: methylPREDNISolone SOD SUCCI 40 MG/ML 1 ML VIAL IV SCH ×3 (00:51→16:46)
[2020-07-20] MEDS: SODIUM CHLORIDE 0.9% 1,000 ML IV SCH ×3 (00:51→21:33)
[2020-07-20] MEDS: HYDROcodone/APAP 7.5-325MG 1 EACH TAB PO PRN ×2 (05:24→20:43)
[2020-07-20 06:44] LABS: Glucose,Whole Blood 87 mg/dL (75-99)
[2020-07-20] MEDS: INSULIN ASPART (NovoLOG) 100 UNIT/ML VIAL SQ SCH ×4 (07:13→21:32)
[2020-07-20] MEDS: IPRATROPIUM-ALBUTEROL 3 ML NEB INHALATION PRN ×4 (07:35→21:07)
[2020-07-20] MEDS: HEPARIN SODIUM,PORCINE 5,000 UNIT/ML 1 ML VIAL SQ SCH ×2 (08:11→20:44)
[2020-07-20] MEDS: DOCUSATE 100 MG CAP PO SCH ×2 (08:11→20:44)
[2020-07-20] MEDS: ASPIRIN 325 MG TAB PO SCH (08:11)
[2020-07-20] MEDS: PANTOPRAZOLE 40 MG TABLET PO SCH (08:11)
[2020-07-20] MEDS: LIDOCAINE 5% PATCH TOPICAL SCH (08:11)
[2020-07-20] MEDS: MULTIVITAMINS, THERA 1 EACH TAB PO SCH (08:11)
[2020-07-20 11:42] LABS: Glucose,Whole Blood 96 mg/dL (75-99)
[2020-07-20 16:43] LABS: Glucose,Whole Blood 84 mg/dL (75-99)
--- NOTE | 2020-07-20 16:51 | P.PN ---
Subjective Progress Note Date: 07/20/20 This is an 84-year-old male who was recently admitted with intractable severe pain in the right pelvis and is being closely monitored. Patient is being followed by radiation oncology along with oncology. Patient to receive radiation treatment today. Patient does have an indwelling Harper catheter with some blood noted and will order urinalysis which is currently pending. Patient continues to request IV pain medication and will adjust medications and discuss with oncology services. Case management and social work following as patient continues to be quite weak requiring assistance and very unsteady gait. Patient was to go to [facility] therapy would be placed on hold and patient is not willing to discontinue treatment at this time. Will discuss with oncology services along with family about treatment plan. Patient is maintained on Levaquin and Flagyl and will continue at this time. White blood count slowly trending down and is 17.5. 07/19/2020 Patient is seen in follow-up status post radiation treatment with radiation oncology yesterday. Patient states his pain continues although feels somewhat improved from yesterday. Urine culture currently pending. Oncology also following and planning to discuss treatment plan with family today. Case management and social work following and assisting with possible discharge planning needs once patient is stabilized and discharged. White blood count continues to trend down and is currently 14.3. Patient is maintained on antibiotics and will continue at this time. There is some mild hematuria noted in the Harper catheter although patient denies any dysuria or pain at this time. Sodium is 133 today, potassium is 4.1, current creatinine is 0.95. Fentanyl patch has been increased to 75 mcg. 07/20/2020 Patient is seen and evaluated in follow-up continues to be quite weak and has been working with physical therapy. Patient is receiving radiation treatments in radiation oncology along with oncology following closely. Disscussed with social work and currently working on possibility of ECF while continuing to receive radiation treatments to complete the course. Patient's pain is slightly improved although still maintained on IV pain medication and requesting it often. Patient continues with antibiotics in the form of Levaquin and will continue at this time. Urine culture has finalized and is negative thus far. Patient continues to refuse steroids. Will repeat a.m. labs and monitor closely. Review of systems: Constitutional: No reports of fatigue, fever, or chills, patient reports generalized pain Cardiovascular: No reports of chest pain or palpitations Respiratory: No reports of shortness of breath or cough GI: No reports of nausea, vomiting, or diarrhea : No reports of dysuria or retention Neurovascular: Reports weakness All medications have been reviewed Active Medications Acetaminophen (Acetaminophen Tab 325 Mg Tab) 650 mg PO Q6HR PRN PRN Reason: Mild Pain or Fever > 100.5 Hydrocodone Bitart/Acetaminophen (Hydrocodone/Apap 7.5-325mg 1 Each Tab) 1 each PO Q6H PRN PRN Reason: Pain Last Admin: 07/20/20 05:24 Dose: 1 each Documented by: Albuterol/Ipratropium (Ipratropium-Albuterol 3 Ml Neb) 3 ml INHALATION RT-QID PRN PRN Reason: Shortness Of Breath Last Admin: 07/20/20 15:48 Dose: 3 ml Documented by: Alprazolam (Alprazolam 0.25 Mg Tab) 0.25 mg PO TID PRN PRN Reason: Anxiety Last Admin: 07/18/20 21:04 Dose: 0.25 mg Documented by: Aspirin (Aspirin 325 Mg Tab) 325 mg PO DAILY [facility] Last Admin: 07/20/20 08:11 Dose: 325 mg Documented by: Docusate Sodium (Docusate 100 Mg Cap) 100 mg PO BID [facility] Last Admin: 07/20/20 08:11 Dose: 100 mg Documented by: Etodolac (Etodolac 400 Mg Tab) 400 mg PO TID PRN PRN Reason: Pain Fentanyl (Fentanyl 75mcg/Hr Patch) 1 patch TRANSDERM Q72H [facility] Last Admin: 07/18/20 21:05 Dose: 1 patch Documented by: Heparin Sodium (Porcine) (Heparin Sodium,Porcine 5,000 Unit/Ml 1 Ml Vial) 5,000 unit SQ Q12HR [facility] Last Admin: 07/20/20 08:11 Dose: 5,000 unit Documented by: Hydromorphone HCl (Hydromorphone 0.5 Mg/0.5 Ml Syringe) 0.5 mg IVP Q6HR PRN PRN Reason: Pain Last Admin: 07/20/20 12:11 Dose: 0.5 mg Documented by: Sodium Chloride (Saline 0.9%) 1,000 mls @ 100 mls/hr IV .Q10H [facility] Last Admin: 07/20/20 12:12 Dose: 100 mls/hr Documented by: Insulin Aspart (Insulin Aspart (Novolog) 100 Unit/Ml Vial) 0 unit SQ ACHS [facility]; Protocol Last Admin: 07/20/20 12:12 Dose: Not Given Documented by: Levofloxacin (Levofloxacin 250 Mg Tab) 250 mg PO Q24H [facility] Last Admin: 07/19/20 17:21 Dose: 250 mg Documented by: Lidocaine (Lidocaine 5% Patch) 1 patch TOPICAL DAILY [facility] Last Admin: 07/20/20 08:11 Dose: 1 patch Documented by: Lorazepam (Lorazepam 2 Mg/Ml Inj) 1 mg IV Q8HR PRN PRN Reason: Anxiety Methylprednisolone Sodium Succinate (Methylprednisolone Sod Succi 40 Mg/Ml 1 Ml Vial) 40 mg IV Q8HR [facility] Last Admin: 07/20/20 08:17 Dose: Not Given Documented by: Multivitamins (Multivitamins, Thera 1 Each Tab) 1 each PO DAILY@1200 [facility] Last Admin: 07/20/20 08:11 Dose: 1 each Documented by: Naloxone HCl (Naloxone 0.4 Mg/Ml 1 Ml Vial) 0.2 mg IV Q2M PRN PRN Reason: Opioid Reversal Ondansetron HCl (Ondansetron 4 Mg/2 Ml Vial) 4 mg IVP Q8HR PRN PRN Reason: Nausea And Vomiting Last Admin: 07/08/20 15:17 Dose: 4 mg Documented by: Pantoprazole Sodium (Pantoprazole 40 Mg Tablet) 40 mg PO DAILY [facility] Last Admin: 07/20/20 08:11 Dose: 40 mg Documented by: Senna (Sennosides 8.6 Mg Tab) 8.6 mg PO BID PRN PRN Reason: Constipation Tamsulosin HCl (Tamsulosin 0.4 Mg Cap.Er.24h) 0.4 mg PO PC-SUPPER [facility] Last Admin: 07/19/20 17:21 Dose: 0.4 mg Documented by: Temazepam (Temazepam 15 Mg Cap) 15 mg PO HS PRN PRN Reason: Insomnia Objective - Vital Signs Vital signs: Vital Signs Temp 98.2 F 07/20/20 07:13 Pulse 86 07/20/20 11:20 Resp 20 07/20/20 07:13 BP 144/76 07/20/20 07:13 Pulse Ox 94 L 01/06/21 07:13 Intake & Output 07/19/20 07/20/20 07/20/20 18:59 06:59 18:59 Intake Total 200 Output Total 700 1600 Balance -700 -1400 Intake: Oral 200 Output: Urine 700 1600 Straight 800 Other: Voiding Method Indwelling Catheter Indwelling Catheter Indwelling Catheter - Exam Gen: This is an 84-year-old male awake, alert and oriented 2-3, well-developed, well-nourished. Temp is 98.2F, pulse 88, respirations are 20, blood pressure is 144/76, oxygen saturation is 94% on 3 L via nasal cannula. HEENT: Head is atraumatic, normocephalic. Pupils equal, round. Sclerae is anicteric. NECK: Supple. No JVD. No lymphadenopathy. No thyromegaly. LUNGS: Diminished breath sounds bilaterally with some scattered rhonchi noted. No intercostal retractions. HEART: S1, S2 are muffled. ABDOMEN: Soft. Bowel sounds are present. No masses. No tenderness. EXTREMITIES: No pedal edema. No calf tenderness. NEUROLOGICAL: Patient is awake, alert and oriented x2-3. Diffusely weak. - Labs CBC & Chem 7: 07/19/20 09:20 07/19/20 09:20 Labs: Abnormal Lab Results - Last 24 Hours (Table) 07/19/20 07/19/20 Range/Units 16:41 20:38 POC Glucose (mg/dL) 106 H 118 H (75-99) mg/dL Microbiology - Last 24 Hours (Table) 07/18/20 22:00 Urine Culture - Final Urine,Catheterized Assessment and Plan Assessment: Intractable severe pain in the right pelvis with a lytic lesion, possibly colon cancer with metastasis Status post bone biopsy showing metastatic non-small cell lung cancer Elevated liver function tests Hyponatremia Gait dysfunction Mild protein calorie malnutrition hypoalbuminemia Increased white blood count anemia History of chronic obstructive pulmonary disease Gastroesophageal reflux disease History of hiatal hernia history of gastritis history of duodenitis history of cataracts History of bowel resection history of prostate cancer history of nicotine dependence Full code Recommendations and discussion: Recommend to continue with current medications, management, and symptomatic treatment. Continue with pain management. Patient received radiation therapy. Patient is following with oncology along with radiation oncology. Oncology to discuss with family about treatment plan. Plan is to continue with radiation treatments at this time and social work working on possible placement for continued PT/OT therapy. Patient has been receiving daily patient treatments. Patient continues to be quite weak and will require ECF for continued PT/OT therapy. case management and social work following. Due to multiple complex medical issues, prognosis is guarded. Further recommendations to follow.
[2020-07-20] MEDS: LEVOFLOXACIN 250 MG TAB PO SCH (17:17)
[2020-07-20] MEDS: TAMSULOSIN 0.4 MG CAP.ER.24H PO SCH (17:17)
[2020-07-20] MEDS: ALPRAZolam 0.25 MG TAB PO PRN (18:13)
[2020-07-20 20:53] LABS: Glucose,Whole Blood 117 mg/dL (75-99)
[2020-07-21] MEDS: HYDROmorphone 0.5 MG/0.5 ML SYRINGE IVP PRN ×3 (00:10→21:54)
[2020-07-21] MEDS: methylPREDNISolone SOD SUCCI 40 MG/ML 1 ML VIAL IV SCH ×3 (00:40→16:28)
[2020-07-21] MEDS: KETOROLAC 15 MG/ML 1 ML VIAL IVP PRN ×2 (00:45→22:56)
[2020-07-21 07:13] LABS: Glucose,Whole Blood 89 mg/dL (75-99)
[2020-07-21] MEDS: IPRATROPIUM-ALBUTEROL 3 ML NEB INHALATION PRN ×3 (07:47→20:28)
[2020-07-21] MEDS: INSULIN ASPART (NovoLOG) 100 UNIT/ML VIAL SQ SCH ×2 (08:35→13:33)
[2020-07-21] MEDS: DOCUSATE 100 MG CAP PO SCH ×2 (09:05→21:54)
[2020-07-21] MEDS: PANTOPRAZOLE 40 MG TABLET PO SCH (09:05)
[2020-07-21] MEDS: HEPARIN SODIUM,PORCINE 5,000 UNIT/ML 1 ML VIAL SQ SCH ×2 (09:05→21:54)
[2020-07-21] MEDS: ASPIRIN 325 MG TAB PO SCH (09:05)
[2020-07-21] MEDS: HYDROcodone/APAP 7.5-325MG 1 EACH TAB PO PRN ×3 (09:06→23:37)
[2020-07-21 10:16] LABS: Basophils % (A) 0 %; Eosinophils # (A) 0.5 k/uL (0-0.7); Eosinophils % (A) 4 %; HCT 35.1 % (39.0-53.0); HGB 10.7 gm/dL (13.0-17.5); Hypochromasia Slight; Lymphocytes # (A) 0.5 k/uL (1.0-4.8); Lymphocytes % (A) 4 %; MCH 27.5 pg (25.0-35.0); MCHC 30.6 g/dL (31.0-37.0); MCV 89.8 fL (80.0-100.0); Mean Platelet Volume 8.4; Monocytes # (A) 0.5 k/uL (0-1.0); Monocytes % (A) 4 %; Neutrophils # (A) 11.5 k/uL (1.3-7.7); Neutrophils % (A) 88 %; Platelet Count 313 k/uL (150-450); RDW 15.2 % (11.5-15.5); WBC 13.1 k/uL (3.8-10.6)
[2020-07-21] MEDS: SODIUM CHLORIDE 0.9% 1,000 ML IV SCH ×2 (10:37→13:57)
[2020-07-21 11:24] LABS: African American GFR (CKD) >90 (>60 ml/min/1.73 sqM); Anion Gap 1 mmol/L; Blood Urea Nitrogen 22 mg/dL (9-20); Calcium 8.6 mg/dL (8.4-10.2); Carbon Dioxide 32 mmol/L (22-30); Chloride 97 mmol/L (98-107); Glucose 113 mg/dL (74-99); Non-African American GFR(CKD) 84 (>60 ml/min/1.73 sqM); Sodium 130 mmol/L (137-145)
[2020-07-21] MEDS: LIDOCAINE 5% PATCH TOPICAL SCH (13:23)
[2020-07-21] MEDS: MULTIVITAMINS, THERA 1 EACH TAB PO SCH (13:53)
--- NOTE | 2020-07-21 15:46 | P.PN ---
Subjective Progress Note Date: 07/21/20 This is an 84-year-old male who was recently admitted with intractable severe pain in the right pelvis and is being closely monitored. Patient is being followed by radiation oncology along with oncology. Patient to receive radiation treatment today. Patient does have an indwelling Harper catheter with some blood noted and will order urinalysis which is currently pending. Patient continues to request IV pain medication and will adjust medications and discuss with oncology services. Case management and social work following as patient continues to be quite weak requiring assistance and very unsteady gait. Patient was to go to [facility] therapy would be placed on hold and patient is not willing to discontinue treatment at this time. Will discuss with oncology services along with family about treatment plan. Patient is maintained on Levaquin and Flagyl and will continue at this time. White blood count slowly trending down and is 17.5. 07/19/2020 Patient is seen in follow-up status post radiation treatment with radiation oncology yesterday. Patient states his pain continues although feels somewhat improved from yesterday. Urine culture currently pending. Oncology also following and planning to discuss treatment plan with family today. Case management and social work following and assisting with possible discharge planning needs once patient is stabilized and discharged. White blood count continues to trend down and is currently 14.3. Patient is maintained on antibiotics and will continue at this time. There is some mild hematuria noted in the Harper catheter although patient denies any dysuria or pain at this time. Sodium is 133 today, potassium is 4.1, current creatinine is 0.95. Fentanyl patch has been increased to 75 mcg. 07/20/2020 Patient is seen and evaluated in follow-up continues to be quite weak and has been working with physical therapy. Patient is receiving radiation treatments in radiation oncology along with oncology following closely. Disscussed with social work and currently working on possibility of ECF while continuing to receive radiation treatments to complete the course. Patient's pain is slightly improved although still maintained on IV pain medication and requesting it often. Patient continues with antibiotics in the form of Levaquin and will continue at this time. Urine culture has finalized and is negative thus far. Patient continues to refuse steroids. Will repeat a.m. labs and monitor closely. 07/21/2020 Patient seen in follow-up currently awaiting to undergo radiation treatment today as he has been receiving daily treatments. Patient continues to have pain and rates it a 9 out of 10 on the pain scale. Patient is also been refusing IV steroids and is refusing Accu-Cheks. Patient has not been requiring sliding- scale coverage and will discontinue. Patient sodium found to be low at 130 and will continue with IV fluids. Will repeat a.m. labs. Creatinine is stable at 0.79 and potassium is 4.0. Discussed with social work about the possibility of ECF placement as patient continues to be quite weak requiring assistance and continues to have an unsteady gait. [facility] has accepted the patient and is wi lling to accommodate transport services for continued radiation treatment as patient has 4-5 treatments left. Oncology and radiation oncology following. Review of systems: Constitutional: No reports of fatigue, fever, or chills, patient continues to report generalized pain Cardiovascular: No reports of chest pain or palpitations Respiratory: No reports of shortness of breath or cough GI: No reports of nausea, vomiting, or diarrhea : No reports of dysuria or retention Neurovascular: Reports weakness All medications have been reviewed Active Medications Acetaminophen (Acetaminophen Tab 325 Mg Tab) 650 mg PO Q6HR PRN PRN Reason: Mild Pain or Fever > 100.5 Hydrocodone Bitart/Acetaminophen (Hydrocodone/Apap 7.5-325mg 1 Each Tab) 1 each PO Q6H PRN PRN Reason: Pain Last Admin: 07/21/20 09:06 Dose: 1 each Documented by: Albuterol/Ipratropium (Ipratropium-Albuterol 3 Ml Neb) 3 ml INHALATION RT-QID PRN PRN Reason: Shortness Of Breath Last Admin: 07/21/20 07:47 Dose: 3 ml Documented by: Alprazolam (Alprazolam 0.25 Mg Tab) 0.25 mg PO TID PRN PRN Reason: Anxiety Last Admin: 07/20/20 18:13 Dose: 0.25 mg Documented by: Aspirin (Aspirin 325 Mg Tab) 325 mg PO DAILY [facility] Last Admin: 07/21/20 09:05 Dose: 325 mg Documented by: Docusate Sodium (Docusate 100 Mg Cap) 100 mg PO BID [facility] Last Admin: 07/21/20 09:05 Dose: 100 mg Documented by: Etodolac (Etodolac 400 Mg Tab) 400 mg PO TID PRN PRN Reason: Pain Fentanyl (Fentanyl 75mcg/Hr Patch) 1 patch TRANSDERM Q72H [facility] Last Admin: 07/18/20 21:05 Dose: 1 patch Documented by: Heparin Sodium (Porcine) (Heparin Sodium,Porcine 5,000 Unit/Ml 1 Ml Vial) 5,000 unit SQ Q12HR [facility] Last Admin: 07/21/20 09:05 Dose: 5,000 unit Documented by: Hydromorphone HCl (Hydromorphone 0.5 Mg/0.5 Ml Syringe) 0.5 mg IVP Q6HR PRN PRN Reason: Pain Last Admin: 07/21/20 12:04 Dose: 0.5 mg Documented by: Sodium Chloride (Saline 0.9%) 1,000 mls @ 50 mls/hr IV .Q20H [facility] Last Admin: 07/21/20 13:57 Dose: 50 mls/hr Documented by: Ketorolac Tromethamine (Ketorolac 15 Mg/Ml 1 Ml Vial) 15 mg IVP Q6HR PRN PRN Reason: Pain Stop: 07/23/20 20:53 Last Admin: 07/21/20 00:45 Dose: 15 mg Documented by: Levofloxacin (Levofloxacin 250 Mg Tab) 250 mg PO Q24H [facility] Last Admin: 07/20/20 17:17 Dose: 250 mg Documented by: Lidocaine (Lidocaine 5% Patch) 1 patch TOPICAL DAILY [facility] Last Admin: 07/21/20 13:23 Dose: Not Given Documented by: Lorazepam (Lorazepam 2 Mg/Ml Inj) 1 mg IV Q8HR PRN PRN Reason: Anxiety Last Admin: 07/21/20 00:45 Dose: 1 mg Documented by: Methylprednisolone Sodium Succinate (Methylprednisolone Sod Succi 40 Mg/Ml 1 Ml Vial) 40 mg IV Q8HR [facility] Last Admin: 07/21/20 09:03 Dose: Not Given Documented by: Multivitamins (Multivitamins, Thera 1 Each Tab) 1 each PO DAILY@1200 [facility] Last Admin: 07/21/20 13:53 Dose: 1 each Documented by: Naloxone HCl (Naloxone 0.4 Mg/Ml 1 Ml Vial) 0.2 mg IV Q2M PRN PRN Reason: Opioid Reversal Ondansetron HCl (Ondansetron 4 Mg/2 Ml Vial) 4 mg IVP Q8HR PRN PRN Reason: Nausea And Vomiting Last Admin: 07/08/20 15:17 Dose: 4 mg Documented by: Pantoprazole Sodium (Pantoprazole 40 Mg Tablet) 40 mg PO DAILY [facility] Last Admin: 07/21/20 09:05 Dose: 40 mg Documented by: Senna (Sennosides 8.6 Mg Tab) 8.6 mg PO BID PRN PRN Reason: Constipation Tamsulosin HCl (Tamsulosin 0.4 Mg Cap.Er.24h) 0.4 mg PO PC-SUPPER [facility] Last Admin: 07/20/20 17:17 Dose: 0.4 mg Documented by: Temazepam (Temazepam 15 Mg Cap) 15 mg PO HS PRN PRN Reason: Insomnia Objective - Vital Signs Vital signs: Vital Signs Temp 98.4 F 07/21/20 07:00 Pulse 85 07/21/20 07:58 Resp 16 07/21/20 07:00 BP 152/79 07/21/20 07:00 Pulse Ox 96 07/21/20 07:00 Intake & Output 07/20/20 07/21/20 07/21/20 18:59 06:59 18:59 Output Total 650 750 Balance -650 -750 Output: Urine 650 750 Other: Voiding Method Indwelling Catheter Indwelling Catheter Indwelling Catheter - Exam Gen: This is an 84-year-old male awake, alert and oriented 2-3, well-developed, well-nourished. Temp is 98.4F, pulse 86, respirations are 16, blood pressure is 152/79, oxygen saturation is 96% on 2 L via nasal cannula. HEENT: Head is atraumatic, normocephalic. Pupils equal, round. Sclerae is anicteric. NECK: Supple. No JVD. No lymphadenopathy. No thyromegaly. LUNGS: Diminished breath sounds bilaterally with some scattered rhonchi noted. No intercostal retractions. HEART: S1, S2 are muffled. ABDOMEN: Soft. Bowel sounds are present. No masses. No tenderness. EXTREMITIES: No pedal edema. No calf tenderness. NEUROLOGICAL: Patient is awake, alert and oriented x2-3. Diffusely weak. - Labs CBC & Chem 7: 07/21/20 09:43 07/21/20 09:43 Labs: Abnormal Lab Results - Last 24 Hours (Table) 07/20/20 07/21/20 07/21/20 Range/Units 20:50 09:43 09:43 WBC 13.1 H (3.8-10.6) k/uL RBC 3.90 L (4.30-5.90) m/uL Hgb 10.7 L (13.0-17.5) gm/dL Hct 35.1 L (39.0-53.0) % MCHC 30.6 L (31.0-37.0) g/dL Neutrophils # 11.5 H (1.3-7.7) k/uL Lymphocytes # 0.5 L (1.0-4.8) k/uL Sodium 130 L (137-145) mmol/L Chloride 97 L (98-107) mmol/L Carbon Dioxide 32 H (22-30) mmol/L BUN 22 H (9-20) mg/dL Glucose 113 H (74-99) mg/dL POC Glucose (mg/dL) 117 H (75-99) mg/dL Assessment and Plan Assessment: Intractable severe pain in the right pelvis with a lytic lesion, possibly colon cancer with metastasis Status post bone biopsy showing metastatic non-small cell lung cancer Elevated liver function tests Hyponatremia Gait dysfunction Mild protein calorie malnutrition hypoalbuminemia Increased white blood count anemia History of chronic obstructive pulmonary disease Gastroesophageal reflux disease History of hiatal hernia history of gastritis history of duodenitis history of cataracts History of bowel resection history of prostate cancer history of nicotine dependence Full code Recommendations and discussion: Recommend to continue with current medications, management, and symptomatic treatment. Continue with pain management. Patient receiving radiation therapy with 4-5 treatments left. Patient is following with oncology along with radiation oncology. Plan is to continue with radiation treatments at this time and social work has accepted facility [facility] for continued PT/OT therapy. Arrangements has also been made to accommodate patient transfer to continue to receive radiation treatments to complete the course next week with for treatments remaining. Patient continues to be quite weak. case management and social work following. Due to multiple complex medical issues, prognosis is guarded. Further recommendations to follow. Possible discharge in 24 hours.
[2020-07-21] MEDS: LEVOFLOXACIN 250 MG TAB PO SCH (17:31)
[2020-07-21] MEDS: TAMSULOSIN 0.4 MG CAP.ER.24H PO SCH (17:31)
--- NOTE | 2020-07-21 17:56 | P.PN ---
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 Discussed plan for Rehab as outpatient with accommodating transportation made to and from radiation. Objective - Vital Signs Vital signs: Vital Signs Temp 97.9 F 07/21/20 15:00 Pulse 82 07/21/20 16:25 Resp 18 07/21/20 15:00 BP 125/77 07/21/20 15:00 Pulse Ox 99 07/21/20 15:00 Intake & Output 07/20/20 07/21/20 07/21/20 18:59 06:59 18:59 Intake Total 400 Output Total 650 750 Balance -650 -750 400 Weight 58.967 kg Intake: IV 400 Sodium Chloride 0.9% 1, 400 000 ml @ 50 mls/hr IV . Q20H [facility] Rx#:[id number] Output: Urine 650 750 Other: Voiding Method Indwelling Catheter Indwelling Catheter Indwelling Catheter - Exam Gen.: No acute distress. HEENT: No conjunctival pallor or scleral icterus. Mucosa moist. Neck: Supple. Lungs: No respiratory distress. Heart: Regular rate. Abdomen: Soft, nontender. MSK: Appropriate strength in all 4 extremities. Limited RLE movement however due to pain. Neuro: Alert. Skin: No jaundice. Psych: Appropriate affec - Labs CBC & Chem 7: 07/21/20 09:43 07/21/20 09:43 Labs: Abnormal Lab Results - Last 24 Hours (Table) 07/20/20 07/21/20 07/21/20 Range/Units 20:50 09:43 09:43 WBC 13.1 H (3.8-10.6) k/uL RBC 3.90 L (4.30-5.90) m/uL Hgb 10.7 L (13.0-17.5) gm/dL Hct 35.1 L (39.0-53.0) % MCHC 30.6 L (31.0-37.0) g/dL Neutrophils # 11.5 H (1.3-7.7) k/uL Lymphocytes # 0.5 L (1.0-4.8) k/uL Sodium 130 L (137-145) mmol/L Chloride 97 L (98-107) mmol/L Carbon Dioxide 32 H (22-30) mmol/L BUN 22 H (9-20) mg/dL Glucose 113 H (74-99) mg/dL POC Glucose (mg/dL) 117 H (75-99) mg/dL Assessment and Plan Plan: Assessment and Plan Assessment: 1. Intractable pain:improved - long acting fentanyl patch 2. 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 History of colon cancer 4. Follow-up next week in office for PET 5. Radiation therapy to begin for palliative intention and pain control per Dr. Zepeda MRI brain negative for metastatic disease discussed path and plan with patients and son. Concern of family is weakness and decreased PO intake. PT/OT has seen and evaluated patient Prob plan for ECF rehab, will send for next gen sequencing and PDL 1 on tumor path for further options of treatment. PT/OT Continue Fentanyl patch DISPO PLAN: Per discussion with primary team will discharge to rehab who will accomodate transportation through completion of palliative radiation to painful bone lesion. - NGS and PDL-1, PET scan, and Consultation outpatient with Dr. Saenz 2 weeks
[2020-07-21] MEDS: ALPRAZolam 0.25 MG TAB PO PRN (22:57)
[2020-07-22] MEDS: methylPREDNISolone SOD SUCCI 40 MG/ML 1 ML VIAL IV SCH ×2 (00:14→07:05)
[2020-07-22] MEDS: HYDROmorphone 0.5 MG/0.5 ML SYRINGE IVP PRN ×2 (03:43→11:32)
[2020-07-22] MEDS: IPRATROPIUM-ALBUTEROL 3 ML NEB INHALATION PRN ×3 (07:24→14:57)
[2020-07-22 07:47] VITALS: BP 121/68; RESP 16; TEMP 97.7
[2020-07-22] MEDS: DOCUSATE 100 MG CAP PO SCH (08:37)
[2020-07-22] MEDS: ASPIRIN 325 MG TAB PO SCH (08:37)
[2020-07-22] MEDS: LIDOCAINE 5% PATCH TOPICAL SCH (08:37)
[2020-07-22] MEDS: PANTOPRAZOLE 40 MG TABLET PO SCH (08:37)
[2020-07-22] MEDS: HEPARIN SODIUM,PORCINE 5,000 UNIT/ML 1 ML VIAL SQ SCH (08:37)
[2020-07-22] MEDS: MULTIVITAMINS, THERA 1 EACH TAB PO SCH (08:37)
[2020-07-22] MEDS: KETOROLAC 15 MG/ML 1 ML VIAL IVP PRN (08:38)
[2020-07-22 11:11] LABS: African American GFR (CKD) 96.4 (60.0-200.0); Anion Gap 4.4 mmol/L (4.00-12.00); BUN/Creat Ratio 21.25 Ratio (12.00-20.00); Carbon Dioxide 32.6 mmol/L (21.6-31.8); Non-African American GFR(CKD) 83.2 (60.0-200.0); Potassium 4.3 mmol/L (3.5-5.5)
--- NOTE | 2020-07-22 13:07 | P.DS ---
Providers Date of admission: 07/06/20 15:38 Expected date of discharge: 07/22/20 Attending physician: Yumiko Qureshi Consults: 07/06/20 15:38 Consult Physician Urgent Consulting Provider: Nida Gray Consult Reason/Comments: metastatic disease Do you want consulting provider notified?: Yes 07/07/20 11:43 Consult Physician Routine Consulting Provider: Neno Zepeda Consult Reason/Comments: painful bone lesions Do you want consulting provider notified?: Already Contacted Primary care physician: Deep Jerez [facility] Course: Final diagnosis Intractable severe pain in the right pelvis with a lytic lesion, possibly colon cancer with metastasis Status post bone biopsy showing metastatic non-small cell lung cancer Elevated liver function tests Hyponatremia Gait dysfunction Mild protein calorie malnutrition hypoalbuminemia Increased white blood count anemia History of chronic obstructive pulmonary disease Gastroesophageal reflux disease History of hiatal hernia history of gastritis history of duodenitis history of cataracts History of bowel resection history of prostate cancer history of nicotine dependence Full code Discharge disposition Patient is being discharged in a stable condition with guarded prognosis to [facility] for continued PT/OT therapy. Patient will follow-up with Dr. Jerez in the outpatient setting upon discharge. Patient will also continue with follow-up with Dr. Saenz in 2 weeks. Patient is to continue with radiation treatments with radiation oncology and transportation is being arranged. Total time taken is greater than 35 minutes. Hospital course This is a 84-year-old male who was recently admitted with intractable back pain severe in nature along with right pelvis pain and was being closely monitored. Oncology and radiation oncology following the patient. Patient has been receiving radiation treatments and is scheduled to receive 4 more treatments Saturday through of next week. Arrangements for transportation have been made from [facility] where he will be going for continued PT/OT therapy for strengthening mobility. Patient will follow-up with oncology Dr. Saenz in 2 weeks. Patient is to continue with pain management as well. Currently no reports of chest pain, shortness of breath, or palpitations. Patient is afebrile. No reports of nausea or vomiting and patient is tolerating diet. Patient needs continued encouragement with oral intake. Patient will be going to [facility] today. Guarded prognosis On exam vital signs are stable. Temp is 97.7F, pulse is 83, respirations are 16, blood pressure is 121/68, oxygen saturation is 97% on room air. Cardio S1, S2 are muffled. Respiratory system shows diminished breath sounds at the bases with no wheezing or rhonchi noted. Abdomen is soft and nontender. Nervous system shows diffuse weakness. Please refer to medication reconciliation sheet for a list of medications. Patient Condition at Discharge: Stable Plan - Discharge Summary Discharge Rx Participant: No New Discharge Prescriptions: New Docusate [Colace] 100 mg PO BID cap fentaNYL 75MCG/HR PATCH [Duragesic 75MCG/HR] 1 patch TRANSDERM Q72H #2 patch Tamsulosin [Flomax] 0.4 mg PO PC-SUPPER cap.er.24h Lidocaine 5% Patch [Lidoderm 5% Patch] 1 patch TOPICAL DAILY patch Etodolac [Lodine] 400 mg PO TID PRN tab PRN Reason: Pain HYDROcodone/APAP 10-325MG [[place] 10-325] 1 tab PO Q6HR PRN 3 Days #12 tab PRN Reason: Pain Pantoprazole [Protonix] 40 mg PO DAILY tablet.dr Almodovar [Senokot] 8.6 mg PO BID PRN tab PRN Reason: Constipation Acetaminophen Tab [Tylenol] 650 mg PO Q6HR PRN tab PRN Reason: Mild Pain Or Fever > 100.5 ALPRAZolam [Xanax] 0.25 mg PO TID PRN #9 tab PRN Reason: Anxiety Continue Multivitamins, Thera [Multivitamin (formulary)] 1 tab PO DAILY@1200 Ipratropium-Albuterol Nebulize [Duoneb 0.5 mg-3 mg/3 ml Soln] 3 ml INHALATION RT-QID PRN PRN Reason: Shortness Of Breath Aspirin 325 mg PO DAILY Albuterol Nebulized [Ventolin Nebulized] 2.5 mg INHALATION RT-QID PRN PRN Reason: Shortness Of Breath Discontinued Ketorolac [Toradol] 10 mg PO Q6HR PRN #15 tab PRN Reason: Pain Discharge Medication List Ipratropium-Albuterol Nebulize [Duoneb 0.5 mg-3 mg/3 ml Soln] 3 ml INHALATION RT-QID PRN 01/08/18 [History] Multivitamins, Thera [Multivitamin (formulary)] 1 tab PO DAILY@1200 01/08/18 [History] Albuterol Nebulized [Ventolin Nebulized] 2.5 mg INHALATION RT-QID PRN 07/06/20 [History] Aspirin 325 mg PO DAILY 07/06/20 [History] ALPRAZolam [Xanax] 0.25 mg PO TID PRN #9 tab 07/22/20 [Rx] Acetaminophen Tab [Tylenol] 650 mg PO Q6HR PRN tab 07/22/20 [Rx] Docusate [Colace] 100 mg PO BID cap 07/22/20 [Rx] Etodolac [Lodine] 400 mg PO TID PRN tab 07/22/20 [Rx] HYDROcodone/APAP 10-325MG [[place] 10-325] 1 tab PO Q6HR PRN 3 Days #12 tab 07/22/20 [Rx] Lidocaine 5% Patch [Lidoderm 5% Patch] 1 patch TOPICAL DAILY patch 07/22/20 [Rx] Pantoprazole [Protonix] 40 mg PO DAILY tablet. 07/22/20 [Rx] Sennosides [Senokot] 8.6 mg PO BID PRN tab 07/22/20 [Rx] Tamsulosin [Flomax] 0.4 mg PO PC-SUPPER cap.er.24h 07/22/20 [Rx] fentaNYL 75MCG/HR PATCH [Duragesic 75MCG/HR] 1 patch TRANSDERM Q72H #2 patch 07/22/20 [Rx] Follow up Appointment(s)/Referral(s): Thaddeus Sanchez MD [STAFF PHYSICIAN] - 1 Week Deep Jerez DO [Primary Care Provider] - 1-2 days Activity/Diet/Wound Care/Special Instructions: Patient is going to [facility] on [facility] Activity as tolerated Continue working with physical therapy Patient to continue with radiation oncology treatments Continue with regular diet Follow-up with oncology in the outpatient setting Follow-up with primary care provider upon discharge Discharge Disposition: TRANSFER TO SNF/F
[2020-07-22] MEDS: SODIUM CHLORIDE 0.9% 1,000 ML IV SCH (14:15)
[2020-07-22 15:04] VITALS: PULSE 89
[2020-07-22] MEDS ORDERED: LEVOFLOXACIN 500 MG TAB PO SCH (18:00)
== END 2020-07-22 15:47 | DRG 478 ==
LOC: EC 12:30 → 4SSUR 15:38
PROVIDERS: ADMIT Hospitalist; ATTEND Hospitalist
PROC: DP082ZZ Beam Radiation of Pelvic Bones using Photons >10 MeV (ICD-10-PCS; 2020-07-07)
PROC: 0QB43ZX Excision of Right Acetabulum, Percutaneous Approach, Diagnostic (ICD-10-PCS; principal; 2020-07-12)
DX: C79.51 Secondary malignant neoplasm of bone (principal); E44.1 Mild protein-calorie malnutrition; E87.1 Hypo-osmolality and hyponatremia; C34.12 Malignant neoplasm of upper lobe, left bronchus or lung; K75.9 Inflammatory liver disease, unspecified; J44.9 Chronic obstructive pulmonary disease, unspecified; Z68.20 Body mass index [BMI] 20.0-20.9, adult; R31.9 Hematuria, unspecified; D64.9 Anemia, unspecified; R26.9 Unspecified abnormalities of gait and mobility; K52.9 Noninfective gastroenteritis and colitis, unspecified; K21.9 Gastro-esophageal reflux disease without esophagitis; K44.9 Diaphragmatic hernia without obstruction or gangrene; M19.041 Primary osteoarthritis, right hand; M19.042 Primary osteoarthritis, left hand; Z53.20 Procedure and treatment not carried out because of patient's decision for unspecified reasons; Z79.82 Long term (current) use of aspirin; Z79.899 Other long term (current) drug therapy; Z85.038 Personal history of other malignant neoplasm of large intestine; Z90.49 Acquired absence of other specified parts of digestive tract; Z87.19 Personal history of other diseases of the digestive system; Z87.891 Personal history of nicotine dependence; Z85.46 Personal history of malignant neoplasm of prostate; Z98.42 Cataract extraction status, left eye; Z98.41 Cataract extraction status, right eye; Z96.1 Presence of intraocular lens; Z86.69 Personal history of other diseases of the nervous system and sense organs; Z71.3 Dietary counseling and surveillance; Z98.890 Other specified postprocedural states; Z88.8 Allergy status to other drugs, medicaments and biological substances; Z80.42 Family history of malignant neoplasm of prostate; Z80.0 Family history of malignant neoplasm of digestive organs
CPT/HCPCS: 20220; 36415; 70553; 71260; 74177; 76700; 77012; 77280; 77290; 77307; 77334; 77336; 77412; 77417; 77427; 78306; 80048; 80053; 80074; 81001; 82378; 82550; 83735; 84153; 84154; 84484; 84550; 85025; 85027; 85610; 85730; 87086; 88307; 88311; 88341; 88342; 93005; 93970; 94640; 94760; 96361; 96374; 96375; 99285

== ENCOUNTER → 2020-08-05 | Outpatient (CLI) | payer MEDICARE ==
--- NOTE | 2020-08-08 14:03 | PE ---
Nuclear medicine PET/CT HISTORY: Left Lung cancer, C 34.1, initial Patient received 12.4 mCi F-18 FDG intravenously delayed scanning was performed from the skull base t o the mid thighs. Localization and attenuation correction CT scan was performed. Correlation to CT chest 07/07/2020, CT abdomen pelvis 07/06/2020. Chest and neck: Perihilar left upper lobe lung density shows associated hypermetabolic uptake, SUV 7. 2 subcentimeter left upper lobe lung nodule is present with associated hypermetabolic uptake of only 1.2. The epicardial node has increased in size compared to prior exam measuring on prior exam on the right 1.6 cm and now measuring approximately 4.2 cm, SUV, SUV 8.1. There is a right axillary node showing elevated uptake, SUV is 2.7. ABDOMEN: Uptake within the bowel may be physiologic. Osseous structures: Left ilium lesion shows lytic appearance with SUV 7.6, left acetabular lesion nicole ws SUV 7.5, right technetium shows marked lytic surgical lesion with uptake involving the posterior h ip joint, SUV is 8.8. Abnormal uptake also noted within the anterior fourth rib on the right, SUV 2.5 IMPRESSION: Metastatic disease.
== END | disposition home or self-care (01) ==
LOC: RADPETMAIN 11:45
PROVIDERS: ATTEND Internal Medicine Hematology & Oncology
DX: C34.92 Malignant neoplasm of unspecified part of left bronchus or lung (principal)
CPT/HCPCS: 78815; A9552